=== PATIENT | female | born 1940 | race Caucasian/White ===

== ENCOUNTER 2016-12-25 06:01 | Day surgery (SDC) | payer MEDICARE, BC ==
[~2016-12-25 06:01] MED LIST: Lactated Ringers 1,000 ML IV SCH
[2016-12-25] MEDS ORDERED: DIPRIVAN 200 MG/20 ML IV ONE (06:02)
[2016-12-25] MEDS ORDERED: Ketamine HCl 50 MG/ML IV ONE (06:02)
[2016-12-25] MEDS ORDERED: Lactated Ringers 1,000 ML IV ONE (07:36)
--- NOTE | 2016-12-25 08:04 | OP ---
SURGERY DATE/TIME: 12/25/2016704 PREOPERATIVE DIAGNOSIS: Rectal bleeding. POSTOPERATIVE DIAGNOSIS: Large rectal polyp. PROCEDURE: Colonoscopy. SURGEON: Zia Ferris M.D. ANESTHESIA: MAC by Teddy Brown CRNA. ESTIMATED BLOOD LOSS: Minimal. SPECIMENS: Hot snare polypectomy of large rectal polyp. DESCRIPTION OF PROCEDURE: After informed written consent was obtained, the patient was taken to the endoscopy suite. She underwent monitored anesthesia and a digital rectal exam showed normal sphincter tone. The scope was inserted into the rectum and sequentially the entire colonic mucosa was traversed. The level of cecum was reached and verified with direct visualization of ileocecal valve. Upon withdrawal careful mucosal inspection revealed no abnormalities until the level of the rectum was reached. There was a large polypoid lesion between 10 and 15 cm scope length just below the third valve of [place]. It was large but appeared to have a small base so snare was used to grasp the base. It was encircled and cauterized through and appeared to be adequately removed. It was retrieved in a polyp retrieval basket and removed and sent for pathology testing. The base appeared fairly clean. There was one area on the superior aspect which appeared to have some polypoid appearance so it was grasped with forceps, cauterized and removed from remaining piece of the base and appeared hemostatic with good removal. The rest of the mucosa in the area appeared to be within normal limits. Prior to withdrawal retroflexion was performed and showed no internal lesions. I have advised the patient follow up in a week for pathology results and to hold her Eliquis due to the size of this polyp to allow for healing for a few more days.
[2016-12-25 08:28] VITALS: O2SAT 97
[2016-12-25 08:43] VITALS: BP 159/90; PULSE 73
== END 2016-12-25 08:49 | disposition home or self-care (01) ==
LOC: SDC 06:01
PROVIDERS: ATTEND Family Medicine
PROC: 0DBP8ZX Excision of Rectum, Via Natural or Artificial Opening Endoscopic, Diagnostic (ICD-10-PCS; principal; 2016-12-25)
DX: K62.1 Rectal polyp (principal); K62.5 Hemorrhage of anus and rectum; E11.9 Type 2 diabetes mellitus without complications
CPT/HCPCS: 00810; 36415; 82962; 88305; 99100; J2704

== ENCOUNTER 2017-12-01 09:24 | Day surgery (SDC) | payer MEDICARE, BC ==
--- NOTE | 2017-12-01 08:37 | HP ---
DATE OF SURGERY: 12/01/2017 HISTORY OF PRESENT ILLNESS: The patient is a 77 year-old with no prior scope. No pain. No change in bowel movements. She did have prior colonoscopy. She had focal area of cancer and polyp and is in need of short-term follow up colonoscopy at this point. PAST MEDICAL HISTORY: Heart disease, diabetes. PAST SURGICAL HISTORY: Cholecystectomy, colonoscopy in the past. Removal of rectal polyp that had focal area of cancer and is in need of follow up colonoscopy. MEDICATIONS: She has been on Metformin, metoprolol, olmesartan, hydrochlorothiazide, Verapamil, Lantus in the past. Hydralazine, Humalog, Atorvastatin. ALLERGIES: NKDA. FAMILY HISTORY: Negative in regards to this problem. SOCIAL HISTORY: No smoking or alcohol abuse. REVIEW OF SYSTEMS: Twelve systems reviewed per admission assessment. No chest pain or palpitations other systems negative or noncontributory as above and per preadmission questionnaire. PHYSICAL EXAMINATION: GENERAL: No acute distress. HEENT: Sclerae nonicteric. NECK: No JVD. CHEST: Equal excursion, nonlabored breathing. CVS: Regular rate and rhythm. ABDOMEN: Soft. No peritoneal signs. EXTREMITIES: No significant edema. NEURO: Alert, oriented, moving extremities symmetrically. No gross motor deficits noted. RECTAL: Timed to endoscopy. IMPRESSION: History of rectal cancer focal area of carcinoma status post polypectomy in need of short term follow up colonoscopy. Risks and benefits explained in detail including but not limited to bleeding or infection, small risk of bowel injury or perforation possibly requiring open procedure, risk of missed or nondiagnosis or incomplete exam possibly requiring barium enema, other studies or procedures, general risk of anesthesia or sedation. She understands and agrees to the planned procedure and will proceed with outpatient follow up short-term colonoscopy given this high risk lesion.
[2017-12-01] MEDS ORDERED: Ketamine HCl 50 MG/ML IV ONE (09:25)
[2017-12-01] MEDS ORDERED: ROBINUL IV ONE (09:25)
[2017-12-01] MEDS ORDERED: DIPRIVAN 200 MG/20 ML IV ONE (09:25)
[2017-12-01] MEDS ORDERED: Lactated Ringers 1,000 ML IV ONE (10:04)
[2017-12-01 14:37] VITALS: O2SAT 96
[2017-12-01 14:43] VITALS: BP 187/70; PULSE 54
--- NOTE | 2017-12-01 14:54 | OP ---
SURGERY DATE/TIME: 12/01/2017 1137 PREOPERATIVE DIAGNOSIS: History of rectal polyp with focal area of carcinoma, need for short-term follow up colonoscopy. POSTOPERATIVE DIAGNOSES: 1) Rectal polyp. 2) Somewhat limited prep. 3) Additional small raised lesions versus hyperplastic lesion rectum x1 and ascending colon x1. PROCEDURES: 1) Colonoscopy to cecum with hot snare rectal polyp with ink spot tattooing of location (approximately 8 cm from anal verge). 2) Hot biopsy removal of small raised lesion ascending colon x1, hot biopsy removal of small raised lesion versus hyperplastic lesion rectum x1. SURGEON: Dr. Teddy Martin. ANESTHESIA: MAC. ESTIMATED BLOOD LOSS: Minimal. INDICATIONS: As noted above. Risks and benefits explained in detail but not limited to and consent obtained. DESCRIPTION OF PROCEDURE AND FINDINGS: The patient is taken to the endoscopy room. MAC anesthesia introduced. After official time out and no disagreement with planned procedure, a digital rectal exam did not reveal any large rectal masses. She did have some small internal and external hemorrhoids. Video colonoscope inserted and passed up through the tortuous sigmoid, descending, transverse and ascending colon. With external pressure the scope was able to be passed through the cecum. Appendiceal orifice and valve well visualized. Prep overall was somewhat limited. There were some areas clean throughout the colon but other areas had some semi-solid and solid stool suction irrigated as well as possible but limited exam. The scope is slowly and carefully withdrawn. There was a small raised lesion in ascending colon removed with hot biopsy forceps with brief bursts of cautery. Whether this is simple hyperplasia of mucosa or hyperplastic lesion was removed with hot biopsy forceps with brief bursts of cautery. Good hemostasis noted. The scope is slowly and carefully withdrawn. She did have diverticulosis. The scope pulled back to the rectum. The old ink spot tattooing that had been injected in the past has faded, difficult to tell exact location. However previous polypectomy site with new polyp reaction and the size about 3 to 4 mm. It was felt this would benefit from removal. It was felt the best option as this was not ideally pedunculated. It was elected to go ahead and inject saline underneath the lesion elevating upward. It was then grasped with snare. Hot snare polypectomy accomplished with brief bursts of cautery. Appeared to have good hemostasis. The specimen is passed off. There was another small raised lesion more distal of that location was about 8 cm from the anal verge. A small more distal raised lesion versus hyperplastic lesion removed with hot biopsy forceps. Good hemostasis noted. Otherwise polyp at the center is marked with ink spot tattoo location with 1 cc injected at a couple different locations. The patient tolerated the procedure well. There were no immediate complications. Appeared to have adequate hemostasis. Findings discussed with the family out in the waiting area. Otherwise she had some small internal and external hemorrhoids, had some diverticulosis. No signs of any large polyps or masses or obstructing lesions.
== END 2017-12-01 13:30 | disposition home or self-care (01) ==
LOC: SDC 09:24
PROVIDERS: ATTEND Surgery
DX: Z12.11 Encounter for screening for malignant neoplasm of colon (principal); K62.1 Rectal polyp; Z86.010 Personal history of colon polyps; Z85.048 Personal history of other malignant neoplasm of rectum, rectosigmoid junction, and anus; I51.9 Heart disease, unspecified; E11.9 Type 2 diabetes mellitus without complications; Z79.4 Long term (current) use of insulin; Z79.899 Other long term (current) drug therapy; K63.9 Disease of intestine, unspecified
CPT/HCPCS: 82962; 88305; 94250; 99100; J2704

== ENCOUNTER 2019-08-23 09:30 | Emergency (ER) | payer MEDICARE ==
--- NOTE | 2019-08-23 09:52 | ERPHSYRPT ---
- History of Present Illness Time Seen by Provider: 08/23/19 09:38 Historian: patient Patient Subjective Stated Complaint: Pt states "I have afib and it has felt like my heart has been racing but it is letting up now and I had pain this time and I have never had pain before. But that has all let up now as well." Triage Nursing Assessment: Pt presented alert and oriented X 3, skin pwd PT ambulates with an upright steady gait, able to speak in clear full sentences pt in no apprent respiratory distress. Physician History: Patient is an 79-year-old female with a history of A. fib on Eliquis presents to our ED with complaints of heart palpitations. Patient felt heart palpitations last night. Palpitations were associated with transient pain. Patient has a history of cardiac ablation for the atrial fibrillation. She is currently on Eliquis. However patient states that she is currently not experiencing any heart palpitations. Patient's pain is 0 out of 10 at this time. No associated nausea or vomiting. No diaphoresis. No trauma. No fevers. No syncope. No dizziness. Symptoms are currently resolved. However when present symptoms are mild to moderate in intensity. Patient believes heart palpitations occur with activity. Patient voices no other complaints at this time. Timing/Duration: yesterday Activities at Onset: activity Quality: aching Location: substernal Chest Pain Radiation: no radiation Severity of Pain-Max: mild Severity of Pain-Current: mild Modifying Factors: Improves With: nothing Associated Symptoms: No nausea, No vomiting, No heartburn, No abdominal pain, No shortness of breath, No cough, No hurts to breathe, No chills, No fever, No fatigue, No weakness, No syncope, No rash, No headache, No dizziness Prior Chest Pain/Cardiac Workup: echocardiography Nitro Today/Relief: no nitro taken today Aspirin Treatment Today: no aspirin today Allergies/Adverse Reactions: No Known Drug Allergies Allergy (Verified 12/01/17 09:50) Home Medications: Atorvastatin Calcium 40 mg PO DAILY 12/19/16 [History] Hydralazine HCl 10 mg PO BID 12/19/16 [History] Metformin HCl 500 mg PO BID 12/19/16 [History] Metoprolol Succinate 50 mg PO BID 12/19/16 [History] Olmesartan/Hydrochlorothiazide [Benicar Hct 40-25 mg Tablet] 1 each PO DAILY 02/25 [History] Verapamil HCl 80 mg [Calan 80 mg] 80 mg PO TID 12/19/16 [History] Ascorbic Acid 500 mg [Vitamin C 500 MG] 500 mg PO DAILY 11/17/17 [History] Calcium Carb, Citrate/Vit D3 [Calcium + D3 ER Tablet] 1 each PO DAILY 11/17/17 [ History] Insulin Glargine [Lantus Insulin] 40 unit SQ DAILY 11/17/17 [History] Insulin Lispro [Humalog Kwikpen U-100] 15 unit SQ UD 11/17/17 [History] Hx Tetanus, Diphtheria Vaccination/Date Given: No Hx Influenza Vaccination/Date Given: No Hx Pneumococcal Vaccination/Date Given: No Immunizations Up to Date: Yes Travel Risk - International Travel Have you traveled outside of the country in past 3 weeks: No Have you or anyone close to you been diagnosed with or: No Do your reside in a community with a known COVID-19 case?: Yes If Yes where:: [place] - Coronavirus Screening Has patient experienced Coronavirus symptoms: No - Review of Systems Constitutional: No Symptoms, No Fever, No Chills Eyes: No Symptoms Ears, Nose, & Throat: No Symptoms Respiratory: No Symptoms, No Cough, No Dyspnea Cardiac: Chest Pain, Palpitations, No Edema, No Syncope Abdominal/Gastrointestinal: No Symptoms, No Abdominal Pain, No Nausea, No Vomiting, No Diarrhea Genitourinary Symptoms: No Symptoms, No Dysuria Musculoskeletal: No Symptoms, No Back Pain, No Neck Pain Skin: No Symptoms, No Rash Neurological: No Symptoms, No Dizziness, No Focal Weakness, No Sensory Changes Psychological: No Symptoms Endocrine: No Symptoms Hematologic/Lymphatic: No Symptoms Immunological/Allergic: No Symptoms All Other Systems: Reviewed and Negative - Past Medical History Pertinent Past Medical History: Yes Neurological History: No Pertinent History ENT History: Cataracts Cardiac History: Arrhythmia, Hypertension Respiratory History: No Pertinent History Endocrine Medical History: Diabetes Type II Musculoskeletal History: Arthritis GI Medical History: Polyps History: No Pertinent History Psycho-Social History: No Pertinent History Female Reproductive Disorders: No Pertinent History Other Medical History: A-fib. cancerous colon polyp 2016 - Past Surgical History Past Surgical History: Yes Neuro Surgical History: No Pertinent History Cardiac: No Pertinent History, Cardiac Catheterization, Other Respiratory: No Pertinent History Gastrointestinal: Appendectomy, Cholecystectomy Genitourinary: No Pertinent History Musculoskeletal: Orthopedic Surgery Female Surgical History: Hysterectomy Other Surgical History: Cardiac ablation. right ankle tendon repair - Social History Smoking Status: Never smoker Exposure to second hand smoke: No Drug Use: none Patient Lives Alone: No - Nursing Vital Signs Nursing Vital Signs: Initial Vital Signs Temperature 97.7 F 08/23/19 09:31 Pulse Rate 108 H 08/23/19 09:31 Respiratory Rate 22 08/23/19 09:31 Blood Pressure 166/90 08/23/19 09:31 O2 Sat by Pulse Oximetry 98 08/23/19 09:31 Pain Scale Pain Intensity 1 - Physical Exam General Appearance: no apparent distress, alert Eye Exam: PERRL/EOMI, eyes nml inspection Ears, Nose, Throat Exam: normal ENT inspection, moist mucous membranes Neck Exam: normal inspection, non-tender, supple, full range of motion Respiratory Exam: normal breath sounds, lungs clear, No respiratory distress Cardiovascular Exam: regular rate/rhythm, normal heart sounds Gastrointestinal/Abdomen Exam: soft, No tenderness, No mass Pelvic Exam: not done Back Exam: normal inspection, No CVA tenderness, No vertebral tenderness Extremity Exam: normal inspection, normal range of motion Neurologic Exam: alert, oriented x 3, cooperative, normal mood/affect, sensation nml, No motor deficits Skin Exam: normal color, warm, dry Lymphatic Exam: adenopathy SpO2 Interpretation: normal SpO2: 98 O2 Delivery: Room Air - Course Nursing assessment & vital signs reviewed: Yes EKG Interpreted by Me: RATE, Sinus Rhythm, NORMAL AXIS, NORMAL QRS Ordered Tests: Active Orders 24 hr Category Date Time Status Retail Loss Prevention Investigator STAT Care 08/23/19 09:35 Active EKG-ER Only STAT Care 08/23/19 09:34 Active EKG-ER Only STAT Care 08/23/19 13:17 Active IV Insertion STAT Care 08/23/19 09:34 Active Pulse Oximetry (ED) STAT Care 08/23/19 09:34 Active CHEST 1 VIEW (PORTABLE) Stat Exams 08/23/19 09:34 Completed CBC W DIFF Stat Lab 08/23/19 09:34 Completed CMP Stat Lab 08/23/19 09:34 Completed NT PRO BNP Stat Lab 08/23/19 09:34 Completed PROTIME WITH INR Stat Lab 08/23/19 09:34 Completed PTT Stat Lab 08/23/19 09:34 Completed TROPONIN Q3H Lab 08/23/19 09:45 Completed TROPONIN Q3H Lab 08/23/19 12:34 Completed TROPONIN Q3H Lab 08/23/19 15:45 Ordered TROPONIN Q3H Lab 08/23/19 18:45 Ordered TROPONIN Q3H Lab 08/23/19 21:45 Ordered Medication Summary Discontinued Medications Generic Name Dose Route Start Last Admin Trade Name Freq PRN Reason Stop Dose Admin Sodium Chloride 1,000 mls @ 999 mls/hr 08/23/19 11:33 08/23/19 13:08 Sodium Chloride 0.9% 1000 Ml IV 08/23/19 12:33 Infused .Q1H1M STA Infusion Sodium Chloride Confirm 08/23/19 11:39 Sodium Chloride 0.9% 1000 Ml Administered 08/23/19 11:40 Dose 1,000 mls @ ud .ROUTE .STK-MED ONE Lab/Rad Data: Laboratory Result Diagrams 08/23/19 09:34 08/23/19 09:34 Laboratory Results 08/23/19 08/23/19 08/23/19 Range/Units 12:34 09:45 09:34 WBC (4.0-10.5) K/mm3 RBC (4.1-5.4) M/mm3 Hgb (12.0-16.0) gm/dl Hct (35-47) % MCV (78-100) fl MCH (26-32) pg MCHC (32-36) g/dl RDW (11.5-14.0) % Plt Count (150-450) K/mm3 MPV (7.5-11.0) fl Gran % (36.0-66.0) % Eos # (Auto) (0-0.5) Absolute Lymphs (auto) (1.0-4.6) Absolute Monos (auto) (0.0-1.3) Lymphocytes % (24.0-44.0) % Monocytes % (0.0-12.0) % Eosinophils % (0.00-5.0) % Basophils % (0.0-0.4) % Absolute Granulocytes (1.4-6.9) Basophils # (0-0.4) PT 12.3 (9.95-12.35) SECONDS INR 1.09 (0.8-3.0) APTT 38.2 H (25.3-37.0) SECONDS Sodium (137-145) mmol/L Potassium (3.5-5.1) mmol/L Chloride (98-107) mmol/L Carbon Dioxide (22-30) mmol/L Anion Gap (5-15) MEQ/L BUN (7-17) mg/dL Creatinine (0.52-1.04) mg/dL Estimated GFR ML/MIN Glucose (74-106) mg/dL Calcium (8.4-10.2) mg/dL Total Bilirubin (0.2-1.3) mg/dL AST (14-36) U/L ALT (0-35) U/L Alkaline Phosphatase (38-126) U/L Troponin I < 0.012 < 0.012 (0.000-0.034) ng/mL NT-Pro-B Natriuret Pep (0-1800) pg/mL Serum Total Protein (6.3-8.2) g/dL Albumin (3.5-5.0) g/dL 08/23/19 08/23/19 Range/Units 09:34 09:34 WBC 8.2 (4.0-10.5) K/mm3 RBC 4.68 (4.1-5.4) M/mm3 Hgb 13.9 (12.0-16.0) gm/dl Hct 41.9 (35-47) % MCV 89.5 (78-100) fl MCH 29.7 (26-32) pg MCHC 33.2 (32-36) g/dl RDW 14.1 H (11.5-14.0) % Plt Count 260 (150-450) K/mm3 MPV 10.4 (7.5-11.0) fl Gran % 68.7 H (36.0-66.0) % Eos # (Auto) 0.24 (0-0.5) Absolute Lymphs (auto) 1.89 (1.0-4.6) Absolute Monos (auto) 0.41 (0.0-1.3) Lymphocytes % 23.0 L (24.0-44.0) % Monocytes % 5.0 (0.0-12.0) % Eosinophils % 2.9 (0.00-5.0) % Basophils % 0.4 (0.0-0.4) % Absolute Granulocytes 5.64 (1.4-6.9) Basophils # 0.03 (0-0.4) PT (9.95-12.35) SECONDS INR (0.8-3.0) APTT (25.3-37.0) SECONDS Sodium 140 (137-145) mmol/L Potassium 3.7 (3.5-5.1) mmol/L Chloride 101 (98-107) mmol/L Carbon Dioxide 26 (22-30) mmol/L Anion Gap 16.4 H (5-15) MEQ/L BUN 10 (7-17) mg/dL Creatinine 0.52 (0.52-1.04) mg/dL Estimated GFR > 60.0 ML/MIN Glucose 252 H (74-106) mg/dL Calcium 9.9 (8.4-10.2) mg/dL Total Bilirubin 0.90 (0.2-1.3) mg/dL AST 22 (14-36) U/L ALT 17 (0-35) U/L Alkaline Phosphatase 140 H (38-126) U/L Troponin I (0.000-0.034) ng/mL NT-Pro-B Natriuret Pep 331 (0-1800) pg/mL Serum Total Protein 8.2 (6.3-8.2) g/dL Albumin 4.3 (3.5-5.0) g/dL - Progress Progress: improved Air Movement: good Progress Note: 08/23/19 13:44 Patient reassessed. She feels well. Patient has no complaints. Patient requesting discharge. Troponin negative x2. EKG shows no acutely dangerous features. Case discussed with Dr. Martinez. We will apply a 4-hour Holter monitor and have patient follow-up with Dr. Martinez. Plan of care discussed with patient. She understands and agrees to plan of care. Patient voices no other complaints or concerns at this time. Discussed with : Crystal Will see patient in: office Counseled pt/family regarding: lab results, diagnosis, need for follow-up, rad results - Departure Departure Disposition: Home Clinical Impression: Hyperglycemia, Calcified granuloma of lung, Osteopenia, Degenerative arthritis , Heart palpitations Condition: Stable Critical Care Time: No Referrals: MARTINEZ,JOSE YULISA, MD [Primary Care Provider] - Additional Instructions: Discharge/Care Plan JOSEPH WELLS was seen on 08/23/19 in the Emergency Room. The patient was counseled regarding Diagnosis,Lab results, Imaging studies, need for follow up and when to return to the Emergency Room. Prescriptions given: Discharge Note I have spoken with the patient and/or caregivers. I have explained the patient' s condition, diagnosis and treatment plan based on the information available to me at this time. I have answered the patient's and/or caregiver's questions and addressed any concerns. The patient and/or caregivers have as good understanding of the patient's diagnosis, condition and treatment plan as can be expected at this point. The vital signs have been stable. The patient's condition is stable and appropriate for discharge from the emergency department. The patient will pursue further outpatient evaluation with the primary care physician or other designated or consulting physician as outlined in the discharge instructions. The patient and/or caregivers are agreeable to this plan of care and follow-up instructions have been explained in detail. The patient and/or caregivers have received these instruction. The patient/and or caregivers are aware that any significant change in condition or worsening of symptoms should prompt an immediate return to this or the closest emergency department or call 911.
[2019-08-23 09:55] LABS: Absolute Neutrophil Ct (ANC) 5.64 (1.4-6.9); BASOPHIL % 0.4 % (0.0-0.4); Basophil (Absolute #) 0.03 (0-0.4); Eosinophil % 2.9 % (0.00-5.0); Eosinophil (Absolute #) 0.24 (0-0.5); Hematocrit 41.9 % (35-47); Hemoglobin 13.9 gm/dl (12.0-16.0); Lymphocyte (Absolute #) 1.89 (1.0-4.6); Mean Cell Volume 89.5 fl (78-100); Mean Corpuscular Hemoglobin 29.7 pg (26-32); Mean Corpuscular Hgb Concent. 33.2 g/dl (32-36); Mean Platelet Volume 10.4 fl (7.5-11.0); Monocyte (Absolute #) 0.41 (0.0-1.3); Neutrophil % 68.7 % (36.0-66.0); Platelet Count 260 K/mm3 (150-450); Red Blood Count 4.68 M/mm3 (4.1-5.4); Red Cell Distribution Width 14.1 % (11.5-14.0); White Blood Count 8.2 K/mm3 (4.0-10.5)
--- NOTE | 2019-08-23 10:03 | XRAY ---
Indication: Chest pain. Comparison: April 10, 2011. Portable chest slightly rotated with stable right midlung calcified granuloma. No focal infiltrate, consolidation, or large effusion. Heart is not enlarged for AP portable technique. Bony thorax intact with mild osteopenia and degenerative changes. Impression: Nonacute chest with chronic features.
[2019-08-23 10:06] LABS: INR 1.09 (0.8-3.0); PROTIME 12.3 SECONDS (9.95-12.35)
[2019-08-23 10:08] LABS: PTT 38.2 SECONDS (25.3-37.0)
[2019-08-23 10:21] LABS: ALBUMIN 4.3 g/dL (3.5-5.0); ALKALINE PHOSPHATASE 140 U/L (38-126); ANION GAP 16.4 MEQ/L (5-15); BLOOD UREA NITROGEN 10 mg/dL (7-17); CHLORIDE 101 mmol/L (98-107); Calcium 9.9 mg/dL (8.4-10.2); Carbon Dioxide 26 mmol/L (22-30); Creatinine 1 0.52 mg/dL (0.52-1.04); Glucose 252 mg/dL (74-106); NT PRO BNP 331 pg/mL (0-1800); Potassium 3.7 mmol/L (3.5-5.1); SGOT/AST 22 U/L (14-36); SGPT/ALT 17 U/L (0-35); SODIUM 140 mmol/L (137-145); Total Protein 8.2 g/dL (6.3-8.2)
[2019-08-23] MEDS ORDERED: Sodium Chloride 0.9% 1000 ML 1,000 ML IV STA (11:33)
[2019-08-23] MEDS ORDERED: Sodium Chloride 0.9% 1000 ML 1,000 ML ONE (11:39)
[2019-08-23 14:05] VITALS: BP 178/95; PULSE 87; O2SAT 97
== END 2019-08-23 14:07 | disposition home or self-care (01) ==
LOC: ED 09:30
DX: E11.65 Type 2 diabetes mellitus with hyperglycemia (principal); J98.4 Other disorders of lung; M85.80 Other specified disorders of bone density and structure, unspecified site; R00.2 Palpitations; I10 Essential (primary) hypertension; Z79.01 Long term (current) use of anticoagulants; M19.90 Unspecified osteoarthritis, unspecified site; Z79.899 Other long term (current) drug therapy; Z79.4 Long term (current) use of insulin; R07.89 Other chest pain
CPT/HCPCS: 36000; 36415; 71045; 80053; 83880; 84484; 85025; 85610; 85730; 93005; 93041; 94760; 96360; 99284

== ENCOUNTER 2021-04-29 16:57 | Emergency (ER) | payer MEDICARE ==
[2021-04-29] MEDS ORDERED: Hydromorphone 1 mg/ml Injection ONE (17:48)
[2021-04-29] MEDS ORDERED: Sodium Chloride 0.9% 1000 ML 1,000 ML ONE (17:48)
[2021-04-29] MEDS ORDERED: Zofran 4 MG/2 ML VIAL ONE (17:48)
[2021-04-29] MEDS: Sodium Chloride 0.9% 1000 ML 1,000 ML IV SCH (17:49)
[2021-04-29] MEDS: Zofran 4 MG/2 ML VIAL IV ONE (17:51)
[2021-04-29] MEDS: Hydromorphone 1 mg/ml Injection IV ONE (17:52)
[2021-04-29 17:59] LABS: Appearance SLIGHTLY CLOUDY (CLEAR); Bacteria MODERATE /HPF (NEGATIVE); Bilirubin NEGATIVE (NEGATIVE); Blood NEGATIVE Ery/ul (0-5); Epithelial Cells RARE /HPF (FEW); Glucose >=500 mg/dL (NEGATIVE); Ketones NEGATIVE (NEGATIVE); Leukocyte Esterase TRACE (NEGATIVE); Mucus SLIGHT /HPF (NEGATIVE); Nitrite NEGATIVE (NEGATIVE); Protein,Urine Dip NEGATIVE (Negative); RBC 0-2 /HPF (0-2); Urobilinogen NEGATIVE mg/dL (0-1)
[2021-04-29 18:33] LABS: INR 1.25 (0.8-3.0); PROTIME 14.7 SECONDS (9.4-12.5)
[2021-04-29 18:34] LABS: Absolute Neutrophil Ct (ANC) 9.24 (1.4-6.9); BASOPHIL % 0.1 % (0.0-0.4); Basophil (Absolute #) 0.01 (0-0.4); Eosinophil (Absolute #) 0.48 (0-0.5); Hematocrit 38.6 % (35-47); Hemoglobin 12.7 gm/dl (12.0-16.0); Lymphocytes % 13.2 % (24.0-44.0); Mean Cell Volume 89.1 fl (78-100); Mean Corpuscular Hemoglobin 29.3 pg (26-32); Mean Corpuscular Hgb Concent. 32.9 g/dl (32-36); Mean Platelet Volume 10.3 fl (7.5-11.0); Monocyte (Absolute #) 0.77 (0.0-1.3); Monocytes % 6.4 % (0.0-12.0); Neutrophil % 76.3 % (36.0-66.0); Platelet Count 297 K/mm3 (150-450); Red Blood Count 4.33 M/mm3 (4.1-5.4); Red Cell Distribution Width 13.8 % (11.5-14.0); White Blood Count 12.1 K/mm3 (4.0-10.5)
[2021-04-29 18:37] LABS: ALBUMIN 3.9 g/dL (3.5-5.0); ALKALINE PHOSPHATASE 143 U/L (38-126); AMYLASE 45 U/L (30-110); ANION GAP 13.5 MEQ/L (5-15); BLOOD UREA NITROGEN 14 mg/dL (7-17); CHLORIDE 95 mmol/L (98-107); Calcium 9.6 mg/dL (8.4-10.2); Carbon Dioxide 28 mmol/L (22-30); Creatinine 1 0.57 mg/dL (0.52-1.04); EST GLOMERULAR FILTRATION RATE > 60.0 ML/MIN; Glucose 297 mg/dL (74-106); LIPASE 18 U/L (23-300); Potassium 4.1 mmol/L (3.5-5.1); SGOT/AST 17 U/L (14-36); SGPT/ALT 14 U/L (0-35); SODIUM 133 mmol/L (137-145)
--- NOTE | 2021-04-29 18:40 | ERPHSYRPT ---
- History of Present Illness Time Seen by Provider: 04/29/21 17:10 Historian: patient Exam Limitations: no limitations Patient Subjective Stated Complaint: Pt began having right flank pain yesterday evening Triage Nursing Assessment: Pt brought to the ER by her son, jose roberto cho, rates pain 12/19, right flank pain began yesterday evening, denies pain with urination, pain with movement, pulses normal, skin n/w/d, decreased appetite today and decreased fluids Physician History: Patient is a 81-year-old white female who started yesterday evening with pain in the right flank with any movement. She denies nausea vomiting diarrhea no fever chills sweats she denies any change in urination. She has had previous surgery including an appendectomy and a cholecystectomy. Timing/Duration: yesterday Activities at Onset: none Quality: stabbing Abdominal Pain Onset Location: flank (Right flank) Severity of Pain-Max: moderate Severity of Pain-Current: moderate Modifying Factors: Improves With: movement Previous symptoms: no prior history Allergies/Adverse Reactions: No Known Drug Allergies Allergy (Verified 04/29/21 17:10) Home Medications: Atorvastatin Calcium 40 mg PO DAILY 12/19/16 [History] Hydralazine HCl 10 mg PO BID 12/19/16 [History] Metformin HCl 1,000 mg PO DAILY 12/19/16 [History] Metoprolol Succinate 50 mg PO BID 12/19/16 [History] Olmesartan/Hydrochlorothiazide [Benicar Hct 40-25 mg Tablet] 1 each PO DAILY 12/19/16 [History] Verapamil HCl 80 mg [Calan 80 mg] 80 mg PO TID 12/19/16 [History] Ascorbic Acid 500 mg [Vitamin C 500 MG] 500 mg PO DAILY 11/17/17 [History] Calcium Carb, Citrate/Vit D3 [Calcium + D3 ER Tablet] 1 each PO DAILY 11/17/17 [History] Insulin Glargine [Lantus Insulin] 40 unit SQ DAILY 11/17/17 [History] Insulin Lispro [Humalog Kwikpen U-100] 15 unit SQ UD 11/17/17 [History] Hx Tetanus, Diphtheria Vaccination/Date Given: No Hx Influenza Vaccination/Date Given: No Hx Pneumococcal Vaccination/Date Given: No Travel Risk - International Travel Have you traveled outside of the country in past 3 weeks: No - Coronavirus Screening Are you exhibiting any of the following symptoms?: No Close contact with a COVID-19 positive Pt in past 14-21 Days: No - Vaccine Status Have you recieved a Covid-19 vaccination: No - Review of Systems Constitutional: No Fever, No Chills Eyes: No Symptoms Ears, Nose, & Throat: No Symptoms Respiratory: No Cough, No Dyspnea Cardiac: No Chest Pain, No Edema, No Syncope Abdominal/Gastrointestinal: Abdominal Pain (Patient has pain in the right flank and right lower quadrant of the abdomen), No Nausea, No Vomiting, No Diarrhea Genitourinary Symptoms: No Dysuria Musculoskeletal: No Back Pain, No Neck Pain Skin: No Rash Neurological: No Dizziness, No Focal Weakness, No Sensory Changes Psychological: No Symptoms Endocrine: No Symptoms All Other Systems: Reviewed and Negative - Past Medical History Pertinent Past Medical History: Yes Neurological History: No Pertinent History ENT History: Cataracts Cardiac History: Arrhythmia, Hypertension Respiratory History: No Pertinent History Endocrine Medical History: Diabetes Type II Musculoskeletal History: Arthritis GI Medical History: Polyps History: No Pertinent History Psycho-Social History: No Pertinent History Female Reproductive Disorders: No Pertinent History Other Medical History: A-fib. cancerous colon polyp 2016 - Past Surgical History Past Surgical History: Yes Neuro Surgical History: No Pertinent History Cardiac: No Pertinent History, Cardiac Catheterization, Other Respiratory: No Pertinent History Gastrointestinal: Appendectomy, Cholecystectomy Genitourinary: No Pertinent History Musculoskeletal: Orthopedic Surgery Female Surgical History: Hysterectomy Other Surgical History: Cardiac ablation. right ankle tendon repair - Social History Smoking Status: Never smoker Exposure to second hand smoke: No Drug Use: none Patient Lives Alone: No - Female History Hx Now: No - Nursing Vital Signs Nursing Vital Signs: Initial Vital Signs Temperature 97.3 F 04/29/21 17:00 Pulse Rate 74 04/29/21 17:00 Blood Pressure 105/73 04/29/21 17:00 O2 Sat by Pulse Oximetry 95 04/29/21 17:00 Pain Scale Pain Intensity 8 - Physical Exam General Appearance: mild distress, alert Eye Exam: PERRL/EOMI, eyes nml inspection Ears, Nose, Throat Exam: normal ENT inspection, pharynx normal, moist mucous me mbranes Neck Exam: normal inspection, non-tender, supple, full range of motion Respiratory Exam: normal breath sounds, lungs clear, No respiratory distress Cardiovascular Exam: regular rate/rhythm, normal heart sounds Gastrointestinal/Abdomen Exam: soft, tenderness (Right flank), No mass Back Exam: normal inspection, normal range of motion, No CVA tenderness, No vertebral tenderness Extremity Exam: normal inspection, normal range of motion, pelvis stable Neurologic Exam: alert, oriented x 3, cooperative, normal mood/affect, nml cerebellar function, sensation nml, No motor deficits Skin Exam: normal color, warm, dry SpO2 Interpretation: normal SpO2: 95 O2 Delivery: Room Air - Course Nursing assessment & vital signs reviewed: Yes - Radiology Exams Chest X-ray Interpretation: Reviewed by me, Other (No acute findings were noted except perhaps a questionable nodule in the right midlung field) - CT Exams Abdomen/Pelvis CT Interpretation: Tele-radiologist Report Ordered Tests: Active Orders 24 hr Category Date Time Status IV Insertion STAT Care 04/29/21 17:25 Active ABDOMEN AND PELVIS W/0 CONTRAS [CT] Stat Exams 04/29/21 17:26 Taken CHEST 1 VIEW (PORTABLE) Stat Exams 04/29/21 17:26 Taken AMYLASE Stat Lab 04/29/21 18:00 Completed CBC W DIFF Stat Lab 04/29/21 18:00 Completed CMP Stat Lab 04/29/21 18:00 Completed CULTURE,URINE Stat Lab 04/29/21 17:31 Received LIPASE Stat Lab 04/29/21 18:00 Completed Lactic Acid Stat Lab 04/29/21 17:25 Completed PROTIME WITH INR Stat Lab 04/29/21 18:00 Completed UA W/RFX UR CULTURE Stat Lab 04/29/21 17:31 Completed Medication Summary Generic Name Dose Route Start Last Admin Trade Name Freq PRN Reason Stop Dose Admin Sodium Chloride 1,000 mls @ 100 mls/hr 04/29/21 17:30 04/29/21 17:49 Sodium Chloride 0.9% 1000 Ml IV 05/29/21 17:29 100 mls/hr .Q10H YANY Administration Discontinued Medications Generic Name Dose Route Start Last Admin Trade Name Freq PRN Reason Stop Dose Admin Hydromorphone HCl 0.5 mg 04/29/21 17:25 04/29/21 17:52 Hydromorphone 1 Mg/1ml Inj 1 Mg/Ml Syringe IV 04/29/21 17:26 0.5 mg STAT ONE Administration Hydromorphone HCl Confirm 04/29/21 17:48 Hydromorphone 1 Mg/1ml Inj 1 Mg/Ml Syringe Administered 04/29/21 17:49 Dose 1 mg .ROUTE .STK-MED ONE Ondansetron HCl 4 mg 04/29/21 17:25 04/29/21 17:51 Ondansetron Hcl 4 Mg/2 Ml Vial IV 04/29/21 17:26 4 mg STAT ONE Administration Ondansetron HCl Confirm 04/29/21 17:48 Ondansetron Hcl 4 Mg/2 Ml Vial Administered 04/29/21 17:49 Dose 4 mg .ROUTE .STK-MED ONE Lab/Rad Data: Laboratory Result Diagrams 04/29/21 18:00 04/29/21 18:00 Laboratory Results 04/29/21 04/29/21 04/29/21 Range/Units 18:00 18:00 18:00 WBC 12.1 H (4.0-10.5) K/mm3 RBC 4.33 (4.1-5.4) M/mm3 Hgb 12.7 (12.0-16.0) gm/dl Hct 38.6 (35-47) % MCV 89.1 (78-100) fl MCH 29.3 (26-32) pg MCHC 32.9 (32-36) g/dl RDW 13.8 (11.5-14.0) % Plt Count 297 (150-450) K/mm3 MPV 10.3 (7.5-11.0) fl Gran % 76.3 H (36.0-66.0) % Eos # (Auto) 0.48 (0-0.5) Absolute Lymphs (auto) 1.60 (1.0-4.6) Absolute Monos (auto) 0.77 (0.0-1.3) Lymphocytes % 13.2 L (24.0-44.0) % Monocytes % 6.4 (0.0-12.0) % Eosinophils % 4.0 (0.00-5.0) % Basophils % 0.1 (0.0-0.4) % Absolute Granulocytes 9.24 H (1.4-6.9) Basophils # 0.01 (0-0.4) PT 14.7 H (9.4-12.5) SECONDS INR 1.25 (0.8-3.0) Sodium 133 L (137-145) mmol/L Potassium 4.1 (3.5-5.1) mmol/L Chloride 95 L (98-107) mmol/L Carbon Dioxide 28 (22-30) mmol/L Anion Gap 13.5 (5-15) MEQ/L BUN 14 (7-17) mg/dL Creatinine 0.57 (0.52-1.04) mg/dL Estimated GFR > 60.0 ML/MIN Glucose 297 H (74-106) mg/dL Lactic Acid (0.4-2.0) Calcium 9.6 (8.4-10.2) mg/dL Total Bilirubin 0.70 (0.2-1.3) mg/dL AST 17 (14-36) U/L ALT 14 (0-35) U/L Alkaline Phosphatase 143 H (38-126) U/L Serum Total Protein 7.0 (6.3-8.2) g/dL Albumin 3.9 (3.5-5.0) g/dL Amylase 45 (30-110) U/L Lipase 18 L (23-300) U/L Urine Color (YELLOW) Urine Appearance (CLEAR) Urine pH (5-6) Ur Specific [place] (1.005-1.025) Urine Protein (Negative) Urine Ketones (NEGATIVE) Urine Blood (0-5) Chase/ul Urine Nitrite (NEGATIVE) Urine Bilirubin (NEGATIVE) Urine Urobilinogen (0-1) mg/dL Ur Leukocyte Esterase (NEGATIVE) Urine WBC (Auto) (0-5) /HPF Urine RBC (Auto) (0-2) /HPF U Epithel Cells (Auto) (FEW) /HPF Urine Bacteria (Auto) (NEGATIVE) /HPF Urine Mucus (Auto) (NEGATIVE) /HPF Urine Culture Reflexed (NO) Urine Glucose (NEGATIVE) mg/dL 04/29/21 04/29/21 Range/Units 17:31 17:25 WBC (4.0-10.5) K/mm3 RBC (4.1-5.4) M/mm3 Hgb (12.0-16.0) gm/dl Hct (35-47) % MCV (78-100) fl MCH (26-32) pg MCHC (32-36) g/dl RDW (11.5-14.0) % Plt Count (150-450) K/mm3 MPV (7.5-11.0) fl Gran % (36.0-66.0) % Eos # (Auto) (0-0.5) Absolute Lymphs (auto) (1.0-4.6) Absolute Monos (auto) (0.0-1.3) Lymphocytes % (24.0-44.0) % Monocytes % (0.0-12.0) % Eosinophils % (0.00-5.0) % Basophils % (0.0-0.4) % Absolute Granulocytes (1.4-6.9) Basophils # (0-0.4) PT (9.4-12.5) SECONDS INR (0.8-3.0) Sodium (137-145) mmol/L Potassium (3.5-5.1) mmol/L Chloride (98-107) mmol/L Carbon Dioxide (22-30) mmol/L Anion Gap (5-15) MEQ/L BUN (7-17) mg/dL Creatinine (0.52-1.04) mg/dL Estimated GFR ML/MIN Glucose (74-106) mg/dL Lactic Acid 2.0 (0.4-2.0) Calcium (8.4-10.2) mg/dL Total Bilirubin (0.2-1.3) mg/dL AST (14-36) U/L ALT (0-35) U/L Alkaline Phosphatase (38-126) U/L Serum Total Protein (6.3-8.2) g/dL Albumin (3.5-5.0) g/dL Amylase (30-110) U/L Lipase (23-300) U/L Urine Color YELLOW (YELLOW) Urine Appearance SLIGHTLY CLOUDY (CLEAR) Urine pH 6.0 (5-6) Ur Specific [place] 1.010 (1.005-1.025) Urine Protein NEGATIVE (Negative) Urine Ketones NEGATIVE (NEGATIVE) Urine Blood NEGATIVE (0-5) Chase/ul Urine Nitrite NEGATIVE (NEGATIVE) Urine Bilirubin NEGATIVE (NEGATIVE) Urine Urobilinogen NEGATIVE (0-1) mg/dL Ur Leukocyte Esterase TRACE (NEGATIVE) Urine WBC (Auto) 6-10 (0-5) /HPF Urine RBC (Auto) 0-2 (0-2) /HPF U Epithel Cells (Auto) RARE (FEW) /HPF Urine Bacteria (Auto) MODERATE (NEGATIVE) /HPF Urine Mucus (Auto) SLIGHT (NEGATIVE) /HPF Urine Culture Reflexed YES (NO) Urine Glucose >=500 (NEGATIVE) mg/dL - Progress Progress: unchanged - Departure Departure Disposition: Home Clinical Impression: Urinary tract infection Condition: Stable Critical Care Time: No Referrals: JOSE MARTINEZ MD [Primary Care Provider] - Follow up/PCP as directed Instructions: Urinary Tract Infection, Adult (DC) Prescriptions: Hydrocodone/Acetaminophen [Hydrocodone-Acetamin 5-325 mg] 1 tab PO Q6HPRN PRN 3 Days #12 tablet MDD 4 PRN Reason: Pain Cephalexin Mh 500 mg [Keflex 500 mg] 500 mg PO QID #40 cap
[2021-04-29 19:13] VITALS: PULSE 60
[2021-04-29 20:45] VITALS: BP 154/67; O2SAT 96
[2021-04-29] MEDS ORDERED: KEFLEX 500 MG ONE (20:49)
[2021-04-29] MEDS ORDERED: NORCO 5/325 MG ONE (20:50)
[2021-04-29] MEDS: NORCO 5/325 MG PO ONE (20:51)
[2021-04-29] MEDS: KEFLEX 500 MG PO ONE (20:53)
--- NOTE | 2021-04-30 08:50 | XRAY ---
Indication: Right abdomen pain. Multiple contiguous axial images obtained through the abdomen and pelvis without contrast. Comparison: January 03, 2017 Lung bases demonstrates mild bilateral dependent atelectasis. No infiltrate or effusion.. Heart is not enlarged. Again small hiatal hernia. Noncontrasted stomach and bowel loops appear nonobstructed. Stable small duodenal diverticulum. There is now mild diffuse fecal debris predominantly in the ascending and transverse colon. Scattered descending/sigmoid diverticulosis. Stable small left mid renal angiomyolipoma. Again previous reported appendectomy, cholecystectomy, and hysterectomy. No free fluid/air.. Remaining liver, pancreas, spleen, adrenal glands, kidneys, ureters, and bladder are unremarkable for noncontrast exam. There remains moderate scattered aortoiliac calcifications without AAA.. Osseous structures intact again with incidental osteopenia, mild degenerative changes throughout the thoracal lumbar spine, multilevel vertebral hemangiomas, and benign T12 sclerotic lesion. Impression: 1. New mild fecal stasis. 2. Again incidental duodenal diverticulum, colonic diverticulosis, small hiatal hernia, left renal angiomyolipoma, and chronic bony findings. 3. Remaining CT abdomen/pelvis without contrast exam is negative. Comment: Preliminary interpretation made by [facility]. No critical discrepancy.
--- NOTE | 2021-04-30 08:50 | XRAY ---
Indication: Pain. Comparison: August 23, 2019. Portable apical lordotic chest remains clear again with incidental right mid lung calcified granuloma. Heart not enlarged for AP portable technique. Bony thorax intact again with osteopenia and degenerative changes. No new/acute findings.
== END 2021-04-29 21:03 | disposition home or self-care (01) ==
LOC: ED 16:57
DX: N39.0 Urinary tract infection, site not specified (principal); E11.36 Type 2 diabetes mellitus with diabetic cataract; H26.9 Unspecified cataract; Z79.4 Long term (current) use of insulin; Z79.84 Long term (current) use of oral hypoglycemic drugs; I10 Essential (primary) hypertension; Z79.891 Long term (current) use of opiate analgesic
CPT/HCPCS: 36000; 36415; 71045; 74176; 80053; 81001; 82150; 83605; 83690; 85025; 85610; 87077; 87086; 87186; 96374; 96375; 99284; J1170; J2405; A9270-GY

== ENCOUNTER 2021-10-18 15:18 | Observation (INO) | payer MEDICARE ==
[2021-10-18] MEDS ORDERED: SUBLIMAZE 100 MCG/2 ML IV ONE (16:02)
[2021-10-18] MEDS ORDERED: Zofran 4 MG/2 ML VIAL IV ONE (16:02)
[2021-10-18] MEDS ORDERED: Zofran 4 MG/2 ML VIAL ONE (16:13)
[2021-10-18] MEDS ORDERED: SUBLIMAZE 100 MCG/2 ML ONE (16:13)
--- NOTE | 2021-10-18 16:18 | ERPHSYRPT ---
- History of Present Illness Time Seen by Provider: 10/18/21 15:34 Source: patient Exam Limitations: no limitations Patient Subjective Stated Complaint: C/O right upper arm pain after a fall at home. Patient states she tripped over a rug at home. She did hit her head/face. Nose was bleeding after the fall. Denies any pain anywhere else. Triage Nursing Assessment: Patient arrived by ambulance to ED. She is alert and oriented and answering questions appropriately. Left knee is swollen and starting to bruise. Pedal pulse present. Patient able to move LLE WNL without difficulties. Right upper arm with decreased mobility noted due to pain. Radial pulse present. CMS check to right fingers WNL. Movement of patient wrist increased pain in right bicep area so any further ROM of RUE was not completed for fear of exacerbating the injury. Physician History: 81 years old female with history of hypertension, hyperlipidemia, diabetes mellitus, atrial fibrillation on Eliquis presented in ER with chief complaint of fall. Patient reports she was caring for groceries and home and tripped over a piece of rug, bent face forward hitting her left knee, right elbow and face. No loss of consciousness but did have some nasal bleed which is improved. Denies any headache moderate to severe sharp pain in the right upper arm radiating to her neck and left knee with swelling making it difficult to ambulate. Occurred: just prior to arrival Reason for Fall: tripped Injuries/Pain Location: face, upper extremity, lower Loss of Consciousness: no loss of consciousness Quality: sharpness Severity of Pain-Max: moderate Severity of Pain-Current: moderate Modifying Factors: Improves With: immobilization. Worsens With: movement Associated Symptoms (Fall): extremity injury, trouble walking, No abdominal pain, No back pain, No confusion, No chest pain, No dizziness, No headache, No lightheadedness, No muscle spasms, No nausea, No neck pain, No ringing in ears, No seizures, No shortness of breath, No slurred speech, No vomiting, No vision changes Allergies/Adverse Reactions: No Known Drug Allergies Allergy (Verified 10/18/21 15:21) Home Medications: Atorvastatin Calcium 40 mg PO DAILY 12/19/16 [History] Hydralazine HCl 10 mg PO BID 12/19/16 [History] Metformin HCl 1,000 mg PO DAILY 12/19/16 [History] Metoprolol Succinate 25 mg PO BID 12/19/16 [History] Olmesartan/Hydrochlorothiazide [Benicar Hct 40-25 mg Tablet] 1 each PO DAILY 12/19/16 [History] Verapamil HCl 80 mg [Calan 80 mg] 80 mg PO TID 12/19/16 [History] Ascorbic Acid 500 mg [Vitamin C 500 MG] 500 mg PO DAILY 11/17/17 [History] Calcium Carb, Citrate/Vit D3 [Calcium + D3 ER Tablet] 1 each PO DAILY 11/17/17 [History] Insulin Glargine [Lantus Insulin] 40 unit SQ DAILY 11/17/17 [History] Insulin Lispro [Humalog Kwikpen U-100] 15 unit SQ UD 11/17/17 [History] Hx Tetanus, Diphtheria Vaccination/Date Given: Yes Hx Influenza Vaccination/Date Given: No Hx Pneumococcal Vaccination/Date Given: Yes (Within the past 3 years) Immunizations Up to Date: Yes Travel Risk - International Travel Have you traveled outside of the country in past 3 weeks: No - Coronavirus Screening Are you exhibiting any of the following symptoms?: No Close contact with a COVID-19 positive Pt in past 14-21 Days: No - Vaccine Status Have you recieved a Covid-19 vaccination: No - Review of Systems Constitutional: No Symptoms Eyes: No Symptoms Ears, Nose, & Throat: Epistaxis Respiratory: No Symptoms Cardiac: No Symptoms Abdominal/Gastrointestinal: No Symptoms Genitourinary Symptoms: No Symptoms Musculoskeletal: Fall, Injury, Joint Pain, Joint Swelling Skin: No Symptoms Neurological: No Symptoms Psychological: No Symptoms Endocrine: No Symptoms Hematologic/Lymphatic: No Symptoms Immunological/Allergic: No Symptoms - Past Medical History Pertinent Past Medical History: Yes Neurological History: No Pertinent History ENT History: Cataracts Cardiac History: Arrhythmia, Hypertension Respiratory History: No Pertinent History Endocrine Medical History: Diabetes Type II Musculoskeletal History: Arthritis GI Medical History: Polyps History: No Pertinent History Psycho-Social History: No Pertinent History Female Reproductive Disorders: No Pertinent History Other Medical History: A-fib. colon polyp 2016 - Past Surgical History Past Surgical History: Yes Neuro Surgical History: No Pertinent History Cardiac: No Pertinent History, Cardiac Catheterization, Other Respiratory: No Pertinent History Gastrointestinal: Appendectomy, Cholecystectomy Genitourinary: No Pertinent History Musculoskeletal: Orthopedic Surgery Female Surgical History: Hysterectomy Other Surgical History: Cardiac ablation. right ankle tendon repair - Social History Smoking Status: Never smoker Exposure to second hand smoke: No Drug Use: none Patient Lives Alone: No - Nursing Vital Signs Nursing Vital Signs: Initial Vital Signs Temperature 97.9 F 10/18/21 15:22 Pulse Rate 64 10/18/21 15:22 Respiratory Rate 19 10/18/21 15:22 Blood Pressure 199/91 10/18/21 15:22 O2 Sat by Pulse Oximetry 93 L 10/18/21 15:22 Pain Scale Pain Intensity 8 - Liz Coma Score Best Eye Response (Liz): (4) open spontaneously Best Verbal Response ([place]): (5) oriented Best Motor Response ([place]): (6) obeys commands [place] Total: 15 - Physical Exam General Appearance: no apparent distress, alert Head Injury: no evidence of injury Eye Exam: PERRL/EOMI, eyes nml inspection ENT Exam: airway nml, evidence of ENT injury (Dried dried blood right nares. Minimal nasal tenderness. No crepitus.) Neck Exam: supple, trachea midline, full range of motion, normal alignment, normal inspection Respiratory/Chest Exam: normal breath sounds, No chest tenderness, No respiratory distress Cardiovascular Exam: normal heart sounds, regular rate/rhythm Gastrointestinal Exam: soft, normal bowel sounds, No tenderness Back Exam: normal inspection, normal range of motion Extremity Exam: normal range of motion, joint swelling (Left knee with limited range of motion), limited range of motion (Right shoulder and elbow with diffuse tenderness along right humerus.), bony point tenderness, evidence of injury, pain with movement (Right shoulder/elbow/left knee), No hip tenderness Neurologic Exam: alert, oriented x 3, cooperative, muffle worker II-XII nml as tested, normal mood/affect, sensation nml, No motor deficits Skin Exam: normal color SpO2 Interpretation: normal SpO2: 93 O2 Delivery: Room Air Ordered Tests: Active Orders 24 hr Category Date Time Status CERVICAL SPINE WO CONTRAST [CT] Stat Exams 10/18/21 16:00 Completed CHEST 1 VIEW (PORTABLE) Stat Exams 10/18/21 16:01 Taken ELBOW (MINIMUM 3 VIEWS) Stat Exams 10/18/21 Taken FACIAL BONES WO CONTRAST [CT] Stat Exams 10/18/21 16:00 Completed HEAD WITHOUT CONTRAST [CT] Stat Exams 10/18/21 16:00 Completed HUMERUS Stat Exams 10/18/21 Taken KNEE (3 VIEWS) Stat Exams 10/18/21 17:35 Taken CBC W DIFF Stat Lab 10/18/21 18:50 Completed CMP Stat Lab 10/18/21 18:50 Completed UA W/RFX CULTURE Stat Lab 10/18/21 18:30 Completed Medication Summary Discontinued Medications Generic Name Dose Route Start Last Admin Trade Name Elisabeth PRN Reason Stop Dose Admin Apixaban 2.5 mg 10/18/21 19:32 10/18/21 19:46 Apixaban 2.5 Mg Tablet PO 10/18/21 19:33 2.5 mg STAT ONE Administration Fentanyl Citrate 50 mcg 10/18/21 16:02 10/18/21 16:15 Fentanyl Citrate 100 Mcg/2 Ml* Vial IV 10/18/21 16:03 50 mcg STAT ONE Administration Fentanyl Citrate Confirm 10/18/21 16:13 Fentanyl Citrate 100 Mcg/2 Ml* Vial Administered 10/18/21 16:14 Dose 100 mcg .ROUTE .STK-MED ONE Hydralazine HCl 10 mg 10/18/21 19:33 10/18/21 19:46 Hydralazine Hcl 25 Mg Tablet PO 10/18/21 19:34 10 mg STAT ONE Administration Metoprolol Succinate 25 mg 10/18/21 19:33 10/18/21 19:45 Metoprolol Succinate 50 Mg Tablet.Sa PO 10/18/21 19:34 25 mg STAT ONE Administration Morphine Sulfate 4 mg 10/18/21 17:31 10/18/21 17:35 Morphine Sulfate 4 Mg/Ml Injection IV 10/18/21 17:32 4 mg STAT ONE Administration Morphine Sulfate Confirm 10/18/21 17:34 Morphine Sulfate 4 Mg/Ml Injection Administered 10/18/21 17:35 Dose 4 mg .ROUTE .STK-MED ONE Ondansetron HCl 4 mg 10/18/21 16:02 10/18/21 16:15 Ondansetron Hcl 4 Mg/2 Ml Vial IV 10/18/21 16:03 4 mg STAT ONE Administration Ondansetron HCl Confirm 10/18/21 16:13 Ondansetron Hcl 4 Mg/2 Ml Vial Administered 10/18/21 16:14 Dose 4 mg .ROUTE .STK-MED ONE Verapamil HCl 80 mg 10/18/21 19:33 10/18/21 19:46 Verapamil Hcl 80 Mg Tablet PO 10/18/21 19:34 80 mg STAT ONE Administration Lab/Rad Data: Laboratory Result Diagrams 10/18/21 18:50 10/18/21 18:50 Laboratory Results 10/18/21 10/18/21 10/18/21 Range/Units 18:50 18:50 18:50 WBC 19.5 H (4.0-10.5) x10^3/uL RBC 4.38 (4.1-5.4) x10^6/uL Hgb 13.0 (12.0-16.0) g/dL Hct 39.2 (35-47) % MCV 89.5 (78-100) fL MCH 29.7 (26-32) pg MCHC 33.2 (32-36) g/dL RDW 13.1 (11.5-14.0) % Plt Count 289 (150-450) x10^3/uL MPV 9.9 (7.5-11.0) fL Gran % 90.1 H (36.0-66.0) % Immature Gran % (Auto) 0.8 H (0.00-0.4) % Nucleat RBC Rel Count 0.0 (0.00-0.1) % Eos # (Auto) 0.05 (0-0.5) x10^3/uL Immature Gran # (Auto) 0.15 H (0.00-0.03) x10^3u/L Absolute Lymphs (auto) 1.07 (1.0-4.6) x10^3/uL Absolute Monos (auto) 0.56 (0.0-1.3) x10^3/uL Absolute Nucleated RBC 0.00 (0.00-0.01) x10^3u/L Lymphocytes % 5.5 L (24.0-44.0) % Monocytes % 2.9 (0.0-12.0) % Eosinophils % 0.3 (0.00-5.0) % Basophils % 0.4 (0.0-0.4) % Absolute Granulocytes 17.59 H (1.4-6.9) x10^3/uL Basophils # 0.07 (0-0.4) x10^3/uL Sodium 134 L (137-145) mmol/L Potassium 3.3 L (3.5-5.1) mmol/L Chloride 96 L (98-107) mmol/L Carbon Dioxide 29 (22-30) mmol/L Anion Gap 12.9 (5-15) MEQ/L BUN 12 (7-17) mg/dL Creatinine 0.51 L (0.52-1.04) mg/dL Estimated GFR > 60.0 ML/MIN Glucose 99 (74-106) mg/dL Calcium 9.6 (8.4-10.2) mg/dL Total Bilirubin 0.60 (0.2-1.3) mg/dL AST 32 (14-36) U/L ALT 25 (0-35) U/L Alkaline Phosphatase 140 H (38-126) U/L Serum Total Protein 7.9 (6.3-8.2) g/dL Albumin 4.2 (3.5-5.0) g/dL Urinalys Dipstick Clnc Urine Color (YELLOW) Urine Appearance (CLEAR) Urine pH (5-6) Ur Specific [place] (1.005-1.025) POC Urine Protein Conf (Negative) Urine Ketones (NEGATIVE) Urine Nitrite (NEGATIVE) Urine Bilirubin (NEGATIVE) Urine Urobilinogen (0-1) mg/dL Urine Leukocytes (NEGATIVE) Urine WBC (Auto) (0-5) /HPF Urine RBC (Auto) (0-2) /HPF U Epithel Cells (Auto) (FEW) /HPF Urine Bacteria (Auto) (NEGATIVE) /HPF Urine RBC (0-5) Chase/ul Urine Mucus (Auto) (NEGATIVE) /HPF Ur Culture Indicated? Urine Glucose (NEGATIVE) mg/dL Influenza Type A Ag NEGATIVE (NEGATIVE) Influenza Type B Ag NEGATIVE (NEGATIVE) RSV (PCR) NEGATIVE (Negative) SARS-CoV-2 (PCR) NEGATIVE (NEGATIVE) 10/18/21 Range/Units 18:30 WBC (4.0-10.5) x10^3/uL RBC (4.1-5.4) x10^6/uL Hgb (12.0-16.0) g/dL Hct (35-47) % MCV (78-100) fL MCH (26-32) pg MCHC (32-36) g/dL RDW (11.5-14.0) % Plt Count (150-450) x10^3/uL MPV (7.5-11.0) fL Gran % (36.0-66.0) % Immature Gran % (Auto) (0.00-0.4) % Nucleat RBC Rel Count (0.00-0.1) % Eos # (Auto) (0-0.5) x10^3/uL Immature Gran # (Auto) (0.00-0.03) x10^3u/L Absolute Lymphs (auto) (1.0-4.6) x10^3/uL Absolute Monos (auto) (0.0-1.3) x10^3/uL Absolute Nucleated RBC (0.00-0.01) x10^3u/L Lymphocytes % (24.0-44.0) % Monocytes % (0.0-12.0) % Eosinophils % (0.00-5.0) % Basophils % (0.0-0.4) % Absolute Granulocytes (1.4-6.9) x10^3/uL Basophils # (0-0.4) x10^3/uL Sodium (137-145) mmol/L Potassium (3.5-5.1) mmol/L Chloride (98-107) mmol/L Carbon Dioxide (22-30) mmol/L Anion Gap (5-15) MEQ/L BUN (7-17) mg/dL Creatinine (0.52-1.04) mg/dL Estimated GFR ML/MIN Glucose (74-106) mg/dL Calcium (8.4-10.2) mg/dL Total Bilirubin (0.2-1.3) mg/dL AST (14-36) U/L ALT (0-35) U/L Alkaline Phosphatase (38-126) U/L Serum Total Protein (6.3-8.2) g/dL Albumin (3.5-5.0) g/dL Urinalys Dipstick Clnc MAIN LAB Urine Color YELLOW (YELLOW) Urine Appearance CLEAR (CLEAR) Urine pH 7.0 (5-6) Ur Specific [place] 1.025 (1.005-1.025) POC Urine Protein Conf NEGATIVE (Negative) Urine Ketones NEGATIVE (NEGATIVE) Urine Nitrite NEGATIVE (NEGATIVE) Urine Bilirubin NEGATIVE (NEGATIVE) Urine Urobilinogen 0.2 (0-1) mg/dL Urine Leukocytes NEGATIVE (NEGATIVE) Urine WBC (Auto) 0-2 (0-5) /HPF Urine RBC (Auto) NONE (0-2) /HPF U Epithel Cells (Auto) RARE (FEW) /HPF Urine Bacteria (Auto) NONE (NEGATIVE) /HPF Urine RBC NEGATIVE (0-5) Chase/ul Urine Mucus (Auto) SLIGHT (NEGATIVE) /HPF Ur Culture Indicated? NO Urine Glucose NEGATIVE (NEGATIVE) mg/dL Influenza Type A Ag (NEGATIVE) Influenza Type B Ag (NEGATIVE) RSV (PCR) (Negative) SARS-CoV-2 (PCR) (NEGATIVE) - Progress Progress: improved, pain not gone completely, re-examined Progress Note: 10/18/21 19:55 81 years old is evaluated for mechanical fall. CT head cervical spine/facial bones negative for any acute trauma. Chest does have humeral head fracture, placed in a sling. Patient also has contusion of the left knee and is unable to hold any weight. Jose Luis wrap applied. Given symptomatic treatment for pain multiple times. Patient lives alone and is having difficulty ambulation, pain control. Discussed with Dr. Baig who recommended discussion with orthopedic surgery and I have discussed with Dr. Longoria with recommendation for continuing sling and outpatient bone and joint clinic follow-up. Baseline labs are obtained, has elevated white count without any obvious focus of infection which probably is reactive. We will continue to monitor. Discussed with Dr. Baig again and patient is admitted for observation. Discussed with : Patience, Other ( orthopedic surgery) Will see patient in: hospital (observation) Counseled pt/family regarding: lab results, diagnosis, rad results - Departure Departure Disposition: Observation Clinical Impression: Fall, Humeral head fracture, Contusion of nose, Knee contusion Condition: Stable Critical Care Time: No Referrals: JOSE MARTINEZ MD [Primary Care Provider] - Follow up/PCP as directed
--- NOTE | 2021-10-18 17:10 | XRAY ---
Indication: Status post fall. Multiple contiguous axial images obtained through the head without contrast. Comparison: None Age-appropriate global atrophy and mild periventricular degenerative micro-ischemia bilaterally. No acute intracranial hemorrhage, abnormal extra-axial fluid collection, or mass effect. Fourth ventricle is midline without hydrocephalus. Bony calvarium intact. Mild mucoperiosteal thickening of all visualized paranasal sinuses. Mastoid air cells are clear. Impression: Nonacute senile brain. Incidental chronic pansinusitis.
--- NOTE | 2021-10-18 17:14 | XRAY ---
Indication: Status post fall. Multiple contiguous axial images obtained through the facial bones. Sagittal and coronal reformatted images obtained. Comparison: None A few bilateral dental amalgams produces beam artifact. Osseous structures demineralized consistent with patient's age. No acute fracture, suspicious bony lesions, or radiopaque foreign body. Orbits including roots, becerril, floors intact. Mild mucoperiosteal thickening of all visualized paranasal sinuses. Nasal passages are clear. Mild nasal septal deviation to the right. Bilateral cataract surgery. Remaining visualized noncontrasted soft tissues unremarkable. CT head and CT cervical spine reported separately. Impression: 1. Chronic pansinusitis, osteopenia, and nasoseptal deviation. 2. Remaining CT facial bones exam is negative.
--- NOTE | 2021-10-18 17:16 | XRAY ---
Indication: Status post fall. Multiple contiguous axial images obtained through the cervical spine. Sagittal and coronal reformatted images obtained. Comparison: None Osseous structures demineralized consistent with patient's age. Axial images negative for acute fracture, suspicious bony lesions, or spinal canal stenosis. Mild C4-T1 degenerative endplate spurring and mild multilevel bilateral degenerative facet hypertrophy. Also mild atlantoaxial degenerative changes. Sagittal and coronal reformatted images demonstrates normal alignment with C4-C7 disc space narrowing. No acute compression fracture, subluxation, or jumped facet. Normal appearing craniocervical junction. Visualized noncontrasted soft tissues demonstrates heterogeneous thyromegaly and mild diffuse scattered arteriosclerotic calcifications including both carotid arteries. Centimeter/subcentimeter cervical and submandibular lymph nodes bilaterally. Lung apices are clear. CT head and CT facial bones reported separately. Impression: 1. Negative acute fracture/subluxation. 2. Osteopenia and multilevel degenerative changes. 3. Heterogeneous thyromegaly. Outpatient sonogram may yield further information if clinically warranted.
[2021-10-18] MEDS ORDERED: MORPHINE SULFATE 4 MG INJ IV ONE (17:31)
[2021-10-18] MEDS ORDERED: MORPHINE SULFATE 4 MG INJ ONE (17:34)
[2021-10-18 18:35] LABS: Appearance CLEAR (CLEAR)
[2021-10-18 18:36] LABS: Bilirubin NEGATIVE (NEGATIVE); Dipstick done @ ? MAIN LAB; Glucose NEGATIVE (NEGATIVE); Ketones NEGATIVE (NEGATIVE); Nitrite NEGATIVE (NEGATIVE); Protein,Urine Dip NEGATIVE (Negative); RBC NEGATIVE Ery/ul (0-5); Specific Gravity 1.025 (1.005-1.025); Urobilinogen 0.2 mg/dL (0-1)
[2021-10-18 18:38] LABS: Epithelial Cells RARE /HPF (FEW); Mucus SLIGHT /HPF (NEGATIVE); WBC 0-2 /HPF (0-5)
[2021-10-18 18:39] LABS: Urine Cultured Indicated? NO
[2021-10-18 19:03] LABS: Absolute Neutrophil Ct (ANC) 17.59 x10^3/uL (1.4-6.9); Basophil (Absolute #) 0.07 x10^3/uL (0-0.4); Eosinophil % 0.3 % (0.00-5.0); Eosinophil (Absolute #) 0.05 x10^3/uL (0-0.5); Hematocrit 39.2 % (35-47); Lymphocyte (Absolute #) 1.07 x10^3/uL (1.0-4.6); Lymphocytes % 5.5 % (24.0-44.0); Mean Cell Volume 89.5 fL (78-100); Mean Corpuscular Hemoglobin 29.7 pg (26-32); Mean Corpuscular Hgb Concent. 33.2 g/dL (32-36); Mean Platelet Volume 9.9 fL (7.5-11.0); Monocyte (Absolute #) 0.56 x10^3/uL (0.0-1.3); Monocytes % 2.9 % (0.0-12.0); Neutrophil % 90.1 % (36.0-66.0); Platelet Count 289 x10^3/uL (150-450); Red Blood Count 4.38 x10^6/uL (4.1-5.4); Red Cell Distribution Width 13.1 % (11.5-14.0); White Blood Count 19.5 x10^3/uL (4.0-10.5)
[2021-10-18 19:12] LABS: ALBUMIN 4.2 g/dL (3.5-5.0); ALKALINE PHOSPHATASE 140 U/L (38-126); ANION GAP 12.9 MEQ/L (5-15); BLOOD UREA NITROGEN 12 mg/dL (7-17); CHLORIDE 96 mmol/L (98-107); Calcium 9.6 mg/dL (8.4-10.2); Carbon Dioxide 29 mmol/L (22-30); Creatinine 1 0.51 mg/dL (0.52-1.04); EST GLOMERULAR FILTRATION RATE > 60.0 ML/MIN; Glucose 99 mg/dL (74-106); Potassium 3.3 mmol/L (3.5-5.1); SGOT/AST 32 U/L (14-36); SGPT/ALT 25 U/L (0-35); SODIUM 134 mmol/L (137-145); Total Protein 7.9 g/dL (6.3-8.2)
[2021-10-18] MEDS ORDERED: ELIQUIS 2.5 MG TABLET PO ONE (19:32)
[2021-10-18 19:33] LABS: INFLUENZA A NEGATIVE (NEGATIVE); INFLUENZA B NEGATIVE (NEGATIVE); RESPIRATORY SYNCTIAL VIRUS NEGATIVE (Negative); SARS-CoV-2 Xpert Express NEGATIVE (NEGATIVE)
[2021-10-18] MEDS ORDERED: Toprol Xl 50 MG PO ONE (19:33)
[2021-10-18] MEDS ORDERED: CALAN 80 MG PO ONE (19:33)
[2021-10-18] MEDS ORDERED: Apresoline 25 MG TABLET PO ONE (19:33)
[2021-10-18] MEDS ORDERED: Zofran 4 MG/2 ML VIAL IV PRN (20:13)
[2021-10-18] MEDS ORDERED: DUONEB 0.5-3 MG/3 ml Neb IH PRN (20:13)
[2021-10-18] MEDS ORDERED: TYLENOL 325 MG PO PRN (20:13)
[2021-10-18] MEDS ORDERED: HUMALOG SQ PRN (20:13)
[2021-10-18] MEDS: MORPHINE SULFATE 2 MG INJ IV PRN (21:21)
[2021-10-18] MEDS ORDERED: Lantus Insulin SQ ONE (22:00)
[2021-10-19] MEDS: MORPHINE SULFATE 2 MG INJ IV PRN ×3 (01:15→10:25)
[2021-10-19 06:53] LABS: Absolute Neutrophil Ct (ANC) 10.66 x10^3/uL (1.4-6.9); Basophil (Absolute #) 0.07 x10^3/uL (0-0.4); Eosinophil % 1.4 % (0.00-5.0); Eosinophil (Absolute #) 0.18 x10^3/uL (0-0.5); Hematocrit 34.9 % (35-47); Hemoglobin 11.6 g/dL (12.0-16.0); Lymphocyte (Absolute #) 1.26 x10^3/uL (1.0-4.6); Lymphocytes % 9.7 % (24.0-44.0); Mean Cell Volume 88.4 fL (78-100); Mean Corpuscular Hemoglobin 29.4 pg (26-32); Mean Corpuscular Hgb Concent. 33.2 g/dL (32-36); Mean Platelet Volume 9.9 fL (7.5-11.0); Monocyte (Absolute #) 0.75 x10^3/uL (0.0-1.3); Monocytes % 5.8 % (0.0-12.0); Platelet Count 265 x10^3/uL (150-450); Red Blood Count 3.95 x10^6/uL (4.1-5.4); Red Cell Distribution Width 13.2 % (11.5-14.0)
[2021-10-19 07:21] LABS: ALBUMIN 3.5 g/dL (3.5-5.0); ALKALINE PHOSPHATASE 101 U/L (38-126); ANION GAP 10.5 MEQ/L (5-15); BLOOD UREA NITROGEN 13 mg/dL (7-17); CHLORIDE 95 mmol/L (98-107); Carbon Dioxide 30 mmol/L (22-30); Creatinine 1 0.57 mg/dL (0.52-1.04); EST GLOMERULAR FILTRATION RATE > 60.0 ML/MIN; Glucose 136 mg/dL (74-106); Potassium 4.1 mmol/L (3.5-5.1); SGOT/AST 25 U/L (14-36); SGPT/ALT 20 U/L (0-35); SODIUM 131 mmol/L (137-145); Total Protein 6.8 g/dL (6.3-8.2)
[2021-10-19 07:23] VITALS: BP 171/73; PULSE 81; O2SAT 91
--- NOTE | 2021-10-19 08:44 | XRAY ---
Indication: Pain following fall. Comparison: None 2 view right humerus demonstrates nondisplaced comminuted humeral head/neck fracture with displaced lateral fracture fragment. Incidental osteopenia, mild acromioclavicular degenerative arthropathy, and mild degenerative changes throughout visualized spine. No other bony, articular, or soft tissue abnormalities.
--- NOTE | 2021-10-19 08:44 | XRAY ---
Indication: Status post fall. Comparison: April 29, 2021. Portable apical lordotic chest remains clear with again incidental right lung calcified granuloma. Heart not enlarged. Bony thorax intact again with osteopenia and degenerative changes. New right humeral neck fracture reported separately.
--- NOTE | 2021-10-19 08:46 | XRAY ---
Indication: Pain following fall. Comparison: None 3 view right elbow limited due to suboptimal positioning. Osteopenia and 5 mm posterior soft tissue calcified granuloma. No other bony, articular, or soft tissue abnormalities.
--- NOTE | 2021-10-19 09:07 | XRAY ---
Indication: Pain following fall. Comparison: None 3 view left knee demonstrates osteopenia, minimal medial/mild lateral knee degenerative changes, anterior soft tissue swelling/hematoma, small effusion, minimal vascular calcifications, and tiny soft tissue calcified granulomas. No other bony, articular, or soft tissue abnormalities.
--- NOTE | 2021-10-19 09:18 | PCM.SSS ---
History of Present Illness - Chief Complaint Chief Complaint: fall History of Present Illness: is a 81 year old female who tripped over a rug carrying groceries and injured her right upper arm in a fall, found to have humeral head fracture. Dr Chang consulted from ER and advised no operative intervention, patient has some pain but able to ambulate, feeding herself breakfast, she feels comfortable returning home, has a granddaughter who lives with her and other children close that are in frequently to help her. - Review of Systems Constitutional: No Fever, No Chills Respiratory: No Cough, No Short Of Breath Cardiac: No Chest Pain, No Edema, No Syncope Abdominal/Gastrointestinal: No Abdominal Pain, No Nausea, No Vomiting, No Diarrhea Musculoskeletal: Fall, Injury, Joint Pain All Other Systems: Reviewed and Negative Medications & Allergies Home Medications: Home Medication List Atorvastatin Calcium 40 mg PO DAILY 12/19/16 [History Confirmed 10/18/21] Hydralazine HCl 10 mg PO BID 12/19/16 [History Confirmed 10/18/21] Metformin HCl 1,000 mg PO DAILY 12/19/16 [History Confirmed 10/18/21] Metoprolol Succinate 25 mg PO BID 12/19/16 [History Confirmed 10/18/21] Olmesartan/Hydrochlorothiazide [Benicar Hct 40-25 mg Tablet] 1 each PO DAILY 12/19/16 [History Confirmed 10/18/21] Verapamil HCl 80 mg [Calan 80 mg] 80 mg PO TID 12/19/16 [History Confirmed 10/18/21] Ascorbic Acid 500 mg [Vitamin C 500 MG] 500 mg PO DAILY 11/17/17 [History Confirmed 10/18/21] Calcium Carb, Citrate/Vit D3 [Calcium + D3 ER Tablet] 1 each PO DAILY 11/17/17 [History Confirmed 10/18/21] Insulin Glargine [Lantus Insulin] 40 unit SQ QHS 11/17/17 [History Confirmed 10/18/21] Insulin Lispro [Humalog Kwikpen U-100] 15 unit SQ UD 11/17/17 [History Confirmed 10/18/21] Apixaban [Eliquis 5 mg Tablet] 2.5 mg PO BID #0 12/01/17 [Rx Confirmed 10/18/21] Hydrocodone/Acetaminophen [Hydrocodone-Acetamin 5-325 mg] 1 tab PO Q6HPRN PRN #28 tablet MDD 4 10/19/21 [Rx] Allergies/Adverse Reactions: Allergies Allergy/AdvReac Type Severity Reaction Status Date / Time No Known Drug Allergies Allergy Verified 10/18/21 15:21 - Past Medical History Past Medical History: Yes Neurological History: Peripheral Neuropathy ENT History: Cataracts Cardiac History: Arrhythmia, Hypertension Respiratory History: No Pertinent History Endocrine Medical History: Diabetes Type II Musculoskelatal History: No Pertinent History GI Medical History: Gallbladder Disease, Polyps History: No Pertinent History Pyscho-Social History: No Pertinent History Reproductive Disorders: No Pertinent History Comment: A-fib. colon polyp 2017 - Female History Are you now?: No - Past Surgical History Past Surgical History: Yes Neuro Surgical History: No Pertinent History Cardiac History: Cardiac Catheterization, Other Respiratory Surgery: No Pertinent History GI Surgical History: Appendectomy, Cholecystectomy Genitourinary Surgical Hx: No Pertinent History Musculskeletal Surgical Hx: Orthopedic Surgery Female Surgical History: Hysterectomy Other Surgical History: Cardiac ablation. right ankle tendon repair - Social History Smoking Status: Never smoker Exposure to second hand smoke: No Alcohol: None Drug Use: none - Physical Exam Vital Signs: Vital Signs - 24 hr Temp Pulse Resp BP BP Pulse Ox 10/19/21 07:22 98.7 F 81 18 171/73 91 L 10/19/21 04:00 98.7 F 79 18 190/74 94 L 10/18/21 23:20 97.4 F 68 18 165/79 94 L 10/18/21 20:32 97.6 F 71 18 223/88 97 10/18/21 19:57 93 L 10/18/21 19:05 71 186/86 92 L 10/18/21 18:07 69 171/118 96 10/18/21 17:00 70 17 182/114 95 10/18/21 16:19 70 19 190/75 93 L 10/18/21 15:22 97.9 F 64 19 199/91 93 L General Appearance: no apparent distress Neurologic Exam: alert, oriented x 3 Respiratory Exam: normal breath sounds, lungs clear, No respiratory distress Cardiovascular Exam: regular rate/rhythm, normal heart sounds, normal peripheral pulses Gastrointestinal/Abdomen Exam: soft, normal bowel sounds, No tenderness, No mass Extremity Exam: other (right arm in sling, painful with movement) Skin Exam: normal color, warm, dry, No rash Results - Labs Lab/Micro Results: Lab Results-Last 24 Hours 10/18/21 10/18/21 10/18/21 Range/Units 18:30 18:50 18:50 WBC 19.5 H (4.0-10.5) x10^3/uL RBC 4.38 (4.1-5.4) x10^6/uL Hgb 13.0 (12.0-16.0) g/dL Hct 39.2 (35-47) % MCV 89.5 (78-100) fL MCH 29.7 (26-32) pg MCHC 33.2 (32-36) g/dL RDW 13.1 (11.5-14.0) % Plt Count 289 (150-450) x10^3/uL MPV 9.9 (7.5-11.0) fL Gran % 90.1 H (36.0-66.0) % Immature Gran % (Auto) 0.8 H (0.00-0.4) % Nucleat RBC Rel Count 0.0 (0.00-0.1) % Eos # (Auto) 0.05 (0-0.5) x10^3/uL Immature Gran # (Auto) 0.15 H (0.00-0.03) x10^3u/L Absolute Lymphs (auto) 1.07 (1.0-4.6) x10^3/uL Absolute Monos (auto) 0.56 (0.0-1.3) x10^3/uL Absolute Nucleated RBC 0.00 (0.00-0.01) x10^3u/L Lymphocytes % 5.5 L (24.0-44.0) % Monocytes % 2.9 (0.0-12.0) % Eosinophils % 0.3 (0.00-5.0) % Basophils % 0.4 (0.0-0.4) % Absolute Granulocytes 17.59 H (1.4-6.9) x10^3/uL Basophils # 0.07 (0-0.4) x10^3/uL Sodium 134 L (137-145) mmol/L Potassium 3.3 L (3.5-5.1) mmol/L Chloride 96 L (98-107) mmol/L Carbon Dioxide 29 (22-30) mmol/L Anion Gap 12.9 (5-15) MEQ/L BUN 12 (7-17) mg/dL Creatinine 0.51 L (0.52-1.04) mg/dL Estimated GFR > 60.0 ML/MIN Glucose 99 (74-106) mg/dL POC Glucometer (74 to 106) mg/dL Calcium 9.6 (8.4-10.2) mg/dL Total Bilirubin 0.60 (0.2-1.3) mg/dL AST 32 (14-36) U/L ALT 25 (0-35) U/L Alkaline Phosphatase 140 H (38-126) U/L Serum Total Protein 7.9 (6.3-8.2) g/dL Albumin 4.2 (3.5-5.0) g/dL Urinalys Dipstick Clnc MAIN LAB Urine Color YELLOW (YELLOW) Urine Appearance CLEAR (CLEAR) Urine pH 7.0 (5-6) Ur Specific [place] 1.025 (1.005-1.025) POC Urine Protein Conf NEGATIVE (Negative) Urine Ketones NEGATIVE (NEGATIVE) Urine Nitrite NEGATIVE (NEGATIVE) Urine Bilirubin NEGATIVE (NEGATIVE) Urine Urobilinogen 0.2 (0-1) mg/dL Urine Leukocytes NEGATIVE (NEGATIVE) Urine WBC (Auto) 0-2 (0-5) /HPF Urine RBC (Auto) NONE (0-2) /HPF U Epithel Cells (Auto) RARE (FEW) /HPF Urine Bacteria (Auto) NONE (NEGATIVE) /HPF Urine RBC NEGATIVE (0-5) Chase/ul Urine Mucus (Auto) SLIGHT (NEGATIVE) /HPF Ur Culture Indicated? NO Urine Glucose NEGATIVE (NEGATIVE) mg/dL Influenza Type A Ag (NEGATIVE) Influenza Type B Ag (NEGATIVE) RSV (PCR) (Negative) SARS-CoV-2 (PCR) (NEGATIVE) 10/18/21 10/18/21 10/19/21 Range/Units 18:50 21:20 06:30 WBC 13.0 H (4.0-10.5) x10^3/uL RBC 3.95 L (4.1-5.4) x10^6/uL Hgb 11.6 L (12.0-16.0) g/dL Hct 34.9 L (35-47) % MCV 88.4 (78-100) fL MCH 29.4 (26-32) pg MCHC 33.2 (32-36) g/dL RDW 13.2 (11.5-14.0) % Plt Count 265 (150-450) x10^3/uL MPV 9.9 (7.5-11.0) fL Gran % 82.0 H (36.0-66.0) % Immature Gran % (Auto) 0.6 H (0.00-0.4) % Nucleat RBC Rel Count 0.0 (0.00-0.1) % Eos # (Auto) 0.18 (0-0.5) x10^3/uL Immature Gran # (Auto) 0.08 H (0.00-0.03) x10^3u/L Absolute Lymphs (auto) 1.26 (1.0-4.6) x10^3/uL Absolute Monos (auto) 0.75 (0.0-1.3) x10^3/uL Absolute Nucleated RBC 0.00 (0.00-0.01) x10^3u/L Lymphocytes % 9.7 L (24.0-44.0) % Monocytes % 5.8 (0.0-12.0) % Eosinophils % 1.4 (0.00-5.0) % Basophils % 0.5 (0.0-0.4) % Absolute Granulocytes 10.66 H (1.4-6.9) x10^3/uL Basophils # 0.07 (0-0.4) x10^3/uL Sodium (137-145) mmol/L Potassium (3.5-5.1) mmol/L Chloride (98-107) mmol/L Carbon Dioxide (22-30) mmol/L Anion Gap (5-15) MEQ/L BUN (7-17) mg/dL Creatinine (0.52-1.04) mg/dL Estimated GFR ML/MIN Glucose (74-106) mg/dL POC Glucometer 132 H (74 to 106) mg/dL Calcium (8.4-10.2) mg/dL Total Bilirubin (0.2-1.3) mg/dL AST (14-36) U/L ALT (0-35) U/L Alkaline Phosphatase (38-126) U/L Serum Total Protein (6.3-8.2) g/dL Albumin (3.5-5.0) g/dL Urinalys Dipstick Clnc Urine Color (YELLOW) Urine Appearance (CLEAR) Urine pH (5-6) Ur Specific [place] (1.005-1.025) POC Urine Protein Conf (Negative) Urine Ketones (NEGATIVE) Urine Nitrite (NEGATIVE) Urine Bilirubin (NEGATIVE) Urine Urobilinogen (0-1) mg/dL Urine Leukocytes (NEGATIVE) Urine WBC (Auto) (0-5) /HPF Urine RBC (Auto) (0-2) /HPF U Epithel Cells (Auto) (FEW) /HPF Urine Bacteria (Auto) (NEGATIVE) /HPF Urine RBC (0-5) Chase/ul Urine Mucus (Auto) (NEGATIVE) /HPF Ur Culture Indicated? Urine Glucose (NEGATIVE) mg/dL Influenza Type A Ag NEGATIVE (NEGATIVE) Influenza Type B Ag NEGATIVE (NEGATIVE) RSV (PCR) NEGATIVE (Negative) SARS-CoV-2 (PCR) NEGATIVE (NEGATIVE) 10/19/21 10/19/21 Range/Units 06:30 07:07 WBC (4.0-10.5) x10^3/uL RBC (4.1-5.4) x10^6/uL Hgb (12.0-16.0) g/dL Hct (35-47) % MCV (78-100) fL MCH (26-32) pg MCHC (32-36) g/dL RDW (11.5-14.0) % Plt Count (150-450) x10^3/uL MPV (7.5-11.0) fL Gran % (36.0-66.0) % Immature Gran % (Auto) (0.00-0.4) % Nucleat RBC Rel Count (0.00-0.1) % Eos # (Auto) (0-0.5) x10^3/uL Immature Gran # (Auto) (0.00-0.03) x10^3u/L Absolute Lymphs (auto) (1.0-4.6) x10^3/uL Absolute Monos (auto) (0.0-1.3) x10^3/uL Absolute Nucleated RBC (0.00-0.01) x10^3u/L Lymphocytes % (24.0-44.0) % Monocytes % (0.0-12.0) % Eosinophils % (0.00-5.0) % Basophils % (0.0-0.4) % Absolute Granulocytes (1.4-6.9) x10^3/uL Basophils # (0-0.4) x10^3/uL Sodium 131 L (137-145) mmol/L Potassium 4.1 D (3.5-5.1) mmol/L Chloride 95 L (98-107) mmol/L Carbon Dioxide 30 (22-30) mmol/L Anion Gap 10.5 (5-15) MEQ/L BUN 13 (7-17) mg/dL Creatinine 0.57 (0.52-1.04) mg/dL Estimated GFR > 60.0 ML/MIN Glucose 136 H (74-106) mg/dL POC Glucometer 122 H (74 to 106) mg/dL Calcium 9.0 (8.4-10.2) mg/dL Total Bilirubin 0.80 (0.2-1.3) mg/dL AST 25 (14-36) U/L ALT 20 (0-35) U/L Alkaline Phosphatase 101 (38-126) U/L Serum Total Protein 6.8 (6.3-8.2) g/dL Albumin 3.5 (3.5-5.0) g/dL Urinalys Dipstick Clnc Urine Color (YELLOW) Urine Appearance (CLEAR) Urine pH (5-6) Ur Specific [place] (1.005-1.025) POC Urine Protein Conf (Negative) Urine Ketones (NEGATIVE) Urine Nitrite (NEGATIVE) Urine Bilirubin (NEGATIVE) Urine Urobilinogen (0-1) mg/dL Urine Leukocytes (NEGATIVE) Urine WBC (Auto) (0-5) /HPF Urine RBC (Auto) (0-2) /HPF U Epithel Cells (Auto) (FEW) /HPF Urine Bacteria (Auto) (NEGATIVE) /HPF Urine RBC (0-5) Chase/ul Urine Mucus (Auto) (NEGATIVE) /HPF Ur Culture Indicated? Urine Glucose (NEGATIVE) mg/dL Influenza Type A Ag (NEGATIVE) Influenza Type B Ag (NEGATIVE) RSV (PCR) (Negative) SARS-CoV-2 (PCR) (NEGATIVE) Accuchecks Date 10/19/21 Time 07:07 - Radiology Impressions Radiology Exams & Impressions: Radiology Procedures Category Date Time Status CERVICAL SPINE WO CONTRAST [CT] Stat Exams 10/18/21 16:00 Completed CHEST 1 VIEW (PORTABLE) Stat Exams 10/18/21 16:01 Completed ELBOW (MINIMUM 3 VIEWS) Stat Exams 10/18/21 Completed FACIAL BONES WO CONTRAST [CT] Stat Exams 10/18/21 16:00 Completed HEAD WITHOUT CONTRAST [CT] Stat Exams 10/18/21 16:00 Completed HUMERUS Stat Exams 10/18/21 Completed KNEE (3 VIEWS) Stat Exams 10/18/21 17:35 Completed Assessment/Plan (1) Humeral head fracture Current Visit: Yes Status: Acute Assessment & Plan: norco prn for pain, has help with family at home. will arrange to see Dr Chang as outpatient to direct therapy of arm Code(s): S42.293A - OTH DISP FX OF UPPER END OF UNSP HUMERUS, INIT FOR CLOS FX (2) Fall Current Visit: Yes Status: Acute Code(s): W19.XXXA - UNSPECIFIED FALL, INITIAL ENCOUNTER (3) Contusion of nose Current Visit: Yes Status: Acute Code(s): S00.33XA - CONTUSION OF NOSE, INITIAL ENCOUNTER (4) Knee contusion Current Visit: Yes Status: Acute Code(s): S80.00XA - CONTUSION OF UNSPECIFIED KNEE, INITIAL ENCOUNTER Hospital Summary - Vitals & Intake/Output Vital Signs: Vital Signs Temperature 98.7 F 10/19/21 07:22 Pulse Rate 81 10/19/21 07:22 Respiratory Rate 18 10/19/21 07:22 Blood Pressure 171/73 10/19/21 07:22 O2 Sat by Pulse Oximetry 91 L 10/19/21 07:22 Intake & Output: Intake & Output 10/16/21 10/17/21 10/18/21 10/19/21 11:59 11:59 11:59 11:59 Intake Total 540 Output Total 550 Balance -10 Weight 75 kg - Lab Result Diagrams: 10/19/21 06:30 10/19/21 06:30 Lab Results-Last 24 Hrs: Lab Results-Last 24 Hours 10/18/21 10/18/21 10/18/21 Range/Units 18:30 18:50 18:50 WBC 19.5 H (4.0-10.5) x10^3/uL RBC 4.38 (4.1-5.4) x10^6/uL Hgb 13.0 (12.0-16.0) g/dL Hct 39.2 (35-47) % MCV 89.5 (78-100) fL MCH 29.7 (26-32) pg MCHC 33.2 (32-36) g/dL RDW 13.1 (11.5-14.0) % Plt Count 289 (150-450) x10^3/uL MPV 9.9 (7.5-11.0) fL Gran % 90.1 H (36.0-66.0) % Immature Gran % (Auto) 0.8 H (0.00-0.4) % Nucleat RBC Rel Count 0.0 (0.00-0.1) % Eos # (Auto) 0.05 (0-0.5) x10^3/uL Immature Gran # (Auto) 0.15 H (0.00-0.03) x10^3u/L Absolute Lymphs (auto) 1.07 (1.0-4.6) x10^3/uL Absolute Monos (auto) 0.56 (0.0-1.3) x10^3/uL Absolute Nucleated RBC 0.00 (0.00-0.01) x10^3u/L Lymphocytes % 5.5 L (24.0-44.0) % Monocytes % 2.9 (0.0-12.0) % Eosinophils % 0.3 (0.00-5.0) % Basophils % 0.4 (0.0-0.4) % Absolute Granulocytes 17.59 H (1.4-6.9) x10^3/uL Basophils # 0.07 (0-0.4) x10^3/uL Sodium 134 L (137-145) mmol/L Potassium 3.3 L (3.5-5.1) mmol/L Chloride 96 L (98-107) mmol/L Carbon Dioxide 29 (22-30) mmol/L Anion Gap 12.9 (5-15) MEQ/L BUN 12 (7-17) mg/dL Creatinine 0.51 L (0.52-1.04) mg/dL Estimated GFR > 60.0 ML/MIN Glucose 99 (74-106) mg/dL POC Glucometer (74 to 106) mg/dL Calcium 9.6 (8.4-10.2) mg/dL Total Bilirubin 0.60 (0.2-1.3) mg/dL AST 32 (14-36) U/L ALT 25 (0-35) U/L Alkaline Phosphatase 140 H (38-126) U/L Serum Total Protein 7.9 (6.3-8.2) g/dL Albumin 4.2 (3.5-5.0) g/dL Urinalys Dipstick Clnc MAIN LAB Urine Color YELLOW (YELLOW) Urine Appearance CLEAR (CLEAR) Urine pH 7.0 (5-6) Ur Specific [place] 1.025 (1.005-1.025) POC Urine Protein Conf NEGATIVE (Negative) Urine Ketones NEGATIVE (NEGATIVE) Urine Nitrite NEGATIVE (NEGATIVE) Urine Bilirubin NEGATIVE (NEGATIVE) Urine Urobilinogen 0.2 (0-1) mg/dL Urine Leukocytes NEGATIVE (NEGATIVE) Urine WBC (Auto) 0-2 (0-5) /HPF Urine RBC (Auto) NONE (0-2) /HPF U Epithel Cells (Auto) RARE (FEW) /HPF Urine Bacteria (Auto) NONE (NEGATIVE) /HPF Urine RBC NEGATIVE (0-5) Chase/ul Urine Mucus (Auto) SLIGHT (NEGATIVE) /HPF Ur Culture Indicated? NO Urine Glucose NEGATIVE (NEGATIVE) mg/dL Influenza Type A Ag (NEGATIVE) Influenza Type B Ag (NEGATIVE) RSV (PCR) (Negative) SARS-CoV-2 (PCR) (NEGATIVE) 10/18/21 10/18/21 10/19/21 Range/Units 18:50 21:20 06:30 WBC 13.0 H (4.0-10.5) x10^3/uL RBC 3.95 L (4.1-5.4) x10^6/uL Hgb 11.6 L (12.0-16.0) g/dL Hct 34.9 L (35-47) % MCV 88.4 (78-100) fL MCH 29.4 (26-32) pg MCHC 33.2 (32-36) g/dL RDW 13.2 (11.5-14.0) % Plt Count 265 (150-450) x10^3/uL MPV 9.9 (7.5-11.0) fL Gran % 82.0 H (36.0-66.0) % Immature Gran % (Auto) 0.6 H (0.00-0.4) % Nucleat RBC Rel Count 0.0 (0.00-0.1) % Eos # (Auto) 0.18 (0-0.5) x10^3/uL Immature Gran # (Auto) 0.08 H (0.00-0.03) x10^3u/L Absolute Lymphs (auto) 1.26 (1.0-4.6) x10^3/uL Absolute Monos (auto) 0.75 (0.0-1.3) x10^3/uL Absolute Nucleated RBC 0.00 (0.00-0.01) x10^3u/L Lymphocytes % 9.7 L (24.0-44.0) % Monocytes % 5.8 (0.0-12.0) % Eosinophils % 1.4 (0.00-5.0) % Basophils % 0.5 (0.0-0.4) % Absolute Granulocytes 10.66 H (1.4-6.9) x10^3/uL Basophils # 0.07 (0-0.4) x10^3/uL Sodium (137-145) mmol/L Potassium (3.5-5.1) mmol/L Chloride (98-107) mmol/L Carbon Dioxide (22-30) mmol/L Anion Gap (5-15) MEQ/L BUN (7-17) mg/dL Creatinine (0.52-1.04) mg/dL Estimated GFR ML/MIN Glucose (74-106) mg/dL POC Glucometer 132 H (74 to 106) mg/dL Calcium (8.4-10.2) mg/dL Total Bilirubin (0.2-1.3) mg/dL AST (14-36) U/L ALT (0-35) U/L Alkaline Phosphatase (38-126) U/L Serum Total Protein (6.3-8.2) g/dL Albumin (3.5-5.0) g/dL Urinalys Dipstick Clnc Urine Color (YELLOW) Urine Appearance (CLEAR) Urine pH (5-6) Ur Specific [place] (1.005-1.025) POC Urine Protein Conf (Negative) Urine Ketones (NEGATIVE) Urine Nitrite (NEGATIVE) Urine Bilirubin (NEGATIVE) Urine Urobilinogen (0-1) mg/dL Urine Leukocytes (NEGATIVE) Urine WBC (Auto) (0-5) /HPF Urine RBC (Auto) (0-2) /HPF U Epithel Cells (Auto) (FEW) /HPF Urine Bacteria (Auto) (NEGATIVE) /HPF Urine RBC (0-5) Chase/ul Urine Mucus (Auto) (NEGATIVE) /HPF Ur Culture Indicated? Urine Glucose (NEGATIVE) mg/dL Influenza Type A Ag NEGATIVE (NEGATIVE) Influenza Type B Ag NEGATIVE (NEGATIVE) RSV (PCR) NEGATIVE (Negative) SARS-CoV-2 (PCR) NEGATIVE (NEGATIVE) 10/19/21 10/19/21 Range/Units 06:30 07:07 WBC (4.0-10.5) x10^3/uL RBC (4.1-5.4) x10^6/uL Hgb (12.0-16.0) g/dL Hct (35-47) % MCV (78-100) fL MCH (26-32) pg MCHC (32-36) g/dL RDW (11.5-14.0) % Plt Count (150-450) x10^3/uL MPV (7.5-11.0) fL Gran % (36.0-66.0) % Immature Gran % (Auto) (0.00-0.4) % Nucleat RBC Rel Count (0.00-0.1) % Eos # (Auto) (0-0.5) x10^3/uL Immature Gran # (Auto) (0.00-0.03) x10^3u/L Absolute Lymphs (auto) (1.0-4.6) x10^3/uL Absolute Monos (auto) (0.0-1.3) x10^3/uL Absolute Nucleated RBC (0.00-0.01) x10^3u/L Lymphocytes % (24.0-44.0) % Monocytes % (0.0-12.0) % Eosinophils % (0.00-5.0) % Basophils % (0.0-0.4) % Absolute Granulocytes (1.4-6.9) x10^3/uL Basophils # (0-0.4) x10^3/uL Sodium 131 L (137-145) mmol/L Potassium 4.1 D (3.5-5.1) mmol/L Chloride 95 L (98-107) mmol/L Carbon Dioxide 30 (22-30) mmol/L Anion Gap 10.5 (5-15) MEQ/L BUN 13 (7-17) mg/dL Creatinine 0.57 (0.52-1.04) mg/dL Estimated GFR > 60.0 ML/MIN Glucose 136 H (74-106) mg/dL POC Glucometer 122 H (74 to 106) mg/dL Calcium 9.0 (8.4-10.2) mg/dL Total Bilirubin 0.80 (0.2-1.3) mg/dL AST 25 (14-36) U/L ALT 20 (0-35) U/L Alkaline Phosphatase 101 (38-126) U/L Serum Total Protein 6.8 (6.3-8.2) g/dL Albumin 3.5 (3.5-5.0) g/dL Urinalys Dipstick Clnc Urine Color (YELLOW) Urine Appearance (CLEAR) Urine pH (5-6) Ur Specific [place] (1.005-1.025) POC Urine Protein Conf (Negative) Urine Ketones (NEGATIVE) Urine Nitrite (NEGATIVE) Urine Bilirubin (NEGATIVE) Urine Urobilinogen (0-1) mg/dL Urine Leukocytes (NEGATIVE) Urine WBC (Auto) (0-5) /HPF Urine RBC (Auto) (0-2) /HPF U Epithel Cells (Auto) (FEW) /HPF Urine Bacteria (Auto) (NEGATIVE) /HPF Urine RBC (0-5) Chase/ul Urine Mucus (Auto) (NEGATIVE) /HPF Ur Culture Indicated? Urine Glucose (NEGATIVE) mg/dL Influenza Type A Ag (NEGATIVE) Influenza Type B Ag (NEGATIVE) RSV (PCR) (Negative) SARS-CoV-2 (PCR) (NEGATIVE) Micro Results-Entire Visit: Accuchecks Date 10/19/21 Time 07:07 - Radiology Exams Ordered Rad Exams-Entire Visit: Radiology Procedures Category Date Time Status CERVICAL SPINE WO CONTRAST [CT] Stat Exams 10/18/21 16:00 Completed CHEST 1 VIEW (PORTABLE) Stat Exams 10/18/21 16:01 Completed ELBOW (MINIMUM 3 VIEWS) Stat Exams 10/18/21 Completed FACIAL BONES WO CONTRAST [CT] Stat Exams 10/18/21 16:00 Completed HEAD WITHOUT CONTRAST [CT] Stat Exams 10/18/21 16:00 Completed HUMERUS Stat Exams 10/18/21 Completed KNEE (3 VIEWS) Stat Exams 10/18/21 17:35 Completed - Procedures and Test Procedures and Tests throughout Hospitalization: Therapy Orders & Screens 10/18/21 20:13 Oxygen Nasal Cannula 2 lpm Comment: - Discharge Disposition: Home, Self-Care Condition: Stable Prescriptions: Continue Metoprolol Succinate 25 mg PO BID Metformin HCl 1,000 mg PO DAILY Atorvastatin Calcium 40 mg PO DAILY Hydralazine HCl 10 mg PO BID Verapamil HCl 80 mg [Calan 80 mg] 80 mg PO TID Olmesartan/Hydrochlorothiazide [Benicar Hct 40-25 mg Tablet] 1 each PO DAILY Insulin Glargine [Lantus Insulin] 40 unit SQ QHS Insulin Lispro [Humalog Kwikpen U-100] 15 unit SQ UD Ascorbic Acid 500 mg [Vitamin C 500 MG] 500 mg PO DAILY Calcium Carb, Citrate/Vit D3 [Calcium + D3 ER Tablet] 1 each PO DAILY Apixaban [Eliquis 5 mg Tablet] 2.5 mg PO BID #0 Hydrocodone/Acetaminophen [Hydrocodone-Acetamin 5-325 mg] 1 tab PO Q6HPRN PRN #28 tablet MDD 4 PRN Reason: Pain Instructions: Preventing Falls in Older Adults, Upper Arm Fracture Follow up with: JOSE MARTINEZ MD [Primary Care Provider] - CLAUDIA CHANG Jr., MD [NON-STAFF PHY W/O PRIVILEGES] - Call for Appointment
[2021-10-19] MEDS ORDERED: NON-FORMULARY ITEM (Apixaban*** [Eliquis 5 Mg Tablet***] 5 MG Tablet) PO SCH (10:00)
[2021-10-19] MEDS ORDERED: NON-FORMULARY ITEM (Calcium Carb, Citrate/Vit D3 [Calcium + D3 Er Tablet] 1 EACH Tablet.Er PO SCH (10:00)
[2021-10-19] MEDS ORDERED: CALAN 80 MG PO SCH (10:00)
[2021-10-19] MEDS ORDERED: Vitamin C 500 MG PO SCH (10:00)
[2021-10-19] MEDS ORDERED: [UNRECOGNIZED DRUG - OTHER] PO SCH (10:00)
[2021-10-19] MEDS ORDERED: Glucophage 500 MG PO SCH (10:00)
[2021-10-19] MEDS ORDERED: NON-FORMULARY ITEM (Insulin Lispro [Humalog Kwikpen U-100] 100 UNIT/ML Insuln.Pen) SQ SCH (10:00)
[2021-10-19] MEDS ORDERED: HYDROCHLOROTHIAZIDE PO SCH (10:00)
[2021-10-19] MEDS ORDERED: Toprol Xl 50 MG PO SCH (10:00)
[2021-10-19] MEDS ORDERED: OLMESARTAN PO SCH (10:00)
[2021-10-19] MEDS ORDERED: NON-FORMULARY ITEM (Hydralazine Hcl [Hydralazine Hcl] 10 MG Tablet) PO SCH (10:00)
[2021-10-19] MEDS ORDERED: LIPITOR 40MG PO SCH (10:00)
[2021-10-19] MEDS ORDERED: PROTONIX 40 MG IV IV SCH (10:00)
[2021-10-19] MEDS ORDERED: Toprol-Xl 25MG Tablets PO SCH (10:15)
[2021-10-19] MEDS ORDERED: Apresoline 25 MG TABLET PO SCH (10:15)
[2021-10-19] MEDS ORDERED: ELIQUIS 2.5 MG TABLET PO SCH (11:00)
[2021-10-19] MEDS ORDERED: Calcium 500MG W/Vit D Tablet PO SCH (11:00)
[2021-10-19] MEDS ORDERED: Lantus Insulin SQ SCH (22:00)
[2021-10-20] MEDS ORDERED: ZOCOR 20MG PO SCH (10:00)
== END 2021-10-19 11:52 | disposition home or self-care (01) ==
LOC: ED 15:18 → MED SURG 20:12
PROVIDERS: ADMIT Family Medicine; ATTEND Family Medicine
DX: S42.291A Other displaced fracture of upper end of right humerus, initial encounter for closed fracture (principal); W19.XXXA Unspecified fall, initial encounter; S00.33XA Contusion of nose, initial encounter; S80.02XA Contusion of left knee, initial encounter; R04.0 Epistaxis; I10 Essential (primary) hypertension; I49.9 Cardiac arrhythmia, unspecified; E11.9 Type 2 diabetes mellitus without complications; Z79.01 Long term (current) use of anticoagulants; Z79.899 Other long term (current) drug therapy; Z20.828 Contact with and (suspected) exposure to other viral communicable diseases
CPT/HCPCS: 0241U; 36415; 70450; 70486; 71045; 72125; 73060; 73080; 73562; 80053; 81015; 82947; 85025; 96374; 96375; 99285; G0378; J2270; J2405; J3010; A9270-GY

== ENCOUNTER 2021-10-21 09:35 | Emergency (ER) | payer MEDICARE ==
[2021-10-21] MEDS ORDERED: PROTONIX 40 MG IV IV ONE ×3 (10:16→12:54)
[2021-10-21] MEDS ORDERED: Zofran 4 MG/2 ML VIAL IV ONE (10:16)
[2021-10-21] MEDS ORDERED: Zofran 4 MG/2 ML VIAL ONE (10:40)
[2021-10-21 11:30] LABS: Absolute Neutrophil Ct (ANC) 12.56 x10^3/uL (1.4-6.9); Basophil (Absolute #) 0.05 x10^3/uL (0-0.4); Eosinophil % 0.3 % (0.00-5.0); Eosinophil (Absolute #) 0.05 x10^3/uL (0-0.5); Hematocrit 24.5 % (35-47); Hemoglobin 8.3 g/dL (12.0-16.0); Lymphocyte (Absolute #) 1.46 x10^3/uL (1.0-4.6); Lymphocytes % 9.7 % (24.0-44.0); Mean Cell Volume 89.4 fL (78-100); Mean Corpuscular Hemoglobin 30.3 pg (26-32); Mean Corpuscular Hgb Concent. 33.9 g/dL (32-36); Mean Platelet Volume 10.1 fL (7.5-11.0); Monocyte (Absolute #) 0.79 x10^3/uL (0.0-1.3); Monocytes % 5.2 % (0.0-12.0); Neutrophil % 83.4 % (36.0-66.0); Platelet Count 270 x10^3/uL (150-450); Red Blood Count 2.74 x10^6/uL (4.1-5.4); Red Cell Distribution Width 13.5 % (11.5-14.0); White Blood Count 15.1 x10^3/uL (4.0-10.5)
[2021-10-21 11:42] LABS: ALBUMIN 3.2 g/dL (3.5-5.0); ALKALINE PHOSPHATASE 87 U/L (38-126); ANION GAP 13.6 MEQ/L (5-15); BLOOD UREA NITROGEN 42 mg/dL (7-17); CHLORIDE 90 mmol/L (98-107); Carbon Dioxide 28 mmol/L (22-30); Creatinine 1 0.57 mg/dL (0.52-1.04); EST GLOMERULAR FILTRATION RATE > 60.0 ML/MIN; Glucose 319 mg/dL (74-106); Potassium 3.8 mmol/L (3.5-5.1); SGOT/AST 18 U/L (14-36); SGPT/ALT 15 U/L (0-35); SODIUM 128 mmol/L (137-145); Total Protein 6.1 g/dL (6.3-8.2)
[2021-10-21 11:43] LABS: MAGNESIUM 1.8 mg/dL (1.6-2.3)
[2021-10-21 11:53] LABS: INR 1.03 (0.8-3.0); PROTIME 10.9 SECONDS (9.4-12.5); PTT 27.4 SECONDS (25.1-36.5)
[2021-10-21 12:06] LABS: Bacteria FEW /HPF (NEGATIVE); Epithelial Cells RARE /HPF (FEW); RBC 0-2 /HPF (0-2)
[2021-10-21 12:07] LABS: Appearance VERY CLOUDY (CLEAR); Bilirubin NEGATIVE (NEGATIVE); Glucose >=1000 mg/dL (NEGATIVE); Ketones SMALL-15 (NEGATIVE); Nitrite NEGATIVE (NEGATIVE); Protein,Urine Dip NEGATIVE (Negative); RBC NEGATIVE Ery/ul (0-5); Specific Gravity 1.015 (1.005-1.025); Urine Cultured Indicated? YES; Urobilinogen 0.2 mg/dL (0-1)
[2021-10-21 12:08] LABS: Dipstick done @ ? MAIN LAB
[2021-10-21] MEDS ORDERED: Lasix 40 MG/4 ML IV ONE (12:38)
[2021-10-21] MEDS ORDERED: Sodium Chloride 0.9% 1000 ML 1,000 ML IV SCH (12:45)
[2021-10-21] MEDS ORDERED: PROTONIX 40 MG IV*** 80 MG in Sodium Chloride 0.9% 500 ML 500 ML IV SCH (12:45)
[2021-10-21] MEDS ORDERED: Sodium Chloride 0.9% 500 ML 500 ML IV ONE (12:55)
[2021-10-21] MEDS ORDERED: Sodium Chloride 0.9% 1000 ML 1,000 ML ONE (12:55)
[2021-10-21] MEDS ORDERED: Lasix 40 MG/4 ML ONE (12:55)
[2021-10-21 12:59] VITALS: O2SAT 99
--- NOTE | 2021-10-21 13:53 | ERPHSYRPT ---
- History of Present Illness Time Seen by Provider: 10/21/21 10:16 Source: patient, family Exam Limitations: no limitations Patient Subjective Stated Complaint: pt here for vomiting for last 2 days, yesterday she states she vomited up some blood clots.she states she had a nose blood thrusday after fall on that resulted in a fx humerous. pt is on blood thinners Triage Nursing Assessment: pt alert,oriented x4, arrived per , able to get out of and in bed with assist of one, she has sling to right arm, brusing to right eye, bruising to left lower arm, bruising to left lower leg she states is all from the fall on , resp easy, face mask in place Physician History: 81 years old female with history of atrial fibrillation on Eliquis, was evaluated in the ER 3 days ago for mechanical fall with nosebleed which was stopped prior to arrival and fracture right humeral head with negative CT head and neck presented in the ER with chief complaint of nausea vomiting and some hematemesis yesterday without abdominal pain, diarrhea hematochezia or melena. Patient reports having some chest discomfort last night with mild shortness of breath which is improved now. She feels weak fatigued tired and dehydrated. No fever or chills reported. Timing/Duration: yesterday, gradual onset, worse Severity: moderate Associated Symptoms: nausea, vomiting, shortness of breath, chest pain, malaise, weakness Allergies/Adverse Reactions: No Known Drug Allergies Allergy (Verified 10/18/21 15:21) Home Medications: Atorvastatin Calcium 40 mg PO DAILY 12/19/16 [History] Hydralazine HCl 10 mg PO BID 12/19/16 [History] Metformin HCl 1,000 mg PO DAILY 12/19/16 [History] Metoprolol Succinate 25 mg PO BID 12/19/16 [History] Olmesartan/Hydrochlorothiazide [Benicar Hct 40-25 mg Tablet] 1 each PO DAILY 12/19/16 [History] Verapamil HCl 80 mg [Calan 80 mg] 80 mg PO TID 12/19/16 [History] Ascorbic Acid 500 mg [Vitamin C 500 MG] 500 mg PO DAILY 11/17/17 [History] Calcium Carb, Citrate/Vit D3 [Calcium + D3 ER Tablet] 1 each PO DAILY 11/17/17 [History] Insulin Glargine [Lantus Insulin] 40 unit SQ QHS 11/17/17 [History] Insulin Lispro [Humalog Kwikpen U-100] 15 unit SQ UD 11/17/17 [History] Hx Tetanus, Diphtheria Vaccination/Date Given: Yes Hx Influenza Vaccination/Date Given: No Hx Pneumococcal Vaccination/Date Given: No (Within the past 3 years) Immunizations Up to Date: Yes Travel Risk - International Travel Have you traveled outside of the country in past 3 weeks: No - Coronavirus Screening Are you exhibiting any of the following symptoms?: Yes Symptoms: Vomiting/Diarrhea Close contact with a COVID-19 positive Pt in past 14-21 Days: No - Vaccine Status Have you recieved a Covid-19 vaccination: No - Review of Systems Constitutional: Fatigue, Weakness Eyes: No Symptoms Ears, Nose, & Throat: Epistaxis (3 days ago) Respiratory: Dyspnea Cardiac: Chest Pain Abdominal/Gastrointestinal: Nausea, Vomiting, Hematemesis Genitourinary Symptoms: No Symptoms Musculoskeletal: Fall (3 days ago), Injury, Joint Pain, Joint Swelling Skin: No Symptoms Neurological: No Symptoms Psychological: No Symptoms Endocrine: No Symptoms Hematologic/Lymphatic: No Symptoms Immunological/Allergic: No Symptoms - Past Medical History Pertinent Past Medical History: Yes Neurological History: Peripheral Neuropathy ENT History: Cataracts Cardiac History: Arrhythmia, Hypertension Respiratory History: No Pertinent History Endocrine Medical History: Diabetes Type II Musculoskeletal History: No Pertinent History GI Medical History: Gallbladder Disease, Polyps History: No Pertinent History Psycho-Social History: No Pertinent History Female Reproductive Disorders: No Pertinent History Other Medical History: A-fib. colon polyp 2016 - Past Surgical History Past Surgical History: Yes Neuro Surgical History: No Pertinent History Cardiac: Cardiac Catheterization, Other Respiratory: No Pertinent History Gastrointestinal: Appendectomy, Cholecystectomy Genitourinary: No Pertinent History Musculoskeletal: Orthopedic Surgery Female Surgical History: Hysterectomy Other Surgical History: Cardiac ablation. right ankle tendon repair - Social History Smoking Status: Never smoker Exposure to second hand smoke: No Drug Use: none Patient Lives Alone: Yes - Nursing Vital Signs Nursing Vital Signs: Initial Vital Signs Temperature 97.2 F 10/21/21 09:55 Pulse Rate 75 10/21/21 09:55 Respiratory Rate 22 10/21/21 09:55 Blood Pressure 117/58 10/21/21 09:55 O2 Sat by Pulse Oximetry 96 10/21/21 09:55 Pain Scale Pain Intensity 6 - Physical Exam General Appearance: no apparent distress, alert Eye Exam: PERRL/EOMI, eyes nml inspection Ears, Nose, Throat Exam: normal ENT inspection, TMs normal, pharynx normal, moist mucous membranes Neck Exam: normal inspection, non-tender, supple, full range of motion Respiratory Exam: normal breath sounds, lungs clear Cardiovascular Exam: regular rate/rhythm, normal heart sounds Gastrointestinal/Abdomen Exam: soft, normal bowel sounds, No tenderness Back Exam: normal inspection, normal range of motion Extremity Exam: normal inspection, pelvis stable Neurologic Exam: alert, oriented x 3, cooperative, blue leather setter II-XII nml as tested, normal mood/affect, sensation nml, No motor deficits Skin Exam: normal color SpO2 Interpretation: normal SpO2: 99 O2 Delivery: Room Air - Course EKG Interpreted by Me: RATE (73), Sinus Rhythm, NORMAL AXIS, NORMAL INTERVALS, Other (Diffuse T wave inversion) Ordered Tests: Active Orders 24 hr Category Date Time Status News Intern STAT Care 10/21/21 10:17 Completed EKG-ER Only STAT Care 10/21/21 10:17 Completed IV Insertion STAT Care 10/21/21 10:16 Completed IV Insertion-2nd Peripheral STAT Care 10/21/21 10:16 Completed Oxygen-ED Only Nasal Cannula 2 lpm Care 10/21/21 10:16 Completed CHEST 1 VIEW (PORTABLE) Stat Exams 10/21/21 10:17 Taken HEAD WITHOUT CONTRAST [CT] Stat Exams 10/21/21 09:58 Taken CBC W DIFF Stat Lab 10/21/21 11:20 Completed CMP Stat Lab 10/21/21 11:20 Completed CULTURE,URINE Stat Lab 10/21/21 Received LIPASE Stat Lab 10/21/21 11:20 Completed Lactic Acid Stat Lab 10/21/21 11:04 Completed Lactic Acid Stat Lab 10/21/21 13:10 Completed MAG [MAGNESIUM] Stat Lab 10/21/21 11:20 Completed NT PRO BNP Stat Lab 10/21/21 11:20 Completed PROTIME WITH INR Stat Lab 10/21/21 11:20 Completed PTT Stat Lab 10/21/21 11:20 Completed TROPONIN Q3H Lab 10/21/21 11:20 Completed TROPONIN Q3H Lab 10/21/21 13:30 Completed UA W/RFX CULTURE Stat Lab 10/21/21 Completed Medication Summary Discontinued Medications Generic Name Dose Route Start Last Admin Trade Name Elisabeth PRN Reason Stop Dose Admin Hydrocodone Bitart/Acetaminophen Confirm 10/21/21 15:00 Hydrocodone/Apap 5/325 Mg Tablet Administered 10/21/21 15:01 Dose 1 tab .ROUTE .STK-MED ONE Hydrocodone Bitart/Acetaminophen 1 tab 10/21/21 15:06 10/21/21 15:12 Hydrocodone/Apap 5/325 Mg Tablet PO 10/21/21 15:07 1 tab STAT ONE Administration Furosemide 20 mg 10/21/21 12:38 10/21/21 13:05 Furosemide 40 Mg/4 Ml Vial IV 10/21/21 12:39 20 mg STAT ONE Administration Furosemide Confirm 10/21/21 12:55 Furosemide 40 Mg/4 Ml Vial Administered 10/21/21 12:56 Dose 40 mg .ROUTE .STK-MED ONE Sodium Chloride 1,000 mls @ 100 mls/hr 10/21/21 12:45 10/21/21 13:05 Sodium Chloride 0.9% 1000 Ml IV 11/20/21 12:44 100 mls/hr .Q10H YANY Administration Pantoprazole Sodium 80 mg/ 500 mls @ 50 mls/hr 10/21/21 12:45 10/21/21 12:58 Sodium Chloride IV 11/20/21 12:44 50 mls/hr .Q10H YANY 50 mls/hr Administration Sodium Chloride Confirm 10/21/21 12:55 Sodium Chloride 0.9% 500 Ml Administered 10/21/21 12:56 Dose 500 mls @ ud IV .STK-MED ONE Sodium Chloride Confirm 10/21/21 12:55 Sodium Chloride 0.9% 1000 Ml Administered 10/21/21 12:56 Dose 1,000 mls @ ud .ROUTE .STK-MED ONE Ondansetron HCl 4 mg 10/21/21 10:16 10/21/21 10:50 Ondansetron Hcl 4 Mg/2 Ml Vial IV 10/21/21 10:17 4 mg STAT ONE Administration Ondansetron HCl Confirm 10/21/21 10:40 Ondansetron Hcl 4 Mg/2 Ml Vial Administered 10/21/21 10:41 Dose 4 mg .ROUTE .STK-MED ONE Pantoprazole Sodium 40 mg 10/21/21 10:16 10/21/21 10:49 Pantoprazole 40 Mg Vial IV 10/21/21 10:17 40 mg STAT ONE Administration Pantoprazole Sodium Confirm 10/21/21 10:40 Pantoprazole 40 Mg Vial Administered 10/21/21 10:41 Dose 40 mg IV .STK-MED ONE Pantoprazole Sodium Confirm 10/21/21 12:54 Pantoprazole 40 Mg Vial Administered 10/21/21 12:55 Dose 80 mg IV .STK-MED ONE Lab/Rad Data: Laboratory Result Diagrams 10/21/21 11:20 10/21/21 11:20 Laboratory Results 10/21/21 10/21/21 10/21/21 Range/Units Unknown 13:30 13:10 WBC (4.0-10.5) x10^3/uL RBC (4.1-5.4) x10^6/uL Hgb (12.0-16.0) g/dL Hct (35-47) % MCV (78-100) fL MCH (26-32) pg MCHC (32-36) g/dL RDW (11.5-14.0) % Plt Count (150-450) x10^3/uL MPV (7.5-11.0) fL Gran % (36.0-66.0) % Immature Gran % (Auto) (0.00-0.4) % Nucleat RBC Rel Count (0.00-0.1) % Eos # (Auto) (0-0.5) x10^3/uL Immature Gran # (Auto) (0.00-0.03) x10^3u/L Absolute Lymphs (auto) (1.0-4.6) x10^3/uL Absolute Monos (auto) (0.0-1.3) x10^3/uL Absolute Nucleated RBC (0.00-0.01) x10^3u/L Lymphocytes % (24.0-44.0) % Monocytes % (0.0-12.0) % Eosinophils % (0.00-5.0) % Basophils % (0.0-0.4) % Absolute Granulocytes (1.4-6.9) x10^3/uL Basophils # (0-0.4) x10^3/uL PT (9.4-12.5) SECONDS INR (0.8-3.0) APTT (25.1-36.5) SECONDS Sodium (137-145) mmol/L Potassium (3.5-5.1) mmol/L Chloride (98-107) mmol/L Carbon Dioxide (22-30) mmol/L Anion Gap (5-15) MEQ/L BUN (7-17) mg/dL Creatinine (0.52-1.04) mg/dL Estimated GFR ML/MIN Glucose (74-106) mg/dL Lactic Acid 2.4 H (0.4-2.0) Calcium (8.4-10.2) mg/dL Magnesium (1.6-2.3) mg/dL Total Bilirubin (0.2-1.3) mg/dL AST (14-36) U/L ALT (0-35) U/L Alkaline Phosphatase (38-126) U/L Troponin I < 0.012 (0.000-0.034) ng/mL NT-Pro-B Natriuret Pep (0-1800) pg/mL Serum Total Protein (6.3-8.2) g/dL Albumin (3.5-5.0) g/dL Lipase (23-300) U/L Urinalys Dipstick Clnc MAIN LAB Urine Color YELLOW (YELLOW) Urine Appearance VERY CLOUDY (CLEAR) Urine pH 7.0 (5-6) Ur Specific [place] 1.015 (1.005-1.025) POC Urine Protein Conf NEGATIVE (Negative) Urine Ketones SMALL-15 (NEGATIVE) Urine Nitrite NEGATIVE (NEGATIVE) Urine Bilirubin NEGATIVE (NEGATIVE) Urine Urobilinogen 0.2 (0-1) mg/dL Urine Leukocytes SMALL (NEGATIVE) Urine WBC (Auto) 6-10 (0-5) /HPF Urine RBC (Auto) 0-2 (0-2) /HPF U Epithel Cells (Auto) RARE (FEW) /HPF Urine Bacteria (Auto) FEW (NEGATIVE) /HPF Urine RBC NEGATIVE (0-5) Chase/ul Ur Culture Indicated? YES Urine Glucose >=1000 (NEGATIVE) mg/dL ABO Group Rh Factor Antibody Screen (NEGATIVE) Crossmatch (COMPATIBLE) 10/21/21 10/21/21 10/21/21 Range/Units 12:39 11:20 11:20 WBC (4.0-10.5) x10^3/uL RBC (4.1-5.4) x10^6/uL Hgb (12.0-16.0) g/dL Hct (35-47) % MCV (78-100) fL MCH (26-32) pg MCHC (32-36) g/dL RDW (11.5-14.0) % Plt Count (150-450) x10^3/uL MPV (7.5-11.0) fL Gran % (36.0-66.0) % Immature Gran % (Auto) (0.00-0.4) % Nucleat RBC Rel Count (0.00-0.1) % Eos # (Auto) (0-0.5) x10^3/uL Immature Gran # (Auto) (0.00-0.03) x10^3u/L Absolute Lymphs (auto) (1.0-4.6) x10^3/uL Absolute Monos (auto) (0.0-1.3) x10^3/uL Absolute Nucleated RBC (0.00-0.01) x10^3u/L Lymphocytes % (24.0-44.0) % Monocytes % (0.0-12.0) % Eosinophils % (0.00-5.0) % Basophils % (0.0-0.4) % Absolute Granulocytes (1.4-6.9) x10^3/uL Basophils # (0-0.4) x10^3/uL PT (9.4-12.5) SECONDS INR (0.8-3.0) APTT (25.1-36.5) SECONDS Sodium (137-145) mmol/L Potassium (3.5-5.1) mmol/L Chloride (98-107) mmol/L Carbon Dioxide (22-30) mmol/L Anion Gap (5-15) MEQ/L BUN (7-17) mg/dL Creatinine (0.52-1.04) mg/dL Estimated GFR ML/MIN Glucose (74-106) mg/dL Lactic Acid (0.4-2.0) Calcium (8.4-10.2) mg/dL Magnesium 1.8 (1.6-2.3) mg/dL Total Bilirubin (0.2-1.3) mg/dL AST (14-36) U/L ALT (0-35) U/L Alkaline Phosphatase (38-126) U/L Troponin I < 0.012 (0.000-0.034) ng/mL NT-Pro-B Natriuret Pep (0-1800) pg/mL Serum Total Protein (6.3-8.2) g/dL Albumin (3.5-5.0) g/dL Lipase 15 L (23-300) U/L Urinalys Dipstick Clnc Urine Color (YELLOW) Urine Appearance (CLEAR) Urine pH (5-6) Ur Specific [place] (1.005-1.025) POC Urine Protein Conf (Negative) Urine Ketones (NEGATIVE) Urine Nitrite (NEGATIVE) Urine Bilirubin (NEGATIVE) Urine Urobilinogen (0-1) mg/dL Urine Leukocytes (NEGATIVE) Urine WBC (Auto) (0-5) /HPF Urine RBC (Auto) (0-2) /HPF U Epithel Cells (Auto) (FEW) /HPF Urine Bacteria (Auto) (NEGATIVE) /HPF Urine RBC (0-5) Chase/ul Ur Culture Indicated? Urine Glucose (NEGATIVE) mg/dL ABO Group O Rh Factor NEGATIVE Antibody Screen NEGATIVE (NEGATIVE) Crossmatch COMPATIBLE (COMPATIBLE) 10/21/21 10/21/21 10/21/21 Range/Units 11:20 11:20 11:20 WBC (4.0-10.5) x10^3/uL RBC (4.1-5.4) x10^6/uL Hgb (12.0-16.0) g/dL Hct (35-47) % MCV (78-100) fL MCH (26-32) pg MCHC (32-36) g/dL RDW (11.5-14.0) % Plt Count (150-450) x10^3/uL MPV (7.5-11.0) fL Gran % (36.0-66.0) % Immature Gran % (Auto) (0.00-0.4) % Nucleat RBC Rel Count (0.00-0.1) % Eos # (Auto) (0-0.5) x10^3/uL Immature Gran # (Auto) (0.00-0.03) x10^3u/L Absolute Lymphs (auto) (1.0-4.6) x10^3/uL Absolute Monos (auto) (0.0-1.3) x10^3/uL Absolute Nucleated RBC (0.00-0.01) x10^3u/L Lymphocytes % (24.0-44.0) % Monocytes % (0.0-12.0) % Eosinophils % (0.00-5.0) % Basophils % (0.0-0.4) % Absolute Granulocytes (1.4-6.9) x10^3/uL Basophils # (0-0.4) x10^3/uL PT 10.9 (9.4-12.5) SECONDS INR 1.03 (0.8-3.0) APTT 27.4 (25.1-36.5) SECONDS Sodium 128 L (137-145) mmol/L Potassium 3.8 (3.5-5.1) mmol/L Chloride 90 L (98-107) mmol/L Carbon Dioxide 28 (22-30) mmol/L Anion Gap 13.6 (5-15) MEQ/L BUN 42 H (7-17) mg/dL Creatinine 0.57 (0.52-1.04) mg/dL Estimated GFR > 60.0 ML/MIN Glucose 319 H (74-106) mg/dL Lactic Acid (0.4-2.0) Calcium 9.0 (8.4-10.2) mg/dL Magnesium (1.6-2.3) mg/dL Total Bilirubin 0.70 (0.2-1.3) mg/dL AST 18 (14-36) U/L ALT 15 (0-35) U/L Alkaline Phosphatase 87 (38-126) U/L Troponin I (0.000-0.034) ng/mL NT-Pro-B Natriuret Pep 1250 (0-1800) pg/mL Serum Total Protein 6.1 L (6.3-8.2) g/dL Albumin 3.2 L (3.5-5.0) g/dL Lipase (23-300) U/L Urinalys Dipstick Clnc Urine Color (YELLOW) Urine Appearance (CLEAR) Urine pH (5-6) Ur Specific [place] (1.005-1.025) POC Urine Protein Conf (Negative) Urine Ketones (NEGATIVE) Urine Nitrite (NEGATIVE) Urine Bilirubin (NEGATIVE) Urine Urobilinogen (0-1) mg/dL Urine Leukocytes (NEGATIVE) Urine WBC (Auto) (0-5) /HPF Urine RBC (Auto) (0-2) /HPF U Epithel Cells (Auto) (FEW) /HPF Urine Bacteria (Auto) (NEGATIVE) /HPF Urine RBC (0-5) Chase/ul Ur Culture Indicated? Urine Glucose (NEGATIVE) mg/dL ABO Group Rh Factor Antibody Screen (NEGATIVE) Crossmatch (COMPATIBLE) 10/21/21 10/21/21 Range/Units 11:20 11:04 WBC 15.1 H (4.0-10.5) x10^3/uL RBC 2.74 L (4.1-5.4) x10^6/uL Hgb 8.3 L (12.0-16.0) g/dL Hct 24.5 L (35-47) % MCV 89.4 (78-100) fL MCH 30.3 (26-32) pg MCHC 33.9 (32-36) g/dL RDW 13.5 (11.5-14.0) % Plt Count 270 (150-450) x10^3/uL MPV 10.1 (7.5-11.0) fL Gran % 83.4 H (36.0-66.0) % Immature Gran % (Auto) 1.1 H (0.00-0.4) % Nucleat RBC Rel Count 0.0 (0.00-0.1) % Eos # (Auto) 0.05 (0-0.5) x10^3/uL Immature Gran # (Auto) 0.17 H (0.00-0.03) x10^3u/L Absolute Lymphs (auto) 1.46 (1.0-4.6) x10^3/uL Absolute Monos (auto) 0.79 (0.0-1.3) x10^3/uL Absolute Nucleated RBC 0.00 (0.00-0.01) x10^3u/L Lymphocytes % 9.7 L (24.0-44.0) % Monocytes % 5.2 (0.0-12.0) % Eosinophils % 0.3 (0.00-5.0) % Basophils % 0.3 (0.0-0.4) % Absolute Granulocytes 12.56 H (1.4-6.9) x10^3/uL Basophils # 0.05 (0-0.4) x10^3/uL PT (9.4-12.5) SECONDS INR (0.8-3.0) APTT (25.1-36.5) SECONDS Sodium (137-145) mmol/L Potassium (3.5-5.1) mmol/L Chloride (98-107) mmol/L Carbon Dioxide (22-30) mmol/L Anion Gap (5-15) MEQ/L BUN (7-17) mg/dL Creatinine (0.52-1.04) mg/dL Estimated GFR ML/MIN Glucose (74-106) mg/dL Lactic Acid 2.5 H (0.4-2.0) Calcium (8.4-10.2) mg/dL Magnesium (1.6-2.3) mg/dL Total Bilirubin (0.2-1.3) mg/dL AST (14-36) U/L ALT (0-35) U/L Alkaline Phosphatase (38-126) U/L Troponin I (0.000-0.034) ng/mL NT-Pro-B Natriuret Pep (0-1800) pg/mL Serum Total Protein (6.3-8.2) g/dL Albumin (3.5-5.0) g/dL Lipase (23-300) U/L Urinalys Dipstick Clnc Urine Color (YELLOW) Urine Appearance (CLEAR) Urine pH (5-6) Ur Specific [place] (1.005-1.025) POC Urine Protein Conf (Negative) Urine Ketones (NEGATIVE) Urine Nitrite (NEGATIVE) Urine Bilirubin (NEGATIVE) Urine Urobilinogen (0-1) mg/dL Urine Leukocytes (NEGATIVE) Urine WBC (Auto) (0-5) /HPF Urine RBC (Auto) (0-2) /HPF U Epithel Cells (Auto) (FEW) /HPF Urine Bacteria (Auto) (NEGATIVE) /HPF Urine RBC (0-5) Chase/ul Ur Culture Indicated? Urine Glucose (NEGATIVE) mg/dL ABO Group Rh Factor Antibody Screen (NEGATIVE) Crossmatch (COMPATIBLE) - Progress Progress: improved Progress Note: 10/21/21 13:51 Patient does not have any chest pain. EKG showed sinus rhythm. No ischemic changes. Negative troponins. Patient has stable vitals. Hemoglobin dropped from 11-8.3. Started on Protonix drip. No abdominal tenderness at all. Lungs bilateral clear to auscultation. Obtain CT head which is negative as well. Type screen and crossmatch [address] Baig, recommended transfer to facility with GI services. Discussed with Dr. Mulligan GI on-call at [place] and agreed with Protonix drip and recommended transfer to hospitalist service. Discussed with Dr. Oconnor, reviewed history, work-up and patient is e xcepted for transfer. Plan discussed with patient and family who understand and agree with it. Discussed with .: Patience Counseled pt/family regarding: lab results, diagnosis, need for follow-up, rad results - Departure Departure Disposition: Transfer Clinical Impression: Acute GI bleeding, Chest pain Condition: Stable Critical Care Time: No Referrals: JOSE MARTINEZ MD [Primary Care Provider] - Follow up/PCP as directed
[2021-10-21 14:42] LABS: ABO TYPING O; Antibody Screen NEGATIVE (NEGATIVE); RH TYPING NEGATIVE
[2021-10-21] MEDS ORDERED: NORCO 5/325 MG ONE (15:00)
[2021-10-21] MEDS ORDERED: NORCO 5/325 MG PO ONE (15:06)
[2021-10-21 15:14] VITALS: BP 157/57; PULSE 75
[2021-10-21 16:48] LABS: CROSS MATCH (PRBC) COMPATIBLE (COMPATIBLE)
--- NOTE | 2021-10-21 21:17 | XRAY ---
Indication: Weakness, vomiting, and nausea following fall October 18, [address] head. Multiple contiguous axial images obtained through the head without contrast. Comparison: October 18, 2021. Stable age-appropriate global atrophy and mild periventricular degenerative micro-ischemia. No acute intracranial hemorrhage, abnormal extra-axial fluid collection, or mass effect. Fourth ventricle is midline without hydrocephalus. Bony calvarium intact. Visualized paranasal sinuses and mastoid air cells are clear. Impression: Continued nonacute senile brain. Comment: Preliminary interpretation made by C. No critical discrepancy.
--- NOTE | 2021-10-21 21:20 | XRAY ---
Indication: Weakness, vomiting, nausea following fall October 28, 2021. Comparison: October 18, 2021. Portable chest unchanged again clear with incidental right lung calcific granuloma. Heart not enlarged. No new/acute findings.
== END 2021-10-21 16:00 | disposition short-term general hospital (02) ==
LOC: ED 09:35
DX: K92.2 Gastrointestinal hemorrhage, unspecified (principal); R07.9 Chest pain, unspecified; K92.0 Hematemesis; R53.1 Weakness; R53.83 Other fatigue; I10 Essential (primary) hypertension; E11.9 Type 2 diabetes mellitus without complications; Z79.4 Long term (current) use of insulin; Z79.84 Long term (current) use of oral hypoglycemic drugs; Z79.01 Long term (current) use of anticoagulants; Z79.899 Other long term (current) drug therapy; Z28.310 Unvaccinated for COVID-19
CPT/HCPCS: 36000; 36415; 70450; 71045; 80053; 81015; 83605; 83690; 83735; 83880; 84484; 85025; 85610; 85730; 86850; 86900; 86901; 86922; 87077; 87086; 87186; 93005; 93041; 96365; 96366; 96374; 96375; 99285; J1940; J2405; A9270-GY

== ENCOUNTER 2021-11-16 05:41 | Emergency (ER) | payer MEDICARE ==
[2021-11-16] MEDS ORDERED: TORAdol 30 mg Injection IM ONE (06:16)
[2021-11-16] MEDS ORDERED: TORAdol 30 mg Injection ONE (06:22)
--- NOTE | 2021-11-16 06:36 | ERPHSYRPT ---
- History of Present Illness Source: patient Exam Limitations: no limitations Patient Subjective Stated Complaint: back pain since yesterday Triage Nursing Assessment: pt c/o low back pain that started around noon yesterday. Pt states, "I had a UTI last year and it feels the same". Pt denies any burning on urination. Timing/Duration: yesterday Method of Injury: unknown Quality: aching Back Pain Location: lumbar spine Severity of Pain-Max: moderate Severity of Pain-Current: mild Modifying Factors: Improves With: movement, other (Pain reproduced with movement and palpation.) Associated Symptoms: denies symptoms, No urinary incontinence, No loss of bowel control, No nausea, No vomiting, No weakness, No sensory/motor loss, No tingling in legs/feet, No lower back pain, No muscle spasms Previous symptoms: same symptoms as today Hx Tetanus, Diphtheria Vaccination/Date Given: No Hx Influenza Vaccination/Date Given: No Hx Pneumococcal Vaccination/Date Given: Yes Immunizations Up to Date: No <IVETT LEE - Last Filed: 11/16/21 07:03> <JESSICA AU - Last Filed: 11/16/21 08:42> - History of Present Illness Time Seen by Provider: 11/16/21 06:10 Physician History: Patient is a 1-year-old female presents to emergency department for evaluation of low back pain. Back pain started yesterday and has been progressively worse. Pain worse with movement and palpation. Pain improved with rest. No change in bowel bladder function. No lower extremity numbness tingling or weakness. No saddle anesthesia. No recent back procedures. Patient states she had a urinary tract infection approximately 1 year ago and experienced similar back pain. However patient has no urinary symptomology. Symptoms are mild to moderate in intensity. No specific worsening improving factors. Patient voices no other complaints or concerns at this time. Patient is currently in a right upper extremity sling from a fall sustained approximately 4 weeks ago. However patient does not believe that her current back pain is related to her fall 4 weeks ago. Portions of this note were created with voice recognition technology. There may be grammatical, spelling, punctuation or sound alike errors (IVETT LEE) Allergies/Adverse Reactions: No Known Drug Allergies Allergy (Verified 11/16/21 06:06) Home Medications: Atorvastatin Calcium 40 mg PO DAILY 12/19/16 [History] Hydralazine HCl 10 mg PO BID 12/19/16 [History] Metformin HCl 1,000 mg PO DAILY 12/19/16 [History] Metoprolol Succinate 25 mg PO BID 12/19/16 [History] Olmesartan/Hydrochlorothiazide [Benicar Hct 40-25 mg Tablet] 1 each PO DAILY 12/19/16 [History] Verapamil HCl 80 mg [Calan 80 mg] 80 mg PO TID 12/19/16 [History] Ascorbic Acid 500 mg [Vitamin C 500 MG] 500 mg PO DAILY 11/17/17 [History] Calcium Carb, Citrate/Vit D3 [Calcium + D3 ER Tablet] 1 each PO DAILY 11/17/17 [History] Insulin Glargine [Lantus Insulin] 40 unit SQ QHS 11/17/17 [History] Insulin Lispro [Humalog Kwikpen U-100] 15 unit SQ UD 11/17/17 [History] Travel Risk - International Travel Have you traveled outside of the country in past 3 weeks: No - Coronavirus Screening Are you exhibiting any of the following symptoms?: No Close contact with a COVID-19 positive Pt in past 14-21 Days: No - Vaccine Status Have you recieved a Covid-19 vaccination: No <IVETT LEE - Last Filed: 11/16/21 07:03> - Review of Systems Constitutional: No Symptoms, No Fever, No Chills Eyes: No Symptoms Ears, Nose, & Throat: No Symptoms Respiratory: No Symptoms, No Cough, No Dyspnea Cardiac: No Symptoms, No Chest Pain, No Edema, No Syncope Abdominal/Gastrointestinal: No Symptoms, No Abdominal Pain, No Nausea, No Vomiting, No Diarrhea Genitourinary Symptoms: No Symptoms, No Dysuria Musculoskeletal: No Symptoms, No Back Pain, No Neck Pain Skin: No Symptoms, No Rash Neurological: No Symptoms, No Dizziness, No Focal Weakness, No Sensory Changes Psychological: No Symptoms Endocrine: No Symptoms Hematologic/Lymphatic: No Symptoms Immunological/Allergic: No Symptoms All Other Systems: Reviewed and Negative <IVETT LEE - Last Filed: 11/16/21 07:03> - Past Medical History Pertinent Past Medical History: Yes Neurological History: Peripheral Neuropathy ENT History: Cataracts Cardiac History: Arrhythmia, Hypertension Respiratory History: No Pertinent History Endocrine Medical History: Diabetes Type II Musculoskeletal History: No Pertinent History GI Medical History: Gallbladder Disease, Polyps History: No Pertinent History Psycho-Social History: No Pertinent History Female Reproductive Disorders: No Pertinent History Other Medical History: A-fib. colon polyp 2017 - Past Surgical History Past Surgical History: Yes Neuro Surgical History: No Pertinent History Cardiac: Cardiac Catheterization, Other Respiratory: No Pertinent History Gastrointestinal: Appendectomy, Cholecystectomy Genitourinary: No Pertinent History Musculoskeletal: Orthopedic Surgery Female Surgical History: Hysterectomy Other Surgical History: Cardiac ablation. right ankle tendon repair - Social History Smoking Status: Never smoker Exposure to second hand smoke: No Drug Use: none Patient Lives Alone: No <[place] Last Filed: 11/16/21 07:03> - Physical Exam General Appearance: no apparent distress, alert Eye Exam: PERRL/EOMI, eyes nml inspection Ears, Nose, Throat Exam: normal ENT inspection, pharynx normal, moist mucous membranes Neck Exam: normal inspection, non-tender, supple, full range of motion, No meningismus, No midline tenderness Respiratory Exam: normal breath sounds, lungs clear, airway intact, No r espiratory distress Cardiovascular Exam: regular rate/rhythm, normal heart sounds, normal peripheral pulses Gastrointestinal Exam: soft, normal bowel sounds, other (No pulsatile abdominal masses), No tenderness, No mass, No guarding Back Exam: normal inspection, other (Tenderness to palpation midline lumbar spine. Pain extends laterally into the adjacent lumbar paraspinal musculature. Overlying soft tissue intact. No signs of trauma.) Extremity Exam: normal inspection, normal range of motion, other (Slight swelling left lower extremity which patient states is chronic. 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, normal mood/affect, No motor deficits Skin Exam: normal color, warm, dry, No rash Lymphatic Exam: No adenopathy SpO2 Interpretation: normal SpO2: 96 O2 Delivery: Room Air <[place] Last Filed: 11/16/21 07:03> - Nursing Vital Signs Nursing Vital Signs: Initial Vital Signs Pulse Rate 72 11/16/21 06:00 Respiratory Rate 18 11/16/21 06:00 Blood Pressure 196/128 11/16/21 06:00 O2 Sat by Pulse Oximetry 96 11/16/21 06:00 Pain Scale Pain Intensity [Lower Back] 10 Pain Intensity 5 - Course Nursing assessment & vital signs reviewed: Yes <ROSAIVETT - Last Filed: 11/16/21 07:03> Ordered Tests: Active Orders 24 hr Category Date Time Status LUMBAR SPINE W/O [CT] Stat Exams 11/16/21 06:14 Taken CULTURE,URINE Stat Lab 11/16/21 06:30 Received UA W/RFX CULTURE Stat Lab 11/16/21 06:30 Results Medication Summary Discontinued Medications Generic Name Dose Route Start Last Admin Trade Name Elisabeth PRN Reason Stop Dose Admin Ketorolac Tromethamine 30 mg 11/16/21 06:16 11/16/21 06:35 Ketorolac Tromethamine 30 Mg/Ml Inj IM 11/16/21 06:17 30 mg STAT ONE Administration Ketorolac Tromethamine Confirm 11/16/21 06:22 Ketorolac Tromethamine 30 Mg/Ml Inj Administered 11/16/21 06:23 Dose 30 mg .ROUTE .STK-MED ONE Lab/Rad Data: Laboratory Results 11/16/21 Range/Units 06:30 Urinalys Dipstick Clnc Pending Urine Color YELLOW (YELLOW) Urine Appearance CLEAR (CLEAR) Urine pH 7.5 (5-6) Ur Specific Bertram 1.015 (1.005-1.025) POC Urine Protein Conf NEGATIVE (Negative) Urine Ketones NEGATIVE (NEGATIVE) Urine Nitrite NEGATIVE (NEGATIVE) Urine Bilirubin NEGATIVE (NEGATIVE) Urine Urobilinogen 0.2 (0-1) mg/dL Urine Leukocytes TRACE (NEGATIVE) Urine WBC (Auto) 3-5 (0-5) /HPF Urine RBC (Auto) NONE (0-2) /HPF U Epithel Cells (Auto) RARE (FEW) /HPF Urine Bacteria (Auto) MODERATE (NEGATIVE) /HPF Urine RBC TRACE-INTACT (0-5) Chase/ul Ur Culture Indicated? YES Urine Glucose 500 (NEGATIVE) mg/dL - Progress Progress: improved <ROSAIVETT - Last Filed: 11/16/21 07:03> - Progress Counseled pt/family regarding: lab results, diagnosis, need for follow-up, rad results <BEIERLE,JESSICA - Last Filed: 11/16/21 08:42> - Progress Progress Note: Patient endorsed to Dr. Au at approximately [address] Au will follow up on pending studies and make final disposition. Portions of this note were created with voice recognition technology. There may be grammatical, spelling, punctuation or sound alike errors 11/16/21 07:03 (IVETT LEE) 11/16/21 08:05 Assumed care of pt at 7:00AM w Lumbar pain x 1 day. Pt given toradol which has greatly improved her pain. UA demonstrates a mild UTI and will treat w Macrobid 100mg bid x5 days. CT of L-spine demonstrates DDD at L3,L4, and L5/osteopenia/hypodense foci in axial skeleton unchanged from 04/29/21. Ct results reviewed w pt who is following up w Dr. Ferris. She does not want any pain meds at home and will take tylenol. (JESSICA AU) - Departure Critical Care Time: No <IVETT LEE - Last Filed: 11/16/21 07:03> - Departure Departure Disposition: Home <JESSICA AU - Last Filed: 11/16/21 08:42> - Departure Clinical Impression: Back pain, UTI (urinary tract infection) Condition: Stable Referrals: JOSE FERRIS MD [Primary Care Provider] - Follow up/PCP as directed Instructions: Low Back Pain (DC), Urinary Tract Infection, Adult (DC) Additional Instructions: Fluids Motrin/Tylenol for pain Follow up with Dr. Ferris Macrobid twice a day for 5 days Return to ER for increasing pain or temperature greater than 100.5 Prescriptions: Nitrofurantoin Monohyd/M-Cryst [Macrobid 100 mg Capsule] 100 mg PO BID #10
[2021-11-16 07:04] LABS: Bacteria MODERATE /HPF (NEGATIVE); Epithelial Cells RARE /HPF (FEW)
[2021-11-16 07:06] LABS: Appearance CLEAR (CLEAR); Bilirubin NEGATIVE (NEGATIVE); Glucose 500 mg/dL (NEGATIVE); Ketones NEGATIVE (NEGATIVE); Nitrite NEGATIVE (NEGATIVE); Ph 7.5 (5-6); Protein,Urine Dip NEGATIVE (Negative); RBC TRACE-INTACT Ery/ul (0-5); Specific Gravity 1.015 (1.005-1.025); Urobilinogen 0.2 mg/dL (0-1)
[2021-11-16 07:07] LABS: Urine Cultured Indicated? YES
[2021-11-16 08:17] VITALS: BP 159/58; PULSE 62; O2SAT 94
--- NOTE | 2021-11-16 09:44 | XRAY ---
Indication: Low back pain. Multiple contiguous axial images obtained through the lumbar spine. Sagittal and coronal reformatted images obtained. Comparison: CT abdomen/pelvis April 29, 2021. Osseous structures remain demineralized. There remains stable mild multilevel thoracolumbar degenerative spondylosis including broad-based L3-S1 disc bulge. Again greatest extent at L4-L5 where there is spinal canal stenosis due to combination of broad-based disc bulge and bilateral ligament flavum hypertrophy. Sagittal and coronal reformatted images again demonstrates normal lumbar alignment with minimal grade 1 L4-L5 anterolisthesis. Stable multilevel thoracolumbar vertebral hemangiomas and benign T12 sclerotic lesion. No acute compression fracture. Visualized noncontrasted soft tissues again demonstrates small left mid renal angiomyolipoma, sigmoid diverticulosis, and moderate aortoiliac calcifications. Impression: Stable osteopenia, multilevel degenerative spondylosis greatest L4-L5, minimal grade 1 L5 spondylolisthesis, benign T12 sclerotic lesion, multilevel vertebral hemangiomas, left renal angiomyolipoma, and sigmoid diverticulosis, and arteriosclerotic disease. No new/acute findings. Comment: Preliminary interpretation made by [facility]. No critical discrepancy.
[2021-11-16 12:49] LABS: Dipstick done @ ? MAIN LAB
== END 2021-11-16 08:26 | disposition home or self-care (01) ==
LOC: ED 05:41
DX: N39.0 Urinary tract infection, site not specified (principal); M54.50 Low back pain, unspecified; I10 Essential (primary) hypertension; E11.42 Type 2 diabetes mellitus with diabetic polyneuropathy; Z79.4 Long term (current) use of insulin; Z79.84 Long term (current) use of oral hypoglycemic drugs; Z79.899 Other long term (current) drug therapy; Z28.310 Unvaccinated for COVID-19
CPT/HCPCS: 72131; 81015; 87077; 87086; 87186; 96372; 99283; J1885

== ENCOUNTER 2023-06-04 10:36 | Emergency (ER) | payer MEDICARE ==
--- NOTE | 2023-06-04 10:41 | ERPHSYRPT ---
- History of Present Illness Time Seen by Provider: 06/04/23 10:40 Source: patient, family Exam Limitations: no limitations Physician History: This is an 83-year-old white female who lives at home alone and is a patient of Dr. Martinez who has multiple complaints including cough for at least a week, numbness of her left hand for a few days and significant generalized weakness in the last few days. Patient has a history of chronic atrial fibrillation. She does not have chest pain at this time. She denies abdominal pain. She has had no nausea vomiting or diarrhea symptoms. There have been no known exposures to individuals that have flu diagnoses. However, patient did travel to [place] last week to participate in her grandsons wedding. Patient has a history of h yperlipidemia, hypertension, diabetes, atrial fibrillation, peripheral neuropathy and coronary artery disease. Timing/Duration: other Cough Quality/Degree: mild, dry cough Modifying Factors: Improves With: coughing Associated Symptoms: cough, No chest pain/soreness, No shortness of breath, No sore throat, No wheezing Allergies/Adverse Reactions: No Known Drug Allergies Allergy (Verified 06/04/23 10:53) Home Medications: Atorvastatin Calcium 40 mg PO DAILY 12/19/16 [History] Hydralazine HCl 10 mg PO TID 12/19/16 [History] Metformin HCl 1,000 mg PO DAILY 12/19/16 [History] Metoprolol Succinate 50 mg PO BID 12/19/16 [History] Olmesartan/Hydrochlorothiazide [Benicar Hct 40-25 mg Tablet] 1 each PO DAILY 12/19/16 [History] Verapamil HCl 80 mg [Calan 80 mg] 80 mg PO TID 12/19/16 [History] Ascorbic Acid 500 mg [Vitamin C 500 MG] 500 mg PO DAILY 11/17/17 [History] Calcium Carb, Citrate/Vit D3 [Calcium + D3 ER Tablet] 1 each PO DAILY 11/17/17 [History] Insulin Glargine [Lantus Insulin] 40 unit SQ QHS 11/17/17 [History] Insulin Lispro [Humalog Kwikpen U-100] 15 unit SQ UD 11/17/17 [History] Hx Tetanus, Diphtheria Vaccination/Date Given: No Hx Influenza Vaccination/Date Given: No Hx Pneumococcal Vaccination/Date Given: Yes Travel Risk - International Travel Have you traveled outside of the country in past 3 weeks: No - Coronavirus Screening Are you exhibiting any of the following symptoms?: Yes Symptoms: Cough: New Onset - Vaccine Status Have you recieved a Covid-19 vaccination: No - Review of Systems Constitutional: Weakness Eyes: No Symptoms Ears, Nose, & Throat: No Symptoms Respiratory: Cough Cardiac: No Symptoms Abdominal/Gastrointestinal: No Symptoms Genitourinary Symptoms: No Symptoms Musculoskeletal: No Symptoms Skin: No Symptoms Neurological: Other (Numbness in fingers of left hand) Psychological: No Symptoms Endocrine: No Symptoms Hematologic/Lymphatic: No Symptoms Immunological/Allergic: No Symptoms All Other Systems: Reviewed and Negative - Past Medical History Pertinent Past Medical History: Yes Neurological History: Peripheral Neuropathy ENT History: Cataracts Cardiac History: Arrhythmia, Hypertension, Myocardial Infarction (VT) Respiratory History: No Pertinent History Endocrine Medical History: Diabetes Type II Musculoskeletal History: Fractures, Osteoarthritis GI Medical History: Gallbladder Disease, Polyps History: No Pertinent History Psycho-Social History: No Pertinent History Female Reproductive Disorders: No Pertinent History Other Medical History: A-fib. colon polyp 2017 - Past Surgical History Past Surgical History: Yes Neuro Surgical History: No Pertinent History Cardiac: Cardiac Catheterization, Other Respiratory: No Pertinent History Gastrointestinal: Appendectomy, Cholecystectomy Genitourinary: No Pertinent History Musculoskeletal: Orthopedic Surgery Female Surgical History: Hysterectomy Other Surgical History: Cardiac ablation. right ankle tendon repair - Social History Smoking Status: Never smoker Exposure to second hand smoke: No Drug Use: none Patient Lives Alone: No - Nursing Vital Signs Nursing Vital Signs: Initial Vital Signs Temperature 97 F 06/04/23 10:42 Pulse Rate 65 06/04/23 10:42 Respiratory Rate 16 06/04/23 10:42 Blood Pressure 121/82 06/04/23 10:42 O2 Sat by Pulse Oximetry 96 06/04/23 10:42 Pain Scale Pain Intensity 0 - Physical Exam General Appearance: no apparent distress, alert, anxiety Eye Exam: PERRL/EOMI, eyes nml inspection Ears, Nose, Throat Exam: normal ENT inspection, moist mucous membranes Neck Exam: normal inspection, non-tender, supple, full range of motion Respiratory Exam: normal breath sounds, lungs clear, airway intact, No chest tenderness, No respiratory distress Cardiovascular Exam: regular rate/rhythm, normal heart sounds, normal peripheral pulses Gastrointestinal/Abdomen Exam: soft, normal bowel sounds, tenderness Pelvic Exam: not done Rectal Exam: not done Back Exam: normal inspection, normal range of motion, No CVA tenderness, No vertebral tenderness Extremity Exam: normal inspection, normal range of motion, pelvis stable Neurologic Exam: alert, oriented x 3, cooperative, 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 tested, normal mood/affect, nml cerebellar function, nml station & gait, sensation nml Skin Exam: normal color, warm, dry Lymphatic Exam: No adenopathy SpO2 Interpretation: normal O2 Delivery: Room Air - Course Nursing assessment & vital signs reviewed: Yes EKG Interpreted by Me: RATE (64), Sinus Rhythm, NORMAL AXIS, NORMAL INTERVALS, NORMAL QRS, NORMAL ST-T, Other (No acute ischemic changes on today's twelve-lead EKG.) Ordered Tests: Active Orders 24 hr Category Date Time Status EKG-ER Only STAT Care 06/04/23 11:00 Active IV Insertion STAT Care 06/04/23 11:00 Active Pulse Oximetry (ED) STAT Care 06/04/23 11:00 Active CHEST 1 VIEW (PORTABLE) Stat Exams 06/04/23 11:01 Completed HEAD WITHOUT CONTRAST [CT] Stat Exams 06/04/23 11:01 Completed BLOOD CULTURE Stat Lab 06/04/23 11:01 Ordered CBC W DIFF Stat Lab 06/04/23 11:15 Completed CMP Stat Lab 06/04/23 11:15 Completed CULTURE,URINE Stat Lab 06/04/23 11:14 Received D-DIMER QUANTITATIVE Stat Lab 06/04/23 11:15 Completed MAGNESIUM Stat Lab 06/04/23 11:15 Completed MONO SCREEN Stat Lab 06/04/23 11:15 Completed NT PRO BNPII Stat Lab 06/04/23 11:15 Completed PROTIME WITH INR Stat Lab 06/04/23 11:15 Completed TROPONIN Q4H Lab 06/04/23 11:15 Completed TROPONIN Q4H Lab 06/04/23 15:15 Ordered TROPONIN Q4H Lab 06/04/23 19:15 Ordered UA W/RFX UR CULTURE Stat Lab 06/04/23 11:14 Completed Medication Summary Generic Name Dose Route Start Last Admin Trade Name Freq PRN Reason Stop Dose Admin Ceftriaxone Sodium/Dextrose 1 g in 50 mls @ 100 mls/hr 06/04/23 11:43 06/04/23 11:56 Rocephin 1 Gm-D5w 50 Ml Bag IV 06/04/23 12:12 100 ml/hr STAT STA 100 mls/hr Administration Sodium Chloride 500 mls @ 500 mls/hr 06/04/23 11:43 06/04/23 11:53 Sodium Chloride 0.9% 500 Ml IV 06/04/23 12:42 500 mls/hr .Q1H ONE Administration Discontinued Medications Generic Name Dose Route Start Last Admin Trade Name Freq PRN Reason Stop Dose Admin Ceftriaxone Sodium/Dextrose Confirm 06/04/23 11:47 Rocephin 1 Gm-D5w 50 Ml Bag Administered 06/04/23 11:48 Dose 1 g in 50 mls @ ud IV .STK-MED ONE Sodium Chloride Confirm 06/04/23 11:47 Sodium Chloride 0.9% 500 Ml Administered 06/04/23 11:48 Dose 500 mls @ ud IV .STK-MED ONE Lab/Rad Data: Laboratory Result Diagrams 06/04/23 11:15 06/04/23 11:15 Laboratory Results 06/04/23 06/04/23 06/04/23 Range/Units 11:15 11:15 11:15 WBC (4.0-10.5) x10^3/uL RBC (4.1-5.4) x10^6/uL Hgb (12.0-16.0) g/dL Hct (35-47) % MCV (78-100) fL MCH (26-32) pg MCHC (32-36) g/dL RDW (11.5-14.0) % Plt Count (150-450) x10^3/uL MPV (7.5-11.0) fL Gran % (36.0-66.0) % Immature Gran % (Auto) (0.00-0.4) % Nucleat RBC Rel Count (0.00-0.1) % Eos # (Auto) (0-0.5) x10^3/uL Immature Gran # (Auto) (0.00-0.03) x10^3u/L Absolute Lymphs (auto) (1.0-4.6) x10^3/uL Absolute Monos (auto) (0.0-1.3) x10^3/uL Absolute Nucleated RBC (0.00-0.01) x10^3u/L Lymphocytes % (24.0-44.0) % Monocytes % (0.0-12.0) % Eosinophils % (0.00-5.0) % Basophils % (0.0-0.4) % Absolute Granulocytes (1.4-6.9) x10^3/uL Basophils # (0-0.4) x10^3/uL PT (9.4-12.5) SECONDS INR (0.8-3.0) D-Dimer (0.0-0.50) mg/L Sodium (137-145) mmol/L Potassium (3.5-5.1) mmol/L Chloride (98-107) mmol/L Carbon Dioxide (22-30) mmol/L Anion Gap (5-15) MEQ/L BUN (7-17) mg/dL Creatinine (0.52-1.04) mg/dL Estimated GFR ML/MIN Glucose (74-106) mg/dL Calcium (8.4-10.2) mg/dL Magnesium (1.6-2.3) mg/dL Total Bilirubin (0.2-1.3) mg/dL AST (14-36) U/L ALT (0-35) U/L Alkaline Phosphatase (38-126) U/L Troponin I < 0.012 (0.000-0.034) ng/mL NT-Pro-B Natriuret Pep (<300) pg/mL Serum Total Protein (6.3-8.2) g/dL Albumin (3.5-5.0) g/dL Urine Color (Yellow) Urine Appearance (Clear) Urine pH (4.6-8.0) Ur Specific Trail (1.005-1.030) Urine Protein (Negative) Urine Glucose (UA) (Negative) mg/dL Urine Ketones (Negative) Urine Blood (Negative) Urine Nitrite (Negative) Urine Bilirubin (Negative) Urine Urobilinogen (0.2) mg/dL Ur Leukocyte Esterase (Negative) U Hyaline Cast (Auto) (0-2) /LPF Urine Microscopic RBC (0-5) /HPF Urine Microscopic WBC (0-5) /HPF Ur Epithelial Cells (None Seen) /HPF Urine Bacteria (None Seen) /HPF Urine Culture Reflexed (NO) Monoscreen NEGATIVE (NEGATIVE) Influenza Type A Ag NEGATIVE (NEGATIVE) Influenza Type B Ag NEGATIVE (NEGATIVE) RSV (PCR) NEGATIVE (NEGATIVE) SARS-CoV-2 (PCR) POSITIVE A (NEGATIVE) 06/04/23 06/04/23 06/04/23 Range/Units 11:15 11:15 11:15 WBC 9.9 (4.0-10.5) x10^3/uL RBC 4.18 (4.1-5.4) x10^6/uL Hgb 12.2 (12.0-16.0) g/dL Hct 36.7 (35-47) % MCV 87.8 (78-100) fL MCH 29.2 (26-32) pg MCHC 33.2 (32-36) g/dL RDW 13.6 (11.5-14.0) % Plt Count 295 (150-450) x10^3/uL MPV 9.2 (7.5-11.0) fL Gran % 75.2 H (36.0-66.0) % Immature Gran % (Auto) 1.0 H (0.00-0.4) % Nucleat RBC Rel Count 0.0 (0.00-0.1) % Eos # (Auto) 0.17 (0-0.5) x10^3/uL Immature Gran # (Auto) 0.10 H (0.00-0.03) x10^3u/L Absolute Lymphs (auto) 1.67 (1.0-4.6) x10^3/uL Absolute Monos (auto) 0.49 (0.0-1.3) x10^3/uL Absolute Nucleated RBC 0.00 (0.00-0.01) x10^3u/L Lymphocytes % 16.8 L (24.0-44.0) % Monocytes % 4.9 (0.0-12.0) % Eosinophils % 1.7 (0.00-5.0) % Basophils % 0.4 (0.0-0.4) % Absolute Granulocytes 7.46 H (1.4-6.9) x10^3/uL Basophils # 0.04 (0-0.4) x10^3/uL PT 10.7 (9.4-12.5) SECONDS INR 0.98 (0.8-3.0) D-Dimer 0.39 (0.0-0.50) mg/L Sodium 132 L (137-145) mmol/L Potassium 3.9 (3.5-5.1) mmol/L Chloride 100 (98-107) mmol/L Carbon Dioxide 25 (22-30) mmol/L Anion Gap 11.7 (5-15) MEQ/L BUN 10 (7-17) mg/dL Creatinine 0.43 L (0.52-1.04) mg/dL Estimated GFR 95.3 ML/MIN Glucose 190 H (74-106) mg/dL Calcium 9.3 (8.4-10.2) mg/dL Magnesium 2.0 (1.6-2.3) mg/dL Total Bilirubin 0.90 (0.2-1.3) mg/dL AST 26 (14-36) U/L ALT 18 (0-35) U/L Alkaline Phosphatase 107 (38-126) U/L Troponin I (0.000-0.034) ng/mL NT-Pro-B Natriuret Pep 1010 (<300) pg/mL Serum Total Protein 7.3 (6.3-8.2) g/dL Albumin 3.8 (3.5-5.0) g/dL Urine Color (Yellow) Urine Appearance (Clear) Urine pH (4.6-8.0) Ur Specific Trail (1.005-1.030) Urine Protein (Negative) Urine Glucose (UA) (Negative) mg/dL Urine Ketones (Negative) Urine Blood (Negative) Urine Nitrite (Negative) Urine Bilirubin (Negative) Urine Urobilinogen (0.2) mg/dL Ur Leukocyte Esterase (Negative) U Hyaline Cast (Auto) (0-2) /LPF Urine Microscopic RBC (0-5) /HPF Urine Microscopic WBC (0-5) /HPF Ur Epithelial Cells (None Seen) /HPF Urine Bacteria (None Seen) /HPF Urine Culture Reflexed (NO) Monoscreen (NEGATIVE) Influenza Type A Ag (NEGATIVE) Influenza Type B Ag (NEGATIVE) RSV (PCR) (NEGATIVE) SARS-CoV-2 (PCR) (NEGATIVE) 06/04/23 Range/Units 11:14 WBC (4.0-10.5) x10^3/uL RBC (4.1-5.4) x10^6/uL Hgb (12.0-16.0) g/dL Hct (35-47) % MCV (78-100) fL MCH (26-32) pg MCHC (32-36) g/dL RDW (11.5-14.0) % Plt Count (150-450) x10^3/uL MPV (7.5-11.0) fL Gran % (36.0-66.0) % Immature Gran % (Auto) (0.00-0.4) % Nucleat RBC Rel Count (0.00-0.1) % Eos # (Auto) (0-0.5) x10^3/uL Immature Gran # (Auto) (0.00-0.03) x10^3u/L Absolute Lymphs (auto) (1.0-4.6) x10^3/uL Absolute Monos (auto) (0.0-1.3) x10^3/uL Absolute Nucleated RBC (0.00-0.01) x10^3u/L Lymphocytes % (24.0-44.0) % Monocytes % (0.0-12.0) % Eosinophils % (0.00-5.0) % Basophils % (0.0-0.4) % Absolute Granulocytes (1.4-6.9) x10^3/uL Basophils # (0-0.4) x10^3/uL PT (9.4-12.5) SECONDS INR (0.8-3.0) D-Dimer (0.0-0.50) mg/L Sodium (137-145) mmol/L Potassium (3.5-5.1) mmol/L Chloride (98-107) mmol/L Carbon Dioxide (22-30) mmol/L Anion Gap (5-15) MEQ/L BUN (7-17) mg/dL Creatinine (0.52-1.04) mg/dL Estimated GFR ML/MIN Glucose (74-106) mg/dL Calcium (8.4-10.2) mg/dL Magnesium (1.6-2.3) mg/dL Total Bilirubin (0.2-1.3) mg/dL AST (14-36) U/L ALT (0-35) U/L Alkaline Phosphatase (38-126) U/L Troponin I (0.000-0.034) ng/mL NT-Pro-B Natriuret Pep (<300) pg/mL Serum Total Protein (6.3-8.2) g/dL Albumin (3.5-5.0) g/dL Urine Color Yellow (Yellow) Urine Appearance Clear (Clear) Urine pH 7.0 (4.6-8.0) Ur Specific Trail 1.015 (1.005-1.030) Urine Protein Trace A (Negative) Urine Glucose (UA) Negative (Negative) mg/dL Urine Ketones Negative (Negative) Urine Blood Negative (Negative) Urine Nitrite Positive A (Negative) Urine Bilirubin Negative (Negative) Urine Urobilinogen 1.0 A (0.2) mg/dL Ur Leukocyte Esterase Moderate A (Negative) U Hyaline Cast (Auto) NONE SEEN (0-2) /LPF Urine Microscopic RBC 0-2 (0-5) /HPF Urine Microscopic WBC 21-50 A (0-5) /HPF Ur Epithelial Cells Few (None Seen) /HPF Urine Bacteria Many A (None Seen) /HPF Urine Culture Reflexed YES (NO) Monoscreen (NEGATIVE) Influenza Type A Ag (NEGATIVE) Influenza Type B Ag (NEGATIVE) RSV (PCR) (NEGATIVE) SARS-CoV-2 (PCR) (NEGATIVE) - Progress Progress: improved, re-examined Air Movement: good Progress Note: 06/04/23 10:58 This patient's medical issue is 1 of moderate complexity. The level of complex ity and the workup performed is based on review of the patient's past medical history, review of the patient's medication list, review of the patient's drug allergy list, history of present illness and physical findings on examination. The workup in the patient includes placement of intravenous line, urinalysis, CBC, CMP, magnesium level, troponin level, BNP, D-dimer level, twelve-lead EKG, flu swabs and monotest as well as CT scan of the patient's head without contrast. 06/04/23 11:59 I interpreted the chest x-ray. Initially, I do not appreciate any acute cardiopulmonary process. I interpreted the patient's laboratory data results. Patient is positive for urinary tract infection as well as COVID-19 infection. 06/04/23 12:01 CT scan of the head without contrast was interpreted by the radiologist and I reviewed the impression. The impression states new marked pansinusitis. Otherwise, continued nonacute senile brain 06/04/23 12:02 Will provide the patient with Rocephin 1 g intravenously to treat her urinary tract infection. Patient's room air oxygenation, saturation level is 95 to 96%. She is in no distress. Blood Culture(s) Obtained: Yes Antibiotics given: Yes Counseled pt/family regarding: lab results, diagnosis, need for follow-up, rad results Medical Desision Making - Independent Historian Additional History obtained from: Family - Risk of complications The pt has a mod risk of morbidity or mortality based on: Need for prescription drug management - Departure Departure Disposition: Home Clinical Impression: COVID-19 virus infection, Urinary tract infection Condition: Stable Critical Care Time: No Referrals: JOSE MARTINEZ MD [Primary Care Provider] - Follow up/PCP as directed Additional Instructions: Drink plenty of clear liquids. Take your medications as prescribed. Return to the emergency department if symptoms recur or worsen. Call your primary care provider's office today, 06/04/2023, to make arranges for follow-up appointment in the next 7 days. Quarantine yourself for 7 days secondary to your new COVID- 19 infection diagnosis Prescriptions: Levofloxacin [Levaquin 500 MG Tablet] 500 mg PO DAILY #7 tablet
[2023-06-04 10:48] VITALS: TEMP 97; O2SAT 96
[2023-06-04 11:17] LABS: Absolute Neutrophil Ct (ANC) 7.46 x10^3/uL (1.4-6.9); BASOPHIL % 0.4 % (0.0-0.4); Basophil (Absolute #) 0.04 x10^3/uL (0-0.4); Eosinophil % 1.7 % (0.00-5.0); Eosinophil (Absolute #) 0.17 x10^3/uL (0-0.5); Hematocrit 36.7 % (35-47); Hemoglobin 12.2 g/dL (12.0-16.0); Lymphocyte (Absolute #) 1.67 x10^3/uL (1.0-4.6); Lymphocytes % 16.8 % (24.0-44.0); Mean Cell Volume 87.8 fL (78-100); Mean Corpuscular Hemoglobin 29.2 pg (26-32); Mean Corpuscular Hgb Concent. 33.2 g/dL (32-36); Mean Platelet Volume 9.2 fL (7.5-11.0); Monocyte (Absolute #) 0.49 x10^3/uL (0.0-1.3); Monocytes % 4.9 % (0.0-12.0); Neutrophil % 75.2 % (36.0-66.0); Platelet Count 295 x10^3/uL (150-450); Red Blood Count 4.18 x10^6/uL (4.1-5.4); Red Cell Distribution Width 13.6 % (11.5-14.0); White Blood Count 9.9 x10^3/uL (4.0-10.5)
[2023-06-04 11:24] LABS: Appearance Clear (Clear); Bacteria Many /HPF (None Seen); Bilirubin Negative (Negative); Blood Negative (Negative); Epithelial Cells Few /HPF (None Seen); Glucose, Urine Negative (Negative); Hyaline Casts NONE SEEN /LPF (0-2); Ketones Negative (Negative); Leukocyte Esterase Moderate (Negative); Nitrite Positive (Negative); Protein,Urine Dip Trace (Negative); RBC 0-2 /HPF (0-5); Specific Gravity 1.015 (1.005-1.030); WBC 21-50 /HPF (0-5)
[2023-06-04 11:29] LABS: D-DIMER QUANTITATIVE 0.39 mg/L (0.0-0.50); INR 0.98 (0.8-3.0); PROTIME 10.7 SECONDS (9.4-12.5)
[2023-06-04 11:30] LABS: ADD URINE CULTURE? YES (NO)
[2023-06-04 11:37] LABS: ALBUMIN 3.8 g/dL (3.5-5.0); ANION GAP 11.7 MEQ/L (5-15); BILIRUBIN,TOTAL 0.9 mg/dL (0.2-1.3); Calcium 9.3 mg/dL (8.4-10.2); Creatinine 1 0.43 mg/dL (0.52-1.04); EST GLOMERULAR FILTRATION RATE 95.3 ML/MIN; Potassium 3.9 mmol/L (3.5-5.1); Total Protein 7.3 g/dL (6.3-8.2)
[2023-06-04] MEDS ORDERED: Sodium Chloride 0.9% 500 ML 500 ML IV ONE ×2 (11:43→11:47)
[2023-06-04] MEDS ORDERED: ROCEPHIN 1 Gm-D5w 50 ml Bag** 1 G/50 ML IVPB IV STA (11:43)
[2023-06-04 11:44] VITALS: BP 174/81; PULSE 69; RESP 19
[2023-06-04] MEDS ORDERED: ROCEPHIN 1 Gm-D5w 50 ml Bag** 1 G/50 ML IVPB IV ONE (11:47)
[2023-06-04 11:53] LABS: INFLUENZA A NEGATIVE (NEGATIVE); INFLUENZA B NEGATIVE (NEGATIVE); RESPIRATORY SYNCTIAL VIRUS NEGATIVE (NEGATIVE); SARS-CoV-2 Xpert Express POSITIVE (NEGATIVE)
--- NOTE | 2023-06-04 11:58 | XRAY ---
Indication: Weakness. Left hand numbness. Multiple contiguous images obtained through the head without contrast. Comparison: October 21, 2021 Again age-appropriate global atrophy and mild periventricular degenerative micro-ischemia bilaterally. No acute intracranial hemorrhage, abnormal extra-axial fluid collection, or mass effect. Fourth ventricle is midline without hydrocephalus. Bony calvarium intact. New moderate/significant mucosal thickening all paranasal sinuses with fluid leveling both sphenoid and left maxillary sinuses. Mastoid air cells are clear. Impression: New marked pansinusitis. Otherwise continued nonacute senile brain.
--- NOTE | 2023-06-04 11:58 | XRAY ---
Indication: Cough. Comparison: October 21, 2021 Portable chest remains inflated and clear with incidental right lung calcified granuloma. Heart not enlarged again with tortuous descending aorta. Bony thorax intact again with osteopenia and degenerative changes. Impression: Continued nonacute chest with chronic features.
== END 2023-06-04 12:52 | disposition home or self-care (01) ==
LOC: ED 10:36
DX: U07.1 COVID-19 (principal); N39.0 Urinary tract infection, site not specified; R05.1 Acute cough; R20.2 Paresthesia of skin; R53.1 Weakness; E78.5 Hyperlipidemia, unspecified; I10 Essential (primary) hypertension; E11.42 Type 2 diabetes mellitus with diabetic polyneuropathy; Z79.84 Long term (current) use of oral hypoglycemic drugs; Z79.4 Long term (current) use of insulin; Z79.899 Other long term (current) drug therapy; Z28.310 Unvaccinated for COVID-19
CPT/HCPCS: 0241U; 36000; 36415; 70450; 71045; 80053; 81001; 83735; 83880; 84484; 85025; 85379; 85610; 86308; 87040; 87086; 93005; 94760; 99284; 87077; 87186; J0696

== ENCOUNTER 2023-12-30 08:40 | Observation (INO) | payer MEDICARE ==
[2023-12-30 09:06] LABS: Absolute Neutrophil Ct (ANC) 7.18 x10^3/uL (1.56-6.13); BASOPHIL % 0.6 % (0.1-1.2); Basophil (Absolute #) 0.06 x10^3/uL (0.01-0.08); Eosinophil % 4.2 % (0.7-5.8); Eosinophil (Absolute #) 0.41 x10^3/uL (0.04-0.36); Hematocrit 37.8 % (34.1-44.9); Hemoglobin 12.8 g/dL (11.2-15.7); IMMATURE GRAN # 0.07 x10^3u/L (0.001-0.031); IMMATURE GRAN % 0.7 % (0.001-0.429); Lymphocytes % 15.4 % (19.3-51.7); Mean Cell Volume 86.5 fL (79.4-94.8); Mean Corpuscular Hemoglobin 29.3 pg (25.6-32.2); Mean Corpuscular Hgb Concent. 33.9 g/dL (32.2-35.5); Mean Platelet Volume 9.4 fL (9.4-12.3); Monocyte (Absolute #) 0.53 x10^3/uL (0.24-0.86); Monocytes % 5.4 % (4.7-12.5); Neutrophil % 73.7 % (34.0-71.1); Platelet Count 274 x10^3/uL (182-369); Red Blood Count 4.37 x10^6/uL (3.93-5.22); Red Cell Distribution Width 13.2 % (11.7-14.4); White Blood Count 9.8 x10^3/uL (3.98-10.04)
--- NOTE | 2023-12-30 09:09 | ERPHSYRPT ---
- History of Present Illness Time Seen by Provider: 12/30/23 08:50 Source: patient Exam Limitations: no limitations Patient Subjective Stated Complaint: palpitations Triage Nursing Assessment: patient states that she has chronic afib. states that she felt that her heart was racing this morning and dizzy Physician History: Patient is an 83-year-old female history of A-fib on Eliquis presents to our ED for evaluation of heart palpitations, dizziness and generalized weakness that occurs in episodes. Patient states symptoms started approximately 1 week ago. Symptoms have been progressive. No associated pain. No nausea vomiting or diaphoresis. Symptoms are now constant. No trauma no fever. No syncope. Patient denies a history of the same. When present symptoms are moderate in intensity. No specific worsening or improving factors. Patient voices no other complaints or concerns at this time. Portions of this note were created with voice recognition technology. There may be grammatical, spelling, punctuation or sound alike errors Timing/Duration: week(s) (1 week) Severity: moderate Modifying Factors: Improves With: nothing Associated Symptoms: other (Generalized weakness and dizziness) Allergies/Adverse Reactions: No Known Drug Allergies Allergy (Verified 12/30/23 08:52) Home Medications: Atorvastatin Calcium 40 mg PO DAILY 12/19/16 [History] Hydralazine HCl 10 mg PO TID 12/19/16 [History] Metformin HCl 1,000 mg PO DAILY 12/19/16 [History] Metoprolol Succinate 50 mg PO BID 12/19/16 [History] Olmesartan/Hydrochlorothiazide [Benicar Hct 40-25 mg Tablet] 1 each PO DAILY 12/19/16 [History] Verapamil HCl 80 mg [Calan 80 mg] 80 mg PO TID 12/19/16 [History] Ascorbic Acid 500 mg [Vitamin C 500 MG] 500 mg PO DAILY 11/17/17 [History] Calcium Carb, Citrate/Vit D3 [Calcium + D3 ER Tablet] 1 each PO DAILY 11/17/17 [History] Insulin Glargine [Lantus Insulin] 40 unit SQ QHS 11/17/17 [History] Insulin Lispro [Humalog Kwikpen U-100] 15 unit SQ BID 11/17/17 [History] Magnesium Oxide [Magnesium] 1 tab PO DAILY 12/30/23 [History] Hx Tetanus, Diphtheria Vaccination/Date Given: No Hx Influenza Vaccination/Date Given: No Hx Pneumococcal Vaccination/Date Given: No Travel Risk - International Travel Have you traveled outside of the country in past 3 weeks: No - Emerging Infectious Disease Are you exhibiting symptoms associated with any current EIDs: No - Review of Systems Constitutional: No Symptoms Eyes: No Symptoms Ears, Nose, & Throat: No Symptoms Respiratory: No Symptoms, No Cough, No Dyspnea Cardiac: No Symptoms, No Chest Pain, No Edema, No Syncope Abdominal/Gastrointestinal: No Symptoms, No Abdominal Pain, No Nausea, No Vomiting, No Diarrhea Genitourinary Symptoms: No Symptoms, No Dysuria Musculoskeletal: No Symptoms, No Back Pain, No Neck Pain Skin: No Symptoms, No Rash Neurological: No Symptoms, No Dizziness, No Focal Weakness, No Sensory Changes Psychological: No Symptoms Endocrine: No Symptoms Hematologic/Lymphatic: No Symptoms Immunological/Allergic: No Symptoms All Other Systems: Reviewed and Negative - Past Medical History Pertinent Past Medical History: Yes Neurological History: Peripheral Neuropathy ENT History: Cataracts Cardiac History: Arrhythmia, Hypertension, Myocardial Infarction (CT) Respiratory History: No Pertinent History Endocrine Medical History: Diabetes Type II Musculoskeletal History: Fractures, Osteoarthritis GI Medical History: Gallbladder Disease, Polyps History: No Pertinent History Psycho-Social History: No Pertinent History Female Reproductive Disorders: No Pertinent History Other Medical History: A-fib. colon polyp 2016 - Past Surgical History Past Surgical History: Yes Neuro Surgical History: No Pertinent History Cardiac: Cardiac Catheterization, Other Respiratory: No Pertinent History Gastrointestinal: Appendectomy, Cholecystectomy Genitourinary: No Pertinent History Musculoskeletal: Orthopedic Surgery Female Surgical History: Hysterectomy Other Surgical History: Cardiac ablation - Social History Smoking Status: Never smoker Exposure to second hand smoke: No Drug Use: none Patient Lives Alone: No - Nursing Vital Signs Nursing Vital Signs: Initial Vital Signs Pulse Rate 65 12/30/23 08:46 Respiratory Rate 16 12/30/23 08:46 Blood Pressure 198/80 12/30/23 08:46 O2 Sat by Pulse Oximetry 95 12/30/23 08:46 Pain Scale Pain Intensity 0 - Physical Exam General Appearance: no apparent distress, alert Eye Exam: PERRL/EOMI, eyes nml inspection Ears, Nose, Throat Exam: normal ENT inspection, moist mucous membranes Neck Exam: normal inspection, non-tender, supple, full range of motion Respiratory Exam: normal breath sounds, lungs clear, airway intact, No respiratory distress Cardiovascular Exam: regular rate/rhythm, normal heart sounds, normal peripheral pulses Gastrointestinal/Abdomen Exam: soft, normal bowel sounds, No tenderness, No mass Back Exam: normal inspection, normal range of motion, No CVA tenderness, No vertebral tenderness Extremity Exam: normal inspection, normal range of motion, pelvis stable Neurologic Exam: alert, oriented x 3, cooperative, normal mood/affect, sensation nml, No motor deficits Skin Exam: normal color, warm, dry, No rash Lymphatic Exam: No adenopathy SpO2 Interpretation: normal SpO2: 95 O2 Delivery: Room Air - Course Nursing assessment & vital signs reviewed: Yes EKG Interpreted by Me: RATE (60), Sinus Rhythm, NORMAL AXIS, NORMAL INTERVALS, NORMAL QRS - CT Exams Head CT Interpretation: Tele-radiologist Report (Chronic pansinusitis nonacute senile brain) Ordered Tests: Active Orders 24 hr Category Date Time Status Laborer Plumbing STAT Care 12/30/23 08:53 Active EKG-ER Only STAT Care 12/30/23 08:52 Active IV Insertion STAT Care 12/30/23 08:52 Active Pulse Oximetry (ED) STAT Care 12/30/23 08:52 Active HEAD WITHOUT CONTRAST [CT] Stat Exams 12/30/23 08:51 Completed CBC W DIFF Stat Lab 12/30/23 09:00 Completed CMP Stat Lab 12/30/23 09:00 Completed CULTURE,URINE Stat Lab 12/30/23 09:40 Received TROPONIN Q4H Lab 12/30/23 09:00 Completed TROPONIN Q4H Lab 12/30/23 13:00 Ordered TROPONIN Q4H Lab 12/30/23 17:00 Ordered TSH [TSH, 3RD Generation] Stat Lab 12/30/23 09:00 Completed UA W/RFX UR CULTURE Stat Lab 12/30/23 09:40 Completed Transfer Order Routine Transfer 12/30/23 Ordered Medication Summary Generic Name Dose Route Start Last Admin Trade Name Freq PRN Reason Stop Dose Admin Sodium Chloride 1,000 mls @ 250 mls/hr 12/30/23 10:45 Sodium Chloride 0.9% 1000 Ml IV 01/29/24 10:44 .Q4H YANY Discontinued Medications Generic Name Dose Route Start Last Admin Trade Name Freq PRN Reason Stop Dose Admin Ceftriaxone Sodium 1 gm in 100 mls @ 200 mls/hr 12/30/23 10:38 Rocephin 1 Gm / 100 Ml Nacl IV 12/30/23 11:07 STAT ONE Lab/Rad Data: Laboratory Result Diagrams 12/30/23 09:00 12/30/23 09:00 Laboratory Results 12/30/23 12/30/23 12/30/23 Range/Units 09:40 09:00 09:00 WBC (3.98-10.04) x10^3/uL RBC (3.93-5.22) x10^6/uL Hgb (11.2-15.7) g/dL Hct (34.1-44.9) % MCV (79.4-94.8) fL MCH (25.6-32.2) pg MCHC (32.2-35.5) g/dL RDW (11.7-14.4) % Plt Count (182-369) x10^3/uL MPV (9.4-12.3) fL Gran % (34.0-71.1) % Immature Gran % (Auto) (0.001-0.429) % Nucleat RBC Rel Count (0.00-0.2) % Eos # (Auto) (0.04-0.36) x10^3/uL Immature Gran # (Auto) (0.001-0.031) x10^3u/L Absolute Lymphs (auto) (1.18-3.74) x10^3/uL Absolute Monos (auto) (0.24-0.86) x10^3/uL Absolute Nucleated RBC (0.00-0.012) x10^3u/L Lymphocytes % (19.3-51.7) % Monocytes % (4.7-12.5) % Eosinophils % (0.7-5.8) % Basophils % (0.1-1.2) % Absolute Granulocytes (1.56-6.13) x10^3/uL Basophils # (0.01-0.08) x10^3/uL Sodium 133 L (135-145) mmol/L Potassium 4.2 (3.5-5.1) mmol/L Chloride 98 (98-107) mmol/L Carbon Dioxide 30 (22-30) mmol/L Anion Gap 9.5 (5-15) MEQ/L BUN 10 (7-17) mg/dL Creatinine 0.51 L (0.52-1.04) mg/dL Estimated GFR 91.4 ML/MIN Glucose 235 H (74-106) mg/dL Calcium 9.4 (8.4-10.2) mg/dL Total Bilirubin 0.80 (0.2-1.3) mg/dL AST 27 (14-36) U/L ALT 21 (0-35) U/L Alkaline Phosphatase 109 (38-126) U/L Troponin I < 0.012 (0.000-0.033) ng/mL Serum Total Protein 7.4 (6.3-8.2) g/dL Albumin 4.0 (3.5-5.0) g/dL TSH 3rd Generation (0.470-4.680) mIU/L Urine Color Yellow (Yellow) Urine Appearance Clear (Clear) Urine pH 7.0 (4.6-8.0) Ur Specific [place] 1.015 (1.005-1.030) Urine Protein Negative (Negative) Urine Glucose (UA) 100 A (Negative) mg/dL Urine Ketones Negative (Negative) Urine Blood Negative (Negative) Urine Nitrite Positive A (Negative) Urine Bilirubin Negative (Negative) Urine Urobilinogen 0.2 (0.2) mg/dL Ur Leukocyte Esterase Moderate A (Negative) U Hyaline Cast (Auto) NONE SEEN (0-2) /LPF Urine Microscopic RBC 0-2 (0-5) /HPF Urine Microscopic WBC 51-100 A (0-5) /HPF Ur Epithelial Cells Rare (None Seen) /HPF Urine Bacteria Many A (None Seen) /HPF Urine Culture Reflexed YES (NO) 12/30/23 12/30/23 Range/Units 09:00 09:00 WBC 9.8 (3.98-10.04) x10^3/uL RBC 4.37 (3.93-5.22) x10^6/uL Hgb 12.8 (11.2-15.7) g/dL Hct 37.8 (34.1-44.9) % MCV 86.5 (79.4-94.8) fL MCH 29.3 (25.6-32.2) pg MCHC 33.9 (32.2-35.5) g/dL RDW 13.2 (11.7-14.4) % Plt Count 274 (182-369) x10^3/uL MPV 9.4 (9.4-12.3) fL Gran % 73.7 H (34.0-71.1) % Immature Gran % (Auto) 0.7 H (0.001-0.429) % Nucleat RBC Rel Count 0.0 (0.00-0.2) % Eos # (Auto) 0.41 H (0.04-0.36) x10^3/uL Immature Gran # (Auto) 0.07 H (0.001-0.031) x10^3u/L Absolute Lymphs (auto) 1.50 (1.18-3.74) x10^3/uL Absolute Monos (auto) 0.53 (0.24-0.86) x10^3/uL Absolute Nucleated RBC 0.00 (0.00-0.012) x10^3u/L Lymphocytes % 15.4 L (19.3-51.7) % Monocytes % 5.4 (4.7-12.5) % Eosinophils % 4.2 (0.7-5.8) % Basophils % 0.6 (0.1-1.2) % Absolute Granulocytes 7.18 H (1.56-6.13) x10^3/uL Basophils # 0.06 (0.01-0.08) x10^3/uL Sodium (135-145) mmol/L Potassium (3.5-5.1) mmol/L Chloride (98-107) mmol/L Carbon Dioxide (22-30) mmol/L Anion Gap (5-15) MEQ/L BUN (7-17) mg/dL Creatinine (0.52-1.04) mg/dL Estimated GFR ML/MIN Glucose (74-106) mg/dL Calcium (8.4-10.2) mg/dL Total Bilirubin (0.2-1.3) mg/dL AST (14-36) U/L ALT (0-35) U/L Alkaline Phosphatase (38-126) U/L Troponin I (0.000-0.033) ng/mL Serum Total Protein (6.3-8.2) g/dL Albumin (3.5-5.0) g/dL TSH 3rd Generation 1.862 (0.470-4.680) mIU/L Urine Color (Yellow) Urine Appearance (Clear) Urine pH (4.6-8.0) Ur Specific [place] (1.005-1.030) Urine Protein (Negative) Urine Glucose (UA) (Negative) mg/dL Urine Ketones (Negative) Urine Blood (Negative) Urine Nitrite (Negative) Urine Bilirubin (Negative) Urine Urobilinogen (0.2) mg/dL Ur Leukocyte Esterase (Negative) U Hyaline Cast (Auto) (0-2) /LPF Urine Microscopic RBC (0-5) /HPF Urine Microscopic WBC (0-5) /HPF Ur Epithelial Cells (None Seen) /HPF Urine Bacteria (None Seen) /HPF Urine Culture Reflexed (NO) - Progress Progress: improved Progress Note: 83-year-old female history of A-fib on Eliquis presents to our ED for evaluation of dizziness and generalized weakness. Physical exam essentially nonremarkable. Neurologically intact. No focal or lateralizing symptoms. Laboratory workup revealed a significant urinary tract infection. IV Rocephin initiated. However in light of patient's age and other complaints including dizziness and generalized weakness patient will be admitted for further evaluation and treatment. Patient will require monitoring for her complaint of heart palpitation. EKG revealed normal sinus rhythm. Laboratory workup shows a s light hyponatremia at 133 otherwise essentially nonremarkable. Case discussed with Dr. Smith at 11:10 AM. Patient accepted to observation. Plan of care discussed with patient. She agrees to admission to [facility] for further evaluation and treatment. Portions of this note were created with voice recognition technology. There may be grammatical, spelling, punctuation or sound alike errors Complexity of problem addressed is moderate acute complicated. No critical care time. Complexity of data reviewed and analyzed is extensive. Test ordered chest reviewed results analyzed and correlated clinically with history and physical exam. Risk of complication and or risk of morbidity/mortality patient management is high. Patient requires hospitalization for further evaluation and treatment. Vital stable. Time spent admit patient is approximately 20 minutes. Plan of care established for shared decision making. No social determinants of health present to impede follow-up. Portions of this note were created with voice recognition technology. There may be grammatical, spelling, punctuation or sound alike errors 12/30/23 11:18 Counseled pt/family regarding: lab results, diagnosis, rad results - Departure Departure Disposition: Observation Clinical Impression: UTI (urinary tract infection), Dizziness, Generalized weakness, Heart palpitations, Hyponatremia, Chronic pansinusitis Condition: Stable Critical Care Time: No Referrals: JOSE MARTINEZ MD [Primary Care Provider] - Follow up/PCP as directed
[2023-12-30 09:18] LABS: ANION GAP 9.5 MEQ/L (5-15); BILIRUBIN,TOTAL 0.8 mg/dL (0.2-1.3); Calcium 9.4 mg/dL (8.4-10.2); Creatinine 1 0.51 mg/dL (0.52-1.04); EST GLOMERULAR FILTRATION RATE 91.4 ML/MIN; Potassium 4.2 mmol/L (3.5-5.1); Total Protein 7.4 g/dL (6.3-8.2)
[2023-12-30 10:03] LABS: Appearance Clear (Clear); Bacteria Many /HPF (None Seen); Bilirubin Negative (Negative); Blood Negative (Negative); Epithelial Cells Rare /HPF (None Seen); Glucose, Urine 100 mg/dL (Negative); Hyaline Casts NONE SEEN /LPF (0-2); Ketones Negative (Negative); Leukocyte Esterase Moderate (Negative); Nitrite Positive (Negative); Protein,Urine Dip Negative (Negative); RBC 0-2 /HPF (0-5); Specific Gravity 1.015 (1.005-1.030); Urobilinogen 0.2 mg/dL (0.2); WBC 51-100 /HPF (0-5)
[2023-12-30 10:12] LABS: ADD URINE CULTURE? YES (NO)
--- NOTE | 2023-12-30 10:31 | XRAY ---
Indication: Dizziness 1 week. Chronic atrial fibrillation. Stroke. Multiple contiguous axial images obtained through the head without contrast. Comparison: June 04, 2023 Again age-appropriate global atrophy and mild periventricular degenerative micro-ischemia bilaterally. No acute intracranial hemorrhage, abnormal extra-axial fluid collection, or mass effect. Fourth ventricle is midline without hydrocephalus. Bony calvarium intact. Again chronic mucoperiosteal thickening all visualized paranasal sinuses without fluid leveling. Mastoid air cells are clear. Impression: Again chronic pansinusitis. Otherwise continue nonacute senile brain.
[2023-12-30] MEDS ORDERED: ROCEPHIN 1 GM / 100 ML NaCl 1 GM/100 ML IVPB IV ONE (11:19)
[2023-12-30] MEDS: Sodium Chloride 0.9% 1000 ML 1,000 ML IV SCH (11:22)
[2023-12-30] MEDS: ROCEPHIN 1 GM / 100 ML NaCl 1 GM/100 ML IVPB IV ONE (11:23)
--- NOTE | 2023-12-30 13:52 | PCM.HP ---
History of Present Illness - Chief Complaint Chief Complaint: urinary tract infection, dizzines Date: 12/30/23 History of Present Illness: is a 83 year old female with a pmhx of peripheral neuropathy, HI, HTN, DMII OA, and AFIB (eliquis/metoprolol) who presented to ED 12/30/23 with complaints of a one week history of progressive dizziness, weakness, and heart "racing." Her main complaint is weakness. Patient states that the dizziness and "heart racing" sensation has been going on for years intermittently since she was diagnosed with AFIB . She follows with Dr. Arambula (cardiology) OP. Currently she denies dizziness/heart racing. She denies fever, CP, hematuria, dysuria, frequency, nausea, vomiting, or diarrhea. Upon arrival to ED patient was hypertensive with BP 198/80. Lab findings remarkable for UTI and mild hyponatremia. CT head with no acute findings. Patient given Rocephin and fluid. - Review of Systems Constitutional: Weakness Eyes: No Symptoms Ears, Nose, & Throat: No Symptoms Respiratory: No Symptoms Cardiac: No Symptoms Abdominal/Gastrointestinal: No Symptoms Genitourinary Symptoms: No Symptoms Musculoskeletal: No Symptoms Skin: No Symptoms Neurological: No Symptoms Psychological: No Symptoms Endocrine: No Symptoms Hematologic/Lymphatic: No Symptoms Immunological/Allergic: No Symptoms Medications & Allergies Home Medications: Home Medication List Atorvastatin Calcium 40 mg PO DAILY 12/19/16 [History Confirmed 12/30/23] Hydralazine HCl 10 mg PO BID 12/19/16 [History Confirmed 12/30/23] Metformin HCl 1,000 mg PO DAILY 12/19/16 [History Confirmed 12/30/23] Metoprolol Succinate 50 mg PO BID 12/19/16 [History Confirmed 12/30/23] Olmesartan/Hydrochlorothiazide [Benicar Hct 40-25 mg Tablet] 1 each PO DAILY 12/19/16 [History Confirmed 12/30/23] Verapamil HCl 80 mg [Calan 80 mg] 80 mg PO TID 12/19/16 [History Confirmed 12/30/23] Ascorbic Acid 500 mg [Vitamin C 500 MG] 500 mg PO DAILY 11/17/17 [History Confirmed 12/30/23] Insulin Glargine [Lantus Insulin] 40 unit SQ QHS 11/17/17 [History Confirmed 12/30/23] Insulin Lispro [Humalog Kwikpen U-100] 15 unit SQ BID 11/17/17 [History Confirmed 12/30/23] Apixaban [Eliquis 5 mg Tablet] 2.5 mg PO BID #0 12/01/17 [Rx Confirmed 12/30/23] Magnesium Oxide [Magnesium] 1 tab PO DAILY 12/30/23 [History Confirmed 12/30/23] Allergies/Adverse Reactions: Allergies Allergy/AdvReac Type Severity Reaction Status Date / Time No Known Drug Allergies Allergy Verified 12/30/23 08:52 - Past Medical History Past Medical History: Yes Neurological History: Peripheral Neuropathy ENT History: Cataracts Cardiac History: Arrhythmia, Hypertension Respiratory History: No Pertinent History Endocrine Medical History: Diabetes Type II Musculoskelatal History: Fractures, Osteoarthritis GI Medical History: Gallbladder Disease, Polyps History: No Pertinent History Pyscho-Social History: No Pertinent History Reproductive Disorders: No Pertinent History Comment: A-fib. colon polyp 2016 - Past Surgical History Past Surgical History: Yes Neuro Surgical History: No Pertinent History Cardiac History: Cardiac Catheterization, Other Respiratory Surgery: No Pertinent History GI Surgical History: Appendectomy, Cholecystectomy Genitourinary Surgical Hx: No Pertinent History Musculskeletal Surgical Hx: Orthopedic Surgery Female Surgical History: Hysterectomy Other Surgical History: Cardiac ablation - Social History Smoking Status: Never smoker Exposure to second hand smoke: No Alcohol: None, Rarely Drug Use: none - Physical Exam Vital Signs: Vital Signs - 24 hr Pulse Resp BP BP Pulse Ox 12/30/23 12:02 63 18 187/73 96 12/30/23 12:00 73 18 207/81 96 12/30/23 11:46 69 19 199/84 96 12/30/23 11:45 65 18 96 12/30/23 11:40 65 13 96 12/30/23 11:33 68 14 98 12/30/23 11:20 95 12/30/23 11:00 71 17 172/83 96 12/30/23 10:30 61 15 163/87 93 L 12/30/23 10:01 62 16 184/76 95 12/30/23 09:52 61 15 201/98 96 12/30/23 09:30 62 16 196/82 96 08/20/24 09:01 61 9 L 186/53 95 12/30/23 08:58 98 12/30/23 08:48 60 12 198/80 95 12/30/23 08:46 65 16 198/80 95 General Appearance: no apparent distress Neurologic Exam: alert, oriented x 3, cooperative Eye Exam: PERRL/EOMI Ears, Nose, Throat Exam: normal ENT inspection Neck Exam: normal inspection Respiratory Exam: normal breath sounds, lungs clear Cardiovascular Exam: regular rate/rhythm, normal heart sounds Gastrointestinal/Abdomen Exam: soft, normal bowel sounds Pelvic Exam: not done Rectal Exam: deferred Back Exam: normal inspection Extremity Exam: normal inspection Skin Exam: normal color Results - Labs Lab/Micro Results: Lab Results-Last 24 Hours 12/30/23 12/30/23 12/30/23 Range/Units 09:00 09:00 09:00 WBC 9.8 (3.98-10.04) x10^3/uL RBC 4.37 (3.93-5.22) x10^6/uL Hgb 12.8 (11.2-15.7) g/dL Hct 37.8 (34.1-44.9) % MCV 86.5 (79.4-94.8) fL MCH 29.3 (25.6-32.2) pg MCHC 33.9 (32.2-35.5) g/dL RDW 13.2 (11.7-14.4) % Plt Count 274 (182-369) x10^3/uL MPV 9.4 (9.4-12.3) fL Gran % 73.7 H (34.0-71.1) % Immature Gran % (Auto) 0.7 H (0.001-0.429) % Nucleat RBC Rel Count 0.0 (0.00-0.2) % Eos # (Auto) 0.41 H (0.04-0.36) x10^3/uL Immature Gran # (Auto) 0.07 H (0.001-0.031) x10^3u/L Absolute Lymphs (auto) 1.50 (1.18-3.74) x10^3/uL Absolute Monos (auto) 0.53 (0.24-0.86) x10^3/uL Absolute Nucleated RBC 0.00 (0.00-0.012) x10^3u/L Lymphocytes % 15.4 L (19.3-51.7) % Monocytes % 5.4 (4.7-12.5) % Eosinophils % 4.2 (0.7-5.8) % Basophils % 0.6 (0.1-1.2) % Absolute Granulocytes 7.18 H (1.56-6.13) x10^3/uL Basophils # 0.06 (0.01-0.08) x10^3/uL Sodium 133 L (135-145) mmol/L Potassium 4.2 (3.5-5.1) mmol/L Chloride 98 (98-107) mmol/L Carbon Dioxide 30 (22-30) mmol/L Anion Gap 9.5 (5-15) MEQ/L BUN 10 (7-17) mg/dL Creatinine 0.51 L (0.52-1.04) mg/dL Estimated GFR 91.4 ML/MIN Glucose 235 H (74-106) mg/dL Calcium 9.4 (8.4-10.2) mg/dL Total Bilirubin 0.80 (0.2-1.3) mg/dL AST 27 (14-36) U/L ALT 21 (0-35) U/L Alkaline Phosphatase 109 (38-126) U/L Troponin I (0.000-0.033) ng/mL Serum Total Protein 7.4 (6.3-8.2) g/dL Albumin 4.0 (3.5-5.0) g/dL TSH 3rd Generation 1.862 (0.470-4.680) mIU/L Urine Color (Yellow) Urine Appearance (Clear) Urine pH (4.6-8.0) Ur Specific [place] (1.005-1.030) Urine Protein (Negative) Urine Glucose (UA) (Negative) mg/dL Urine Ketones (Negative) Urine Blood (Negative) Urine Nitrite (Negative) Urine Bilirubin (Negative) Urine Urobilinogen (0.2) mg/dL Ur Leukocyte Esterase (Negative) U Hyaline Cast (Auto) (0-2) /LPF Urine Microscopic RBC (0-5) /HPF Urine Microscopic WBC (0-5) /HPF Ur Epithelial Cells (None Seen) /HPF Urine Bacteria (None Seen) /HPF Urine Culture Reflexed (NO) 12/30/23 12/30/23 12/30/23 Range/Units 09:00 09:40 13:10 WBC (3.98-10.04) x10^3/uL RBC (3.93-5.22) x10^6/uL Hgb (11.2-15.7) g/dL Hct (34.1-44.9) % MCV (79.4-94.8) fL MCH (25.6-32.2) pg MCHC (32.2-35.5) g/dL RDW (11.7-14.4) % Plt Count (182-369) x10^3/uL MPV (9.4-12.3) fL Gran % (34.0-71.1) % Immature Gran % (Auto) (0.001-0.429) % Nucleat RBC Rel Count (0.00-0.2) % Eos # (Auto) (0.04-0.36) x10^3/uL Immature Gran # (Auto) (0.001-0.031) x10^3u/L Absolute Lymphs (auto) (1.18-3.74) x10^3/uL Absolute Monos (auto) (0.24-0.86) x10^3/uL Absolute Nucleated RBC (0.00-0.012) x10^3u/L Lymphocytes % (19.3-51.7) % Monocytes % (4.7-12.5) % Eosinophils % (0.7-5.8) % Basophils % (0.1-1.2) % Absolute Granulocytes (1.56-6.13) x10^3/uL Basophils # (0.01-0.08) x10^3/uL Sodium (135-145) mmol/L Potassium (3.5-5.1) mmol/L Chloride (98-107) mmol/L Carbon Dioxide (22-30) mmol/L Anion Gap (5-15) MEQ/L BUN (7-17) mg/dL Creatinine (0.52-1.04) mg/dL Estimated GFR ML/MIN Glucose (74-106) mg/dL Calcium (8.4-10.2) mg/dL Total Bilirubin (0.2-1.3) mg/dL AST (14-36) U/L ALT (0-35) U/L Alkaline Phosphatase (38-126) U/L Troponin I < 0.012 < 0.012 (0.000-0.033) ng/mL Serum Total Protein (6.3-8.2) g/dL Albumin (3.5-5.0) g/dL TSH 3rd Generation (0.470-4.680) mIU/L Urine Color Yellow (Yellow) Urine Appearance Clear (Clear) Urine pH 7.0 (4.6-8.0) Ur Specific [place] 1.015 (1.005-1.030) Urine Protein Negative (Negative) Urine Glucose (UA) 100 A (Negative) mg/dL Urine Ketones Negative (Negative) Urine Blood Negative (Negative) Urine Nitrite Positive A (Negative) Urine Bilirubin Negative (Negative) Urine Urobilinogen 0.2 (0.2) mg/dL Ur Leukocyte Esterase Moderate A (Negative) U Hyaline Cast (Auto) NONE SEEN (0-2) /LPF Urine Microscopic RBC 0-2 (0-5) /HPF Urine Microscopic WBC 51-100 A (0-5) /HPF Ur Epithelial Cells Rare (None Seen) /HPF Urine Bacteria Many A (None Seen) /HPF Urine Culture Reflexed YES (NO) - Radiology Impressions Radiology Exams & Impressions: Radiology Procedures Category Date Time Status HEAD WITHOUT CONTRAST [CT] Stat Exams 12/30/23 08:51 Completed Assessment/Plan (1) Urinary tract infection Current Visit: Yes Status: Acute Assessment & Plan: -UA suspicious for infection, ceftriaxone started in ED, will continue - follow cultures Code(s): N39.0 - URINARY TRACT INFECTION, SITE NOT SPECIFIED (2) Afib Current Visit: Yes Status: Acute Assessment & Plan: -NS on EKG - continue home eliquis/metoprolol -tele Code(s): I48.91 - UNSPECIFIED ATRIAL FIBRILLATION (3) HTN (hypertension) Current Visit: Yes Status: Acute Assessment & Plan: -Hypertensive on arrival - stable - continue to monitor with resumption of home meds Code(s): I10 - ESSENTIAL (PRIMARY) HYPERTENSION (4) Dizziness Current Visit: Yes Status: Acute Assessment & Plan: -CT head negative for acute finding -Most likely secondary to UTI -PT/OT -orthostatic vitals -Echo -TSH Code(s): R42 - DIZZINESS AND GIDDINESS (5) Generalized weakness Current Visit: Yes Status: Acute Assessment & Plan: -PT/OT Code(s): R53.1 - WEAKNESS (6) Heart palpitations Current Visit: Yes Status: Acute Assessment & Plan: -TSH, MG -EKG NS -Echo -consider cardiology consult if persisting -CXR Code(s): R00.2 - PALPITATIONS (7) Diabetes mellitus Current Visit: Yes Status: Acute Assessment & Plan: -A1c -ADA diet -SSI VTE: eliquis Dispo: 1-2 days Code status: Full Code(s): E11.9 - TYPE 2 DIABETES MELLITUS WITHOUT COMPLICATIONS
[2023-12-30] MEDS ORDERED: Zofran 4 MG/2 ML VIAL IV PRN (13:56)
[2023-12-30] MEDS ORDERED: TYLENOL 325 MG PO PRN (13:56)
[2023-12-30 14:50] LABS: MAGNESIUM 1.7 mg/dL (1.6-2.3); TSH, 3RD Generation 0.901 mIU/L (0.470-4.680)
[2023-12-30] MEDS: CALAN 80 MG PO SCH (16:28)
[2023-12-30] MEDS: HUMALOG SQ PRN (16:37)
[2023-12-30] MEDS: HUMALOG SQ SCH (16:38)
[2023-12-30] MEDS: Apresoline 25 MG TABLET PO SCH (19:18)
[2023-12-30] MEDS: ELIQUIS 2.5 MG TABLET PO SCH (21:00)
[2023-12-30] MEDS: Lantus Insulin SQ SCH (21:00)
[2023-12-30] MEDS: Toprol Xl 50 MG PO SCH (21:00)
[2023-12-31 04:37] LABS: Absolute Neutrophil Ct (ANC) 7.97 x10^3/uL (1.56-6.13); BASOPHIL % 0.4 % (0.1-1.2); Basophil (Absolute #) 0.04 x10^3/uL (0.01-0.08); Eosinophil % 2.7 % (0.7-5.8); Eosinophil (Absolute #) 0.29 x10^3/uL (0.04-0.36); Hematocrit 35.3 % (34.1-44.9); Hemoglobin 12.1 g/dL (11.2-15.7); IMMATURE GRAN # 0.07 x10^3u/L (0.001-0.031); IMMATURE GRAN % 0.6 % (0.001-0.429); Lymphocyte (Absolute #) 1.89 x10^3/uL (1.18-3.74); Lymphocytes % 17.4 % (19.3-51.7); Mean Cell Volume 86.5 fL (79.4-94.8); Mean Corpuscular Hemoglobin 29.7 pg (25.6-32.2); Mean Corpuscular Hgb Concent. 34.3 g/dL (32.2-35.5); Mean Platelet Volume 9.5 fL (9.4-12.3); Monocyte (Absolute #) 0.61 x10^3/uL (0.24-0.86); Monocytes % 5.6 % (4.7-12.5); Neutrophil % 73.3 % (34.0-71.1); Platelet Count 293 x10^3/uL (182-369); Red Blood Count 4.08 x10^6/uL (3.93-5.22); Red Cell Distribution Width 13.3 % (11.7-14.4); White Blood Count 10.9 x10^3/uL (3.98-10.04)
[2023-12-31 05:18] LABS: ALBUMIN 3.7 g/dL (3.5-5.0); ANION GAP 9.9 MEQ/L (5-15); BILIRUBIN,TOTAL 0.6 mg/dL (0.2-1.3); Calcium 9.2 mg/dL (8.4-10.2); Creatinine 1 0.51 mg/dL (0.52-1.04); EST GLOMERULAR FILTRATION RATE 91.4 ML/MIN; Potassium 3.5 mmol/L (3.5-5.1); Total Protein 6.9 g/dL (6.3-8.2)
--- NOTE | 2023-12-31 05:22 | PCM.NOTE ---
Date and Time: 12/31/23521 Subjective Assessment: is a 83 year old female with a pmhx of peripheral neuropathy, [place], HTN, DMII OA, and AFIB (eliquis/metoprolol) who presented to ED 12/30/23 with complaints of a one week history of progressive dizziness, weakness, and heart "racing." Her main complaint is weakness. Patient states that the dizziness and "heart racing" sensation has been going on for years intermittently since she was diagnosed with AFIB . She follows with Dr. Arambula (cardiology) OP. Currently she denies dizziness/heart racing. She denies fever, CP, hematuria, dysuria, frequency, nausea, vomiting, or diarrhea. Upon arrival to ED patient was hypertensive with BP 198/80. Lab findings remarkable for UTI and mild hyponatremia. CT head with no acute findings. Patient given Rocephin and fluid. 12/31/23: Met and examined patient bedside. Feeling much better today, endorses improved energy. Blood pressure elevated this morning although improved from yesterday. Urine culture with gram negative ID. Continue IV abx today, possible discharge tomorrow. Denies fever,cough, sob, cp, dysuria, hematuria, frequency, abdominal pain, POPE, dizziness, N/V/D. - Review of Systems Constitutional: Weakness Eyes: No Symptoms Ears, Nose, & Throat: No Symptoms Respiratory: No Symptoms Cardiac: No Symptoms Abdominal/Gastrointestinal: No Symptoms Genitourinary Symptoms: No Symptoms Musculoskeletal: No Symptoms Skin: No Symptoms Neurological: No Symptoms Psychological: No Symptoms Endocrine: No Symptoms Hematologic/Lymphatic: No Symptoms Immunological/Allergic: No Symptoms Objective Exam General Appearance: no apparent distress Neurologic Exam: alert, oriented x 3, cooperative Skin Exam: normal color Eye Exam: PERRL Ears, Nose, Throat Exam: normal ENT inspection Neck Exam: normal inspection Respiratory Exam: normal breath sounds, lungs clear Cardiovascular Exam: regular rate/rhythm, normal heart sounds Gastrointestinal/Abdomen Exam: soft, normal bowel sounds Extremity Exam: normal inspection Back Exam: normal inspection Pelvic Exam: deferred Rectal Exam: deferred Objective Data Vital Signs: Vital Signs - 24 hr Temp Pulse Resp BP BP Pulse Ox 12/31/23 03:00 97.9 F 77 19 130/67 97 12/30/23 23:00 97.9 F 78 17 181/79 95 12/30/23 19:54 98.2 F 92 H 19 154/89 95 12/30/23 18:30 184/77 12/30/23 16:00 83 16 198/81 93 L 12/30/23 13:30 69 12/30/23 13:03 97.0 F 69 18 176/77 95 12/30/23 12:02 63 18 187/73 96 12/30/23 12:00 73 18 207/81 96 12/30/23 11:46 69 19 199/84 96 12/30/23 11:45 65 18 96 12/30/23 11:40 65 13 96 12/30/23 11:33 68 14 98 12/30/23 11:20 95 12/30/23 11:00 71 17 172/83 96 12/30/23 10:30 61 15 163/87 93 L 12/30/23 10:01 62 16 184/76 95 12/30/23 09:52 61 15 201/98 96 12/30/23 09:30 62 16 196/82 96 12/30/23 09:01 61 9 L 186/53 95 12/30/23 08:58 98 12/30/23 08:48 60 12 198/80 95 12/30/23 08:46 65 16 198/80 95 Pain Assessment - Last Documented Pain Intensity 0 Intake and Output: Intake & Output 12/28/23 12/29/23 12/30/23 12/31/23 11:59 11:59 11:59 11:59 Intake Total 840 Output Total 400 Balance 440 Weight 78.4 kg 78.5 kg Lab Results: Lab Results-Last 24 Hours 12/30/23 12/30/23 12/30/23 Range/Units 09:00 09:00 09:00 WBC 9.8 (3.98-10.04) x10^3/uL RBC 4.37 (3.93-5.22) x10^6/uL Hgb 12.8 (11.2-15.7) g/dL Hct 37.8 (34.1-44.9) % MCV 86.5 (79.4-94.8) fL MCH 29.3 (25.6-32.2) pg MCHC 33.9 (32.2-35.5) g/dL RDW 13.2 (11.7-14.4) % Plt Count 274 (182-369) x10^3/uL MPV 9.4 (9.4-12.3) fL Gran % 73.7 H (34.0-71.1) % Immature Gran % (Auto) 0.7 H (0.001-0.429) % Nucleat RBC Rel Count 0.0 (0.00-0.2) % Eos # (Auto) 0.41 H (0.04-0.36) x10^3/uL Immature Gran # (Auto) 0.07 H (0.001-0.031) x10^3u/L Absolute Lymphs (auto) 1.50 (1.18-3.74) x10^3/uL Absolute Monos (auto) 0.53 (0.24-0.86) x10^3/uL Absolute Nucleated RBC 0.00 (0.00-0.012) x10^3u/L Lymphocytes % 15.4 L (19.3-51.7) % Monocytes % 5.4 (4.7-12.5) % Eosinophils % 4.2 (0.7-5.8) % Basophils % 0.6 (0.1-1.2) % Absolute Granulocytes 7.18 H (1.56-6.13) x10^3/uL Basophils # 0.06 (0.01-0.08) x10^3/uL Sodium 133 L (135-145) mmol/L Potassium 4.2 (3.5-5.1) mmol/L Chloride 98 (98-107) mmol/L Carbon Dioxide 30 (22-30) mmol/L Anion Gap 9.5 (5-15) MEQ/L BUN 10 (7-17) mg/dL Creatinine 0.51 L (0.52-1.04) mg/dL Estimated GFR 91.4 ML/MIN Glucose 235 H (74-106) mg/dL POC Glucometer (74 to 106) mg/dL Hemoglobin A1c (4.5-6.0) % Calcium 9.4 (8.4-10.2) mg/dL Magnesium (1.6-2.3) mg/dL Total Bilirubin 0.80 (0.2-1.3) mg/dL AST 27 (14-36) U/L ALT 21 (0-35) U/L Alkaline Phosphatase 109 (38-126) U/L Troponin I (0.000-0.033) ng/mL Serum Total Protein 7.4 (6.3-8.2) g/dL Albumin 4.0 (3.5-5.0) g/dL TSH 3rd Generation 1.862 (0.470-4.680) mIU/L Urine Color (Yellow) Urine Appearance (Clear) Urine pH (4.6-8.0) Ur Specific Supai (1.005-1.030) Urine Protein (Negative) Urine Glucose (UA) (Negative) mg/dL Urine Ketones (Negative) Urine Blood (Negative) Urine Nitrite (Negative) Urine Bilirubin (Negative) Urine Urobilinogen (0.2) mg/dL Ur Leukocyte Esterase (Negative) U Hyaline Cast (Auto) (0-2) /LPF Urine Microscopic RBC (0-5) /HPF Urine Microscopic WBC (0-5) /HPF Ur Epithelial Cells (None Seen) /HPF Urine Bacteria (None Seen) /HPF Urine Culture Reflexed (NO) 12/30/23 12/30/23 12/30/23 Range/Units 09:00 09:40 13:10 WBC (3.98-10.04) x10^3/uL RBC (3.93-5.22) x10^6/uL Hgb (11.2-15.7) g/dL Hct (34.1-44.9) % MCV (79.4-94.8) fL MCH (25.6-32.2) pg MCHC (32.2-35.5) g/dL RDW (11.7-14.4) % Plt Count (182-369) x10^3/uL MPV (9.4-12.3) fL Gran % (34.0-71.1) % Immature Gran % (Auto) (0.001-0.429) % Nucleat RBC Rel Count (0.00-0.2) % Eos # (Auto) (0.04-0.36) x10^3/uL Immature Gran # (Auto) (0.001-0.031) x10^3u/L Absolute Lymphs (auto) (1.18-3.74) x10^3/uL Absolute Monos (auto) (0.24-0.86) x10^3/uL Absolute Nucleated RBC (0.00-0.012) x10^3u/L Lymphocytes % (19.3-51.7) % Monocytes % (4.7-12.5) % Eosinophils % (0.7-5.8) % Basophils % (0.1-1.2) % Absolute Granulocytes (1.56-6.13) x10^3/uL Basophils # (0.01-0.08) x10^3/uL Sodium (135-145) mmol/L Potassium (3.5-5.1) mmol/L Chloride (98-107) mmol/L Carbon Dioxide (22-30) mmol/L Anion Gap (5-15) MEQ/L BUN (7-17) mg/dL Creatinine (0.52-1.04) mg/dL Estimated GFR ML/MIN Glucose (74-106) mg/dL POC Glucometer (74 to 106) mg/dL Hemoglobin A1c (4.5-6.0) % Calcium (8.4-10.2) mg/dL Magnesium (1.6-2.3) mg/dL Total Bilirubin (0.2-1.3) mg/dL AST (14-36) U/L ALT (0-35) U/L Alkaline Phosphatase (38-126) U/L Troponin I < 0.012 < 0.012 (0.000-0.033) ng/mL Serum Total Protein (6.3-8.2) g/dL Albumin (3.5-5.0) g/dL TSH 3rd Generation (0.470-4.680) mIU/L Urine Color Yellow (Yellow) Urine Appearance Clear (Clear) Urine pH 7.0 (4.6-8.0) Ur Specific Supai 1.015 (1.005-1.030) Urine Protein Negative (Negative) Urine Glucose (UA) 100 A (Negative) mg/dL Urine Ketones Negative (Negative) Urine Blood Negative (Negative) Urine Nitrite Positive A (Negative) Urine Bilirubin Negative (Negative) Urine Urobilinogen 0.2 (0.2) mg/dL Ur Leukocyte Esterase Moderate A (Negative) U Hyaline Cast (Auto) NONE SEEN (0-2) /LPF Urine Microscopic RBC 0-2 (0-5) /HPF Urine Microscopic WBC 51-100 A (0-5) /HPF Ur Epithelial Cells Rare (None Seen) /HPF Urine Bacteria Many A (None Seen) /HPF Urine Culture Reflexed YES (NO) 12/30/23 12/30/23 12/30/23 Range/Units 13:10 13:10 16:29 WBC (3.98-10.04) x10^3/uL RBC (3.93-5.22) x10^6/uL Hgb (11.2-15.7) g/dL Hct (34.1-44.9) % MCV (79.4-94.8) fL MCH (25.6-32.2) pg MCHC (32.2-35.5) g/dL RDW (11.7-14.4) % Plt Count (182-369) x10^3/uL MPV (9.4-12.3) fL Gran % (34.0-71.1) % Immature Gran % (Auto) (0.001-0.429) % Nucleat RBC Rel Count (0.00-0.2) % Eos # (Auto) (0.04-0.36) x10^3/uL Immature Gran # (Auto) (0.001-0.031) x10^3u/L Absolute Lymphs (auto) (1.18-3.74) x10^3/uL Absolute Monos (auto) (0.24-0.86) x10^3/uL Absolute Nucleated RBC (0.00-0.012) x10^3u/L Lymphocytes % (19.3-51.7) % Monocytes % (4.7-12.5) % Eosinophils % (0.7-5.8) % Basophils % (0.1-1.2) % Absolute Granulocytes (1.56-6.13) x10^3/uL Basophils # (0.01-0.08) x10^3/uL Sodium (135-145) mmol/L Potassium (3.5-5.1) mmol/L Chloride (98-107) mmol/L Carbon Dioxide (22-30) mmol/L Anion Gap (5-15) MEQ/L BUN (7-17) mg/dL Creatinine (0.52-1.04) mg/dL Estimated GFR ML/MIN Glucose (74-106) mg/dL POC Glucometer 268 H (74 to 106) mg/dL Hemoglobin A1c 7.44 H (4.5-6.0) % Calcium (8.4-10.2) mg/dL Magnesium 1.7 (1.6-2.3) mg/dL Total Bilirubin (0.2-1.3) mg/dL AST (14-36) U/L ALT (0-35) U/L Alkaline Phosphatase (38-126) U/L Troponin I (0.000-0.033) ng/mL Serum Total Protein (6.3-8.2) g/dL Albumin (3.5-5.0) g/dL TSH 3rd Generation 0.901 (0.470-4.680) mIU/L Urine Color (Yellow) Urine Appearance (Clear) Urine pH (4.6-8.0) Ur Specific Supai (1.005-1.030) Urine Protein (Negative) Urine Glucose (UA) (Negative) mg/dL Urine Ketones (Negative) Urine Blood (Negative) Urine Nitrite (Negative) Urine Bilirubin (Negative) Urine Urobilinogen (0.2) mg/dL Ur Leukocyte Esterase (Negative) U Hyaline Cast (Auto) (0-2) /LPF Urine Microscopic RBC (0-5) /HPF Urine Microscopic WBC (0-5) /HPF Ur Epithelial Cells (None Seen) /HPF Urine Bacteria (None Seen) /HPF Urine Culture Reflexed (NO) 12/30/23 12/30/23 12/31/23 Range/Units 17:00 21:02 04:16 WBC 10.9 H (3.98-10.04) x10^3/uL RBC 4.08 (3.93-5.22) x10^6/uL Hgb 12.1 (11.2-15.7) g/dL Hct 35.3 (34.1-44.9) % MCV 86.5 (79.4-94.8) fL MCH 29.7 (25.6-32.2) pg MCHC 34.3 (32.2-35.5) g/dL RDW 13.3 (11.7-14.4) % Plt Count 293 (182-369) x10^3/uL MPV 9.5 (9.4-12.3) fL Gran % 73.3 H (34.0-71.1) % Immature Gran % (Auto) 0.6 H (0.001-0.429) % Nucleat RBC Rel Count 0.0 (0.00-0.2) % Eos # (Auto) 0.29 (0.04-0.36) x10^3/uL Immature Gran # (Auto) 0.07 H (0.001-0.031) x10^3u/L Absolute Lymphs (auto) 1.89 (1.18-3.74) x10^3/uL Absolute Monos (auto) 0.61 (0.24-0.86) x10^3/uL Absolute Nucleated RBC 0.00 (0.00-0.012) x10^3u/L Lymphocytes % 17.4 L (19.3-51.7) % Monocytes % 5.6 (4.7-12.5) % Eosinophils % 2.7 (0.7-5.8) % Basophils % 0.4 (0.1-1.2) % Absolute Granulocytes 7.97 H (1.56-6.13) x10^3/uL Basophils # 0.04 (0.01-0.08) x10^3/uL Sodium (135-145) mmol/L Potassium (3.5-5.1) mmol/L Chloride (98-107) mmol/L Carbon Dioxide (22-30) mmol/L Anion Gap (5-15) MEQ/L BUN (7-17) mg/dL Creatinine (0.52-1.04) mg/dL Estimated GFR ML/MIN Glucose (74-106) mg/dL POC Glucometer 266 H (74 to 106) mg/dL Hemoglobin A1c (4.5-6.0) % Calcium (8.4-10.2) mg/dL Magnesium (1.6-2.3) mg/dL Total Bilirubin (0.2-1.3) mg/dL AST (14-36) U/L ALT (0-35) U/L Alkaline Phosphatase (38-126) U/L Troponin I < 0.012 (0.000-0.033) ng/mL Serum Total Protein (6.3-8.2) g/dL Albumin (3.5-5.0) g/dL TSH 3rd Generation (0.470-4.680) mIU/L Urine Color (Yellow) Urine Appearance (Clear) Urine pH (4.6-8.0) Ur Specific Supai (1.005-1.030) Urine Protein (Negative) Urine Glucose (UA) (Negative) mg/dL Urine Ketones (Negative) Urine Blood (Negative) Urine Nitrite (Negative) Urine Bilirubin (Negative) Urine Urobilinogen (0.2) mg/dL Ur Leukocyte Esterase (Negative) U Hyaline Cast (Auto) (0-2) /LPF Urine Microscopic RBC (0-5) /HPF Urine Microscopic WBC (0-5) /HPF Ur Epithelial Cells (None Seen) /HPF Urine Bacteria (None Seen) /HPF Urine Culture Reflexed (NO) 12/31/23 Range/Units 04:16 WBC (3.98-10.04) x10^3/uL RBC (3.93-5.22) x10^6/uL Hgb (11.2-15.7) g/dL Hct (34.1-44.9) % MCV (79.4-94.8) fL MCH (25.6-32.2) pg MCHC (32.2-35.5) g/dL RDW (11.7-14.4) % Plt Count (182-369) x10^3/uL MPV (9.4-12.3) fL Gran % (34.0-71.1) % Immature Gran % (Auto) (0.001-0.429) % Nucleat RBC Rel Count (0.00-0.2) % Eos # (Auto) (0.04-0.36) x10^3/uL Immature Gran # (Auto) (0.001-0.031) x10^3u/L Absolute Lymphs (auto) (1.18-3.74) x10^3/uL Absolute Monos (auto) (0.24-0.86) x10^3/uL Absolute Nucleated RBC (0.00-0.012) x10^3u/L Lymphocytes % (19.3-51.7) % Monocytes % (4.7-12.5) % Eosinophils % (0.7-5.8) % Basophils % (0.1-1.2) % Absolute Granulocytes (1.56-6.13) x10^3/uL Basophils # (0.01-0.08) x10^3/uL Sodium 135 (135-145) mmol/L Potassium 3.5 (3.5-5.1) mmol/L Chloride 99 (98-107) mmol/L Carbon Dioxide 30 (22-30) mmol/L Anion Gap 9.9 (5-15) MEQ/L BUN 12 (7-17) mg/dL Creatinine 0.51 L (0.52-1.04) mg/dL Estimated GFR 91.4 ML/MIN Glucose 117 H (74-106) mg/dL POC Glucometer (74 to 106) mg/dL Hemoglobin A1c (4.5-6.0) % Calcium 9.2 (8.4-10.2) mg/dL Magnesium (1.6-2.3) mg/dL Total Bilirubin 0.60 (0.2-1.3) mg/dL AST 20 (14-36) U/L ALT 19 (0-35) U/L Alkaline Phosphatase 101 (38-126) U/L Troponin I (0.000-0.033) ng/mL Serum Total Protein 6.9 (6.3-8.2) g/dL Albumin 3.7 (3.5-5.0) g/dL TSH 3rd Generation (0.470-4.680) mIU/L Urine Color (Yellow) Urine Appearance (Clear) Urine pH (4.6-8.0) Ur Specific Supai (1.005-1.030) Urine Protein (Negative) Urine Glucose (UA) (Negative) mg/dL Urine Ketones (Negative) Urine Blood (Negative) Urine Nitrite (Negative) Urine Bilirubin (Negative) Urine Urobilinogen (0.2) mg/dL Ur Leukocyte Esterase (Negative) U Hyaline Cast (Auto) (0-2) /LPF Urine Microscopic RBC (0-5) /HPF Urine Microscopic WBC (0-5) /HPF Ur Epithelial Cells (None Seen) /HPF Urine Bacteria (None Seen) /HPF Urine Culture Reflexed (NO) Radiology Exams: Radiology Procedures Category Date Time Status ECHO W/2D AND DOPPLER [US] Routine Exams 12/30/23 13:56 Taken HEAD WITHOUT CONTRAST [CT] Stat Exams 12/30/23 08:51 Completed Multi-Disciplinary Progress Notes: Multi-Disciplinary Progress Notes 12/30/23 17:34 Radiology Note by MIKE DAY TRANSTHORACIC ECHOCARDIOGRAM 12/30/2023: 1. Normal chamber sizes. 2. Mild concentric left ventricular hypertrophy. 3. Normal left ventricular systolic function without focal wall motion abnormalities. Estimated EF 70%. 4. Mild diastolic function. 5. Normal right ventricular systolic function. 6. Mild aortic sclerosis without stenosis. 7. Doppler: No significant valvular regurgitation. 8. Normal estimated PA systolic pressure (29 mmHg). 9. Normal estimated right atrial pressure (3 mmHg). 10. Trivial posterior pericardial effusion. Mike Day MD [facility] Initialized on 12/30/23 17:34 - END OF NOTE Assessment/Plan (1) Urinary tract infection Current Visit: Yes Status: Acute Assessment & Plan: -UA suspicious for infection, ceftriaxone started in ED, will continue - follow cultures Code(s): N39.0 - URINARY TRACT INFECTION, SITE NOT SPECIFIED (2) Afib Current Visit: Yes Status: Acute Assessment & Plan: -NS on EKG - continue home eliquis/metoprolol -tele Code(s): I48.91 - UNSPECIFIED ATRIAL FIBRILLATION (3) HTN (hypertension) Current Visit: Yes Status: Acute Assessment & Plan: -Hypertensive this morning- increase hydralazine to 25mg BID Code(s): I10 - ESSENTIAL (PRIMARY) HYPERTENSION (4) Dizziness Current Visit: Yes Status: Acute Assessment & Plan: -CT head negative for acute finding -Most likely secondary to UTI -PT/OT -orthostatic vitals -Echo - pending -TSH -WNL Code(s): R42 - DIZZINESS AND GIDDINESS (5) Generalized weakness Current Visit: Yes Status: Acute Assessment & Plan: -PT/OT Code(s): R53.1 - WEAKNESS (6) Heart palpitations Current Visit: Yes Status: Acute Assessment & Plan: -TSH, MG -EKG NS -Echo -consider cardiology consult if persisting 12/30: -Chronic per pt -TSH WNL/MG WNL -Sees Dr. Arambula OP -resolved since admission -no events on tele monitor Code(s): R00.2 - PALPITATIONS (7) Diabetes mellitus Current Visit: Yes Status: Acute Assessment & Plan: -A1c -ADA diet -SSI VTE: eliquis Dispo: 1-2 days Code status: Full Code(s): E11.9 - TYPE 2 DIABETES MELLITUS WITHOUT COMPLICATIONS Code(s): N39.0 - URINARY TRACT INFECTION, SITE NOT SPECIFIED (2) Afib Current Visit: Yes Status: Acute Code(s): I48.91 - UNSPECIFIED ATRIAL FIBRILLATION (3) HTN (hypertension) Current Visit: Yes Status: Acute Code(s): I10 - ESSENTIAL (PRIMARY) HYPERTENSION (4) Dizziness Current Visit: Yes Status: Acute Code(s): R42 - DIZZINESS AND GIDDINESS (5) Generalized weakness Current Visit: Yes Status: Acute Code(s): R53.1 - WEAKNESS (6) Heart palpitations Current Visit: Yes Status: Acute Code(s): R00.2 - PALPITATIONS (7) Diabetes mellitus Current Visit: Yes Status: Acute Code(s): E11.9 - TYPE 2 DIABETES MELLITUS WITHOUT COMPLICATIONS
[2023-12-31] MEDS: Vitamin C 500 MG PO SCH (09:33)
[2023-12-31] MEDS: Benicar 20 MG PO SCH (09:33)
[2023-12-31] MEDS: hydroDIURIL 25 MG PO SCH (09:33)
[2023-12-31] MEDS: Apresoline 25 MG TABLET PO SCH ×2 (09:33→21:03)
[2023-12-31] MEDS: Zocor 10MG PO SCH (09:33)
[2023-12-31] MEDS: MAG-OX 400 PO SCH (09:33)
[2023-12-31] MEDS: ROCEPHIN 1 GM / 100 ML NaCl 1 GM/100 ML IVPB IV SCH (09:34)
[2024-01-01 05:13] LABS: Absolute Neutrophil Ct (ANC) 9.74 x10^3/uL (1.56-6.13); BASOPHIL % 0.3 % (0.1-1.2); Basophil (Absolute #) 0.04 x10^3/uL (0.01-0.08); Eosinophil % 2.8 % (0.7-5.8); Eosinophil (Absolute #) 0.37 x10^3/uL (0.04-0.36); Hematocrit 36.1 % (34.1-44.9); Hemoglobin 12.2 g/dL (11.2-15.7); IMMATURE GRAN # 0.09 x10^3u/L (0.001-0.031); IMMATURE GRAN % 0.7 % (0.001-0.429); Lymphocytes % 16.7 % (19.3-51.7); Mean Cell Volume 86.2 fL (79.4-94.8); Mean Corpuscular Hemoglobin 29.1 pg (25.6-32.2); Mean Corpuscular Hgb Concent. 33.8 g/dL (32.2-35.5); Mean Platelet Volume 9.6 fL (9.4-12.3); Monocyte (Absolute #) 0.73 x10^3/uL (0.24-0.86); Monocytes % 5.5 % (4.7-12.5); Platelet Count 306 x10^3/uL (182-369); Red Blood Count 4.19 x10^6/uL (3.93-5.22); Red Cell Distribution Width 13.3 % (11.7-14.4); White Blood Count 13.2 x10^3/uL (3.98-10.04)
--- NOTE | 2024-01-01 05:26 | PCM.DS ---
Discharge Summary Date of Admission: 12/30/23 12:37 Date of Discharge: 01/01/24 Admitting Physician: BELLO TATE MD Primary Care Provider: JOSE MARTINEZ Allergies Allergies No Known Drug Allergies Allergy (Verified 12/30/23 08:52) Hospital Summary - Hospital Course Hospital Course: is a 83 year old female with a pmhx of peripheral neuropathy, [place], HTN, DMII OA, and AFIB (eliquis/metoprolol) who presented to ED 12/30/23 with complaints of a one week history of progressive dizziness, weakness, and heart "racing." Her main complaint is weakness. Patient states that the dizziness and "heart racing" sensation has been going on for years intermittently since she was diagnosed with AFIB . She follows with Dr. Arambula (cardiology) OP. Currently she denies dizziness/heart racing. She denies fever, CP, hematuria, dysuria, frequency, nausea, vomiting, or diarrhea. Upon arrival to ED patient was hypertensive with BP 198/80. Lab findings remarkable for UTI and mild hyponatremia. Ucult with gram negative ID. CT head with no acute findings. IP treament with Rocephin. Of note, patient has been hypertensive during stay. Spoke with Dr. Foster (patient's political geographer) who has been working on this as OP. He has advised to increase her hydralazine increased to 50mg TID. Patient to keep BP log and follow up with Dr. Arambula. Discharge Note New Diagnosis: UTI New Medications: Follow Up: Latest Assessment & Plan (1) Urinary tract infection Current Visit: Yes Status: Acute Assessment & Plan: -UA suspicious for infection, ceftriaxone started in ED, will continue - follow cultures Code(s): N39.0 - URINARY TRACT INFECTION, SITE NOT SPECIFIED (2) Afib Current Visit: Yes Status: Acute Assessment & Plan: -NS on EKG - continue home eliquis/metoprolol -tele Code(s): I48.91 - UNSPECIFIED ATRIAL FIBRILLATION (3) HTN (hypertension) Current Visit: Yes Status: Acute Assessment & Plan: -Hypertensive this morning- increase hydralazine to 25mg TID Code(s): I10 - ESSENTIAL (PRIMARY) HYPERTENSION (4) Dizziness Current Visit: Yes Status: Acute Assessment & Plan: -CT head negative for acute finding -Most likely secondary to UTI -PT/OT -orthostatic vitals -Echo - pending -TSH -WNL Code(s): R42 - DIZZINESS AND GIDDINESS (5) Generalized weakness Current Visit: Yes Status: Acute Assessment & Plan: -PT/OT Code(s): R53.1 - WEAKNESS (6) Heart palpitations Current Visit: Yes Status: Acute Assessment & Plan: -TSH, MG -EKG NS -Echo -consider cardiology consult if persisting 12/30: -Chronic per pt -TSH WNL/MG WNL -Sees Dr. Arambula OP -resolved since admission -no events on tele monitor I spent 35 minutes [id number] with the patient on the day of discharge performing discharge exam, discussing hospital stay and discharge instructions with patient and caregivers, preparation of discharge records, prescriptions & referral forms and addressing any questions/concerns the patient had as documented above. - Vitals & Intake/Output Vital Signs: Vital Signs Temperature 97.1 F 01/01/24 03:00 Pulse Rate 69 01/01/24 03:00 Respiratory Rate 18 01/01/24 03:00 Blood Pressure 150/68 01/01/24 03:00 O2 Sat by Pulse Oximetry 94 L 01/01/24 03:00 Intake & Output: Intake & Output 12/29/23 12/30/23 12/31/23 01/01/24 11:59 11:59 11:59 11:59 Intake Total 1200 360 Output Total 700 400 Balance 500 -40 Weight 78.4 kg 78.5 kg - Lab Result Diagrams: 01/01/24 05:10 01/01/24 05:10 Lab Results-Last 24 Hrs: Lab Results-Last 24 Hours 12/31/23 12/31/23 12/31/23 Range/Units 06:44 11:40 16:14 POC Glucometer 127 H 157 H 207 H (74 to 106) mg/dL 12/31/23 01/01/24 Range/Units 20:52 01:24 POC Glucometer 128 H 71 L (74 to 106) mg/dL Micro Results-Entire Visit: Microbiology 12/30/23 09:40 Urine Culture - Preliminary Urine, Void GRAM NEGATIVE ID AND SENSITIVITY PENDING Accuchecks Date 12/31/23 Date 12/31/23 Time 21:00 - Radiology Exams Ordered Rad Exams-Entire Visit: Radiology Procedures Category Date Time Status ECHO W/2D AND DOPPLER [US] Routine Exams 12/30/23 13:56 Taken HEAD WITHOUT CONTRAST [CT] Stat Exams 12/30/23 08:51 Completed - Procedures and Test Procedures and Tests throughout Hospitalization: Therapy Orders & Screens 12/30/23 13:56 EKG REPEAT IN AM Comment: Diagnosis: urinary tract infection, dizzines Final Diagnosis/Problem List - Final Discharge Diagnosis/Problem (1) Urinary tract infection Current Visit: Yes Status: Acute Code(s): N39.0 - URINARY TRACT INFECTION, SITE NOT SPECIFIED (2) Afib Current Visit: Yes Status: Acute Code(s): I48.91 - UNSPECIFIED ATRIAL FIBRILLATION (3) HTN (hypertension) Current Visit: Yes Status: Acute Code(s): I10 - ESSENTIAL (PRIMARY) HYPERTENSION (4) Dizziness Current Visit: Yes Status: Acute Code(s): R42 - DIZZINESS AND GIDDINESS (5) Generalized weakness Current Visit: Yes Status: Acute Code(s): R53.1 - WEAKNESS (6) Heart palpitations Current Visit: Yes Status: Acute Code(s): R00.2 - PALPITATIONS (7) Diabetes mellitus Current Visit: Yes Status: Acute Code(s): E11.9 - TYPE 2 DIABETES MELLITUS W ITHOUT COMPLICATIONS - Discharge Disposition: Home, Self-Care Condition: Stable Prescriptions: No Action Metoprolol Succinate 50 mg PO BID Metformin HCl 1,000 mg PO DAILY Atorvastatin Calcium 40 mg PO DAILY Hydralazine HCl 10 mg PO BID Verapamil HCl 80 mg [Calan 80 mg] 80 mg PO TID Olmesartan/Hydrochlorothiazide [Benicar Hct 40-25 mg Tablet] 1 each PO DAILY Insulin Glargine [Lantus Insulin] 40 unit SQ QHS Insulin Lispro [Humalog Kwikpen U-100] 15 unit SQ BID Ascorbic Acid 500 mg [Vitamin C 500 MG] 500 mg PO DAILY Apixaban [Eliquis 5 mg Tablet] 2.5 mg PO BID #0 Magnesium Oxide [Magnesium] 1 tab PO DAILY Follow up with: JOSE MARTINEZ MD [Primary Care Provider] - 01/07/24 3:15 pm
[2024-01-01 05:34] LABS: ALBUMIN 3.8 g/dL (3.5-5.0); ANION GAP 12.3 MEQ/L (5-15); BILIRUBIN,TOTAL 0.7 mg/dL (0.2-1.3); Calcium 9.4 mg/dL (8.4-10.2); Creatinine 1 0.54 mg/dL (0.52-1.04); EST GLOMERULAR FILTRATION RATE 90.2 ML/MIN; Potassium 3.6 mmol/L (3.5-5.1)
[2024-01-01] MEDS: APRESOLINE 20 MG/ML INJ IV ONE (07:31)
[2024-01-01] MEDS: Apresoline 25 MG TABLET PO SCH (08:37)
--- NOTE | 2024-01-01 13:57 | PCM.NOTE ---
Date and Time: 01/01/24 0050 Subjective Assessment: is a 83 year old female with a pmhx of peripheral neuropathy, [place], HTN, DMII OA, and AFIB (eliquis/metoprolol) who presented to ED 12/30/23 with complaints of a one week history of progressive dizziness, weakness, and heart "racing." Her main complaint is weakness. Patient states that the dizziness and "heart racing" sensation has been going on for years intermittently since she was diagnosed with AFIB . She follows with Dr. Arambula (cardiology) OP. Currently she denies dizziness/heart racing. She denies fever, CP, hematuria, dysuria, frequency, nausea, vomiting, or diarrhea. Upon arrival to ED patient was hypertensive with BP 198/80. Lab findings remarkable for UTI and mild hyponatremia. Ucult with citrobacter freundii. CT head with no acute findings. IP treament with Rocephin. Of note, patient has been hypertensive during stay. Spoke with Dr. Arambula (patient's quality and reliability engineer) who has been working on this as OP. He has advised to increase her hydralazine increased to 50mg TID. Patient to keep BP log and follow up with Dr. Arambula. 12/31: Patient not feeling well this morning. States she felt "hot and flushed." BP remains elevated this morning. Spoke with Dr. Arambula (patient's quality and reliability engineer) who has been working on this as OP. He has advised to increase her hydralazine increased to 50mg TID. Ucult with citrobacter freundii - sensitivity to ceftriaxone. Will continue to monitor BP and patient overnight. Most likely can discharge tomorrow if feeling better. Denies fever,cough, sob, cp, abdominal pain, POPE, dizziness, N/V/D. - Review of Systems Constitutional: Weakness, Other (flushed/hot) Eyes: No Symptoms Ears, Nose, & Throat: No Symptoms Respiratory: No Symptoms Cardiac: No Symptoms Abdominal/Gastrointestinal: No Symptoms Genitourinary Symptoms: No Symptoms Musculoskeletal: No Symptoms Skin: No Symptoms Neurological: No Symptoms Psychological: No Symptoms Endocrine: No Symptoms Hematologic/Lymphatic: No Symptoms Immunological/Allergic: No Symptoms Objective Exam General Appearance: no apparent distress Neurologic Exam: alert, oriented x 3, cooperative Eye Exam: PERRL Ears, Nose, Throat Exam: normal ENT inspection Neck Exam: normal inspection Respiratory Exam: normal breath sounds, lungs clear Cardiovascular Exam: regular rate/rhythm, normal heart sounds Gastrointestinal/Abdomen Exam: soft, normal bowel sounds Extremity Exam: normal inspection Back Exam: normal inspection Pelvic Exam: deferred Rectal Exam: deferred Objective Data Vital Signs: Vital Signs - 24 hr Temp Pulse Resp BP BP Pulse Ox 01/01/24 13:00 64 01/01/24 12:00 98.0 F 71 16 170/71 97 01/01/24 08:15 98.2 F 178/80 01/01/24 07:00 98.1 F 84 16 183/82 92 L 01/01/24 03:00 97.1 F 69 18 150/68 94 L 12/31/23 23:00 60 18 12/31/23 19:49 98.1 F 74 17 193/81 95 12/31/23 19:14 193/81 12/31/23 16:00 98.3 F 75 18 184/73 93 L Pain Assessment - Last Documented Pain Intensity 0 Intake and Output: Intake & Output 12/30/23 12/31/23 01/01/24 01/02/24 11:59 11:59 11:59 11:59 Intake Total 1200 480 240 Output Total 700 400 Balance 500 80 240 Weight 78.4 kg 78.5 kg Lab Results: Lab Results-Last 24 Hours 12/31/23 12/31/23 01/01/24 Range/Units 16:14 20:52 01:24 WBC (3.98-10.04) x10^3/uL RBC (3.93-5.22) x10^6/uL Hgb (11.2-15.7) g/dL Hct (34.1-44.9) % MCV (79.4-94.8) fL MCH (25.6-32.2) pg MCHC (32.2-35.5) g/dL RDW (11.7-14.4) % Plt Count (182-369) x10^3/uL MPV (9.4-12.3) fL Gran % (34.0-71.1) % Immature Gran % (Auto) (0.001-0.429) % Nucleat RBC Rel Count (0.00-0.2) % Eos # (Auto) (0.04-0.36) x10^3/uL Immature Gran # (Auto) (0.001-0.031) x10^3u/L Absolute Lymphs (auto) (1.18-3.74) x10^3/uL Absolute Monos (auto) (0.24-0.86) x10^3/uL Absolute Nucleated RBC (0.00-0.012) x10^3u/L Lymphocytes % (19.3-51.7) % Monocytes % (4.7-12.5) % Eosinophils % (0.7-5.8) % Basophils % (0.1-1.2) % Absolute Granulocytes (1.56-6.13) x10^3/uL Basophils # (0.01-0.08) x10^3/uL Sodium (135-145) mmol/L Potassium (3.5-5.1) mmol/L Chloride (98-107) mmol/L Carbon Dioxide (22-30) mmol/L Anion Gap (5-15) MEQ/L BUN (7-17) mg/dL Creatinine (0.52-1.04) mg/dL Estimated GFR ML/MIN Glucose (74-106) mg/dL POC Glucometer 207 H 128 H 71 L (74 to 106) mg/dL Calcium (8.4-10.2) mg/dL Total Bilirubin (0.2-1.3) mg/dL AST (14-36) U/L ALT (0-35) U/L Alkaline Phosphatase (38-126) U/L Serum Total Protein (6.3-8.2) g/dL Albumin (3.5-5.0) g/dL 01/01/24 01/01/24 01/01/24 Range/Units 05:10 05:10 07:23 WBC 13.2 H (3.98-10.04) x10^3/uL RBC 4.19 (3.93-5.22) x10^6/uL Hgb 12.2 (11.2-15.7) g/dL Hct 36.1 (34.1-44.9) % MCV 86.2 (79.4-94.8) fL MCH 29.1 (25.6-32.2) pg MCHC 33.8 (32.2-35.5) g/dL RDW 13.3 (11.7-14.4) % Plt Count 306 (182-369) x10^3/uL MPV 9.6 (9.4-12.3) fL Gran % 74.0 H (34.0-71.1) % Immature Gran % (Auto) 0.7 H (0.001-0.429) % Nucleat RBC Rel Count 0.0 (0.00-0.2) % Eos # (Auto) 0.37 H (0.04-0.36) x10^3/uL Immature Gran # (Auto) 0.09 H (0.001-0.031) x10^3u/L Absolute Lymphs (auto) 2.20 (1.18-3.74) x10^3/uL Absolute Monos (auto) 0.73 (0.24-0.86) x10^3/uL Absolute Nucleated RBC 0.00 (0.00-0.012) x10^3u/L Lymphocytes % 16.7 L (19.3-51.7) % Monocytes % 5.5 (4.7-12.5) % Eosinophils % 2.8 (0.7-5.8) % Basophils % 0.3 (0.1-1.2) % Absolute Granulocytes 9.74 H (1.56-6.13) x10^3/uL Basophils # 0.04 (0.01-0.08) x10^3/uL Sodium 135 (135-145) mmol/L Potassium 3.6 (3.5-5.1) mmol/L Chloride 99 (98-107) mmol/L Carbon Dioxide 27 (22-30) mmol/L Anion Gap 12.3 (5-15) MEQ/L BUN 17 (7-17) mg/dL Creatinine 0.54 (0.52-1.04) mg/dL Estimated GFR 90.2 ML/MIN Glucose 119 H (74-106) mg/dL POC Glucometer 146 H (74 to 106) mg/dL Calcium 9.4 (8.4-10.2) mg/dL Total Bilirubin 0.70 (0.2-1.3) mg/dL AST 25 (14-36) U/L ALT 18 (0-35) U/L Alkaline Phosphatase 94 (38-126) U/L Serum Total Protein 7.0 (6.3-8.2) g/dL Albumin 3.8 (3.5-5.0) g/dL 01/01/24 01/01/24 Range/Units 08:02 11:53 WBC (3.98-10.04) x10^3/uL RBC (3.93-5.22) x10^6/uL Hgb (11.2-15.7) g/dL Hct (34.1-44.9) % MCV (79.4-94.8) fL MCH (25.6-32.2) pg MCHC (32.2-35.5) g/dL RDW (11.7-14.4) % Plt Count (182-369) x10^3/uL MPV (9.4-12.3) fL Gran % (34.0-71.1) % Immature Gran % (Auto) (0.001-0.429) % Nucleat RBC Rel Count (0.00-0.2) % Eos # (Auto) (0.04-0.36) x10^3/uL Immature Gran # (Auto) (0.001-0.031) x10^3u/L Absolute Lymphs (auto) (1.18-3.74) x10^3/uL Absolute Monos (auto) (0.24-0.86) x10^3/uL Absolute Nucleated RBC (0.00-0.012) x10^3u/L Lymphocytes % (19.3-51.7) % Monocytes % (4.7-12.5) % Eosinophils % (0.7-5.8) % Basophils % (0.1-1.2) % Absolute Granulocytes (1.56-6.13) x10^3/uL Basophils # (0.01-0.08) x10^3/uL Sodium (135-145) mmol/L Potassium (3.5-5.1) mmol/L Chloride (98-107) mmol/L Carbon Dioxide (22-30) mmol/L Anion Gap (5-15) MEQ/L BUN (7-17) mg/dL Creatinine (0.52-1.04) mg/dL Estimated GFR ML/MIN Glucose (74-106) mg/dL POC Glucometer 156 H 142 H (74 to 106) mg/dL Calcium (8.4-10.2) mg/dL Total Bilirubin (0.2-1.3) mg/dL AST (14-36) U/L ALT (0-35) U/L Alkaline Phosphatase (38-126) U/L Serum Total Protein (6.3-8.2) g/dL Albumin (3.5-5.0) g/dL Radiology Exams: Radiology Procedures Category Date Time Status ECHO W/2D AND DOPPLER [US] Routine Exams 12/30/23 13:56 Taken Multi-Disciplinary Progress Notes: Multi-Disciplinary Progress Notes 01/01/24 11:30 (created 01/01/24 12:52) Case Management Note by Ingrid Denise S/W PATIENT- SHE CONTINUES TO DENY ANY NEW NEEDS AT TIME OF DC. SHE PLANS TO RETURN HOME TO HER PLF AT TIME OF DC Initialized on 01/01/24 12:52 - END OF NOTE Assessment/Plan (1) Urinary tract infection Current Visit: Yes Status: Acute Assessment & Plan: -UA suspicious for infection, citrobacter freundii on culture - sensitive to ceftriaxone started in ED, will continue Code(s): N39.0 - URINARY TRACT INFECTION, SITE NOT SPECIFIED (2) Afib Current Visit: Yes Status: Acute Assessment & Plan: -NS on EKG - continue home eliquis/metoprolol -tele Code(s): I48.91 - UNSPECIFIED ATRIAL FIBRILLATION (3) HTN (hypertension) Current Visit: Yes Status: Acute Assessment & Plan: -Hypertensive this morning- increase hydralazine to 25mg TID 12/31: -Discussed case with patient's quality and reliability engineer Dr. Arambula - recommends increasing hydralazine to 50mg TID - follow up as OP Code(s): I10 - ESSENTIAL (PRIMARY) HYPERTENSION (4) Dizziness Current Visit: Yes Status: Acute Assessment & Plan: -CT head negative for acute finding -Most likely secondary to UTI -PT/OT -orthostatic vitals -Echo - pending -TSH -WNL Code(s): R42 - DIZZINESS AND GIDDINESS (5) Generalized weakness Current Visit: Yes Status: Acute Assessment & Plan: -PT/OT Code(s): R53.1 - WEAKNESS (6) Heart palpitations Current Visit: Yes Status: Acute Assessment & Plan: -TSH, MG -EKG NS -Echo -consider cardiology consult if persisting 12/30: -Chronic per pt -TSH WNL/MG WNL -Sees Dr. Arambula OP -resolved since admission -no events on tele monitor 12/31: -Echo with EF at 70% Code(s): N39.0 - URINARY TRACT INFECTION, SITE NOT SPECIFIED (2) Afib Current Visit: Yes Status: Acute Code(s): I48.91 - UNSPECIFIED ATRIAL FIBRILLATION (3) HTN (hypertension) Current Visit: Yes Status: Acute Code(s): I10 - ESSENTIAL (PRIMARY) HYPERTENSION (4) Dizziness Current Visit: Yes Status: Acute Code(s): R42 - DIZZINESS AND GIDDINESS (5) Generalized weakness Current Visit: Yes Status: Acute Code(s): R53.1 - WEAKNESS (6) Heart palpitations Current Visit: Yes Status: Acute Code(s): R00.2 - PALPITATIONS (7) Diabetes mellitus Current Visit: Yes Status: Acute Code(s): E11.9 - TYPE 2 DIABETES MELLITUS WITHOUT COMPLICATIONS
[2024-01-01] MEDS: Docusate Sodium 100 MG PO SCH (14:56)
[2024-01-01] MEDS: Miralax Powder 17GM PACKET PO SCH (14:56)
[2024-01-02 05:08] LABS: BASOPHIL % 0.3 % (0.1-1.2); Basophil (Absolute #) 0.03 x10^3/uL (0.01-0.08); Eosinophil % 3.4 % (0.7-5.8); Eosinophil (Absolute #) 0.37 x10^3/uL (0.04-0.36); Hematocrit 34.9 % (34.1-44.9); Hemoglobin 11.9 g/dL (11.2-15.7); IMMATURE GRAN # 0.07 x10^3u/L (0.001-0.031); IMMATURE GRAN % 0.6 % (0.001-0.429); Lymphocyte (Absolute #) 1.87 x10^3/uL (1.18-3.74); Lymphocytes % 17.3 % (19.3-51.7); Mean Cell Volume 86.4 fL (79.4-94.8); Mean Corpuscular Hemoglobin 29.5 pg (25.6-32.2); Mean Corpuscular Hgb Concent. 34.1 g/dL (32.2-35.5); Mean Platelet Volume 9.5 fL (9.4-12.3); Monocyte (Absolute #) 0.65 x10^3/uL (0.24-0.86); Neutrophil % 72.4 % (34.0-71.1); Platelet Count 285 x10^3/uL (182-369); Red Blood Count 4.04 x10^6/uL (3.93-5.22); Red Cell Distribution Width 13.3 % (11.7-14.4); White Blood Count 10.8 x10^3/uL (3.98-10.04)
--- NOTE | 2024-01-02 05:17 | PCM.DS ---
Discharge Summary Date of Admission: 12/30/23 12:37 Date of Discharge: 01/02/24 Admitting Physician: BELLO TATE MD Primary Care Provider: JOSE MARTINEZ Allergies Allergies No Known Drug Allergies Allergy (Verified 12/30/23 08:52) Hospital Summary - Hospital Course Hospital Course: is a 83 year old female with a pmhx of peripheral neuropathy, [place], HTN, DMII OA, and AFIB (eliquis/metoprolol) who presented to ED 12/30/23 with complaints of a one week history of progressive dizziness, weakness, and heart "racing." Her main complaint is weakness. Patient states that the dizziness and "heart racing" sensation has been going on for years intermittently since she was diagnosed with AFIB . She follows with Dr. Ortiz (cardiology) OP. Currently she denies dizziness/heart racing. She denies fever, CP, hematuria, dysuria, frequency, nausea, vomiting, or diarrhea. Upon arrival to ED patient was hypertensive with BP 198/80. Lab findings remarkable for UTI and mild hyponatremia. Ucult with citrobacter freundii. CT head with no acute findings. IP treament with Rocephin. Of note, patient has been hypertensive during stay. Spoke with Dr. Ortiz (patient's recreation therapy teacher) who has been working on this as OP. He has advised to increase her hydralazine increased to 50mg TID. Patient to keep BP log and follow up with Dr. Ortiz. Discharge Note New Diagnosis: UTI New Medications: Cefdinir Follow Up: PCP/ Ralf Latest Assessment & Plan (1) Urinary tract infection Current Visit: Yes Status: Acute Assessment & Plan: -UA suspicious for infection, citrobacter freundii on culture - sensitive to ceftriaxone started in ED, will continue Code(s): N39.0 - URINARY TRACT INFECTION, SITE NOT SPECIFIED (2) Afib Current Visit: Yes Status: Acute Assessment & Plan: -NS on EKG - continue home eliquis/metoprolol -tele Code(s): I48.91 - UNSPECIFIED ATRIAL FIBRILLATION (3) HTN (hypertension) Current Visit: Yes Status: Acute Assessment & Plan: -Hypertensive this morning- increase hydralazine to 25mg TID 12/31: -Discussed case with patient's recreation therapy teacher Dr. Ortiz - recommends increasing hydralazine to 50mg TID - follow up as OP Code(s): I10 - ESSENTIAL (PRIMARY) HYPERTENSION (4) Dizziness Current Visit: Yes Status: Acute Assessment & Plan: -CT head negative for acute finding -Most likely secondary to UTI -PT/OT -orthostatic vitals -Echo - pending -TSH -WNL Code(s): R42 - DIZZINESS AND GIDDINESS (5) Generalized weakness Current Visit: Yes Status: Acute Assessment & Plan: -PT/OT Code(s): R53.1 - WEAKNESS (6) Heart palpitations Current Visit: Yes Status: Acute Assessment & Plan: -TSH, MG -EKG NS -Echo -consider cardiology consult if persisting 12/30: -Chronic per pt -TSH WNL/MG WNL -Sees Dr. Ortiz OP -resolved since admission -no events on tele monitor 12/31: -Echo with EF at 70% I spent 35 minutes [id number] with the patient on the day of discharge performing discharge exam, discussing hospital stay and discharge instructions with patient and caregivers, preparation of discharge records, prescriptions & referral forms and addressing any questions/concerns the patient had as docu mented above. - Vitals & Intake/Output Vital Signs: Vital Signs Temperature 98.3 F 01/02/24 03:50 Pulse Rate 77 01/02/24 03:50 Respiratory Rate 16 01/02/24 03:50 Blood Pressure 162/71 01/02/24 03:50 O2 Sat by Pulse Oximetry 94 L 01/02/24 03:50 Intake & Output: Intake & Output 12/30/23 12/31/23 01/01/24 01/02/24 11:59 11:59 11:59 11:59 Intake Total 1200 480 480 Output Total 700 400 Balance 500 80 480 Weight 78.4 kg 78.5 kg - Lab Result Diagrams: 01/02/24 04:55 01/02/24 04:55 Lab Results-Last 24 Hrs: Lab Results-Last 24 Hours 01/01/24 01/01/24 01/01/24 Range/Units 05:10 05:10 07:23 WBC 13.2 H (3.98-10.04) x10^3/uL RBC 4.19 (3.93-5.22) x10^6/uL Hgb 12.2 (11.2-15.7) g/dL Hct 36.1 (34.1-44.9) % MCV 86.2 (79.4-94.8) fL MCH 29.1 (25.6-32.2) pg MCHC 33.8 (32.2-35.5) g/dL RDW 13.3 (11.7-14.4) % Plt Count 306 (182-369) x10^3/uL MPV 9.6 (9.4-12.3) fL Gran % 74.0 H (34.0-71.1) % Immature Gran % (Auto) 0.7 H (0.001-0.429) % Nucleat RBC Rel Count 0.0 (0.00-0.2) % Eos # (Auto) 0.37 H (0.04-0.36) x10^3/uL Immature Gran # (Auto) 0.09 H (0.001-0.031) x10^3u/L Absolute Lymphs (auto) 2.20 (1.18-3.74) x10^3/uL Absolute Monos (auto) 0.73 (0.24-0.86) x10^3/uL Absolute Nucleated RBC 0.00 (0.00-0.012) x10^3u/L Lymphocytes % 16.7 L (19.3-51.7) % Monocytes % 5.5 (4.7-12.5) % Eosinophils % 2.8 (0.7-5.8) % Basophils % 0.3 (0.1-1.2) % Absolute Granulocytes 9.74 H (1.56-6.13) x10^3/uL Basophils # 0.04 (0.01-0.08) x10^3/uL Sodium 135 (135-145) mmol/L Potassium 3.6 (3.5-5.1) mmol/L Chloride 99 (98-107) mmol/L Carbon Dioxide 27 (22-30) mmol/L Anion Gap 12.3 (5-15) MEQ/L BUN 17 (7-17) mg/dL Creatinine 0.54 (0.52-1.04) mg/dL Estimated GFR 90.2 ML/MIN Glucose 119 H (74-106) mg/dL POC Glucometer 146 H (74 to 106) mg/dL Calcium 9.4 (8.4-10.2) mg/dL Total Bilirubin 0.70 (0.2-1.3) mg/dL AST 25 (14-36) U/L ALT 18 (0-35) U/L Alkaline Phosphatase 94 (38-126) U/L Serum Total Protein 7.0 (6.3-8.2) g/dL Albumin 3.8 (3.5-5.0) g/dL 01/01/24 01/01/24 01/01/24 Range/Units 08:02 11:53 16:23 WBC (3.98-10.04) x10^3/uL RBC (3.93-5.22) x10^6/uL Hgb (11.2-15.7) g/dL Hct (34.1-44.9) % MCV (79.4-94.8) fL MCH (25.6-32.2) pg MCHC (32.2-35.5) g/dL RDW (11.7-14.4) % Plt Count (182-369) x10^3/uL MPV (9.4-12.3) fL Gran % (34.0-71.1) % Immature Gran % (Auto) (0.001-0.429) % Nucleat RBC Rel Count (0.00-0.2) % Eos # (Auto) (0.04-0.36) x10^3/uL Immature Gran # (Auto) (0.001-0.031) x10^3u/L Absolute Lymphs (auto) (1.18-3.74) x10^3/uL Absolute Monos (auto) (0.24-0.86) x10^3/uL Absolute Nucleated RBC (0.00-0.012) x10^3u/L Lymphocytes % (19.3-51.7) % Monocytes % (4.7-12.5) % Eosinophils % (0.7-5.8) % Basophils % (0.1-1.2) % Absolute Granulocytes (1.56-6.13) x10^3/uL Basophils # (0.01-0.08) x10^3/uL Sodium (135-145) mmol/L Potassium (3.5-5.1) mmol/L Chloride (98-107) mmol/L Carbon Dioxide (22-30) mmol/L Anion Gap (5-15) MEQ/L BUN (7-17) mg/dL Creatinine (0.52-1.04) mg/dL Estimated GFR ML/MIN Glucose (74-106) mg/dL POC Glucometer 156 H 142 H 394 H (74 to 106) mg/dL Calcium (8.4-10.2) mg/dL Total Bilirubin (0.2-1.3) mg/dL AST (14-36) U/L ALT (0-35) U/L Alkaline Phosphatase (38-126) U/L Serum Total Protein (6.3-8.2) g/dL Albumin (3.5-5.0) g/dL 01/01/24 Range/Units 20:32 WBC (3.98-10.04) x10^3/uL RBC (3.93-5.22) x10^6/uL Hgb (11.2-15.7) g/dL Hct (34.1-44.9) % MCV (79.4-94.8) fL MCH (25.6-32.2) pg MCHC (32.2-35.5) g/dL RDW (11.7-14.4) % Plt Count (182-369) x10^3/uL MPV (9.4-12.3) fL Gran % (34.0-71.1) % Immature Gran % (Auto) (0.001-0.429) % Nucleat RBC Rel Count (0.00-0.2) % Eos # (Auto) (0.04-0.36) x10^3/uL Immature Gran # (Auto) (0.001-0.031) x10^3u/L Absolute Lymphs (auto) (1.18-3.74) x10^3/uL Absolute Monos (auto) (0.24-0.86) x10^3/uL Absolute Nucleated RBC (0.00-0.012) x10^3u/L Lymphocytes % (19.3-51.7) % Monocytes % (4.7-12.5) % Eosinophils % (0.7-5.8) % Basophils % (0.1-1.2) % Absolute Granulocytes (1.56-6.13) x10^3/uL Basophils # (0.01-0.08) x10^3/uL Sodium (135-145) mmol/L Potassium (3.5-5.1) mmol/L Chloride (98-107) mmol/L Carbon Dioxide (22-30) mmol/L Anion Gap (5-15) MEQ/L BUN (7-17) mg/dL Creatinine (0.52-1.04) mg/dL Estimated GFR ML/MIN Glucose (74-106) mg/dL POC Glucometer 289 H (74 to 106) mg/dL Calcium (8.4-10.2) mg/dL Total Bilirubin (0.2-1.3) mg/dL AST (14-36) U/L ALT (0-35) U/L Alkaline Phosphatase (38-126) U/L Serum Total Protein (6.3-8.2) g/dL Albumin (3.5-5.0) g/dL Micro Results-Entire Visit: Microbiology 12/30/23 09:40 Urine Culture - Final Urine, Void Citrobacter Freundii Accuchecks Date 01/01/24 Date 01/01/24 Date 01/01/24 - Procedures and Test Procedures and Tests throughout Hospitalization: Therapy Orders & Screens 12/30/23 13:56 EKG REPEAT IN AM Comment: Diagnosis: urinary tract infection, dizzines Discharge Exam General Appearance: no apparent distress Neurologic Exam: alert, oriented x 3, cooperative Eye Exam: PERRL Ears, Nose, Throat Exam: normal ENT inspection Neck Exam: normal inspection Respiratory Exam: normal breath sounds, lungs clear Cardiovascular Exam: regular rate/rhythm, normal heart sounds Gastrointestinal/Abdomen Exam: soft, normal bowel sounds Pelvic Exam: deferred Rectal Exam: deferred Back Exam: normal inspection Extremity Exam: normal inspection Skin Exam: normal color Final Diagnosis/Problem List - Final Discharge Diagnosis/Problem (1) Urinary tract infection Current Visit: Yes Status: Acute Code(s): N39.0 - URINARY TRACT INFECTION, SITE NOT SPECIFIED (2) Afib Current Visit: Yes Status: Chronic Code(s): I48.91 - UNSPECIFIED ATRIAL FIBRILLATION (3) HTN (hypertension) Current Visit: Yes Status: Chronic Code(s): I10 - ESSENTIAL (PRIMARY) HYPERTENSION (4) Dizziness Current Visit: Yes Status: Chronic Code(s): R42 - DIZZINESS AND GIDDINESS (5) Generalized weakness Current Visit: Yes Status: Resolved Code(s): R53.1 - WEAKNESS (6) Heart palpitations Current Visit: Yes Status: Resolved Code(s): R00.2 - PALPITATIONS (7) Diabetes mellitus Current Visit: Yes Status: Chronic Code(s): E11.9 - TYPE 2 DIABETES MELLITUS WITHOUT COMPLICATIONS - Discharge Disposition: Home, Self-Care Condition: Stable Prescriptions: New Cefdinir 300 mg PO BID 7 Days #14 cap Hydralazine HCl 50 mg PO TID 30 Days #90 tablet Continue Metoprolol Succinate 50 mg PO BID Metformin HCl 1,000 mg PO DAILY Atorvastatin Calcium 40 mg PO DAILY Verapamil HCl 80 mg [Calan 80 mg] 80 mg PO TID Olmesartan/Hydrochlorothiazide [Benicar Hct 40-25 mg Tablet] 1 each PO DAILY Insulin Glargine [Lantus Insulin] 40 unit SQ QHS Insulin Lispro [Humalog Kwikpen U-100] 15 unit SQ BID Ascorbic Acid 500 mg [Vitamin C 500 MG] 500 mg PO DAILY Apixaban [Eliquis 5 mg Tablet] 2.5 mg PO BID #0 Magnesium Oxide [Magnesium] 1 tab PO DAILY Discontinued Hydralazine HCl 10 mg PO BID Follow up with: JOSE MARTINEZ MD [Primary Care Provider] - 01/07/24 3:15 pm BLAKE ORTIZ [CONSULTING PHYSICIAN] - 01/22/24 3:45 pm (at [facility])
[2024-01-02 05:33] LABS: ALBUMIN 3.7 g/dL (3.5-5.0); ANION GAP 9.5 MEQ/L (5-15); BILIRUBIN,TOTAL 0.7 mg/dL (0.2-1.3); Calcium 9.2 mg/dL (8.4-10.2); Creatinine 1 0.68 mg/dL (0.52-1.04); EST GLOMERULAR FILTRATION RATE 85.3 ML/MIN; Potassium 3.7 mmol/L (3.5-5.1)
[2024-01-02 09:11] VITALS: PULSE 80; RESP 18; O2SAT 95
[2024-01-02 13:17] VITALS: BP 146/74; TEMP 97.7
== END 2024-01-02 13:00 | disposition home or self-care (01) ==
LOC: ED 08:40 → MED SURG 12:37
PROVIDERS: ADMIT Internal Medicine; ATTEND Internal Medicine
DX: N39.0 Urinary tract infection, site not specified (principal); I48.91 Unspecified atrial fibrillation; I10 Essential (primary) hypertension; R42 Dizziness and giddiness; R53.1 Weakness; R00.2 Palpitations; E11.9 Type 2 diabetes mellitus without complications; E78.5 Hyperlipidemia, unspecified; E11.42 Type 2 diabetes mellitus with diabetic polyneuropathy; Z79.01 Long term (current) use of anticoagulants; Z79.899 Other long term (current) drug therapy
CPT/HCPCS: 36000; 36415; 70450; 80053; 81001; 82947; 83036; 83735; 84443; 84484; 85025; 87077; 87086; 87186; 93005; 93041; 93268; 93306; 94760; 96360; 96365; 99285; G0378; Q3014; J0696; J1817; A9270-GY

== ENCOUNTER 2024-03-25 09:21 | Emergency (ER) | payer MEDICARE ==
[2024-03-25 09:53] VITALS: TEMP 97
--- NOTE | 2024-03-25 10:19 | ERPHSYRPT ---
- History of Present Illness Time Seen by Provider: 03/25/24 09:34 Source: patient, family Exam Limitations: no limitations Patient Subjective Stated Complaint: PT HERE FOR HYPERTENSION THAT HAS BEEN ONGOING FOR SOME TIME AND HAS HAD RECENT MED CHANGES THIS MONTH. SHE ALSO CO DIZZINESS Triage Nursing Assessment: PT ALERT, ARRIVED PER WC, ABLE TO UNDRESS, RESP EASY, CHEST CLEAR, ABD SOFT, NO EDEMA NOTED, SKIN W.D.P Physician History: 84 years old female with multiple medical problems including atrial fibrillation on diltiazem and anticoagulated, hypertension, hyperlipidemia presented to the ER with complaints of generalized weakness fatigue tiredness along with elevated blood pressure. Patient report her blood pressure was 189 systolic earlier this morning, took her routine antihypertensive and currently is 139 systolic. Patient reports recent multiple changes in her antihypertensives done by Dr. Foster. She was also seen by primary care yesterday and was diagnosed with UTI and on Keflex now. Reports feeling lightheaded at times with standing up. Daughter reports patient having high blood pressure and feeling of generalized weakness off and on for last 4 months and could not figure out the cause. She denies any chest pain or difficulty breathing but does report having some episode of rapid heart rate last night possible A-fib RVR but when further questioned patient reported it seemed like her heart rate was in 90s or close to 100. Currently patient is in sinus rhythm. Also reports that whenever she has runs of A-fib she feels tired afterwards. No fever or chills reported. Allergies/Adverse Reactions: No Known Drug Allergies Allergy (Verified 03/25/24 09:40) Home Medications: Atorvastatin Calcium 40 mg PO DAILY 12/19/16 [History] Metformin HCl 1,000 mg PO DAILY 12/19/16 [History] Metoprolol Succinate 50 mg PO BID 12/19/16 [History] Olmesartan/Hydrochlorothiazide [Benicar Hct 40-25 mg Tablet] 1 each PO DAILY 12/19/16 [History] Verapamil HCl 80 mg [Calan 80 mg] 80 mg PO TID 12/19/16 [History] Ascorbic Acid 500 mg [Vitamin C 500 MG] 500 mg PO DAILY 11/17/17 [History] Insulin Glargine [Lantus Insulin] 40 unit SQ QHS 11/17/17 [History] Insulin Lispro [Humalog Kwikpen U-100] 15 unit SQ BID 11/17/17 [History] Magnesium Oxide [Magnesium] 1 tab PO DAILY 12/30/23 [History] Hx Tetanus, Diphtheria Vaccination/Date Given: No Hx Influenza Vaccination/Date Given: No Hx Pneumococcal Vaccination/Date Given: Yes Immunizations Up to Date: Yes Travel Risk - International Travel Have you traveled outside of the country in past 3 weeks: No - Emerging Infectious Disease Are you exhibiting symptoms associated with any current EIDs: No - Review of Systems Constitutional: Fatigue, Weakness Eyes: No Symptoms Ears, Nose, & Throat: No Symptoms Respiratory: No Symptoms Cardiac: Palpitations Abdominal/Gastrointestinal: No Symptoms Musculoskeletal: Arthralgias Skin: No Symptoms Neurological: Dizziness Psychological: No Symptoms Endocrine: No Symptoms - Past Medical History Pertinent Past Medical History: Yes Neurological History: Peripheral Neuropathy ENT History: Cataracts Cardiac History: Arrhythmia, Hypertension Respiratory History: No Pertinent History Endocrine Medical History: Diabetes Type II Musculoskeletal History: Fractures, Osteoarthritis GI Medical History: Gallbladder Disease, Polyps History: No Pertinent History Psycho-Social History: No Pertinent History Female Reproductive Disorders: No Pertinent History Other Medical History: A-fib. colon polyp 2016 - Past Surgical History Past Surgical History: Yes Neuro Surgical History: No Pertinent History Cardiac: Cardiac Catheterization, Other Respiratory: No Pertinent History Gastrointestinal: Appendectomy, Cholecystectomy Genitourinary: No Pertinent History Musculoskeletal: Orthopedic Surgery Female Surgical History: Hysterectomy Other Surgical History: Cardiac ablation.RIGHT ARM - Social History Smoking Status: Never smoker Exposure to second hand smoke: No Drug Use: none Patient Lives Alone: No - Social Determinants of Health Will the patient participate in the screening: Declined to provide - Nursing Vital Signs Nursing Vital Signs: Initial Vital Signs Pulse Rate 67 03/25/24 09:38 Respiratory Rate 25 H 03/25/24 09:38 Blood Pressure 139/85 03/25/24 09:38 O2 Sat by Pulse Oximetry 95 03/25/24 09:38 Pain Scale Pain Intensity 0 - Physical Exam General Appearance: no apparent distress, alert Eye Exam: PERRL/EOMI Ears, Nose, Throat Exam: normal ENT inspection Neck Exam: normal inspection, non-tender, supple, full range of motion Respiratory Exam: normal breath sounds, lungs clear Cardiovascular Exam: regular rate/rhythm, normal heart sounds Gastrointestinal/Abdomen Exam: soft, normal bowel sounds, No tenderness Back Exam: normal inspection, normal range of motion Extremity Exam: normal inspection, normal range of motion Neurologic Exam: alert, oriented x 3, cooperative, 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 tested, sensation nml, No motor deficits Skin Exam: normal color SpO2 Interpretation: normal SpO2: 94 O2 Delivery: Room Air - Course EKG Interpreted by Me: RATE (60), Sinus Rhythm, NORMAL AXIS, NORMAL INTERVALS, Non-specific ST Changes, Other (T wave inversions in anterolateral leads) Lab/Rad Data: Laboratory Result Diagrams 03/25/24 10:25 03/25/24 10:25 Laboratory Results 03/25/24 03/25/24 03/25/24 Range/Units 10:25 10:25 10:25 WBC 11.5 H (3.98-10.04) x10^3/uL RBC 4.22 (3.93-5.22) x10^6/uL Hgb 12.6 (11.2-15.7) g/dL Hct 36.4 (34.1-44.9) % MCV 86.3 (79.4-94.8) fL MCH 29.9 (25.6-32.2) pg MCHC 34.6 (32.2-35.5) g/dL RDW 13.4 (11.7-14.4) % Plt Count 326 (182-369) x10^3/uL MPV 9.3 L (9.4-12.3) fL Gran % 77.6 H (34.0-71.1) % Immature Gran % (Auto) 0.7 H (0.001-0.429) % Nucleat RBC Rel Count 0.0 (0.00-0.2) % Eos # (Auto) 0.31 (0.04-0.36) x10^3/uL Immature Gran # (Auto) 0.08 H (0.001-0.031) x10^3u/L Absolute Lymphs (auto) 1.48 (1.18-3.74) x10^3/uL Absolute Monos (auto) 0.63 (0.24-0.86) x10^3/uL Absolute Nucleated RBC 0.00 (0.00-0.012) x10^3u/L Lymphocytes % 12.8 L (19.3-51.7) % Monocytes % 5.5 (4.7-12.5) % Eosinophils % 2.7 (0.7-5.8) % Basophils % 0.7 (0.1-1.2) % Absolute Granulocytes 8.96 H (1.56-6.13) x10^3/uL Basophils # 0.08 (0.01-0.08) x10^3/uL Sodium 133 L (135-145) mmol/L Potassium 4.0 (3.5-5.1) mmol/L Chloride 96 L (98-107) mmol/L Carbon Dioxide 26 (22-30) mmol/L Anion Gap 15.1 H (5-15) MEQ/L BUN 11 (7-17) mg/dL Creatinine 0.55 (0.52-1.04) mg/dL Estimated GFR 89.2 ML/MIN Glucose 152 H (74-106) mg/dL Calcium 9.8 (8.4-10.2) mg/dL Magnesium 1.8 (1.6-2.3) mg/dL Total Bilirubin 0.60 (0.2-1.3) mg/dL AST 25 (14-36) U/L ALT 28 (0-35) U/L Alkaline Phosphatase 112 (38-126) U/L Troponin I < 0.012 (0.000-0.033) ng/mL NT-Pro-B Natriuret Pep 744 (<300) pg/mL Serum Total Protein 6.9 (6.3-8.2) g/dL Albumin 3.9 (3.5-5.0) g/dL - Progress Progress: improved Progress Note: 03/25/24 11:59 54 years old is evaluated in the ER for generalized weakness and elevated blood pressure. Patient blood pressure is improved on presentation in the ER after she took her routine antihypertensives prior to arrival. She does not have any chest pain palpitations or shortness of breath. The EKG is sinus rhythm with no ST elevations. Does have some T wave inversion in anterolateral leads which were there the previous EKG as well. Patient has negative initial troponins. Normal white count, chemistries fairly unremarkable. Does have UTI and is taking Keflex so I did not recheck her urine and it would not be garcia to take her off of Keflex which she has started last night. I would continue with Keflex. Chest x-ray is negative for any acute cardiopulmonary findings. Part of her symptoms are secondary to UTI as well causing generalized weakness. I have shared the results of workup with patient and family and plan of continue with Keflex and outpatient follow up .Discussed signs symptoms of worsening needing return to ER which patient/family seem understanding. Counseled pt/family regarding: lab results, diagnosis, need for follow-up, rad results Medical Desision Making - Independent Historian Additional History obtained from: Child - Diagnostic Testing Diagnostic test were ordered, analyzed, and reviewed by me: Yes Radiological Interpretation: Reviewed by me - Departure Departure Disposition: Home Clinical Impression: Urinary tract infection, General weakness, Hypertension Condition: Stable Critical Care Time: No Referrals: JOSE MARTINEZ MD [Primary Care Provider] - Follow up with PCP 1 day Instructions: Malignant Hypertension (DC) Additional Instructions: 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 Keep a log of your blood pressure and follow-up. Continue with current medications including Keflex for UTI. Return to ER for increasing generalized weakness or if having chest pain palpitations or shortness of breath/fever chills etc.
--- NOTE | 2024-03-25 10:26 | XRAY ---
Indication: Weakness. Comparison: November 03, 2023 Portable chest remains inflated and clear with stable incidental right lung calcified granulomas. Heart not enlarged again with tortuous descending aorta. Bony thorax intact again with osteopenia and mild degenerative changes. Impression: Continued nonacute chest with chronic features.
[2024-03-25 10:34] LABS: Absolute Neutrophil Ct (ANC) 8.96 x10^3/uL (1.56-6.13); BASOPHIL % 0.7 % (0.1-1.2); Basophil (Absolute #) 0.08 x10^3/uL (0.01-0.08); Eosinophil % 2.7 % (0.7-5.8); Eosinophil (Absolute #) 0.31 x10^3/uL (0.04-0.36); Hematocrit 36.4 % (34.1-44.9); Hemoglobin 12.6 g/dL (11.2-15.7); IMMATURE GRAN # 0.08 x10^3u/L (0.001-0.031); IMMATURE GRAN % 0.7 % (0.001-0.429); Lymphocyte (Absolute #) 1.48 x10^3/uL (1.18-3.74); Lymphocytes % 12.8 % (19.3-51.7); Mean Cell Volume 86.3 fL (79.4-94.8); Mean Corpuscular Hemoglobin 29.9 pg (25.6-32.2); Mean Corpuscular Hgb Concent. 34.6 g/dL (32.2-35.5); Mean Platelet Volume 9.3 fL (9.4-12.3); Monocyte (Absolute #) 0.63 x10^3/uL (0.24-0.86); Monocytes % 5.5 % (4.7-12.5); Neutrophil % 77.6 % (34.0-71.1); Platelet Count 326 x10^3/uL (182-369); Red Blood Count 4.22 x10^6/uL (3.93-5.22); Red Cell Distribution Width 13.4 % (11.7-14.4); White Blood Count 11.5 x10^3/uL (3.98-10.04)
[2024-03-25 10:58] LABS: ALBUMIN 3.9 g/dL (3.5-5.0); ANION GAP 15.1 MEQ/L (5-15); BILIRUBIN,TOTAL 0.6 mg/dL (0.2-1.3); Calcium 9.8 mg/dL (8.4-10.2); Creatinine 1 0.55 mg/dL (0.52-1.04); EST GLOMERULAR FILTRATION RATE 89.2 ML/MIN; MAGNESIUM 1.8 mg/dL (1.6-2.3); Total Protein 6.9 g/dL (6.3-8.2)
[2024-03-25 11:19] VITALS: PULSE 63; RESP 20
[2024-03-25 12:02] VITALS: O2SAT 94
[2024-03-25 12:13] VITALS: BP 169/63
== END 2024-03-25 12:18 | disposition home or self-care (01) ==
LOC: ED 09:21
DX: I10 Essential (primary) hypertension (principal); N39.0 Urinary tract infection, site not specified; R53.1 Weakness; R42 Dizziness and giddiness; I48.91 Unspecified atrial fibrillation; E78.5 Hyperlipidemia, unspecified; Z79.01 Long term (current) use of anticoagulants
CPT/HCPCS: 36415; 71045; 80053; 83735; 83880; 84484; 85025; 93005; 93041; 99284; 99285

== ENCOUNTER 2024-04-18 18:07 | Emergency (ER) | payer MEDICARE ==
[2024-04-18 18:22] VITALS: TEMP 97.2
[2024-04-18] MEDS ORDERED: Sodium Chloride 0.9% 1000 ML 1,000 ML ONE (18:38)
[2024-04-18] MEDS ORDERED: Cardizem IV 50 MG/10 ML IV ONE (18:38)
--- NOTE | 2024-04-18 18:38 | ERPHSYRPT ---
- History of Present Illness Source: patient Exam Limitations: no limitations Patient Subjective Stated Complaint: pt here for fast heart rate that started today. she has hx of a fib . she states she is having some chest pain with it Triage Nursing Assessment: pt alert, arrived per wc, resp easy, skin w/d/p. moves all ext well, chest clear, abd soft, Timing/Duration: today Activities at Onset: none Location: central Chest Pain Radiation: no radiation Severity of Pain-Max: mild Severity of Pain-Current: mild Nitro Today/Relief: no nitro taken today Aspirin Treatment Today: no aspirin today Associated Symptoms: chest pain, No heartburn, No diaphoresis, No cough, No chills, No fever, No syncope Hx Tetanus, Diphtheria Vaccination/Date Given: No Hx Influenza Vaccination/Date Given: No Hx Pneumococcal Vaccination/Date Given: Yes Immunizations Up to Date: Yes <KELVIN,KALPANA - Last Filed: 04/18/24 18:43> <LAURO VARGAS - Last Filed: 04/18/24 23:00> - History of Present Illness Time Seen by Provider: 04/18/24 18:36 Physician History: pt here for fast heart rate that started today. she has hx of a fib . she states she is having some chest pain with it, no shortness of breath. no syncopal episode (KELVIN,KALPANA) Allergies/Adverse Reactions: No Known Drug Allergies Allergy (Verified 04/18/24 18:10) Home Medications: Atorvastatin Calcium 40 mg PO DAILY 12/19/16 [History] Metformin HCl 1,000 mg PO DAILY 12/19/16 [History] Metoprolol Succinate 50 mg PO BID 12/19/16 [History] Olmesartan/Hydrochlorothiazide [Benicar Hct 40-25 mg Tablet] 1 each PO DAILY 12/19/16 [History] Verapamil HCl 80 mg [Calan 80 mg] 80 mg PO TID 12/19/16 [History] Ascorbic Acid 500 mg [Vitamin C 500 MG] 500 mg PO DAILY 11/17/17 [History] Insulin Glargine [Lantus Insulin] 40 unit SQ QHS 11/17/17 [History] Insulin Lispro [Humalog Kwikpen U-100] 15 unit SQ BID 11/17/17 [History] Magnesium Oxide [Magnesium] 1 tab PO DAILY 12/30/23 [History] Travel Risk - International Travel Have you traveled outside of the country in past 3 weeks: No - Emerging Infectious Disease Are you exhibiting symptoms associated with any current EIDs: No <KALPANA WARREN - Last Filed: 04/18/24 18:43> - Review of Systems Constitutional: No Fever, No Chills Eyes: No Symptoms Ears, Nose, & Throat: No Symptoms Respiratory: No Cough, No Dyspnea Cardiac: Chest Pain, Palpitations, No Edema, No Syncope Abdominal/Gastrointestinal: No Abdominal Pain, No Nausea, No Vomiting, No Diarrhea Genitourinary Symptoms: No Dysuria Musculoskeletal: No Back Pain, No Neck Pain Skin: No Rash Neurological: No Dizziness, No Focal Weakness, No Sensory Changes Psychological: No Symptoms Endocrine: No Symptoms All Other Systems: Reviewed and Negative <FRANK WARRENSH - Last Filed: 04/18/24 18:43> - Past Medical History Pertinent Past Medical History: Yes Neurological History: Peripheral Neuropathy ENT History: Cataracts Cardiac History: Arrhythmia, Hypertension Respiratory History: No Pertinent History Endocrine Medical History: Diabetes Type II Musculoskeletal History: Fractures, Osteoarthritis GI Medical History: Gallbladder Disease, Polyps History: No Pertinent History Psycho-Social History: No Pertinent History Female Reproductive Disorders: No Pertinent History Other Medical History: A-fib. colon polyp 2016 - Past Surgical History Past Surgical History: Yes Neuro Surgical History: No Pertinent History Cardiac: Cardiac Catheterization, Other Respiratory: No Pertinent History Gastrointestinal: Appendectomy, Cholecystectomy Genitourinary: No Pertinent History Musculoskeletal: Orthopedic Surgery Female Surgical History: Hysterectomy Other Surgical History: Cardiac ablation.RIGHT ARM - Social History Smoking Status: Never smoker Exposure to second hand smoke: No Drug Use: none Patient Lives Alone: No - Social Determinants of Health Will the patient participate in the screening: Yes Do you worry about a steady place to live?: Yes Do you have any problems with any of the following?: No known problems In the past 12 months,have you had to go without utilities?: Yes Transportation Issues: Yes Has anyone in your support network made you feel unsafe?: No Have you or anyone in your house had to go without enough: Yes <KALPAAN WARREN - Last Filed: 04/18/24 18:43> - Physical Exam General Appearance: no apparent distress, alert Eye Exam: PERRL/EOMI, eyes nml inspection Ears, Nose, Throat Exam: normal ENT inspection, moist mucous membranes Neck Exam: normal inspection, non-tender, supple Respiratory Exam: normal breath sounds, lungs clear, No respiratory distress Cardiovascular Exam: normal peripheral pulses, irregular, capillary refill <2 sec, No edema Gastrointestinal/Abdomen Exam: soft, No tenderness, No mass Back Exam: normal inspection, No CVA tenderness, No vertebral tenderness Extremity Exam: normal inspection, normal range of motion Neurologic Exam: alert, oriented x 3, cooperative, normal mood/affect, nml cerebellar function, sensation nml, No motor deficits Skin Exam: normal color, warm, dry Lymphatic Exam: No adenopathy SpO2 Interpretation: normal SpO2: 95 O2 Delivery: Room Air <KELVIN - Last Filed: 04/18/24 18:43> - Nursing Vital Signs Nursing Vital Signs: Initial Vital Signs Blood Pressure 233/190 04/18/24 18:12 Pain Scale Pain Intensity 0 - Course Nursing assessment & vital signs reviewed: Yes EKG Interpreted by Me: A-fib Rhythm Strip: Atrial Fibrillation - Radiology Exams Chest X-ray Interpretation: Interpreted by me, Reviewed by me, Negative, No Infiltrates <KELVIN - Last Filed: 04/18/24 18:43> Ordered Tests: Active Orders 24 hr Category Date Time Status Head Of Maintenance STAT Care 04/18/24 18:21 Active EKG-ER Only STAT Care 04/18/24 18:20 Active Telemetry q4h Care 04/18/24 19:45 Active CHEST 2 VIEWS (PA AND LAT) Stat Exams 04/18/24 18:35 Completed CBC W DIFF Stat Lab 04/18/24 18:52 Completed CMP Stat Lab 04/18/24 18:52 Completed MAGNESIUM Stat Lab 04/18/24 18:52 Completed MAGNESIUM Stat Lab 04/18/24 19:55 Completed NT PRO BNPII Stat Lab 04/18/24 18:52 Completed TROPONIN Q4H Lab 04/18/24 18:52 Completed TROPONIN Q4H Lab 04/18/24 22:40 Received TROPONIN Q4H Lab 04/19/24 02:30 Ordered Medication Summary Generic Name Dose Route Start Last Admin Trade Name Freq PRN Reason Stop Dose Admin Sodium Chloride 1,000 mls @ 100 mls/hr 04/18/24 18:30 04/18/24 18:40 Sodium Chloride 0.9% 1000 Ml IV 05/18/24 18:29 100 mls/hr .Q10H YANY Administration Diltiazem HCl 100 mls @ 5 mls/hr 04/18/24 19:15 04/18/24 21:13 Cardizem Drip 100 Mg/100 Ml D5w IV 05/18/24 19:14 10 mg/hr .Q20H PRN 10 mls/hr HEART RATE/ A-FIB Titration Protocol 5 MG/HR Potassium Chloride 20 meq in 100 mls @ 50 mls/hr 04/18/24 19:45 04/18/24 21:59 Potassium Chloride 20 Meq In Water 100ml IV 04/18/24 23:44 50 mls/hr Q2H YANY Administration Discontinued Medications Generic Name Dose Route Start Last Admin Trade Name Freq PRN Reason Stop Dose Admin Diltiazem HCl 10 mg 04/18/24 18:20 04/18/24 18:39 Diltiazem Hcl Iv 5 Mg/Ml Vial IV 04/18/24 18:21 10 mg STAT ONE Administration Diltiazem HCl Confirm 04/18/24 18:38 Diltiazem Hcl Iv 5 Mg/Ml Vial Administered 04/18/24 18:39 Dose 50 mg IV .[employer] ONE Lab/Rad Data: Laboratory Result Diagrams 04/18/24 18:52 04/18/24 18:52 Laboratory Results 04/18/24 04/18/24 04/18/24 Range/Units 19:55 18:52 18:52 WBC (3.98-10.04) x10^3/uL RBC (3.93-5.22) x10^6/uL Hgb (11.2-15.7) g/dL Hct (34.1-44.9) % MCV (79.4-94.8) fL MCH (25.6-32.2) pg MCHC (32.2-35.5) g/dL RDW (11.7-14.4) % Plt Count (182-369) x10^3/uL MPV (9.4-12.3) fL Gran % (34.0-71.1) % Immature Gran % (Auto) (0.001-0.429) % Nucleat RBC Rel Count (0.00-0.2) % Eos # (Auto) (0.04-0.36) x10^3/uL Immature Gran # (Auto) (0.001-0.031) x10^3u/L Absolute Lymphs (auto) (1.18-3.74) x10^3/uL Absolute Monos (auto) (0.24-0.86) x10^3/uL Absolute Nucleated RBC (0.00-0.012) x10^3u/L Lymphocytes % (19.3-51.7) % Monocytes % (4.7-12.5) % Eosinophils % (0.7-5.8) % Basophils % (0.1-1.2) % Absolute Granulocytes (1.56-6.13) x10^3/uL Basophils # (0.01-0.08) x10^3/uL Sodium 134 L (135-145) mmol/L Potassium 3.0 L* (3.5-5.1) mmol/L Chloride 96 L (98-107) mmol/L Carbon Dioxide 24 (22-30) mmol/L Anion Gap 17.2 H (5-15) MEQ/L BUN 12 (7-17) mg/dL Creatinine 0.68 (0.52-1.04) mg/dL Estimated GFR 84.8 ML/MIN Glucose 126 H (74-106) mg/dL Calcium 9.9 (8.4-10.2) mg/dL Magnesium 1.8 1.7 (1.6-2.3) mg/dL Total Bilirubin 0.70 (0.2-1.3) mg/dL AST 25 (14-36) U/L ALT 24 (0-35) U/L Alkaline Phosphatase 122 (38-126) U/L Troponin I 0.013 (0.000-0.033) ng/mL NT-Pro-B Natriuret Pep 999 (<300) pg/mL Serum Total Protein 7.2 (6.3-8.2) g/dL Albumin 4.1 (3.5-5.0) g/dL 04/18/24 Range/Units 18:52 WBC 13.5 H (3.98-10.04) x10^3/uL RBC 4.43 (3.93-5.22) x10^6/uL Hgb 13.2 (11.2-15.7) g/dL Hct 38.5 (34.1-44.9) % MCV 86.9 (79.4-94.8) fL MCH 29.8 (25.6-32.2) pg MCHC 34.3 (32.2-35.5) g/dL RDW 13.3 (11.7-14.4) % Plt Count 315 (182-369) x10^3/uL MPV 9.3 L (9.4-12.3) fL Gran % 77.9 H (34.0-71.1) % Immature Gran % (Auto) 0.9 H (0.001-0.429) % Nucleat RBC Rel Count 0.1 (0.00-0.2) % Eos # (Auto) 0.32 (0.04-0.36) x10^3/uL Immature Gran # (Auto) 0.12 H (0.001-0.031) x10^3u/L Absolute Lymphs (auto) 1.72 (1.18-3.74) x10^3/uL Absolute Monos (auto) 0.77 (0.24-0.86) x10^3/uL Absolute Nucleated RBC 0.02 H (0.00-0.012) x10^3u/L Lymphocytes % 12.7 L (19.3-51.7) % Monocytes % 5.7 (4.7-12.5) % Eosinophils % 2.4 (0.7-5.8) % Basophils % 0.4 (0.1-1.2) % Absolute Granulocytes 10.54 H (1.56-6.13) x10^3/uL Basophils # 0.06 (0.01-0.08) x10^3/uL Sodium (135-145) mmol/L Potassium (3.5-5.1) mmol/L Chloride (98-107) mmol/L Carbon Dioxide (22-30) mmol/L Anion Gap (5-15) MEQ/L BUN (7-17) mg/dL Creatinine (0.52-1.04) mg/dL Estimated GFR ML/MIN Glucose (74-106) mg/dL Calcium (8.4-10.2) mg/dL Magnesium (1.6-2.3) mg/dL Total Bilirubin (0.2-1.3) mg/dL AST (14-36) U/L ALT (0-35) U/L Alkaline Phosphatase (38-126) U/L Troponin I (0.000-0.033) ng/mL NT-Pro-B Natriuret Pep (<300) pg/mL Serum Total Protein (6.3-8.2) g/dL Albumin (3.5-5.0) g/dL - Progress Progress: improved Air Movement: good Blood Culture(s) Obtained: No Antibiotics given: No Will see patient in: hospital (full admit) Counseled pt/family regarding: lab results, diagnosis, need for follow-up, rad results <LAURO VARGAS - Last Filed: 04/18/24 23:00> - Progress Progress Note: Assumed care at 1900. Patient in A-fib RVR got a bolus dose of diltiazem which did not significantly improve her heart rate. Will start on a diltiazem drip starting at 5 mg and titrate as needed. I do increase up to 10 mg and got her heart rate under 100. We do not have any ICU beds available so I had to transfer the patient to [facility]. Dr. Otero accepted at 1945. K 3.0 so 40meq KCl given through IV. 04/18/24 22:59 EMS here to transport patient, HR has been in the 90s since increasing Diltiazem to 10mg. (LAURO VARGAS) Medical Desision Making - Diagnostic Testing Diagnostic test were ordered, analyzed, and reviewed by me: Yes Radiological Interpretation: Interpreted by me - Risk of complications The pt has a mod risk of morbidity or mortality based on: Need for prescription drug management The pt has a high risk of morbidity or mortality based on: Decision regarding hospitilization or escalation of hosp level of care <LAURO VARGAS - Last Filed: 04/18/24 23:00> <KALPANA WARREN - Last Filed: 04/18/24 18:43> - Departure Departure Disposition: Transfer ([facility]) Critical Care Time: No <LAURO VARGAS - Last Filed: 04/18/24 23:00> - Departure Clinical Impression: Atrial fibrillation with RVR, Hypokalemia Condition: Stable Referrals: JOSE MARTINEZ MD [Primary Care Provider] - Follow up/PCP as directed Instructions: Arrhythmias (DC)
[2024-04-18] MEDS: Cardizem IV 50 MG/10 ML IV ONE (18:39)
[2024-04-18] MEDS: Sodium Chloride 0.9% 1000 ML 1,000 ML IV SCH (18:40)
--- NOTE | 2024-04-18 18:48 | XRAY ---
Indication: Palpitations. Comparison: March 25, 2024 PA/lateral chest inflated and remains clear with stable small right mid lung calcified granuloma. Heart not enlarged again with arteriosclerotic and tortuous descending aorta. Bony thorax intact again with osteopenia and mild degenerative changes. Impression: Continued nonacute chest with chronic features.
[2024-04-18 19:03] LABS: Absolute Neutrophil Ct (ANC) 10.54 x10^3/uL (1.56-6.13); BASOPHIL % 0.4 % (0.1-1.2); Basophil (Absolute #) 0.06 x10^3/uL (0.01-0.08); Eosinophil % 2.4 % (0.7-5.8); Eosinophil (Absolute #) 0.32 x10^3/uL (0.04-0.36); Hematocrit 38.5 % (34.1-44.9); Hemoglobin 13.2 g/dL (11.2-15.7); IMMATURE GRAN # 0.12 x10^3u/L (0.001-0.031); IMMATURE GRAN % 0.9 % (0.001-0.429); Lymphocyte (Absolute #) 1.72 x10^3/uL (1.18-3.74); Lymphocytes % 12.7 % (19.3-51.7); Mean Cell Volume 86.9 fL (79.4-94.8); Mean Corpuscular Hemoglobin 29.8 pg (25.6-32.2); Mean Corpuscular Hgb Concent. 34.3 g/dL (32.2-35.5); Mean Platelet Volume 9.3 fL (9.4-12.3); Monocyte (Absolute #) 0.77 x10^3/uL (0.24-0.86); Monocytes % 5.7 % (4.7-12.5); NUCLEATED RBC # 0.02 x10^3u/L (0.00-0.012); NUCLEATED RBC % 0.1 % (0.00-0.2); Neutrophil % 77.9 % (34.0-71.1); Platelet Count 315 x10^3/uL (182-369); Red Blood Count 4.43 x10^6/uL (3.93-5.22); Red Cell Distribution Width 13.3 % (11.7-14.4); White Blood Count 13.5 x10^3/uL (3.98-10.04)
[2024-04-18] MEDS ORDERED: CARDIZEM DRIP 100 MG/100 ML D5W 100 ML IV ONE (19:33)
[2024-04-18 19:35] LABS: ALBUMIN 4.1 g/dL (3.5-5.0); ANION GAP 17.2 MEQ/L (5-15); BILIRUBIN,TOTAL 0.7 mg/dL (0.2-1.3); Calcium 9.9 mg/dL (8.4-10.2); Creatinine 1 0.68 mg/dL (0.52-1.04); EST GLOMERULAR FILTRATION RATE 84.8 ML/MIN; MAGNESIUM 1.7 mg/dL (1.6-2.3); Total Protein 7.2 g/dL (6.3-8.2)
[2024-04-18] MEDS: CARDIZEM DRIP 100 MG/100 ML D5W 100 ML IV PRN (19:37)
[2024-04-18 20:03] LABS: TROPONIN 0.013 ng/mL (0.000-0.033)
[2024-04-18] MEDS: POTASSIUM CHLORIDE 20 mEq IN WATER 100ML 20 MEQ/100 ML BAG IV SCH (20:05)
[2024-04-18] MEDS ORDERED: POTASSIUM CHLORIDE 20 mEq IN WATER 100ML 100 ML IV ONE ×2 (20:05→21:58)
[2024-04-18 21:52] VITALS: RESP 18
[2024-04-18 23:17] VITALS: BP 132/70; PULSE 97; O2SAT 94
== END 2024-04-18 23:16 | disposition short-term general hospital (02) ==
LOC: ED 18:07
DX: I48.20 Chronic atrial fibrillation, unspecified (principal); R07.9 Chest pain, unspecified; E87.6 Hypokalemia; Z59.811 Housing instability, housed, with risk of homelessness; Z59.12 Inadequate housing utilities; Z59.82 Transportation insecurity
CPT/HCPCS: 36415; 71046; 80053; 83735; 83880; 84484; 85025; 93005; 93041; 96374; 96375; 96376; 99285; J3480

== ENCOUNTER 2024-07-04 18:42 | Emergency (ER) | payer MEDICARE | END 2024-07-04 19:36 | disposition left against medical advice (07) | LOC: ED 18:42 | DX: Z53.21 Procedure and treatment not carried out due to patient leaving prior to being seen by health care provider (principal) | CPT/HCPCS: 99281 ==

== ENCOUNTER 2024-07-13 23:18 | Observation (INO) | payer MEDICARE ==
[2024-07-13] MEDS ORDERED: DUONEB 0.5-3 MG/3 ml Neb IH ONE (23:51)
[2024-07-14] MEDS: DUONEB 0.5-3 MG/3 ml Neb IH ONE (00:06)
[2024-07-14 00:09] LABS: Absolute Neutrophil Ct (ANC) 6.19 x10^3/uL (1.56-6.13); BASOPHIL % 0.6 % (0.1-1.2); Basophil (Absolute #) 0.05 x10^3/uL (0.01-0.08); Eosinophil % 5.4 % (0.7-5.8); Eosinophil (Absolute #) 0.47 x10^3/uL (0.04-0.36); Hematocrit 31.7 % (34.1-44.9); Hemoglobin 10.8 g/dL (11.2-15.7); IMMATURE GRAN # 0.09 x10^3u/L (0.001-0.031); Lymphocyte (Absolute #) 1.09 x10^3/uL (1.18-3.74); Lymphocytes % 12.6 % (19.3-51.7); Mean Cell Volume 87.6 fL (79.4-94.8); Mean Corpuscular Hemoglobin 29.8 pg (25.6-32.2); Mean Corpuscular Hgb Concent. 34.1 g/dL (32.2-35.5); Mean Platelet Volume 8.3 fL (9.4-12.3); Monocyte (Absolute #) 0.78 x10^3/uL (0.24-0.86); Neutrophil % 71.4 % (34.0-71.1); Platelet Count 294 x10^3/uL (182-369); Red Blood Count 3.62 x10^6/uL (3.93-5.22); Red Cell Distribution Width 13.6 % (11.7-14.4); White Blood Count 8.7 x10^3/uL (3.98-10.04)
--- NOTE | 2024-07-14 00:27 | ERPHSYRPT ---
- History of Present Illness Time Seen by Provider: 07/14/24 00:49 Source: patient Exam Limitations: no limitations Patient Subjective Stated Complaint: c/o cough and weakness Triage Nursing Assessment: patient brought into ED with c/o cough and weakness. Patient has had a cough for 3 days, wheezing heard upon expiration. hypertensive, skin w/n/d, brought in by W/C, patient doesn't appear to be in any distress at this time. Physician History: Patient is an 84-year-old female presents to our emergency department for e valuation of cough and generalized weakness that has been progressive over the past 3 days. Shortness of breath with exertion. Patient has audible wheezing. Patient symptoms are moderate in intensity. No fever no nausea no vomiting no diarrhea no rash. Patient otherwise feels well. She voices no other complaints or concerns at this time. Portions of this note were created with voice recognition technology. There may be grammatical, spelling, punctuation or sound alike errors Timing/Duration: day(s) (3 days) Severity: moderate Modifying Factors: Improves With: nothing Associated Symptoms: denies symptoms Allergies/Adverse Reactions: No Known Drug Allergies Allergy (Verified 07/13/24 23:29) Home Medications: Atorvastatin Calcium 40 mg PO DAILY 12/19/16 [History] Metformin HCl 1,000 mg PO DAILY 12/19/16 [History] Metoprolol Succinate 50 mg PO BID 12/19/16 [History] Olmesartan/Hydrochlorothiazide [Benicar Hct 40-25 mg Tablet] 1 each PO DAILY 12/19/16 [History] Verapamil HCl 80 mg [Calan 80 mg] 80 mg PO TID 12/19/16 [History] Ascorbic Acid 500 mg [Vitamin C 500 MG] 500 mg PO DAILY 11/17/17 [History] Insulin Glargine [Lantus Insulin] 40 unit SQ QHS 11/17/17 [History] Insulin Lispro [Humalog Kwikpen U-100] 15 unit SQ BID 11/17/17 [History] Magnesium Oxide [Magnesium] 1 tab PO DAILY 12/30/23 [History] Hx Tetanus, Diphtheria Vaccination/Date Given: No Hx Influenza Vaccination/Date Given: No Hx Pneumococcal Vaccination/Date Given: Yes Travel Risk - International Travel Have you traveled outside of the country in past 3 weeks: No - Emerging Infectious Disease Are you exhibiting symptoms associated with any current EIDs: Yes Symptoms: Cough: New Onset - Review of Systems Constitutional: No Symptoms, No Fever, No Chills Eyes: No Symptoms Ears, Nose, & Throat: No Symptoms Respiratory: No Symptoms, No Cough, No Dyspnea Cardiac: No Symptoms, No Chest Pain, No Edema, No Syncope Abdominal/Gastrointestinal: No Symptoms, No Abdominal Pain, No Nausea, No Vomiting, No Diarrhea Genitourinary Symptoms: No Symptoms, No Dysuria Musculoskeletal: No Symptoms, No Back Pain, No Neck Pain Skin: No Symptoms, No Rash Neurological: No Symptoms, No Dizziness, No Focal Weakness, No Sensory Changes Psychological: No Symptoms Endocrine: No Symptoms Hematologic/Lymphatic: No Symptoms Immunological/Allergic: No Symptoms All Other Systems: Reviewed and Negative - Past Medical History Pertinent Past Medical History: Yes Neurological History: Peripheral Neuropathy ENT History: Cataracts Cardiac History: Arrhythmia, Hypertension Respiratory History: No Pertinent History Endocrine Medical History: Diabetes Type II Musculoskeletal History: Fractures, Osteoarthritis GI Medical History: Gallbladder Disease, Polyps History: No Pertinent History Psycho-Social History: No Pertinent History Female Reproductive Disorders: No Pertinent History Other Medical History: A-fib. colon polyp 2016 - Past Surgical History Past Surgical History: Yes Neuro Surgical History: No Pertinent History Cardiac: Cardiac Catheterization, Other Respiratory: No Pertinent History Gastrointestinal: Appendectomy, Cholecystectomy Genitourinary: No Pertinent History Musculoskeletal: Orthopedic Surgery Female Surgical History: Hysterectomy Other Surgical History: Cardiac ablation.RIGHT ARM - Social History Smoking Status: Never smoker Exposure to second hand smoke: No Drug Use: none - Social Determinants of Health Will the patient participate in the screening: Yes Do you worry about a steady place to live?: No Do you have any problems with any of the following?: No known problems In the past 12 months,have you had to go without utilities?: No Transportation Issues: No Has anyone in your support network made you feel unsafe?: No Have you or anyone in your house had to go w/o enough food: No - Nursing Vital Signs Nursing Vital Signs: Initial Vital Signs Temperature 97 F 07/13/24 23:29 Pulse Rate 70 07/13/24 23:29 Respiratory Rate 21 07/13/24 23:29 Blood Pressure 184/95 07/13/24 23:29 O2 Sat by Pulse Oximetry 98 07/13/24 23:29 Pain Scale Pain Intensity 0 - Physical Exam General Appearance: no apparent distress, alert Eye Exam: PERRL/EOMI, eyes nml inspection Ears, Nose, Throat Exam: normal ENT inspection, TMs normal, pharynx normal, moist mucous membranes Neck Exam: normal inspection, non-tender, supple, full range of motion Respiratory Exam: airway intact, diminished breath sounds, rhonchi, wheezing, No respiratory distress Cardiovascular Exam: regular rate/rhythm, normal heart sounds, normal peripheral pulses Gastrointestinal/Abdomen Exam: soft, normal bowel sounds, No tenderness, No mass Back Exam: normal inspection, normal range of motion, No CVA tenderness, No vertebral tenderness Extremity Exam: normal inspection, normal range of motion, pelvis stable Neurologic Exam: alert, oriented x 3, cooperative, normal mood/affect, nml cerebellar function, nml station & gait, sensation nml, No motor deficits Skin Exam: normal color, warm, dry, No rash Lymphatic Exam: No adenopathy SpO2 Interpretation: normal SpO2: 93 O2 Delivery: Room Air - Course Nursing assessment & vital signs reviewed: Yes EKG Interpreted by Me: RATE (70), Sinus Rhythm, NORMAL AXIS, NORMAL INTERVALS, NORMAL QRS - Radiology Exams Chest X-ray Interpretation: Teleradiologist Report (Groundglass findings) Ordered Tests: Active Orders 24 hr Category Date Time Status Hog Dropper STAT Care 07/13/24 23:45 Active EKG-ER Only STAT Care 07/13/24 23:45 Active IV Insertion STAT Care 07/13/24 23:45 Active Pulse Oximetry (ED) STAT Care 07/13/24 23:45 Active CHEST 1 VIEW (PORTABLE) Stat Exams 07/13/24 23:51 Completed Lactic Acid Stat Lab 07/13/24 23:50 Completed NT PRO BNPII Stat Lab 07/14/24 Ordered TROPONIN Q4H Lab 07/14/24 03:45 Ordered TROPONIN Q4H Lab 07/14/24 07:45 Ordered UA W/RFX UR CULTURE Stat Lab 07/14/24 00:32 Completed Respiratory Therapy Assessment DAILY RT 07/14/24 00:06 Active Transfer Order Routine Transfer 07/14/24 Ordered Medication Summary Generic Name Dose Route Start Last Admin Trade Name Freq PRN Reason Stop Dose Admin Sodium Chloride 1,000 mls @ 250 mls/hr 07/13/24 23:45 07/14/24 01:06 Sodium Chloride 0.9% 1000 Ml IV 08/12/24 23:44 250 mls/hr .Q4H YANY Administration Discontinued Medications Generic Name Dose Route Start Last Admin Trade Name Elisabeth PRN Reason Stop Dose Admin Albuterol/Ipratropium 3 ml 07/13/24 23:45 07/14/24 00:06 Ipratropium/Albuterol Sulfate 3 Ml Ampul.Neb IH 07/13/24 23:46 3 ml STAT ONE Administration Albuterol/Ipratropium Confirm 07/13/24 23:51 Ipratropium/Albuterol Sulfate 3 Ml Ampul.Neb Administered 07/13/24 23:52 Dose 3 ml IH .STK-MED ONE Methylprednisolone Sodium 0 mg 07/14/24 01:57 07/14/24 02:07 Succinate 80 mg/ Sterile Water IV 07/14/24 01:58 80 mg 2 ml STAT ONE Administration Guaifenesin 600 mg 07/14/24 01:17 07/14/24 01:35 Guaifenesin 600 Mg Tablet Er PO 07/14/24 01:18 600 mg BID STA Administration Guaifenesin Confirm 07/14/24 01:21 Guaifenesin 600 Mg Tablet Er Administered 07/14/24 01:22 Dose 600 mg PO .STK-MED ONE Methylprednisolone Sodium Succinate Confirm 07/14/24 02:04 Methylprednis Sod Succ 125 Mg/2 Ml Vial Administered 07/14/24 02:05 Dose 125 mg .ROUTE .STK-MED ONE Sterile Water Confirm 07/14/24 02:04 Water For Injection,Sterile 10 Ml Vial Administered 07/14/24 02:05 Dose 10 ml IJ .STK-MED ONE Lab/Rad Data: Laboratory Result Diagrams 07/13/24 00:06 07/13/24 00:06 Laboratory Results 07/14/24 07/13/24 07/13/24 Range/Units 00:32 23:50 00:06 WBC (3.98-10.04) x10^3/uL RBC (3.93-5.22) x10^6/uL Hgb (11.2-15.7) g/dL Hct (34.1-44.9) % MCV (79.4-94.8) fL MCH (25.6-32.2) pg MCHC (32.2-35.5) g/dL RDW (11.7-14.4) % Plt Count (182-369) x10^3/uL MPV (9.4-12.3) fL Gran % (34.0-71.1) % Immature Gran % (Auto) (0.001-0.429) % Nucleat RBC Rel Count (0.00-0.2) % Eos # (Auto) (0.04-0.36) x10^3/uL Immature Gran # (Auto) (0.001-0.031) x10^3u/L Absolute Lymphs (auto) (1.18-3.74) x10^3/uL Absolute Monos (auto) (0.24-0.86) x10^3/uL Absolute Nucleated RBC (0.00-0.012) x10^3u/L Lymphocytes % (19.3-51.7) % Monocytes % (4.7-12.5) % Eosinophils % (0.7-5.8) % Basophils % (0.1-1.2) % Absolute Granulocytes (1.56-6.13) x10^3/uL Basophils # (0.01-0.08) x10^3/uL D-Dimer (0.0-0.50) mg/L Sodium (135-145) mmol/L Potassium (3.5-5.1) mmol/L Chloride (98-107) mmol/L Carbon Dioxide (22-30) mmol/L Anion Gap (5-15) MEQ/L BUN (7-17) mg/dL Creatinine (0.52-1.04) mg/dL Estimated GFR ML/MIN Glucose (74-106) mg/dL Lactic Acid 1.1 (0.4-2.0) Calcium (8.4-10.2) mg/dL Total Bilirubin (0.2-1.3) mg/dL AST (14-36) U/L ALT (0-35) U/L Alkaline Phosphatase (38-126) U/L Troponin I (0.000-0.033) ng/mL Serum Total Protein (6.3-8.2) g/dL Albumin (3.5-5.0) g/dL Urine Color Yellow (Yellow) Urine Appearance Clear (Clear) Urine pH 6.5 (4.6-8.0) Ur Specific [place] <=1.005 (1.005-1.030) Urine Protein Negative (Negative) Urine Glucose (UA) Negative (Negative) mg/dL Urine Ketones Negative (Negative) Urine Blood Negative (Negative) Urine Nitrite Negative (Negative) Urine Bilirubin Negative (Negative) Urine Urobilinogen 0.2 (0.2) mg/dL Ur Leukocyte Esterase Negative (Negative) U Hyaline Cast (Auto) NONE SEEN (0-2) /LPF Urine Microscopic RBC 0-2 (0-5) /HPF Urine Microscopic WBC 0-2 (0-5) /HPF Ur Epithelial Cells None Seen (None Seen) /HPF Urine Bacteria None Seen (None Seen) /HPF Urine Culture Reflexed NO (NO) Influenza Type A Ag NEGATIVE (NEGATIVE) Influenza Type B Ag NEGATIVE (NEGATIVE) RSV (PCR) POSITIVE A (NEGATIVE) SARS-CoV-2 (PCR) NEGATIVE (NEGATIVE) 07/13/24 07/13/24 07/13/24 Range/Units 00:06 00:06 00:06 WBC 8.7 (3.98-10.04) x10^3/uL RBC 3.62 L (3.93-5.22) x10^6/uL Hgb 10.8 L (11.2-15.7) g/dL Hct 31.7 L (34.1-44.9) % MCV 87.6 (79.4-94.8) fL MCH 29.8 (25.6-32.2) pg MCHC 34.1 (32.2-35.5) g/dL RDW 13.6 (11.7-14.4) % Plt Count 294 (182-369) x10^3/uL MPV 8.3 L (9.4-12.3) fL Gran % 71.4 H (34.0-71.1) % Immature Gran % (Auto) 1.0 H (0.001-0.429) % Nucleat RBC Rel Count 0.0 (0.00-0.2) % Eos # (Auto) 0.47 H (0.04-0.36) x10^3/uL Immature Gran # (Auto) 0.09 H (0.001-0.031) x10^3u/L Absolute Lymphs (auto) 1.09 L (1.18-3.74) x10^3/uL Absolute Monos (auto) 0.78 (0.24-0.86) x10^3/uL Absolute Nucleated RBC 0.00 (0.00-0.012) x10^3u/L Lymphocytes % 12.6 L (19.3-51.7) % Monocytes % 9.0 (4.7-12.5) % Eosinophils % 5.4 (0.7-5.8) % Basophils % 0.6 (0.1-1.2) % Absolute Granulocytes 6.19 H (1.56-6.13) x10^3/uL Basophils # 0.05 (0.01-0.08) x10^3/uL D-Dimer 0.35 (0.0-0.50) mg/L Sodium 126 L (135-145) mmol/L Potassium 4.6 (3.5-5.1) mmol/L Chloride 92 L (98-107) mmol/L Carbon Dioxide 26 (22-30) mmol/L Anion Gap 13.1 (5-15) MEQ/L BUN 9 (7-17) mg/dL Creatinine 0.64 (0.52-1.04) mg/dL Estimated GFR 86.0 ML/MIN Glucose 132 H (74-106) mg/dL Lactic Acid (0.4-2.0) Calcium 9.1 (8.4-10.2) mg/dL Total Bilirubin 0.60 (0.2-1.3) mg/dL AST 25 (14-36) U/L ALT 21 (0-35) U/L Alkaline Phosphatase 96 (38-126) U/L Troponin I < 0.012 (0.000-0.033) ng/mL Serum Total Protein 7.0 (6.3-8.2) g/dL Albumin 4.0 (3.5-5.0) g/dL Urine Color (Yellow) Urine Appearance (Clear) Urine pH (4.6-8.0) Ur Specific [place] (1.005-1.030) Urine Protein (Negative) Urine Glucose (UA) (Negative) mg/dL Urine Ketones (Negative) Urine Blood (Negative) Urine Nitrite (Negative) Urine Bilirubin (Negative) Urine Urobilinogen (0.2) mg/dL Ur Leukocyte Esterase (Negative) U Hyaline Cast (Auto) (0-2) /LPF Urine Microscopic RBC (0-5) /HPF Urine Microscopic WBC (0-5) /HPF Ur Epithelial Cells (None Seen) /HPF Urine Bacteria (None Seen) /HPF Urine Culture Reflexed (NO) Influenza Type A Ag (NEGATIVE) Influenza Type B Ag (NEGATIVE) RSV (PCR) (NEGATIVE) SARS-CoV-2 (PCR) (NEGATIVE) - Progress Progress: improved Progress Note: 84-year-old female presents to our ED for evaluation of shortness of breath and generalized weakness. Physical exam reveals diminished coarse breath sounds with wheezing throughout. Workup reveals RSV infection. Patient hyponatremic. Patient O2 sat 80% at rest. However during ambulation O2 sats 91 to 92%. Patient feels she is too weak to go home. Will admit for further evaluation and treatment. Plan of care discussed with patient. She agrees to admission at [facility] for further evaluation and treatment. Portions of this note were created with voice recognition technology. There may be grammatical, spelling, punctuation or sound alike errors Complexity of problem addressed is moderate acute complicated no critical care time. Complex of data reviewed and analyzed is extensive. Test ordered test reviewed results analyzed and correlated clinically with history and physical exam. Risk of complication and or risk of morbidity/mortality of patient management is high. Patient requires hospitalization for further evaluation and treatment. Vital stable. Time spent to admit patient is approximately 15 minutes. Plan of care established for shared decision making. No social determinants of health present to impede follow-up. Portions of this note were created with voice recognition technology. There may be grammatical, spelling, punctuation or sound alike errors 07/14/24 02:17 Counseled pt/family regarding: lab results, diagnosis, need for follow-up, rad results - Departure Departure Disposition: Observation Clinical Impression: Generalized weakness, Hyponatremia, RSV infection, Hypoxia Condition: Stable Critical Care Time: No Referrals: JOSE MARTINEZ MD [Primary Care Provider] - Follow up/PCP as directed
[2024-07-14 00:35] LABS: ALKALINE PHOSPHATASE 96 U/L (38-126); ANION GAP 13.1 MEQ/L (5-15); BLOOD UREA NITROGEN 9 mg/dL (7-17); CHLORIDE 92 mmol/L (98-107); Calcium 9.1 mg/dL (8.4-10.2); Carbon Dioxide 26 mmol/L (22-30); Creatinine 1 0.64 mg/dL (0.52-1.04); Glucose 132 mg/dL (74-106); Potassium 4.6 mmol/L (3.5-5.1); SGOT/AST 25 U/L (14-36); SGPT/ALT 21 U/L (0-35); SODIUM 126 mmol/L (135-145); TROPONIN < 0.012 ng/mL (0.000-0.033)
[2024-07-14 00:48] LABS: INFLUENZA A NEGATIVE (NEGATIVE); INFLUENZA B NEGATIVE (NEGATIVE); SARS-CoV-2 Xpert Express NEGATIVE (NEGATIVE)
[2024-07-14 00:51] LABS: RESPIRATORY SYNCTIAL VIRUS POSITIVE (NEGATIVE)
[2024-07-14] MEDS ORDERED: Sodium Chloride 0.9% 1000 ML 1,000 ML ONE (01:05)
[2024-07-14] MEDS: Sodium Chloride 0.9% 1000 ML 1,000 ML IV SCH (01:06)
[2024-07-14 01:17] LABS: Appearance Clear (Clear); Bacteria None Seen /HPF (None Seen); Bilirubin Negative (Negative); Blood Negative (Negative); Epithelial Cells None Seen /HPF (None Seen); Glucose, Urine Negative (Negative); Hyaline Casts NONE SEEN /LPF (0-2); Ketones Negative (Negative); Leukocyte Esterase Negative (Negative); Nitrite Negative (Negative); Ph 6.5 (4.6-8.0); Protein,Urine Dip Negative (Negative); RBC 0-2 /HPF (0-5); Specific Gravity <=1.005 (1.005-1.030); Urobilinogen 0.2 mg/dL (0.2); WBC 0-2 /HPF (0-5)
[2024-07-14] MEDS ORDERED: Mucinex 600MG ER Tabs PO ONE (01:21)
[2024-07-14] MEDS: Mucinex 600MG ER Tabs PO STA (01:35)
--- NOTE | 2024-07-14 01:43 | XRAY ---
CLINICAL HISTORY: sob COMPARISON: None. TECHNIQUE: An X-ray image of the chest is obtained in AP projection. FINDINGS: Pulmonary Parenchyma: Prominent perihilar bronchovascular markings and prominent conor with subtle bilateral lower lung zone diffuse ground glass veiling seen could be due to pulmonary congestion, yet the possibility of underlying infection can't be ruled out.A Radio-opaque rounded nodule measuring 11 mm is seen in the right mid-zone. Mild tracheal deviation towards the right side. No evidence of pleural effusion or pleural thickening. Heart and Mediastinum: The heart size is enlarged. Aortic root calcifications are seen. The mediastinal widening can be projectional. No hilar or mediastinal lymphadenopathy. Bony Thorax: Degenerative changes in bilateral shoulder joints. Soft Tissues: Soft tissues overlying the chest wall are unremarkable. Overlying chest leads are seen. IMPRESSION: 1. Prominent perihilar bronchovascular markings and prominent conor with subtle bilateral lower lung zone diffuse ground glass veiling seen could be due to pulmonary congestion, yet the possibility of underlying infection can't be ruled out. A 2. Radio-opaque rounded nodule measuring 11 mm is seen in the right mid-zone. 3. Mild tracheal deviation towards the right side and area of increased opacification in the right paratracheal region possibly projectional. Electronically Signed by: Paola Olmos MD. (07/14/2024 01:38:41 EST)
[2024-07-14] MEDS ORDERED: solu-MEDROL ONE (02:04)
[2024-07-14] MEDS ORDERED: Sterile H2O 10 ml IJ ONE (02:04)
[2024-07-14] MEDS: solu-MEDROL 80 MG, Sterile H2O 10 ml 2 ML IV ONE (02:07)
--- NOTE | 2024-07-14 05:19 | PCM.HP ---
History of Present Illness - Chief Complaint Chief Complaint: weakness Date: 07/14/24 History of Present Illness: 84-year-old woman with a history of A-fib, hypertension, diabetes, and neuropathy, who presents with generalized weakness. Patient notes that she gets frequent "weak spells" for many months, usually lasting for about 30 minutes. However, for the last 2 to 3 days she has had generalized weakness, associated with cough, dyspnea, and nausea without vomiting. Normally patient is able to do all of her ADLs and IADLs, walk around without difficulty. However, now she feels more weak. She is able to walk across the room to go to the bathroom, but would not be able to walk a block down the street like she normally would. Denies any fevers, chest pain, abdominal pain, or dysuria. Notes that her daughter had COVID last week based on symptoms and a home COVID testing kit. - Review of Systems All Other Systems: Reviewed and Negative Medications & Allergies Home Medications: Home Medication List Atorvastatin Calcium 40 mg PO DAILY 12/19/16 [History Confirmed 07/14/24] Metformin HCl 500 mg PO BID 12/19/16 [History Confirmed 07/14/24] Verapamil HCl 80 mg [Calan 80 mg] 80 mg PO TID 12/19/16 [History Confirmed 07/14/24] Ascorbic Acid 500 mg [Vitamin C 500 MG] 500 mg PO DAILY 11/17/17 [History Confirmed 07/14/24] Insulin Glargine [Lantus Insulin] 40 unit SQ QHS 11/17/17 [History Confirmed 07/14/24] Insulin Lispro [Humalog Kwikpen U-100] 15 unit SQ BID 11/17/17 [History Confirmed 07/14/24] Magnesium Oxide [Magnesium] 1 tab PO DAILY 12/30/23 [History Confirmed 07/14/24] Apixaban [Eliquis 5 mg Tablet] 5 mg PO BID 07/14/24 [History Confirmed 07/14/24] HydrALAzine HCL 25 MG TAB [Apresoline 25 MG TABLET] 12.5 mg PO HS 07/14/24 [History Confirmed 07/14/24] Hydralazine HCl 25 mg PO DAILY 07/14/24 [History Confirmed 07/14/24] Metoprolol Tartrate 50 mg [Lopressor 50 MG] 50 mg PO BID 07/14/24 [History Confirmed 07/14/24] Smz/Tmp Ds Tablet [Bactrim Ds Tablet] 10.5 udtab PO DAILY 07/14/24 [History Confirmed 07/14/24] Telmisartan 80 mg [Micardis 80 MG Tablet] 80 mg PO DAILY 07/14/24 [History Confirmed 07/14/24] Allergies/Adverse Reactions: Allergies Allergy/AdvReac Type Severity Reaction Status Date / Time No Known Drug Allergies Allergy Verified 07/13/24 23:29 - Past Medical History Past Medical History: Yes Neurological History: Peripheral Neuropathy ENT History: Cataracts Cardiac History: Arrhythmia, Hypertension Respiratory History: No Pertinent History Endocrine Medical History: Diabetes Type II Musculoskelatal History: Fractures GI Medical History: Gallbladder Disease, Polyps History: No Pertinent History Pyscho-Social History: No Pertinent History Reproductive Disorders: No Pertinent History Comment: fracture rt shoulde4. A-fib. colon polyp 2017 - Past Surgical History Past Surgical History: Yes Neuro Surgical History: No Pertinent History Cardiac History: Cardiac Catheterization, Other Respiratory Surgery: No Pertinent History GI Surgical History: Appendectomy, Cholecystectomy Genitourinary Surgical Hx: No Pertinent History Musculskeletal Surgical Hx: Orthopedic Surgery Female Surgical History: Hysterectomy Other Surgical History: Cardiac ablation.RIGHT ARM Significant Family History: no pertinent family hx - Social History Smoking Status: Never smoker Exposure to second hand smoke: No Alcohol: None Drug Use: none - Social Determinants of Health Will the patient participate in the screening: Yes Do you worry about a steady place to live?: No Do you have any problems with any of the following?: No known problems In the past 12 months,have you had to go without utilities?: No Have you or anyone in your house had to go without enough: No Transportation Issues: No Has anyone in your support network made you feel unsafe?: No Does the patient want assistance with any of the above?: No - Physical Exam Vital Signs: Vital Signs - 24 hr Temp Pulse Resp BP BP Pulse Ox 07/14/24 04:09 98.1 F 85 20 182/76 97 07/14/24 02:19 93 L 07/14/24 02:00 73 18 168/65 99 07/14/24 01:38 78 18 168/69 100 07/14/24 01:33 82 21 07/14/24 01:00 78 19 184/91 98 07/14/24 00:30 72 19 195/79 96 07/14/24 00:10 93 L 07/14/24 00:06 70 20 97 07/13/24 23:31 69 17 184/95 93 L 07/13/24 23:29 97 F 70 14 184/95 97 Physical Exam GEN: Sitting up in bed in no acute distress. HENT: Normocephalic, atraumatic. Moist mucous membranes. EYES: Normal inspection, anicteric sclera, extraocular movements intact. NECK: Supple, full range of motion CV: Regular rate and rhythm, no murmurs, no gallops. No JVD or edema. PULM: Mild scattered end expiratory wheezing, but no work of breathing. On room air. ABD: Nondistended, nontender. MSK: No joint effusions, full range of motion SKIN: No rashes, normal color. NEURO: Face symmetric, no focal motor or sensory deficits. PSYCH: Alert, oriented x 3 Results - Labs Lab/Micro Results: Lab Results-Last 24 Hours 07/13/24 07/13/24 07/13/24 Range/Units 00:06 00:06 00:06 WBC 8.7 (3.98-10.04) x10^3/uL RBC 3.62 L (3.93-5.22) x10^6/uL Hgb 10.8 L (11.2-15.7) g/dL Hct 31.7 L (34.1-44.9) % MCV 87.6 (79.4-94.8) fL MCH 29.8 (25.6-32.2) pg MCHC 34.1 (32.2-35.5) g/dL RDW 13.6 (11.7-14.4) % Plt Count 294 (182-369) x10^3/uL MPV 8.3 L (9.4-12.3) fL Gran % 71.4 H (34.0-71.1) % Immature Gran % (Auto) 1.0 H (0.001-0.429) % Nucleat RBC Rel Count 0.0 (0.00-0.2) % Eos # (Auto) 0.47 H (0.04-0.36) x10^3/uL Immature Gran # (Auto) 0.09 H (0.001-0.031) x10^3u/L Absolute Lymphs (auto) 1.09 L (1.18-3.74) x10^3/uL Absolute Monos (auto) 0.78 (0.24-0.86) x10^3/uL Absolute Nucleated RBC 0.00 (0.00-0.012) x10^3u/L Lymphocytes % 12.6 L (19.3-51.7) % Monocytes % 9.0 (4.7-12.5) % Eosinophils % 5.4 (0.7-5.8) % Basophils % 0.6 (0.1-1.2) % Absolute Granulocytes 6.19 H (1.56-6.13) x10^3/uL Basophils # 0.05 (0.01-0.08) x10^3/uL D-Dimer 0.35 (0.0-0.50) mg/L Sodium 126 L (135-145) mmol/L Potassium 4.6 (3.5-5.1) mmol/L Chloride 92 L (98-107) mmol/L Carbon Dioxide 26 (22-30) mmol/L Anion Gap 13.1 (5-15) MEQ/L BUN 9 (7-17) mg/dL Creatinine 0.64 (0.52-1.04) mg/dL Estimated GFR 86.0 ML/MIN Glucose 132 H (74-106) mg/dL Lactic Acid (0.4-2.0) Calcium 9.1 (8.4-10.2) mg/dL Total Bilirubin 0.60 (0.2-1.3) mg/dL AST 25 (14-36) U/L ALT 21 (0-35) U/L Alkaline Phosphatase 96 (38-126) U/L Troponin I < 0.012 (0.000-0.033) ng/mL NT-Pro-B Natriuret Pep (<300) pg/mL Serum Total Protein 7.0 (6.3-8.2) g/dL Albumin 4.0 (3.5-5.0) g/dL Urine Color (Yellow) Urine Appearance (Clear) Urine pH (4.6-8.0) Ur Specific [place] (1.005-1.030) Urine Protein (Negative) Urine Glucose (UA) (Negative) mg/dL Urine Ketones (Negative) Urine Blood (Negative) Urine Nitrite (Negative) Urine Bilirubin (Negative) Urine Urobilinogen (0.2) mg/dL Ur Leukocyte Esterase (Negative) U Hyaline Cast (Auto) (0-2) /LPF Urine Microscopic RBC (0-5) /HPF Urine Microscopic WBC (0-5) /HPF Ur Epithelial Cells (None Seen) /HPF Urine Bacteria (None Seen) /HPF Urine Culture Reflexed (NO) Influenza Type A Ag (NEGATIVE) Influenza Type B Ag (NEGATIVE) RSV (PCR) (NEGATIVE) SARS-CoV-2 (PCR) (NEGATIVE) 07/13/24 07/13/24 07/14/24 Range/Units 00:06 23:50 00:32 WBC (3.98-10.04) x10^3/uL RBC (3.93-5.22) x10^6/uL Hgb (11.2-15.7) g/dL Hct (34.1-44.9) % MCV (79.4-94.8) fL MCH (25.6-32.2) pg MCHC (32.2-35.5) g/dL RDW (11.7-14.4) % Plt Count (182-369) x10^3/uL MPV (9.4-12.3) fL Gran % (34.0-71.1) % Immature Gran % (Auto) (0.001-0.429) % Nucleat RBC Rel Count (0.00-0.2) % Eos # (Auto) (0.04-0.36) x10^3/uL Immature Gran # (Auto) (0.001-0.031) x10^3u/L Absolute Lymphs (auto) (1.18-3.74) x10^3/uL Absolute Monos (auto) (0.24-0.86) x10^3/uL Absolute Nucleated RBC (0.00-0.012) x10^3u/L Lymphocytes % (19.3-51.7) % Monocytes % (4.7-12.5) % Eosinophils % (0.7-5.8) % Basophils % (0.1-1.2) % Absolute Granulocytes (1.56-6.13) x10^3/uL Basophils # (0.01-0.08) x10^3/uL D-Dimer (0.0-0.50) mg/L Sodium (135-145) mmol/L Potassium (3.5-5.1) mmol/L Chloride (98-107) mmol/L Carbon Dioxide (22-30) mmol/L Anion Gap (5-15) MEQ/L BUN (7-17) mg/dL Creatinine (0.52-1.04) mg/dL Estimated GFR ML/MIN Glucose (74-106) mg/dL Lactic Acid 1.1 (0.4-2.0) Calcium (8.4-10.2) mg/dL Total Bilirubin (0.2-1.3) mg/dL AST (14-36) U/L ALT (0-35) U/L Alkaline Phosphatase (38-126) U/L Troponin I (0.000-0.033) ng/mL NT-Pro-B Natriuret Pep (<300) pg/mL Serum Total Protein (6.3-8.2) g/dL Albumin (3.5-5.0) g/dL Urine Color Yellow (Yellow) Urine Appearance Clear (Clear) Urine pH 6.5 (4.6-8.0) Ur Specific [place] <=1.005 (1.005-1.030) Urine Protein Negative (Negative) Urine Glucose (UA) Negative (Negative) mg/dL Urine Ketones Negative (Negative) Urine Blood Negative (Negative) Urine Nitrite Negative (Negative) Urine Bilirubin Negative (Negative) Urine Urobilinogen 0.2 (0.2) mg/dL Ur Leukocyte Esterase Negative (Negative) U Hyaline Cast (Auto) NONE SEEN (0-2) /LPF Urine Microscopic RBC 0-2 (0-5) /HPF Urine Microscopic WBC 0-2 (0-5) /HPF Ur Epithelial Cells None Seen (None Seen) /HPF Urine Bacteria None Seen (None Seen) /HPF Urine Culture Reflexed NO (NO) Influenza Type A Ag NEGATIVE (NEGATIVE) Influenza Type B Ag NEGATIVE (NEGATIVE) RSV (PCR) POSITIVE A (NEGATIVE) SARS-CoV-2 (PCR) NEGATIVE (NEGATIVE) 07/14/24 07/14/24 Range/Units 01:00 04:04 WBC (3.98-10.04) x10^3/uL RBC (3.93-5.22) x10^6/uL Hgb (11.2-15.7) g/dL Hct (34.1-44.9) % MCV (79.4-94.8) fL MCH (25.6-32.2) pg MCHC (32.2-35.5) g/dL RDW (11.7-14.4) % Plt Count (182-369) x10^3/uL MPV (9.4-12.3) fL Gran % (34.0-71.1) % Immature Gran % (Auto) (0.001-0.429) % Nucleat RBC Rel Count (0.00-0.2) % Eos # (Auto) (0.04-0.36) x10^3/uL Immature Gran # (Auto) (0.001-0.031) x10^3u/L Absolute Lymphs (auto) (1.18-3.74) x10^3/uL Absolute Monos (auto) (0.24-0.86) x10^3/uL Absolute Nucleated RBC (0.00-0.012) x10^3u/L Lymphocytes % (19.3-51.7) % Monocytes % (4.7-12.5) % Eosinophils % (0.7-5.8) % Basophils % (0.1-1.2) % Absolute Granulocytes (1.56-6.13) x10^3/uL Basophils # (0.01-0.08) x10^3/uL D-Dimer (0.0-0.50) mg/L Sodium (135-145) mmol/L Potassium (3.5-5.1) mmol/L Chloride (98-107) mmol/L Carbon Dioxide (22-30) mmol/L Anion Gap (5-15) MEQ/L BUN (7-17) mg/dL Creatinine (0.52-1.04) mg/dL Estimated GFR ML/MIN Glucose (74-106) mg/dL Lactic Acid (0.4-2.0) Calcium (8.4-10.2) mg/dL Total Bilirubin (0.2-1.3) mg/dL AST (14-36) U/L ALT (0-35) U/L Alkaline Phosphatase (38-126) U/L Troponin I < 0.012 (0.000-0.033) ng/mL NT-Pro-B Natriuret Pep 1040 (<300) pg/mL Serum Total Protein (6.3-8.2) g/dL Albumin (3.5-5.0) g/dL Urine Color (Yellow) Urine Appearance (Clear) Urine pH (4.6-8.0) Ur Specific [place] (1.005-1.030) Urine Protein (Negative) Urine Glucose (UA) (Negative) mg/dL Urine Ketones (Negative) Urine Blood (Negative) Urine Nitrite (Negative) Urine Bilirubin (Negative) Urine Urobilinogen (0.2) mg/dL Ur Leukocyte Esterase (Negative) U Hyaline Cast (Auto) (0-2) /LPF Urine Microscopic RBC (0-5) /HPF Urine Microscopic WBC (0-5) /HPF Ur Epithelial Cells (None Seen) /HPF Urine Bacteria (None Seen) /HPF Urine Culture Reflexed (NO) Influenza Type A Ag (NEGATIVE) Influenza Type B Ag (NEGATIVE) RSV (PCR) (NEGATIVE) SARS-CoV-2 (PCR) (NEGATIVE) - Radiology Impressions Radiology Exams & Impressions: Radiology Procedures Category Date Time Status CHEST 1 VIEW (PORTABLE) Stat Exams 07/13/24 23:51 Completed Chest x-ray very minimal cephalization, but no real infiltrate or effusion. (Images personally reviewed) - Other Procedures and Tests Respiratory Therapy 07/14/24 00:06 Respiratory Therapy Assessment DAILY Assessment/Plan (1) RSV infection Current Visit: Yes Status: Acute Assessment & Plan: 84-year-old woman with history of diabetes, hypertension, A-fib, here with generalized weakness and RSV acute bronchitis. ## RSV, acute bronchitis not causing pneumonia, nor hypoxia. However, it appears to be contributing to her overall malaise and weakness. Might have a contribution of dehydration as well. PRN guaifenesin/dextromethorphan Start DuoNeb q.4 hours PRN Giving 1 L normal saline ## Generalized weakness patient appears to have periodic episodes of weakness, but current episode is more prolonged, likely in response to systemic infection as above. Giving IV fluids for possible component of dehydration, as above PT evaluation ## Atrial fibrillation currently in sinus rhythm. Continue verapamil 80 mg TID, Lopressor 50 BID Continue Eliquis 5 mg BID ## Hypertension blood pressure mildly elevated Resume home telmisartan 80 mg daily, verapamil 80 TID, and hydralazine 50 mg a.m. and 12.5 mg p.m. ## Type 2 diabetes on insulin at home. Last hemoglobin A1c was 6.4 last week. Continue insulin Lantus 45 units QHS and Humalog 15 units with meals Placed on moderate dose sliding scale insulin CODE STATUS: DNR (confirmed with patient today) Prophylaxis: Eliquis Diet: Diabetic Dispo: Place in observation, expect discharge back to home in next day or so Entirety of encounter took place via live audio/video telemedicine device, with remote physician and patient in hospital, with the assistance of bedside nurse. Code(s): B33.8 - OTHER SPECIFIED VIRAL DISEASES Telemedicine Encounter - Telemedicine Encounter Telemedicine Encounter: "The entirety of this encounter was performed via Telemedicine" This visit was performed using real-time audio and video connection between my location and thepatients locationwith the assistance of a surrogateat the patients location. Written or verbal consent was obtained from the patient/guardian to perform this visit [facility]. Any patient questions regarding the telemedicine interaction were answered.
[2024-07-14] MEDS: DUONEB 0.5-3 MG/3 ml Neb IH PRN (05:37)
[2024-07-14] MEDS: TYLENOL 325 MG PO PRN (06:10)
[2024-07-14] MEDS ORDERED: NON-FORMULARY ITEM (Insulin Lispro [Humalog Kwikpen U-100] 100 UNIT/ML Insuln.Pen) SQ SCH (07:30)
[2024-07-14 07:33] LABS: BASOPHIL % 0.5 % (0.1-1.2); Basophil (Absolute #) 0.05 x10^3/uL (0.01-0.08); Eosinophil % 1.7 % (0.7-5.8); Eosinophil (Absolute #) 0.19 x10^3/uL (0.04-0.36); Hematocrit 35.2 % (34.1-44.9); Hemoglobin 11.9 g/dL (11.2-15.7); IMMATURE GRAN # 0.09 x10^3u/L (0.001-0.031); IMMATURE GRAN % 0.8 % (0.001-0.429); Lymphocytes % 6.4 % (19.3-51.7); Mean Cell Volume 88.7 fL (79.4-94.8); Mean Corpuscular Hgb Concent. 33.8 g/dL (32.2-35.5); Mean Platelet Volume 8.6 fL (9.4-12.3); Monocyte (Absolute #) 0.32 x10^3/uL (0.24-0.86); Monocytes % 2.9 % (4.7-12.5); Neutrophil % 87.7 % (34.0-71.1); Platelet Count 330 x10^3/uL (182-369); Red Blood Count 3.97 x10^6/uL (3.93-5.22); Red Cell Distribution Width 13.7 % (11.7-14.4)
[2024-07-14 07:38] LABS: ALBUMIN 4.3 g/dL (3.5-5.0); ANION GAP 18.1 MEQ/L (5-15); BILIRUBIN,TOTAL 0.9 mg/dL (0.2-1.3); Calcium 9.2 mg/dL (8.4-10.2); Creatinine 1 0.58 mg/dL (0.52-1.04); EST GLOMERULAR FILTRATION RATE 88.1 ML/MIN; Potassium 4.7 mmol/L (3.5-5.1); Total Protein 7.5 g/dL (6.3-8.2)
[2024-07-14] MEDS: HUMALOG SQ PRN ×2 (07:54→16:58)
[2024-07-14] MEDS: HUMALOG SQ SCH (07:54)
[2024-07-14] MEDS: Apresoline 25 MG TABLET PO SCH ×2 (08:54→20:17)
[2024-07-14] MEDS: Micardis 80 MG Tablet PO SCH (08:54)
[2024-07-14] MEDS: Vitamin C 500 MG PO SCH (08:54)
[2024-07-14] MEDS: ELIQUIS 2.5 MG TABLET PO SCH (08:55)
[2024-07-14] MEDS: LIPITOR 40MG PO SCH (08:55)
[2024-07-14] MEDS: PROTONIX 40 MG IV IV SCH (08:55)
[2024-07-14] MEDS: CALAN 80 MG PO SCH (08:55)
[2024-07-14] MEDS: MAG-OX 400 PO SCH (08:55)
[2024-07-14] MEDS: Lopressor 50 MG PO SCH (08:55)
[2024-07-14] MEDS ORDERED: NON-FORMULARY ITEM (Apixaban*** [Eliquis 5 Mg Tablet***] 5 MG Tablet) PO SCH (10:00)
[2024-07-14] MEDS ORDERED: NON-FORMULARY ITEM (Magnesium Oxide [Magnesium] 400 MG Tablet) PO SCH (10:00)
[2024-07-14] MEDS ORDERED: NON-FORMULARY ITEM (Hydralazine Hcl [Hydralazine Hcl] 50 MG Tablet) PO SCH (10:00)
[2024-07-14] MEDS ORDERED: Xopenex 1.25 MG/0.5 ML UD NEBULE IH PRN (13:37)
[2024-07-14] MEDS ORDERED: Zofran 4 MG/2 ML VIAL IV PRN (13:40)
[2024-07-14] MEDS ORDERED: Sodium Chloride 3 ML UD NEBULES IH PRN (13:47)
[2024-07-14] MEDS: Robitussin-Dm Syrup PO PRN (20:52)
[2024-07-14] MEDS: Lantus Insulin SQ SCH (20:52)
[2024-07-14] MEDS: NORCO 5/325 MG PO PRN (22:48)
--- NOTE | 2024-07-15 05:12 | PCM.NOTE ---
Date and Time: 07/15/24 9709 Subjective Assessment: HPI: 84-year-old woman with a history of A-fib, hypertension, diabetes, and neuropathy, who presents with generalized weakness. Patient notes that she gets frequent "weak spells" for many months, usually lasting for about 30 minutes. However, for the last 2 to 3 days she has had generalized weakness, associated with cough, dyspnea, and nausea without vomiting. Normally patient is able to do all of her ADLs and IADLs, walk around without difficulty. However, now she feels more weak. She is able to walk across the room to go to the bathroom, but would not be able to walk a block down the street like she normally would. Denies any fevers, chest pain, abdominal pain, or dysuria. Notes that her daughter had COVID last week based on symptoms and a home COVID testing kit. CXR withProminent perihilar bronchovascular markings and prominent conor with subtle bilateral lower lung zone diffuse ground glass veiling seen could be due to pulmonary congestion, yet the possibility of underlying infection can't be ruled out. A Radio-opaque rounded nodule measuring 11 mm is seen in the right mid- zone. Mild tracheal deviation towards the right side and area of increased opacification in the right paratracheal region possibly projectional. Lab findings remarkable for leukocytosis, hyponatremia, and RSV. Admitted with generalized weakness, hyponatremia, and RSV. 07/15: Met with patient bedside. Endorses continued weakness and cough. She is currently on RA. No acute findings on repeat CXR. Sodium levels are low this morning. Will initiate IVF and have PT work with her today. Add mucinex and flutter for [employer]CH[employer] cough. - Review of Systems Constitutional: Lethargy, Weakness Eyes: No Symptoms Ears, Nose, & Throat: No Symptoms Respiratory: Cough, Short Of Breath Cardiac: No Symptoms Abdominal/Gastrointestinal: No Symptoms Genitourinary Symptoms: No Symptoms Musculoskeletal: No Symptoms Skin: No Symptoms Neurological: No Symptoms Psychological: No Symptoms Endocrine: No Symptoms Hematologic/Lymphatic: No Symptoms Immunological/Allergic: No Symptoms Objective Exam General Appearance: no apparent distress, obese Neurologic Exam: alert, oriented x 3, cooperative Skin Exam: normal color Eye Exam: PERRL Ears, Nose, Throat Exam: normal ENT inspection Neck Exam: normal inspection Respiratory Exam: lungs clear, diminished breath sounds Cardiovascular Exam: regular rate/rhythm, normal heart sounds Gastrointestinal/Abdomen Exam: soft, normal bowel sounds Extremity Exam: normal inspection Back Exam: normal inspection Pelvic Exam: deferred Rectal Exam: deferred Objective Data Vital Signs: Vital Signs - 24 hr Temp Pulse Resp BP Pulse Ox 07/15/24 03:03 75 22 173/71 95 07/14/24 23:35 97.3 F 68 18 175/73 96 07/14/24 20:00 97.3 F 79 18 162/69 94 L 07/14/24 17:32 81 16 93 L 07/14/24 16:00 98.1 F 85 18 182/77 94 L 07/14/24 11:57 98.2 F 71 18 151/67 92 L 07/14/24 07:42 98.4 F 117 H 20 185/79 94 L 07/14/24 05:41 73 22 97 Pain Assessment - Last Documented Pain Intensity 0 Pain Scale Used 0-10 Pain Scale Intake and Output: Intake & Output 07/12/24 07/13/24 07/14/24 07/15/24 11:59 11:59 11:59 11:59 Intake Total 120 600 Balance 120 600 Weight 83.4 kg Lab Results: Lab Results-Last 24 Hours 07/14/24 07/14/24 07/14/24 Range/Units 04:04 04:04 07:36 WBC 11.0 H (3.98-10.04) x10^3/uL RBC 3.97 (3.93-5.22) x10^6/uL Hgb 11.9 (11.2-15.7) g/dL Hct 35.2 (34.1-44.9) % MCV 88.7 (79.4-94.8) fL MCH 30.0 (25.6-32.2) pg MCHC 33.8 (32.2-35.5) g/dL RDW 13.7 (11.7-14.4) % Plt Count 330 (182-369) x10^3/uL MPV 8.6 L (9.4-12.3) fL Gran % 87.7 H (34.0-71.1) % Immature Gran % (Auto) 0.8 H (0.001-0.429) % Nucleat RBC Rel Count 0.0 (0.00-0.2) % Eos # (Auto) 0.19 (0.04-0.36) x10^3/uL Immature Gran # (Auto) 0.09 H (0.001-0.031) x10^3u/L Absolute Lymphs (auto) 0.70 L (1.18-3.74) x10^3/uL Absolute Monos (auto) 0.32 (0.24-0.86) x10^3/uL Absolute Nucleated RBC 0.00 (0.00-0.012) x10^3u/L Lymphocytes % 6.4 L (19.3-51.7) % Monocytes % 2.9 L (4.7-12.5) % Eosinophils % 1.7 (0.7-5.8) % Basophils % 0.5 (0.1-1.2) % Absolute Granulocytes 9.60 H (1.56-6.13) x10^3/uL Basophils # 0.05 (0.01-0.08) x10^3/uL Sodium 129 L (135-145) mmol/L Potassium 4.7 (3.5-5.1) mmol/L Chloride 93 L (98-107) mmol/L Carbon Dioxide 22 (22-30) mmol/L Anion Gap 18.1 H (5-15) MEQ/L BUN 8 (7-17) mg/dL Creatinine 0.58 (0.52-1.04) mg/dL Estimated GFR 88.1 ML/MIN Glucose 159 H (74-106) mg/dL POC Glucometer 284 H (74 to 106) mg/dL Calcium 9.2 (8.4-10.2) mg/dL Total Bilirubin 0.90 (0.2-1.3) mg/dL AST 37 H (14-36) U/L ALT 22 (0-35) U/L Alkaline Phosphatase 109 (38-126) U/L Serum Total Protein 7.5 (6.3-8.2) g/dL Albumin 4.3 (3.5-5.0) g/dL 07/14/24 07/14/24 07/14/24 Range/Units 11:45 16:44 20:43 WBC (3.98-10.04) x10^3/uL RBC (3.93-5.22) x10^6/uL Hgb (11.2-15.7) g/dL Hct (34.1-44.9) % MCV (79.4-94.8) fL MCH (25.6-32.2) pg MCHC (32.2-35.5) g/dL RDW (11.7-14.4) % Plt Count (182-369) x10^3/uL MPV (9.4-12.3) fL Gran % (34.0-71.1) % Immature Gran % (Auto) (0.001-0.429) % Nucleat RBC Rel Count (0.00-0.2) % Eos # (Auto) (0.04-0.36) x10^3/uL Immature Gran # (Auto) (0.001-0.031) x10^3u/L Absolute Lymphs (auto) (1.18-3.74) x10^3/uL Absolute Monos (auto) (0.24-0.86) x10^3/uL Absolute Nucleated RBC (0.00-0.012) x10^3u/L Lymphocytes % (19.3-51.7) % Monocytes % (4.7-12.5) % Eosinophils % (0.7-5.8) % Basophils % (0.1-1.2) % Absolute Granulocytes (1.56-6.13) x10^3/uL Basophils # (0.01-0.08) x10^3/uL Sodium (135-145) mmol/L Potassium (3.5-5.1) mmol/L Chloride (98-107) mmol/L Carbon Dioxide (22-30) mmol/L Anion Gap (5-15) MEQ/L BUN (7-17) mg/dL Creatinine (0.52-1.04) mg/dL Estimated GFR ML/MIN Glucose (74-106) mg/dL POC Glucometer 356 H 257 H 96 (74 to 106) mg/dL Calcium (8.4-10.2) mg/dL Total Bilirubin (0.2-1.3) mg/dL AST (14-36) U/L ALT (0-35) U/L Alkaline Phosphatase (38-126) U/L Serum Total Protein (6.3-8.2) g/dL Albumin (3.5-5.0) g/dL Radiology Exams: Radiology Procedures Category Date Time Status CHEST 1 VIEW (PORTABLE) Stat Exams 07/13/24 23:51 Completed Multi-Disciplinary Progress Notes: Multi-Disciplinary Progress Notes 07/14/24 10:32 Case Management Note by Muriel Ashraf REFERRAL FAXED TO [facility]. THEY WILL NEED NOTIFED AT TIME OF DC AT [phone]. THEY WILL NEED FAXED THE DC INSTRUCTIONS, DC MED LIST AND DC SUMMARY (IF AVAILABLE) TOE [phone] Initialized on 07/14/24 10:32 - END OF NOTE Assessment/Plan (1) Acute respiratory failure with hypoxia Current Visit: Yes Status: Acute Assessment & Plan: -2/2 to RSV -CXR reviewed showing Prominent perihilar bronchovascular markings and prominent conor with subtle bilateral lower lung zone diffuse ground glass veiling seen could be due to pulmonary congestion, yet the possibility of underlying infection can't be ruled out. A Radio-opaque rounded nodule measuring 11 mm is seen in the right mid-zone. Mild tracheal deviation towards the right side and area of increased opacification in the right paratracheal region possibly projectional -supportive care with anti-emetic, anti-pyretics -Supplemental oxygen with goal spo2 >91%- currently on RA -RT eval -Xopenex -Protonix 07/15: -On RA -add mucinex/flutter -PT eval for weakness Code(s): J96.01 - ACUTE RESPIRATORY FAILURE WITH HYPOXIA (2) RSV infection Current Visit: Yes Status: Acute Assessment & Plan: -See ARF Code(s): B33.8 - OTHER SPECIFIED VIRAL DISEASES (3) General weakness Current Visit: Yes Status: Acute Assessment & Plan: -2/2 from RSV infection -PT/OT eval -IVF Code(s): R53.1 - WEAKNESS (4) Hyponatremia Current Visit: Yes Status: Acute Assessment & Plan: -Sodium levels reviewed at 127 -trend -IVF Code(s): E87.1 - HYPO-OSMOLALITY AND HYPONATREMIA (5) Afib Current Visit: No Status: Chronic Assessment & Plan: Continue verapamil 80 mg TID, Lopressor 50 BID Continue Eliquis 5 mg BID Code(s): I48.91 - UNSPECIFIED ATRIAL FIBRILLATION (6) Hypertension Current Visit: No Status: Chronic Assessment & Plan: Resume home telmisartan 80 mg daily, verapamil 80 TID, and hydralazine 50 mg a.m. and 12.5 mg p.m. Code(s): I10 - ESSENTIAL (PRIMARY) HYPERTENSION (7) Diabetes mellitus Current Visit: No Status: Chronic Assessment & Plan: Continue insulin Lantus 45 units QHS and Humalog 15 units with meals Placed on moderate dose sliding scale insulin CODE STATUS: DNR (confirmed with patient today) Prophylaxis: Eliquis Diet: Diabetic Dispo: Place in observation, expect discharge back to home in next day or so Code(s): E11.9 - TYPE 2 DIABETES MELLITUS WITHOUT COMPLICATIONS
[2024-07-15 05:19] LABS: Hematocrit 32.9 % (34.1-44.9); Mean Cell Volume 88.4 fL (79.4-94.8); Mean Corpuscular Hemoglobin 29.6 pg (25.6-32.2); Mean Corpuscular Hgb Concent. 33.4 g/dL (32.2-35.5); Mean Platelet Volume 8.4 fL (9.4-12.3); Platelet Count 318 x10^3/uL (182-369); Red Blood Count 3.72 x10^6/uL (3.93-5.22); Red Cell Distribution Width 13.7 % (11.7-14.4); White Blood Count 12.5 x10^3/uL (3.98-10.04)
[2024-07-15 05:38] LABS: ANION GAP 12.1 MEQ/L (5-15); Creatinine 1 0.56 mg/dL (0.52-1.04); EST GLOMERULAR FILTRATION RATE 88.8 ML/MIN; Potassium 4.5 mmol/L (3.5-5.1)
[2024-07-15] MEDS: Sodium Chloride 0.9% 1000 ML 1,000 ML IV SCH (08:23)
--- NOTE | 2024-07-15 08:43 | XRAY ---
Indication: Short of breath. Comparison: July 13, 2024 Portable apical lordotic remains inflated and clear with stable right mid lung calcified granuloma. Heart not enlarged again with arteriosclerotic tortuous descending aorta. No new/acute findings.
[2024-07-15] MEDS: Mucinex 600MG ER Tabs PO SCH (13:18)
[2024-07-15] MEDS ORDERED: Lantus Insulin SQ SCH (18:02)
[2024-07-15] MEDS ORDERED: HUMALOG SQ PRN (18:03)
[2024-07-15] MEDS: Lantus Insulin SQ SCH (19:06)
[2024-07-16 05:08] LABS: Absolute Neutrophil Ct (ANC) 6.98 x10^3/uL (1.56-6.13); BASOPHIL % 0.6 % (0.1-1.2); Basophil (Absolute #) 0.05 x10^3/uL (0.01-0.08); Eosinophil % 0.9 % (0.7-5.8); Eosinophil (Absolute #) 0.08 x10^3/uL (0.04-0.36); Hematocrit 32.3 % (34.1-44.9); Hemoglobin 10.9 g/dL (11.2-15.7); IMMATURE GRAN # 0.09 x10^3u/L (0.001-0.031); Lymphocyte (Absolute #) 0.89 x10^3/uL (1.18-3.74); Mean Cell Volume 88.7 fL (79.4-94.8); Mean Corpuscular Hemoglobin 29.9 pg (25.6-32.2); Mean Corpuscular Hgb Concent. 33.7 g/dL (32.2-35.5); Mean Platelet Volume 8.5 fL (9.4-12.3); Monocyte (Absolute #) 0.82 x10^3/uL (0.24-0.86); Monocytes % 9.2 % (4.7-12.5); Neutrophil % 78.3 % (34.0-71.1); Platelet Count 327 x10^3/uL (182-369); Red Blood Count 3.64 x10^6/uL (3.93-5.22); White Blood Count 8.9 x10^3/uL (3.98-10.04)
[2024-07-16 05:34] LABS: ALBUMIN 4.1 g/dL (3.5-5.0); ANION GAP 13.2 MEQ/L (5-15); BILIRUBIN,TOTAL 0.7 mg/dL (0.2-1.3); Calcium 8.7 mg/dL (8.4-10.2); Creatinine 1 0.52 mg/dL (0.52-1.04); EST GLOMERULAR FILTRATION RATE 90.4 ML/MIN; Potassium 4.3 mmol/L (3.5-5.1); Total Protein 7.2 g/dL (6.3-8.2)
[2024-07-16 05:36] VITALS: RESP 16
[2024-07-16] MEDS ORDERED: HUMALOG ONE (08:05)
[2024-07-16] MEDS: HUMALOG SQ SCH (08:09)
--- NOTE | 2024-07-16 10:37 | PCM.DS ---
Discharge Summary Date of Admission: 07/14/24 03:21 Date of Discharge: 07/16/24 Admitting Physician: MEAGHAN DAS MD Primary Care Provider: JOSE MARTINEZ YULISA Allergies Allergies No Known Drug Allergies Allergy (Verified 07/13/24 23:29) Hospital Summary - Hospital Course Hospital Course: 84-year-old woman with a history of A-fib, hypertension, diabetes, and neuropathy, who presents with generalized weakness. Patient notes that she gets frequent "weak spells" for many months, usually lasting for about 30 minutes. However, for the last 2 to 3 days she has had generalized weakness, associated with cough, dyspnea, and nausea without vomiting. Normally patient is able to do all of her ADLs and IADLs, walk around without difficulty. However, now she fe els more weak. She is able to walk across the room to go to the bathroom, but would not be able to walk a block down the street like she normally would. Denies any fevers, chest pain, abdominal pain, or dysuria. Notes that her daughter had COVID last week based on symptoms and a home COVID testing kit. CXR withProminent perihilar bronchovascular markings and prominent conor with subtle bilateral lower lung zone diffuse ground glass veiling seen could be due to pulmonary congestion, yet the possibility of underlying infection can't be ruled out. A Radio-opaque rounded nodule measuring 11 mm is seen in the right mid- zone. Mild tracheal deviation towards the right side and area of increased opac ification in the right paratracheal region possibly projectional. Lab findings remarkable for leukocytosis, hyponatremia, and RSV. Admitted with generalized weakness, hyponatremia, and RSV. Repeat CXR 07/15/24 apical lordotic remains inflated and clear with stable right mid lung calcified granuloma. Heart not enlarged again with arteriosclerotic tortuous descending aorta. No new/acute findings. Dyspnea and weakness improved. Patient on RA. Appetite and energy have improved. Leukocytosis resolved. Sodium levels improved. Patient to discharge with [facility]. Advised follow up with PCP early next week with recheck of CMP/sodium levels. Patient agreeable to plan and ready for discharge. Advised follow up with cardiology as well. Rollator ordered for patient through [facility] per pt request. Discharge Note New Diagnosis: RSV/hyponatremia New Medications: none Follow Up: PCP with labs early next week to check sodium I spent 35 minutes [id number] with the patient on the day of discharge performing discharge exam, discussing hospital stay and discharge instructions with patient and caregivers, preparation of discharge records, prescriptions & referral forms and addressing any questions/concerns the patient had as documented above. - Vitals & Intake/Output Vital Signs: Vital Signs Temperature 97.9 F 07/16/24 07:37 Pulse Rate 56 L 07/16/24 07:37 Respiratory Rate 16 07/16/24 07:37 Blood Pressure 185/75 07/16/24 07:37 O2 Sat by Pulse Oximetry 94 L 07/16/24 07:37 Intake & Output: Intake & Output 07/13/24 07/14/24 07/15/24 07/16/24 11:59 11:59 11:59 11:59 Intake Total 902 587 0141 Balance 624 786 2337 Weight 83.4 kg - Lab Result Diagrams: 07/16/24 05:02 07/16/24 05:02 Lab Results-Last 24 Hrs: Lab Results-Last 24 Hours 07/15/24 07/15/24 07/15/24 Range/Units 14:20 15:49 17:18 WBC (3.98-10.04) x10^3/uL RBC (3.93-5.22) x10^6/uL Hgb (11.2-15.7) g/dL Hct (34.1-44.9) % MCV (79.4-94.8) fL MCH (25.6-32.2) pg MCHC (32.2-35.5) g/dL RDW (11.7-14.4) % Plt Count (182-369) x10^3/uL MPV (9.4-12.3) fL Gran % (34.0-71.1) % Immature Gran % (Auto) (0.001-0.429) % Nucleat RBC Rel Count (0.00-0.2) % Eos # (Auto) (0.04-0.36) x10^3/uL Immature Gran # (Auto) (0.001-0.031) x10^3u/L Absolute Lymphs (auto) (1.18-3.74) x10^3/uL Absolute Monos (auto) (0.24-0.86) x10^3/uL Absolute Nucleated RBC (0.00-0.012) x10^3u/L Lymphocytes % (19.3-51.7) % Monocytes % (4.7-12.5) % Eosinophils % (0.7-5.8) % Basophils % (0.1-1.2) % Absolute Granulocytes (1.56-6.13) x10^3/uL Basophils # (0.01-0.08) x10^3/uL Sodium 127 L (135-145) mmol/L Potassium (3.5-5.1) mmol/L Chloride (98-107) mmol/L Carbon Dioxide (22-30) mmol/L Anion Gap (5-15) MEQ/L BUN (7-17) mg/dL Creatinine (0.52-1.04) mg/dL Estimated GFR ML/MIN Glucose (74-106) mg/dL POC Glucometer 78 69 L (74 to 106) mg/dL Calcium (8.4-10.2) mg/dL Total Bilirubin (0.2-1.3) mg/dL AST (14-36) U/L ALT (0-35) U/L Alkaline Phosphatase (38-126) U/L Serum Total Protein (6.3-8.2) g/dL Albumin (3.5-5.0) g/dL 07/15/24 07/16/24 07/16/24 Range/Units 21:09 05:02 05:02 WBC 8.9 (3.98-10.04) x10^3/uL RBC 3.64 L (3.93-5.22) x10^6/uL Hgb 10.9 L (11.2-15.7) g/dL Hct 32.3 L (34.1-44.9) % MCV 88.7 (79.4-94.8) fL MCH 29.9 (25.6-32.2) pg MCHC 33.7 (32.2-35.5) g/dL RDW 14.0 (11.7-14.4) % Plt Count 327 (182-369) x10^3/uL MPV 8.5 L (9.4-12.3) fL Gran % 78.3 H (34.0-71.1) % Immature Gran % (Auto) 1.0 H (0.001-0.429) % Nucleat RBC Rel Count 0.0 (0.00-0.2) % Eos # (Auto) 0.08 (0.04-0.36) x10^3/uL Immature Gran # (Auto) 0.09 H (0.001-0.031) x10^3u/L Absolute Lymphs (auto) 0.89 L (1.18-3.74) x10^3/uL Absolute Monos (auto) 0.82 (0.24-0.86) x10^3/uL Absolute Nucleated RBC 0.00 (0.00-0.012) x10^3u/L Lymphocytes % 10.0 L (19.3-51.7) % Monocytes % 9.2 (4.7-12.5) % Eosinophils % 0.9 (0.7-5.8) % Basophils % 0.6 (0.1-1.2) % Absolute Granulocytes 6.98 H (1.56-6.13) x10^3/uL Basophils # 0.05 (0.01-0.08) x10^3/uL Sodium 129 L (135-145) mmol/L Potassium 4.3 (3.5-5.1) mmol/L Chloride 93 L (98-107) mmol/L Carbon Dioxide 27 (22-30) mmol/L Anion Gap 13.2 (5-15) MEQ/L BUN 13 (7-17) mg/dL Creatinine 0.52 (0.52-1.04) mg/dL Estimated GFR 90.4 ML/MIN Glucose 128 H (74-106) mg/dL POC Glucometer 223 H (74 to 106) mg/dL Calcium 8.7 (8.4-10.2) mg/dL Total Bilirubin 0.70 (0.2-1.3) mg/dL AST 30 (14-36) U/L ALT 23 (0-35) U/L Alkaline Phosphatase 97 (38-126) U/L Serum Total Protein 7.2 (6.3-8.2) g/dL Albumin 4.1 (3.5-5.0) g/dL 07/16/24 Range/Units 07:22 WBC (3.98-10.04) x10^3/uL RBC (3.93-5.22) x10^6/uL Hgb (11.2-15.7) g/dL Hct (34.1-44.9) % MCV (79.4-94.8) fL MCH (25.6-32.2) pg MCHC (32.2-35.5) g/dL RDW (11.7-14.4) % Plt Count (182-369) x10^3/uL MPV (9.4-12.3) fL Gran % (34.0-71.1) % Immature Gran % (Auto) (0.001-0.429) % Nucleat RBC Rel Count (0.00-0.2) % Eos # (Auto) (0.04-0.36) x10^3/uL Immature Gran # (Auto) (0.001-0.031) x10^3u/L Absolute Lymphs (auto) (1.18-3.74) x10^3/uL Absolute Monos (auto) (0.24-0.86) x10^3/uL Absolute Nucleated RBC (0.00-0.012) x10^3u/L Lymphocytes % (19.3-51.7) % Monocytes % (4.7-12.5) % Eosinophils % (0.7-5.8) % Basophils % (0.1-1.2) % Absolute Granulocytes (1.56-6.13) x10^3/uL Basophils # (0.01-0.08) x10^3/uL Sodium (135-145) mmol/L Potassium (3.5-5.1) mmol/L Chloride (98-107) mmol/L Carbon Dioxide (22-30) mmol/L Anion Gap (5-15) MEQ/L BUN (7-17) mg/dL Creatinine (0.52-1.04) mg/dL Estimated GFR ML/MIN Glucose (74-106) mg/dL POC Glucometer 126 H (74 to 106) mg/dL Calcium (8.4-10.2) mg/dL Total Bilirubin (0.2-1.3) mg/dL AST (14-36) U/L ALT (0-35) U/L Alkaline Phosphatase (38-126) U/L Serum Total Protein (6.3-8.2) g/dL Albumin (3.5-5.0) g/dL Micro Results-Entire Visit: Microbiology 07/13/24 00:06 Blood Culture - Preliminary Blood 07/13/24 01:06 Blood Culture - Preliminary Blood Accuchecks Date 07/15/24 Date 07/15/24 Time 21:00 Time 15:52 - Radiology Exams Ordered Rad Exams-Entire Visit: Radiology Procedures Category Date Time Status CHEST 1 VIEW (PORTABLE) Routine Exams 07/15/24 07:00 Completed - Procedures and Test Procedures and Tests throughout Hospitalization: Therapy Orders & Screens 07/14/24 00:06 Respiratory Therapy Assessment DAILY Comment: 07/14/24 05:15 PT Eval & Treat ( Order) ONCE Reason for Eval:: eval & treat Diagnosis: RSV, hypoxia 07/15/24 11:52 FLUTTER [Flutter Therapy] UD Comment: Diagnosis: weakness Discharge Exam General Appearance: no apparent distress Neurologic Exam: alert, oriented x 3, cooperative Eye Exam: PERRL Ears, Nose, Throat Exam: normal ENT inspection Neck Exam: normal inspection Respiratory Exam: normal breath sounds, lungs clear Cardiovascular Exam: irregular Gastrointestinal/Abdomen Exam: soft, normal bowel sounds Pelvic Exam: deferred Rectal Exam: deferred Back Exam: normal inspection Extremity Exam: normal inspection Skin Exam: normal color Final Diagnosis/Problem List - Final Discharge Diagnosis/Problem (1) Acute respiratory failure with hypoxia Current Visit: Yes Status: Resolved Code(s): J96.01 - ACUTE RESPIRATORY FAILURE WITH HYPOXIA (2) RSV infection Current Visit: Yes Status: Acute Code(s): B33.8 - OTHER SPECIFIED VIRAL DISEASES (3) General weakness Current Visit: Yes Status: Acute Code(s): R53.1 - WEAKNESS (4) Hyponatremia Current Visit: Yes Status: Acute Code(s): E87.1 - HYPO-OSMOLALITY AND HYPONATREMIA (5) Afib Current Visit: No Status: Chronic Code(s): I48.91 - UNSPECIFIED ATRIAL FIBRILLATION (6) Hypertension Current Visit: No Status: Chronic Code(s): I10 - ESSENTIAL (PRIMARY) HYPERTENSION (7) Diabetes mellitus Current Visit: No Status: Chronic Code(s): E11.9 - TYPE 2 DIABETES MELLITUS WITHOUT COMPLICATIONS - Discharge Discharge Date: 07/16/24 Disposition: HOME HEALTH SERVICE Condition: Stable Prescriptions: New Guaifenesin 600 mg ER [Mucinex 600MG ER Tabs] 600 mg PO BID PRN tablet Continue Metformin HCl 500 mg PO BID Atorvastatin Calcium 40 mg PO DAILY Verapamil HCl 80 mg [Calan 80 mg] 80 mg PO TID Insulin Glargine [Lantus Insulin] 40 unit SQ QHS Insulin Lispro [Humalog Kwikpen U-100] 15 unit SQ BID Ascorbic Acid 500 mg [Vitamin C 500 MG] 500 mg PO DAILY Magnesium Oxide [Magnesium] 1 tab PO DAILY Telmisartan 80 mg [Micardis 80 MG Tablet] 80 mg PO DAILY Apixaban [Eliquis 5 mg Tablet] 5 mg PO BID HydrALAzine HCL 25 MG TAB [Apresoline 25 MG TABLET] 12.5 mg PO HS Hydralazine HCl 25 mg PO DAILY Metoprolol Tartrate 50 mg [Lopressor 50 MG] 50 mg PO BID Discontinued Smz/Tmp Ds Tablet [Bactrim Ds Tablet] 10.5 udtab PO DAILY Additional Instructions: [facility] HAS BEEN SET UP. THEY WILL CONTACT YOU TO ARRANGE A TIME TO COME SEE YOU. THEIR PHONE # [phone] Follow up with PCP early next week - will need to have sodium level checked Follow up with: JOSE MARTINEZ MD [Primary Care Provider] - 07/22/24 10:00 am
--- NOTE | 2024-07-16 11:41 | PCM.DCORD ---
- Discharge Discharge Date: 07/16/24 Disposition: HOME HEALTH SERVICE Condition: Stable Prescriptions: New Guaifenesin 600 mg ER [Mucinex 600MG ER Tabs] 600 mg PO BID PRN tablet Metoprolol Succinate 50 mg [Toprol Xl 50 MG] See Rx Instructions .ROUTE .COMPLEX 30 Days #90 tablet Continue Metformin HCl 500 mg PO BID Atorvastatin Calcium 40 mg PO DAILY Verapamil HCl 80 mg [Calan 80 mg] 80 mg PO TID Insulin Glargine [Lantus Insulin] 40 unit SQ QHS Insulin Lispro [Humalog Kwikpen U-100] 15 unit SQ BID Ascorbic Acid 500 mg [Vitamin C 500 MG] 500 mg PO DAILY Magnesium Oxide [Magnesium] 1 tab PO DAILY Telmisartan 80 mg [Micardis 80 MG Tablet] 80 mg PO DAILY Apixaban [Eliquis 5 mg Tablet] 5 mg PO BID HydrALAzine HCL 25 MG TAB [Apresoline 25 MG TABLET] 12.5 mg PO HS Hydralazine HCl 25 mg PO DAILY Discontinued Metoprolol Tartrate 50 mg [Lopressor 50 MG] 50 mg PO BID Smz/Tmp Ds Tablet [Bactrim Ds Tablet] 10.5 udtab PO DAILY Instructions: Fatigue (DC), RSV in adults - Discharge instructions Additional Instructions: [facility] HAS BEEN SET UP. THEY WILL CONTACT YOU TO ARRANGE A TIME TO COME SEE YOU. THEIR PHONE # [phone] Follow up with PCP early next week - will need to have sodium level checked Follow up with: JOSE MARTINEZ MD [Primary Care Provider] - 07/22/24 10:00 am BLAKE ORTIZ [CONSULTING PHYSICIAN] - 07/21/24 1:30 pm
[2024-07-16 11:45] VITALS: BP 172/74; PULSE 114; TEMP 97.8; O2SAT 96
== END 2024-07-16 13:36 | disposition home health service (06) ==
LOC: ED 23:18 → MED SURG 07-14 03:21
PROVIDERS: ADMIT Internal Medicine; ATTEND Internal Medicine
DX: J96.01 Acute respiratory failure with hypoxia (principal); B33.8 Other specified viral diseases; R53.1 Weakness; E87.1 Hypo-osmolality and hyponatremia; I48.91 Unspecified atrial fibrillation; I10 Essential (primary) hypertension; E11.9 Type 2 diabetes mellitus without complications; Z79.01 Long term (current) use of anticoagulants; Z79.899 Other long term (current) drug therapy
CPT/HCPCS: 0241U; 36415; 71045; 80048; 80053; 81001; 82947; 83605; 83880; 84145; 84295; 84484; 85025; 85027; 85379; 87040; 93005; 93041; 93268; 94640; 94667; 94668; 94760; 96374; 97110; 97161; 97530; 99284; 99285; G0378; Q3014; J1817; J2919; A9270-GY

== ENCOUNTER 2025-02-23 09:53 | Observation (INO) | payer MEDICARE ==
--- NOTE | 2025-02-23 10:04 | ERPHSYRPT ---
- History of Present Illness Time Seen by Provider: 02/23/25 09:58 Source: patient, family Physician History: This is an 84-year-old female history of A-fib on blood thinners who has been having weakness for the past several days worse today where she could barely get out of bed. Patient has no headache or focal neurologic changes. No speech changes. No difficulty swallowing. Numbness or tingling. Patient denies chest pain or pressure. No anginal equivalent type symptoms. Patient has been having a cough for the past month which comes and goes. Patient just completed antibiotics for urinary tract infection. Denies significant dysuria. No flank pain. No abdominal pain. No nausea vomiting or diarrhea. No melena or bright red blood per rectum. Allergies/Adverse Reactions: No Known Drug Allergies Allergy (Verified 02/23/25 10:13) Home Medications: Atorvastatin Calcium 40 mg PO DAILY 12/19/16 [History] Metformin HCl 500 mg PO BID 12/19/16 [History] Verapamil HCl 80 mg [Calan 80 mg] 80 mg PO TID 12/19/16 [History] Ascorbic Acid 500 mg [Vitamin C 500 MG] 500 mg PO DAILY 11/17/17 [History] Insulin Glargine [Lantus Insulin] 40 unit SQ QHS 11/17/17 [History] Insulin Lispro [Humalog Kwikpen U-100] 15 unit SQ BID 11/17/17 [History] Magnesium Oxide [Magnesium] 1 tab PO DAILY 12/30/23 [History] Apixaban [Eliquis 5 mg Tablet] 5 mg PO BID 07/14/24 [History] Hydralazine HCl 50 mg PO BID 07/14/24 [History] Telmisartan 80 mg [Micardis 80 MG Tablet] 80 mg PO DAILY 07/14/24 [History] Hx Tetanus, Diphtheria Vaccination/Date Given: No Hx Influenza Vaccination/Date Given: No Hx Pneumococcal Vaccination/Date Given: Yes Travel Risk - Emerging Infectious Disease Are you exhibiting symptoms associated with any current EIDs: Yes Symptoms: Cough: New Onset - Review of Systems All Other Systems: Reviewed and Negative (As per HPI otherwise negative) - Past Medical History Musculoskeletal History: Fractures Other Medical History: fracture rt shoulde4. A-fib. colon polyp 2017 - Past Surgical History Past Surgical History: Yes Neuro Surgical History: No Pertinent History Cardiac: Cardiac Catheterization, Other Respiratory: No Pertinent History Gastrointestinal: Appendectomy, Cholecystectomy Genitourinary: No Pertinent History Musculoskeletal: Orthopedic Surgery Female Surgical History: Hysterectomy Other Surgical History: Cardiac ablation.RIGHT ARM Significant Family History: no pertinent family hx - Social History Drug Use: none - Social Determinants of Health Do you worry about a steady place to live?: No In the past 12 months,have you had to go without utilities?: No Transportation Issues: No Have you or anyone in your house had to go w/o enough food: No - Nursing Vital Signs Nursing Vital Signs: Initial Vital Signs Pulse Rate 65 02/23/25 10:05 Respiratory Rate 24 02/23/25 10:05 Blood Pressure 162/79 02/23/25 10:05 O2 Sat by Pulse Oximetry 99 02/23/25 10:05 Pain Scale Pain Intensity 0 - Physical Exam Comments: 02/23/25 10:07 General: Well-nourished well-developed. No apparent distress. Able to ambulate with assistance, but appears weak. HEENT: Normocephalic atraumatic no obvious facial or neck deformity or injury. Neck: Supple. No deformity or mass noted. CV: RRR NL Perfusion. No edema Resp: No Respiratory distress or adventitious breath sounds Abd: ND SNT MSK: No deformity or TTP Neuro: Alert and [place] x4. No gross focal neurologic changes Psych: No SI, HI or grave disability Ordered Tests: Active Orders 24 hr Category Date Time Status Admit as Inpatient ROUTINE Care 02/23/25 10:54 Active EKG-ER Only STAT Care 02/23/25 10:06 Active ABDOMEN AND PELVIS W CONTRAST [CT] Stat Exams 02/23/25 10:53 Completed CHEST 1 VIEW (PORTABLE) Stat Exams 02/23/25 10:03 Completed BLOOD CULTURE Stat Lab 02/23/25 10:20 Received BLOOD CULTURE Stat Lab 02/23/25 10:25 Received BMP Urgent Lab 02/23/25 17:00 Ordered BNPII [NT PRO BNPII] Stat Lab 02/23/25 10:20 Completed CBC W DIFF Stat Lab 02/23/25 10:25 Completed CMP Stat Lab 02/23/25 10:25 Completed CULTURE,URINE Stat Lab 02/23/25 10:17 Received Lactic Acid Stat Lab 10/15/25 10:20 Completed MAGNESIUM Stat Lab 02/23/25 10:25 Completed PT INR [PROTIME WITH INR] Stat Lab 02/23/25 10:25 Completed PTT Stat Lab 02/23/25 10:25 Completed TROPONIN Stat Lab 02/23/25 10:25 Completed TSH, 3RD Generation Stat Lab 02/23/25 10:25 Completed UA W/RFX UR CULTURE Stat Lab 02/23/25 10:13 Completed Respiratory Therapy Assessment DAILY RT 02/23/25 11:14 Active Transfer Order Routine Transfer 02/23/25 Ordered Medication Summary Generic Name Dose Route Start Last Admin Trade Name Freq PRN Reason Stop Dose Admin Ceftriaxone Sodium 1 gm in 100 mls @ 200 mls/hr 02/24/25 10:49 02/23/25 12:50 Rocephin 1 Gm / 100 Ml Nacl IV 02/24/25 11:18 Infused STAT ONE Infusion Discontinued Medications Generic Name Dose Route Start Last Admin Trade Name Freq PRN Reason Stop Dose Admin Albuterol Sulfate 5 mg 02/23/25 10:59 02/23/25 11:10 Albuterol Sulfate 2.5 Mg/3 Ml Neb IH 02/23/25 11:00 5 mg STAT ONE Administration Albuterol Sulfate Confirm 02/23/25 11:03 Albuterol Sulfate 2.5 Mg/3 Ml Neb Administered 02/23/25 11:04 Dose 5 mg IH .STK-MED ONE Albuterol/Ipratropium 3 ml 02/23/25 10:58 02/23/25 11:10 Ipratropium/Albuterol Sulfate 3 Ml Ampul.Neb IH 02/23/25 10:59 3 ml STAT ONE Administration Albuterol/Ipratropium Confirm 02/23/25 11:03 Ipratropium/Albuterol Sulfate 3 Ml Ampul.Neb Administered 02/23/25 11:04 Dose 3 ml IH .STK-MED ONE Benzonatate 200 mg 02/23/25 12:03 02/23/25 12:08 Benzonatate 100 Mg Capsule PO 02/23/25 12:04 200 mg STAT ONE Administration Benzonatate Confirm 02/23/25 12:06 Benzonatate 100 Mg Capsule Administered 02/23/25 12:07 Dose 200 mg PO .STK-MED ONE Methylprednisolone Sodium 0 mg 02/23/25 10:58 02/23/25 11:47 Succinate 125 mg/ Sterile IV 02/23/25 10:59 125 mg Water 2 ml STAT ONE Administration Furosemide 20 mg 02/23/25 12:04 02/23/25 13:03 Furosemide 20 Mg/Vial IV 02/23/25 12:05 20 mg STAT ONE Administration Sodium Chloride 1,000 mls @ 999 mls/hr 02/23/25 10:53 02/23/25 12:47 Sodium Chloride 0.9% 1000 Ml IV 02/23/25 11:53 Infused .Q1H1M STA Infusion Sodium Chloride Confirm 02/23/25 11:35 Sodium Chloride 0.9% 1000 Ml Administered 02/23/25 11:36 Dose 1,000 mls @ ud .ROUTE .STK-MED ONE Ceftriaxone Sodium Confirm 02/23/25 11:35 Rocephin 1 Gm / 100 Ml Nacl Administered 02/23/25 11:36 Dose 1 gm in 100 mls @ ud IV .STK-MED ONE Methylprednisolone Sodium Succinate Confirm 02/23/25 11:35 Methylprednis Sod Succ 125 Mg/2 Ml Vial Administered 02/23/25 11:36 Dose 125 mg .ROUTE .STK-MED ONE Sterile Water Confirm 02/23/25 11:34 Water For Injection,Sterile 10 Ml Vial Administered 02/23/25 11:35 Dose 10 ml IJ .STK-MED ONE Lab/Rad Data: Laboratory Result Diagrams 02/23/25 10:25 02/23/25 10:25 Laboratory Results 02/23/25 02/23/25 02/23/25 Range/Units 10: 10: 10: WBC 13.2 H (3.98-10.04) x10^3/uL RBC 4.08 (3.93-5.22) x10^6/uL Hgb 12.1 (11.2-15.7) g/dL Hct 37.4 (34.1-44.9) % MCV 91.7 (79.4-94.8) fL MCH 29.7 (25.6-32.2) pg MCHC 32.4 (32.2-35.5) g/dL RDW 13.5 (11.7-14.4) % Plt Count 333 (182-369) x10^3/uL MPV 9.5 (9.4-12.3) fL Gran % 82.1 H (34.0-71.1) % Immature Gran % (Auto) 1.0 H (0.001-0.429) % Nucleat RBC Rel Count 0.0 (0.00-0.2) % Eos # (Auto) 0.23 (0.04-0.36) x10^3/uL Immature Gran # (Auto) 0.13 H (0.001-0.031) x10^3u/L Absolute Lymphs (auto) 1.38 (1.18-3.74) x10^3/uL Absolute Monos (auto) 0.57 (0.24-0.86) x10^3/uL Absolute Nucleated RBC 0.00 (0.00-0.012) x10^3u/L Lymphocytes % 10.4 L (19.3-51.7) % Monocytes % 4.3 L (4.7-12.5) % Eosinophils % 1.7 (0.7-5.8) % Basophils % 0.5 (0.1-1.2) % Absolute Granulocytes 10.84 H (1.56-6.13) x10^3/uL Basophils # 0.07 (0.01-0.08) x10^3/uL PT 10.9 (9.4-12.5) SECONDS INR 0.97 (0.8-3.0) APTT 29.2 (25.1-36.5) SECONDS Sodium 131 L (135-145) mmol/L Potassium 4.7 (3.5-5.1) mmol/L Chloride 98 (98-107) mmol/L Carbon Dioxide 23 (22-30) mmol/L Anion Gap 14.5 (5-15) MEQ/L BUN 12 (7-17) mg/dL Creatinine 0.57 (0.52-1.04) mg/dL Estimated GFR 88.5 ML/MIN Glucose 175 H (74-106) mg/dL Lactic Acid (0.4-2.0) Calcium 9.6 (8.4-10.2) mg/dL Magnesium 1.7 (1.6-2.3) mg/dL Total Bilirubin 0.70 (0.2-1.3) mg/dL AST 28 (14-36) U/L ALT 18 (0-35) U/L Alkaline Phosphatase 112 (38-126) U/L Troponin I (0.000-0.033) ng/mL NT-Pro-B Natriuret Pep (<300) pg/mL Serum Total Protein 7.4 (6.3-8.2) g/dL Albumin 4.0 (3.5-5.0) g/dL TSH 3rd Generation 0.935 (0.470-4.680) mIU/L Urine Color (Yellow) Urine Appearance (Clear) Urine pH (4.6-8.0) Ur Specific Taylor (1.005-1.030) Urine Protein (Negative) Urine Glucose (UA) (Negative) mg/dL Urine Ketones (Negative) Urine Blood (Negative) Urine Nitrite (Negative) Urine Bilirubin (Negative) Urine Urobilinogen (0.2) mg/dL Ur Leukocyte Esterase (Negative) U Hyaline Cast (Auto) (0-2) /LPF Urine Microscopic RBC (0-5) /HPF Urine Microscopic WBC (0-5) /HPF Ur Epithelial Cells (None Seen) /HPF Urine Bacteria (None Seen) /HPF Urine Culture Reflexed (NO) 02/23/25 02/23/25 02/23/25 Range/Units 10:25 10:20 10:20 WBC (3.98-10.04) x10^3/uL RBC (3.93-5.22) x10^6/uL Hgb (11.2-15.7) g/dL Hct (34.1-44.9) % MCV (79.4-94.8) fL MCH (25.6-32.2) pg MCHC (32.2-35.5) g/dL RDW (11.7-14.4) % Plt Count (182-369) x10^3/uL MPV (9.4-12.3) fL Gran % (34.0-71.1) % Immature Gran % (Auto) (0.001-0.429) % Nucleat RBC Rel Count (0.00-0.2) % Eos # (Auto) (0.04-0.36) x10^3/uL Immature Gran # (Auto) (0.001-0.031) x10^3u/L Absolute Lymphs (auto) (1.18-3.74) x10^3/uL Absolute Monos (auto) (0.24-0.86) x10^3/uL Absolute Nucleated RBC (0.00-0.012) x10^3u/L Lymphocytes % (19.3-51.7) % Monocytes % (4.7-12.5) % Eosinophils % (0.7-5.8) % Basophils % (0.1-1.2) % Absolute Granulocytes (1.56-6.13) x10^3/uL Basophils # (0.01-0.08) x10^3/uL PT (9.4-12.5) SECONDS INR (0.8-3.0) APTT (25.1-36.5) SECONDS Sodium (135-145) mmol/L Potassium (3.5-5.1) mmol/L Chloride (98-107) mmol/L Carbon Dioxide (22-30) mmol/L Anion Gap (5-15) MEQ/L BUN (7-17) mg/dL Creatinine (0.52-1.04) mg/dL Estimated GFR ML/MIN Glucose (74-106) mg/dL Lactic Acid 2.3 H (0.4-2.0) Calcium (8.4-10.2) mg/dL Magnesium (1.6-2.3) mg/dL Total Bilirubin (0.2-1.3) mg/dL AST (14-36) U/L ALT (0-35) U/L Alkaline Phosphatase (38-126) U/L Troponin I < 0.012 (0.000-0.033) ng/mL NT-Pro-B Natriuret Pep 806 (<300) pg/mL Serum Total Protein (6.3-8.2) g/dL Albumin (3.5-5.0) g/dL TSH 3rd Generation (0.470-4.680) mIU/L Urine Color (Yellow) Urine Appearance (Clear) Urine pH (4.6-8.0) Ur Specific Taylor (1.005-1.030) Urine Protein (Negative) Urine Glucose (UA) (Negative) mg/dL Urine Ketones (Negative) Urine Blood (Negative) Urine Nitrite (Negative) Urine Bilirubin (Negative) Urine Urobilinogen (0.2) mg/dL Ur Leukocyte Esterase (Negative) U Hyaline Cast (Auto) (0-2) /LPF Urine Microscopic RBC (0-5) /HPF Urine Microscopic WBC (0-5) /HPF Ur Epithelial Cells (None Seen) /HPF Urine Bacteria (None Seen) /HPF Urine Culture Reflexed (NO) 02/23/25 Range/Units 10:13 WBC (3.98-10.04) x10^3/uL RBC (3.93-5.22) x10^6/uL Hgb (11.2-15.7) g/dL Hct (34.1-44.9) % MCV (79.4-94.8) fL MCH (25.6-32.2) pg MCHC (32.2-35.5) g/dL RDW (11.7-14.4) % Plt Count (182-369) x10^3/uL MPV (9.4-12.3) fL Gran % (34.0-71.1) % Immature Gran % (Auto) (0.001-0.429) % Nucleat RBC Rel Count (0.00-0.2) % Eos # (Auto) (0.04-0.36) x10^3/uL Immature Gran # (Auto) (0.001-0.031) x10^3u/L Absolute Lymphs (auto) (1.18-3.74) x10^3/uL Absolute Monos (auto) (0.24-0.86) x10^3/uL Absolute Nucleated RBC (0.00-0.012) x10^3u/L Lymphocytes % (19.3-51.7) % Monocytes % (4.7-12.5) % Eosinophils % (0.7-5.8) % Basophils % (0.1-1.2) % Absolute Granulocytes (1.56-6.13) x10^3/uL Basophils # (0.01-0.08) x10^3/uL PT (9.4-12.5) SECONDS INR (0.8-3.0) APTT (25.1-36.5) SECONDS Sodium (135-145) mmol/L Potassium (3.5-5.1) mmol/L Chloride (98-107) mmol/L Carbon Dioxide (22-30) mmol/L Anion Gap (5-15) MEQ/L BUN (7-17) mg/dL Creatinine (0.52-1.04) mg/dL Estimated GFR ML/MIN Glucose (74-106) mg/dL Lactic Acid (0.4-2.0) Calcium (8.4-10.2) mg/dL Magnesium (1.6-2.3) mg/dL Total Bilirubin (0.2-1.3) mg/dL AST (14-36) U/L ALT (0-35) U/L Alkaline Phosphatase (38-126) U/L Troponin I (0.000-0.033) ng/mL NT-Pro-B Natriuret Pep (<300) pg/mL Serum Total Protein (6.3-8.2) g/dL Albumin (3.5-5.0) g/dL TSH 3rd Generation (0.470-4.680) mIU/L Urine Color Yellow (Yellow) Urine Appearance Clear (Clear) Urine pH 7.0 (4.6-8.0) Ur Specific Taylor 1.015 (1.005-1.030) Urine Protein Negative (Negative) Urine Glucose (UA) Negative (Negative) mg/dL Urine Ketones Negative (Negative) Urine Blood Negative (Negative) Urine Nitrite Negative (Negative) Urine Bilirubin Negative (Negative) Urine Urobilinogen 1.0 A (0.2) mg/dL Ur Leukocyte Esterase Moderate A (Negative) U Hyaline Cast (Auto) NONE SEEN (0-2) /LPF Urine Microscopic RBC 0-2 (0-5) /HPF Urine Microscopic WBC >100 A (0-5) /HPF Ur Epithelial Cells Rare (None Seen) /HPF Urine Bacteria Many A (None Seen) /HPF Urine Culture Reflexed ORDERED SEPARATELY (NO) EKG 10:14 AM normal sinus rhythm 64 bpm. Lateral T wave inversion. No ischemic changes. [facility] [address] [facility], [address] [place], [place] [address] Name: JOSEPH TRAORE Attending Physician: MOOK REYNA IMAGING REPORT : [id number] Age: 84 Sex: F Location: ED Report #: [id number] Exam Date: 02/23/25 Status: PRE ER Radiology #: Procedures: [id number] RAD/CHEST 1 VIEW (PORTABLE) Indication: Cough. Weakness. Comparison: July 15, 2024 Portable chest remains inflated and clear. Heart not enlarged again with arteriosclerotic tortuous descending aorta. Bony thorax intact again with osteopenia and mild degenerative changes. Impression: Continued nonacute chest with chronic findings. Reported by: ARELY CABRERA DO Signed by: ARELY CBARERA DO Signed date/time: 02/23/25 1027 Copies to: MOOK REYNA DUSTIN CLAY - Progress Progress Note: 02/23/25 10:46 Patient doing well. Noted significant UTI. Elevated lactate with stable blood pressure and vital signs normal otherwise. Patient noted that she had Klebsiella in her urine growing up in culture two weeks ago which is pansensitive occluding ceftriaxone. 02/23/25 11:00 Patient and family asking about treatment for what has been apparent chronic cough. No evident infection. No history of asthma or COPD, nonetheless we will give a trial dose of steroids single dose and DuoNeb with albuterol treatment. No evidence of CHF on chest x-ray. This will be one-time treatment for comfort and what could possibly be an underlying reactive airway type symptomatology since the cough has been keeping her awake and making her rest difficult. - Departure Departure Disposition: In-patient Admission Clinical Impression: Pyelonephritis UTI (urinary tract infection) Qualifiers: Urinary tract infection type: acute pyelonephritis Qualified Code(s): N10 - Acute pyelonephritis Condition: Stable Critical Care Time: No Referrals: JOSE MARTINEZ MD [Primary Care Provider, [facility]] - Follow up/PCP as directed
--- NOTE | 2025-02-23 10:28 | XRAY ---
Indication: Cough. Weakness. Comparison: July 15, 2024 Portable chest remains inflated and clear. Heart not enlarged again with arteriosclerotic tortuous descending aorta. Bony thorax intact again with osteopenia and mild degenerative changes. Impression: Continued nonacute chest with chronic findings.
[2025-02-23 10:33] LABS: BASOPHIL % 0.5 % (0.1-1.2); Basophil (Absolute #) 0.07 x10^3/uL (0.01-0.08); Eosinophil (Absolute #) 0.23 x10^3/uL (0.04-0.36); Hematocrit 37.4 % (34.1-44.9); Hemoglobin 12.1 g/dL (11.2-15.7); IMMATURE GRAN # 0.13 x10^3u/L (0.001-0.031); IMMATURE GRAN % 1.0 % (0.001-0.429); Lymphocyte (Absolute #) 1.38 x10^3/uL (1.18-3.74); Mean Corpuscular Hemoglobin 29.7 pg (25.6-32.2); Mean Corpuscular Hgb Concent. 32.4 g/dL (32.2-35.5); Monocyte (Absolute #) 0.57 x10^3/uL (0.24-0.86); NUCLEATED RBC # 0.00 x10^3u/L (0.00-0.012); NUCLEATED RBC % 0.0 % (0.00-0.2); Platelet Count 333 x10^3/uL (182-369); Red Blood Count 4.08 x10^6/uL (3.93-5.22); White Blood Count 13.2 x10^3/uL (3.98-10.04)
[2025-02-23 10:39] LABS: Glucose, Urine Negative (Negative); Protein,Urine Dip Negative (Negative); RBC 0-2 /HPF (0-5); WBC >100 /HPF (0-5)
[2025-02-23 10:47] LABS: INR 0.97 (0.8-3.0); PROTIME 10.9 SECONDS (9.4-12.5); PTT 29.2 SECONDS (25.1-36.5)
[2025-02-23] MEDS ORDERED: PROVENTIL 2.5 MG/3 ML NEB IH ONE (11:03)
[2025-02-23] MEDS ORDERED: DUONEB 0.5-3 MG/3 ml Neb IH ONE (11:03)
[2025-02-23] MEDS: PROVENTIL 2.5 MG/3 ML NEB IH ONE (11:10)
[2025-02-23] MEDS: DUONEB 0.5-3 MG/3 ml Neb IH ONE (11:10)
[2025-02-23 11:18] LABS: Calcium 9.6 mg/dL (8.4-10.2); Carbon Dioxide 23.0 mmol/L (22-30); Creatinine 1 0.57 mg/dL (0.52-1.04); EST GLOMERULAR FILTRATION RATE 88.5 ML/MIN; Glucose 175.0 mg/dL (74-106); Potassium 4.7 mmol/L (3.5-5.1); SGOT/AST 28.0 U/L (14-36); SGPT/ALT 18.0 U/L (0-35); Total Protein 7.4 g/dL (6.3-8.2)
[2025-02-23] MEDS ORDERED: Sterile H2O 10 ml IJ ONE (11:34)
[2025-02-23] MEDS ORDERED: ROCEPHIN 1 GM / 100 ML NaCl 1 GM/100 ML IVPB IV ONE (11:35)
[2025-02-23] MEDS: solu-MEDROL 125 MG, Sterile H2O 10 ml 2 ML IV ONE (11:47)
[2025-02-23] MEDS: ROCEPHIN 1 GM / 100 ML NaCl 1 GM/100 ML IVPB IV ONE (11:55)
[2025-02-23] MEDS ORDERED: Tessalon Perles 100 MG PO ONE (12:06)
[2025-02-23] MEDS: Tessalon Perles 100 MG PO ONE (12:08)
--- NOTE | 2025-02-23 12:52 | XRAY ---
Indication: Recurrent UTI. Multiple contiguous axial images obtained through the abdomen and pelvis using 80 cc Isovue 370 contrast. Comparison: May 03, 2024 Lung bases demonstrates 2 mm peripheral right middle lobe noncalcified nodule unchanged with respect to CT abdomen/pelvis April 29, 2021 and favored to be benign. No infiltrate or effusion. Heart not enlarged. Stable small hiatal hernia. Noncontrasted stomach and bowel loops appear nonobstructed. Stable descending duodenal diverticulum and diffuse scattered sigmoid diverticulosis. Stable small left mid renal angiomyolipoma, appendectomy, cholecystectomy, and hysterectomy. No free fluid/air. Remaining liver, pancreas, spleen, adrenal glands, kidneys, ureters, and bladder are unremarkable. There remains moderate scattered aortoiliac calcifications. No AAA or pathologic retroperitoneal lymphadenopathy. Osseous structures intact again with osteopenia, mild degenerative changes throughout spine, multilevel vertebral hemangiomas, and benign T12 sclerotic lesion. Impression: No change again with chronic findings including benign right middle lobe noncalcified micronodule, hiatal hernia, duodenal diverticulum, sigmoid diverticulosis, left renal angiomyolipoma, arteriosclerotic disease, and chronic bony findings. No new/acute findings on this contrasted exam.
[2025-02-23] MEDS ORDERED: Lasix 20 MG/2 ML ONE (13:02)
[2025-02-23] MEDS: Lasix 20 MG/2 ML IV ONE (13:03)
--- NOTE | 2025-02-23 13:39 | PCM.HP ---
<ROSS ORONA - Last Filed: 02/23/25 13:34> History of Present Illness - Chief Complaint Chief Complaint: UTi w/ Pyelonephritis Date: 02/23/25 History of Present Illness: is a 84 year old female with a past medical history of atrial fibrillation (on eliquis), hypertension, recurrent UTIs, and type 2 diabetes mellitus who presented to the emergency department on 02/23/2025 with complaints of generalized weakness and dysuria for the past 23 days. She was recently treated for a urinary tract infection diagnosed on 02/10/2025, with urine culture growing Klebsiella pneumoniaepan-sensitiveand completed a full course of cephalexin on 02/20/25. Since finishing antibiotics, she reports persistent fatigue and a chronic cough ongoing for approximately one month. She denies chest pain, fever, chills, or dyspnea. On presentation, the patient was afebrile and hemodynamically stable but appeared fatigued. Laboratory findings revealed leukocytosis with WBC 13.2, mild hyponatremia with sodium 131, and elevated lactic acid at 2.3. Urinalysis demonstrated moderate leukocytes, >100 WBCs per high-power field, and presence of bacteria, concerning for possible recurrent urinary infection. CT abdomen and pelvis with contrast showed no acute process, stable chronic findings including a benign right middle lobe noncalcified micronodule, hiatal hernia, duodenal diverticulum, sigmoid diverticulosis, left renal angiomyolipoma, renee riosclerotic disease, and chronic bony changes. Chest X-ray showed no pulmonary infiltrate or signs of heart failure. In the ED, she received a 1 L normal saline bolus, IV Lasix 20 mg, IV Rocephin, Solu-Medrol, albuterol via Proventil, DuoNeb treatments, and benzonatate. Per ED documentation, the patient and family expressed concern regarding her persistent cough; while no infection or cardiopulmonary abnormality was identified, she was treated symptomatically with a one-time dose of steroids and bronchodilator therapy for possible reactive airway-type symptoms. - Review of Systems Constitutional: Weakness Eyes: No Symptoms Ears, Nose, & Throat: No Symptoms Respiratory: Cough Cardiac: No Symptoms Abdominal/Gastrointestinal: No Symptoms Genitourinary Symptoms: Dysuria Musculoskeletal: No Symptoms Skin: No Symptoms Neurological: No Symptoms Psychological: No Symptoms Endocrine: No Symptoms Hematologic/Lymphatic: No Symptoms Immunological/Allergic: No Symptoms Medications & Allergies Home Medications: Home Medication List Atorvastatin Calcium 40 mg PO HS 12/19/16 [History Confirmed 02/23/25] Metformin HCl 500 mg PO BID 12/19/16 [History Confirmed 02/23/25] Verapamil HCl 80 mg [Calan 80 mg] 80 mg PO BID 12/19/16 [History Confirmed 02/23/25] Ascorbic Acid 500 mg [Vitamin C 500 MG] 500 mg PO DAILY 11/17/17 [History Confirmed 02/23/25] Insulin Glargine [Lantus Insulin] 40 unit SQ QHS 11/17/17 [History Confirmed 02/23/25] Insulin Lispro [Humalog Kwikpen U-100] 10 unit SQ TIDWM 11/17/17 [History Confirmed 02/23/25] Magnesium Oxide [Magnesium] 400 mg PO DAILY 12/30/23 [History Confirmed 02/23/25] Apixaban [Eliquis 5 mg Tablet] 5 mg PO BID 07/14/24 [History Confirmed 02/23/25] Hydralazine HCl 50 mg PO BID 07/14/24 [History Confirmed 02/23/25] Telmisartan 80 mg [Micardis 80 MG Tablet] 80 mg PO DAILY 07/14/24 [History Confirmed 02/23/25] Metoprolol Succinate 50 mg [Toprol Xl 50 MG] 50 mg PO HS 02/23/25 [History Confirmed 02/23/25] Metoprolol Succinate [Toprol Xl] 100 mg PO DAILY 02/23/25 [History Confirmed 02/23/25] Allergies/Adverse Reactions: Allergies Allergy/AdvReac Type Severity Reaction Status Date / Time No Known Drug Allergies Allergy Verified 02/23/25 13:25 - Past Medical History Past Medical History: Yes Neurological History: Peripheral Neuropathy ENT History: Cataracts Cardiac History: Arrhythmia, Hypertension Respiratory History: No Pertinent History Endocrine Medical History: Diabetes Type II Musculoskelatal History: Fractures GI Medical History: Gallbladder Disease, Polyps History: No Pertinent History Pyscho-Social History: No Pertinent History Reproductive Disorders: No Pertinent History Comment: fracture rt shoulder. A-fib. colon polyp 2017 - Past Surgical History Past Surgical History: Yes Neuro Surgical History: No Pertinent History Cardiac History: Cardiac Catheterization, Other Respiratory Surgery: No Pertinent History GI Surgical History: Appendectomy, Cholecystectomy Genitourinary Surgical Hx: No Pertinent History Musculskeletal Surgical Hx: Orthopedic Surgery Female Surgical History: Hysterectomy Other Surgical History: Cardiac ablation.RIGHT ARM Significant Family History: heart disease, cancer - Social History Smoking Status: Never smoker Exposure to second hand smoke: No Alcohol: None Drug Use: none - Social Determinants of Health Will the patient participate in the screening: Yes Do you worry about a steady place to live?: No Do you have any problems with any of the following?: No known problems In the past 12 months,have you had to go without utilities?: No Have you or anyone in your house had to go without enough: No Transportation Issues: No Has anyone in your support network made you feel unsafe?: No Does the patient want assistance with any of the above?: No - Physical Exam Vital Signs: Vital Signs - 24 hr Pulse Resp BP BP Pulse Ox 02/23/25 12:00 74 15 164/62 100 02/23/25 11:30 71 19 131/45 100 02/23/25 11:15 62 16 99 02/23/25 11:00 69 16 135/54 99 02/23/25 10:57 60 16 160/69 99 02/23/25 10:31 63 18 154/112 02/23/25 10:06 64 16 162/79 99 02/23/25 10:05 65 24 162/79 99 General Appearance: no apparent distress Neurologic Exam: alert, oriented x 3, cooperative Eye Exam: PERRL/EOMI Ears, Nose, Throat Exam: normal ENT inspection Neck Exam: normal inspection Respiratory Exam: normal breath sounds, lungs clear Cardiovascular Exam: regular rate/rhythm, normal heart sounds Pelvic Exam: not done Rectal Exam: deferred Back Exam: normal inspection Extremity Exam: normal inspection Skin Exam: normal color Results - Labs Lab/Micro Results: Lab Results-Last 24 Hours 02/23/25 02/23/25 02/23/25 Range/Units 10:13 10:20 10:20 WBC (3.98-10.04) x10^3/uL RBC (3.93-5.22) x10^6/uL Hgb (11.2-15.7) g/dL Hct (34.1-44.9) % MCV (79.4-94.8) fL MCH (25.6-32.2) pg MCHC (32.2-35.5) g/dL RDW (11.7-14.4) % Plt Count (182-369) x10^3/uL MPV (9.4-12.3) fL Gran % (34.0-71.1) % Immature Gran % (Auto) (0.001-0.429) % Nucleat RBC Rel Count (0.00-0.2) % Eos # (Auto) (0.04-0.36) x10^3/uL Immature Gran # (Auto) (0.001-0.031) x10^3u/L Absolute Lymphs (auto) (1.18-3.74) x10^3/uL Absolute Monos (auto) (0.24-0.86) x10^3/uL Absolute Nucleated RBC (0.00-0.012) x10^3u/L Lymphocytes % (19.3-51.7) % Monocytes % (4.7-12.5) % Eosinophils % (0.7-5.8) % Basophils % (0.1-1.2) % Absolute Granulocytes (1.56-6.13) x10^3/uL Basophils # (0.01-0.08) x10^3/uL PT (9.4-12.5) SECONDS INR (0.8-3.0) APTT (25.1-36.5) SECONDS Sodium (135-145) mmol/L Potassium (3.5-5.1) mmol/L Chloride (98-107) mmol/L Carbon Dioxide (22-30) mmol/L Anion Gap (5-15) MEQ/L BUN (7-17) mg/dL Creatinine (0.52-1.04) mg/dL Estimated GFR ML/MIN Glucose (74-106) mg/dL Lactic Acid 2.3 H (0.4-2.0) Calcium (8.4-10.2) mg/dL Magnesium (1.6-2.3) mg/dL Total Bilirubin (0.2-1.3) mg/dL AST (14-36) U/L ALT (0-35) U/L Alkaline Phosphatase (38-126) U/L Troponin I (0.000-0.033) ng/mL NT-Pro-B Natriuret Pep 806 (<300) pg/mL Serum Total Protein (6.3-8.2) g/dL Albumin (3.5-5.0) g/dL TSH 3rd Generation (0.470-4.680) mIU/L Urine Color Yellow (Yellow) Urine Appearance Clear (Clear) Urine pH 7.0 (4.6-8.0) Ur Specific [place] 1.015 (1.005-1.030) Urine Protein Negative (Negative) Urine Glucose (UA) Negative (Negative) mg/dL Urine Ketones Negative (Negative) Urine Blood Negative (Negative) Urine Nitrite Negative (Negative) Urine Bilirubin Negative (Negative) Urine Urobilinogen 1.0 A (0.2) mg/dL Ur Leukocyte Esterase Moderate A (Negative) U Hyaline Cast (Auto) NONE SEEN (0-2) /LPF Urine Microscopic RBC 0-2 (0-5) /HPF Urine Microscopic WBC >100 A (0-5) /HPF Ur Epithelial Cells Rare (None Seen) /HPF Urine Bacteria Many A (None Seen) /HPF Urine Culture Reflexed ORDERED SEPARATELY (NO) 02/23/25 02/23/25 02/23/25 Range/Units 10:25 10:25 10:25 WBC 13.2 H (3.98-10.04) x10^3/uL RBC 4.08 (3.93-5.22) x10^6/uL Hgb 12.1 (11.2-15.7) g/dL Hct 37.4 (34.1-44.9) % MCV 91.7 (79.4-94.8) fL MCH 29.7 (25.6-32.2) pg MCHC 32.4 (32.2-35.5) g/dL RDW 13.5 (11.7-14.4) % Plt Count 333 (182-369) x10^3/uL MPV 9.5 (9.4-12.3) fL Gran % 82.1 H (34.0-71.1) % Immature Gran % (Auto) 1.0 H (0.001-0.429) % Nucleat RBC Rel Count 0.0 (0.00-0.2) % Eos # (Auto) 0.23 (0.04-0.36) x10^3/uL Immature Gran # (Auto) 0.13 H (0.001-0.031) x10^3u/L Absolute Lymphs (auto) 1.38 (1.18-3.74) x10^3/uL Absolute Monos (auto) 0.57 (0.24-0.86) x10^3/uL Absolute Nucleated RBC 0.00 (0.00-0.012) x10^3u/L Lymphocytes % 10.4 L (19.3-51.7) % Monocytes % 4.3 L (4.7-12.5) % Eosinophils % 1.7 (0.7-5.8) % Basophils % 0.5 (0.1-1.2) % Absolute Granulocytes 10.84 H (1.56-6.13) x10^3/uL Basophils # 0.07 (0.01-0.08) x10^3/uL PT (9.4-12.5) SECONDS INR (0.8-3.0) APTT (25.1-36.5) SECONDS Sodium 131 L (135-145) mmol/L Potassium 4.7 (3.5-5.1) mmol/L Chloride 98 (98-107) mmol/L Carbon Dioxide 23 (22-30) mmol/L Anion Gap 14.5 (5-15) MEQ/L BUN 12 (7-17) mg/dL Creatinine 0.57 (0.52-1.04) mg/dL Estimated GFR 88.5 ML/MIN Glucose 175 H (74-106) mg/dL Lactic Acid (0.4-2.0) Calcium 9.6 (8.4-10.2) mg/dL Magnesium 1.7 (1.6-2.3) mg/dL Total Bilirubin 0.70 (0.2-1.3) mg/dL AST 28 (14-36) U/L ALT 18 (0-35) U/L Alkaline Phosphatase 112 (38-126) U/L Troponin I < 0.012 (0.000-0.033) ng/mL NT-Pro-B Natriuret Pep (<300) pg/mL Serum Total Protein 7.4 (6.3-8.2) g/dL Albumin 4.0 (3.5-5.0) g/dL TSH 3rd Generation 0.935 (0.470-4.680) mIU/L Urine Color (Yellow) Urine Appearance (Clear) Urine pH (4.6-8.0) Ur Specific [place] (1.005-1.030) Urine Protein (Negative) Urine Glucose (UA) (Negative) mg/dL Urine Ketones (Negative) Urine Blood (Negative) Urine Nitrite (Negative) Urine Bilirubin (Negative) Urine Urobilinogen (0.2) mg/dL Ur Leukocyte Esterase (Negative) U Hyaline Cast (Auto) (0-2) /LPF Urine Microscopic RBC (0-5) /HPF Urine Microscopic WBC (0-5) /HPF Ur Epithelial Cells (None Seen) /HPF Urine Bacteria (None Seen) /HPF Urine Culture Reflexed (NO) 02/23/25 Range/Units 10:25 WBC (3.98-10.04) x10^3/uL RBC (3.93-5.22) x10^6/uL Hgb (11.2-15.7) g/dL Hct (34.1-44.9) % MCV (79.4-94.8) fL MCH (25.6-32.2) pg MCHC (32.2-35.5) g/dL RDW (11.7-14.4) % Plt Count (182-369) x10^3/uL MPV (9.4-12.3) fL Gran % (34.0-71.1) % Immature Gran % (Auto) (0.001-0.429) % Nucleat RBC Rel Count (0.00-0.2) % Eos # (Auto) (0.04-0.36) x10^3/uL Immature Gran # (Auto) (0.001-0.031) x10^3u/L Absolute Lymphs (auto) (1.18-3.74) x10^3/uL Absolute Monos (auto) (0.24-0.86) x10^3/uL Absolute Nucleated RBC (0.00-0.012) x10^3u/L Lymphocytes % (19.3-51.7) % Monocytes % (4.7-12.5) % Eosinophils % (0.7-5.8) % Basophils % (0.1-1.2) % Absolute Granulocytes (1.56-6.13) x10^3/uL Basophils # (0.01-0.08) x10^3/uL PT 10.9 (9.4-12.5) SECONDS INR 0.97 (0.8-3.0) APTT 29.2 (25.1-36.5) SECONDS Sodium (135-145) mmol/L Potassium (3.5-5.1) mmol/L Chloride (98-107) mmol/L Carbon Dioxide (22-30) mmol/L Anion Gap (5-15) MEQ/L BUN (7-17) mg/dL Creatinine (0.52-1.04) mg/dL Estimated GFR ML/MIN Glucose (74-106) mg/dL Lactic Acid (0.4-2.0) Calcium (8.4-10.2) mg/dL Magnesium (1.6-2.3) mg/dL Total Bilirubin (0.2-1.3) mg/dL AST (14-36) U/L ALT (0-35) U/L Alkaline Phosphatase (38-126) U/L Troponin I (0.000-0.033) ng/mL NT-Pro-B Natriuret Pep (<300) pg/mL Serum Total Protein (6.3-8.2) g/dL Albumin (3.5-5.0) g/dL TSH 3rd Generation (0.470-4.680) mIU/L Urine Color (Yellow) Urine Appearance (Clear) Urine pH (4.6-8.0) Ur Specific [place] (1.005-1.030) Urine Protein (Negative) Urine Glucose (UA) (Negative) mg/dL Urine Ketones (Negative) Urine Blood (Negative) Urine Nitrite (Negative) Urine Bilirubin (Negative) Urine Urobilinogen (0.2) mg/dL Ur Leukocyte Esterase (Negative) U Hyaline Cast (Auto) (0-2) /LPF Urine Microscopic RBC (0-5) /HPF Urine Microscopic WBC (0-5) /HPF Ur Epithelial Cells (None Seen) /HPF Urine Bacteria (None Seen) /HPF Urine Culture Reflexed (NO) - Radiology Impressions Radiology Exams & Impressions: Radiology Procedures Category Date Time Status ABDOMEN AND PELVIS W CONTRAST [CT] Stat Exams 02/23/25 10:53 Completed CHEST 1 VIEW (PORTABLE) Stat Exams 02/23/25 10:03 Completed Assessment/Plan (1) Urinary tract infection Current Visit: Yes Status: Acute Qualifiers: Urinary tract infection type: acute pyelonephritis Qualified Code(s): N10 - Acute pyelonephritis Assessment & Plan: -Prior infection (02/10/25) with arenas-sensitive Klebsiella; repeat UA positive for leukocytes, >100 WBC/hpf, and bacteria. -Continue IV Rocephin 1 g daily; send urine culture and tailor therapy to sensitivities; maintain hydration and monitor renal function and lactic acid trends; avoid nephrotoxic medications. Code(s): N39.0 - URINARY TRACT INFECTION, SITE NOT SPECIFIED (2) Hyponatremia Current Visit: Yes Status: Acute Assessment & Plan: -Mild most likely due to hypovolemia -continue IVF Code(s): E87.1 - HYPO-OSMOLALITY AND HYPONATREMIA (3) Lactic acid acidosis Current Visit: Yes Status: Acute Assessment & Plan: -Most likely secondary to infection -Received 1L fluid bolus in ED- recheck lactic acid level -continue IVF - treat underlying infection -trend lactate until normalized Code(s): E87.20 - ACIDOSIS, UNSPECIFIED (4) Generalized weakness Current Visit: Yes Status: Acute Assessment & Plan: -Most likely secondary to UTI -Continue ceftriaxone -PT eval -IVF Code(s): R53.1 - WEAKNESS (5) Chronic cough Current Visit: Yes Status: Acute Assessment & Plan: -Chest imaging clear; no evidence of CHF or pneumonia. ED administered Solu- Medrol, DuoNeb, and benzonatate with symptomatic relief. -Continue PRN bronchodilator (albuterol or DuoNeb); add benzonatate and guaifenesin for cough suppression; avoid VICKY inhibitors if on one; consider outpatient pulmonary evaluation for chronic cough if persistent beyond 68 weeks. Code(s): R05.3 - CHRONIC COUGH (6) Afib Current Visit: No Status: Chronic Assessment & Plan: -EKG NS -Continue Eliquis/metoprolol -Tele Code(s): I48.91 - UNSPECIFIED ATRIAL FIBRILLATION (7) Diabetes mellitus Current Visit: No Status: Chronic Assessment & Plan: -ADA -SSI -A1c Code(s): E11.9 - TYPE 2 DIABETES MELLITUS WITHOUT COMPLICATIONS (8) HTN (hypertension) Current Visit: No Status: Chronic Assessment & Plan: Continue home antihypertensive regimen; monitor daily pressures; reassess if sodium remains low after fluids. VTE: Eliquis PPI:protonix Dispo: 1-2 days Code status: SCO Plan of care time spent > 40 mins Code(s): I10 - ESSENTIAL (PRIMARY) HYPERTENSION <MALENA AG - Last Filed: 02/24/25 10:27> History of Present Illness - Chief Complaint History of Present Illness: is a 85 year old female. - Physical Exam Vital Signs: Vital Signs - 24 hr Temp Pulse Resp BP BP Pulse Ox 02/24/25 07:40 98.2 F 72 16 171/70 94 L 02/24/25 04:00 97.9 F 88 20 143/86 95 02/23/25 23:47 97.9 F 93 H 18 143/80 95 02/23/25 19:43 97.9 F 76 18 182/78 95 02/23/25 16:50 84 175/74 02/23/25 15:40 81 188/77 02/23/25 14:48 75 181/71 02/23/25 13:33 97.7 F 78 16 211/82 98 02/23/25 12:00 74 15 164/62 100 02/23/25 11:30 71 19 131/45 100 02/23/25 11:15 62 16 99 02/23/25 11:00 69 16 135/54 99 02/23/25 10:57 60 16 160/69 99 02/23/25 10:31 63 18 154/112 Results - Labs Lab/Micro Results: Lab Results-Last 24 Hours 02/23/25 02/23/25 02/23/25 Range/Units 10:13 10:20 10:20 WBC (3.98-10.04) x10^3/uL RBC (3.93-5.22) x10^6/uL Hgb (11.2-15.7) g/dL Hct (34.1-44.9) % MCV (79.4-94.8) fL MCH (25.6-32.2) pg MCHC (32.2-35.5) g/dL RDW (11.7-14.4) % Plt Count (182-369) x10^3/uL MPV (9.4-12.3) fL Gran % (34.0-71.1) % Immature Gran % (Auto) (0.001-0.429) % Nucleat RBC Rel Count (0.00-0.2) % Eos # (Auto) (0.04-0.36) x10^3/uL Immature Gran # (Auto) (0.001-0.031) x10^3u/L Absolute Lymphs (auto) (1.18-3.74) x10^3/uL Absolute Monos (auto) (0.24-0.86) x10^3/uL Absolute Nucleated RBC (0.00-0.012) x10^3u/L Lymphocytes % (19.3-51.7) % Monocytes % (4.7-12.5) % Eosinophils % (0.7-5.8) % Basophils % (0.1-1.2) % Absolute Granulocytes (1.56-6.13) x10^3/uL Basophils # (0.01-0.08) x10^3/uL PT (9.4-12.5) SECONDS INR (0.8-3.0) APTT (25.1-36.5) SECONDS Sodium (135-145) mmol/L Potassium (3.5-5.1) mmol/L Chloride (98-107) mmol/L Carbon Dioxide (22-30) mmol/L Anion Gap (5-15) MEQ/L BUN (7-17) mg/dL Creatinine (0.52-1.04) mg/dL Estimated GFR ML/MIN Glucose (74-106) mg/dL POC Glucometer (74 to 106) mg/dL Lactic Acid 2.3 H (0.4-2.0) Calcium (8.4-10.2) mg/dL Magnesium (1.6-2.3) mg/dL Total Bilirubin (0.2-1.3) mg/dL AST (14-36) U/L ALT (0-35) U/L Alkaline Phosphatase (38-126) U/L Troponin I (0.000-0.033) ng/mL NT-Pro-B Natriuret Pep 806 (<300) pg/mL Serum Total Protein (6.3-8.2) g/dL Albumin (3.5-5.0) g/dL TSH 3rd Generation (0.470-4.680) mIU/L Urine Color Yellow (Yellow) Urine Appearance Clear (Clear) Urine pH 7.0 (4.6-8.0) Ur Specific [place] 1.015 (1.005-1.030) Urine Protein Negative (Negative) Urine Glucose (UA) Negative (Negative) mg/dL Urine Ketones Negative (Negative) Urine Blood Negative (Negative) Urine Nitrite Negative (Negative) Urine Bilirubin Negative (Negative) Urine Urobilinogen 1.0 A (0.2) mg/dL Ur Leukocyte Esterase Moderate A (Negative) U Hyaline Cast (Auto) NONE SEEN (0-2) /LPF Urine Microscopic RBC 0-2 (0-5) /HPF Urine Microscopic WBC >100 A (0-5) /HPF Ur Epithelial Cells Rare (None Seen) /HPF Urine Bacteria Many A (None Seen) /HPF Urine Culture Reflexed ORDERED SEPARATELY (NO) 02/23/25 02/23/25 02/23/25 Range/Units 10:25 10:25 10:25 WBC 13.2 H (3.98-10.04) x10^3/uL RBC 4.08 (3.93-5.22) x10^6/uL Hgb 12.1 (11.2-15.7) g/dL Hct 37.4 (34.1-44.9) % MCV 91.7 (79.4-94.8) fL MCH 29.7 (25.6-32.2) pg MCHC 32.4 (32.2-35.5) g/dL RDW 13.5 (11.7-14.4) % Plt Count 333 (182-369) x10^3/uL MPV 9.5 (9.4-12.3) fL Gran % 82.1 H (34.0-71.1) % Immature Gran % (Auto) 1.0 H (0.001-0.429) % Nucleat RBC Rel Count 0.0 (0.00-0.2) % Eos # (Auto) 0.23 (0.04-0.36) x10^3/uL Immature Gran # (Auto) 0.13 H (0.001-0.031) x10^3u/L Absolute Lymphs (auto) 1.38 (1.18-3.74) x10^3/uL Absolute Monos (auto) 0.57 (0.24-0.86) x10^3/uL Absolute Nucleated RBC 0.00 (0.00-0.012) x10^3u/L Lymphocytes % 10.4 L (19.3-51.7) % Monocytes % 4.3 L (4.7-12.5) % Eosinophils % 1.7 (0.7-5.8) % Basophils % 0.5 (0.1-1.2) % Absolute Granulocytes 10.84 H (1.56-6.13) x10^3/uL Basophils # 0.07 (0.01-0.08) x10^3/uL PT (9.4-12.5) SECONDS INR (0.8-3.0) APTT (25.1-36.5) SECONDS Sodium 131 L (135-145) mmol/L Potassium 4.7 (3.5-5.1) mmol/L Chloride 98 (98-107) mmol/L Carbon Dioxide 23 (22-30) mmol/L Anion Gap 14.5 (5-15) MEQ/L BUN 12 (7-17) mg/dL Creatinine 0.57 (0.52-1.04) mg/dL Estimated GFR 88.5 ML/MIN Glucose 175 H (74-106) mg/dL POC Glucometer (74 to 106) mg/dL Lactic Acid (0.4-2.0) Calcium 9.6 (8.4-10.2) mg/dL Magnesium 1.7 (1.6-2.3) mg/dL Total Bilirubin 0.70 (0.2-1.3) mg/dL AST 28 (14-36) U/L ALT 18 (0-35) U/L Alkaline Phosphatase 112 (38-126) U/L Troponin I < 0.012 (0.000-0.033) ng/mL NT-Pro-B Natriuret Pep (<300) pg/mL Serum Total Protein 7.4 (6.3-8.2) g/dL Albumin 4.0 (3.5-5.0) g/dL TSH 3rd Generation 0.935 (0.470-4.680) mIU/L Urine Color (Yellow) Urine Appearance (Clear) Urine pH (4.6-8.0) Ur Specific [place] (1.005-1.030) Urine Protein (Negative) Urine Glucose (UA) (Negative) mg/dL Urine Ketones (Negative) Urine Blood (Negative) Urine Nitrite (Negative) Urine Bilirubin (Negative) Urine Urobilinogen (0.2) mg/dL Ur Leukocyte Esterase (Negative) U Hyaline Cast (Auto) (0-2) /LPF Urine Microscopic RBC (0-5) /HPF Urine Microscopic WBC (0-5) /HPF Ur Epithelial Cells (None Seen) /HPF Urine Bacteria (None Seen) /HPF Urine Culture Reflexed (NO) 02/23/25 02/23/25 02/23/25 Range/Units 10: 13:55 16:28 WBC (3.98-10.04) x10^3/uL RBC (3.93-5.22) x10^6/uL Hgb (11.2-15.7) g/dL Hct (34.1-44.9) % MCV (79.4-94.8) fL MCH (25.6-32.2) pg MCHC (32.2-35.5) g/dL RDW (11.7-14.4) % Plt Count (182-369) x10^3/uL MPV (9.4-12.3) fL Gran % (34.0-71.1) % Immature Gran % (Auto) (0.001-0.429) % Nucleat RBC Rel Count (0.00-0.2) % Eos # (Auto) (0.04-0.36) x10^3/uL Immature Gran # (Auto) (0.001-0.031) x10^3u/L Absolute Lymphs (auto) (1.18-3.74) x10^3/uL Absolute Monos (auto) (0.24-0.86) x10^3/uL Absolute Nucleated RBC (0.00-0.012) x10^3u/L Lymphocytes % (19.3-51.7) % Monocytes % (4.7-12.5) % Eosinophils % (0.7-5.8) % Basophils % (0.1-1.2) % Absolute Granulocytes (1.56-6.13) x10^3/uL Basophils # (0.01-0.08) x10^3/uL PT 10.9 (9.4-12.5) SECONDS INR 0.97 (0.8-3.0) APTT 29.2 (25.1-36.5) SECONDS Sodium (135-145) mmol/L Potassium (3.5-5.1) mmol/L Chloride (98-107) mmol/L Carbon Dioxide (22-30) mmol/L Anion Gap (5-15) MEQ/L BUN (7-17) mg/dL Creatinine (0.52-1.04) mg/dL Estimated GFR ML/MIN Glucose (74-106) mg/dL POC Glucometer 366 H (74 to 106) mg/dL Lactic Acid 4.0 H (0.4-2.0) Calcium (8.4-10.2) mg/dL Magnesium (1.6-2.3) mg/dL Total Bilirubin (0.2-1.3) mg/dL AST (14-36) U/L ALT (0-35) U/L Alkaline Phosphatase (38-126) U/L Troponin I (0.000-0.033) ng/mL NT-Pro-B Natriuret Pep (<300) pg/mL Serum Total Protein (6.3-8.2) g/dL Albumin (3.5-5.0) g/dL TSH 3rd Generation (0.470-4.680) mIU/L Urine Color (Yellow) Urine Appearance (Clear) Urine pH (4.6-8.0) Ur Specific [place] (1.005-1.030) Urine Protein (Negative) Urine Glucose (UA) (Negative) mg/dL Urine Ketones (Negative) Urine Blood (Negative) Urine Nitrite (Negative) Urine Bilirubin (Negative) Urine Urobilinogen (0.2) mg/dL Ur Leukocyte Esterase (Negative) U Hyaline Cast (Auto) (0-2) /LPF Urine Microscopic RBC (0-5) /HPF Urine Microscopic WBC (0-5) /HPF Ur Epithelial Cells (None Seen) /HPF Urine Bacteria (None Seen) /HPF Urine Culture Reflexed (NO) 02/23/25 02/23/2502/24/25 Range/Units 17:20 19:49 04:05 WBC 15.8 H (3.98-10.04) x10^3/uL RBC 3.73 L (3.93-5.22) x10^6/uL Hgb 10.8 L (11.2-15.7) g/dL Hct 34.0 L (34.1-44.9) % MCV 91.2 (79.4-94.8) fL MCH 29.0 (25.6-32.2) pg MCHC 31.8 L (32.2-35.5) g/dL RDW 13.5 (11.7-14.4) % Plt Count 302 (182-369) x10^3/uL MPV 9.9 (9.4-12.3) fL Gran % 88.6 H (34.0-71.1) % Immature Gran % (Auto) 1.1 H (0.001-0.429) % Nucleat RBC Rel Count 0.0 (0.00-0.2) % Eos # (Auto) 0 L (0.04-0.36) x10^3/uL Immature Gran # (Auto) 0.17 H (0.001-0.031) x10^3u/L Absolute Lymphs (auto) 1.25 (1.18-3.74) x10^3/uL Absolute Monos (auto) 0.36 (0.24-0.86) x10^3/uL Absolute Nucleated RBC 0.00 (0.00-0.012) x10^3u/L Lymphocytes % 7.9 L (19.3-51.7) % Monocytes % 2.3 L (4.7-12.5) % Eosinophils % 0.0 L (0.7-5.8) % Basophils % 0.1 (0.1-1.2) % Absolute Granulocytes 13.97 H (1.56-6.13) x10^3/uL Basophils # 0.02 (0.01-0.08) x10^3/uL PT (9.4-12.5) SECONDS INR (0.8-3.0) APTT (25.1-36.5) SECONDS Sodium (135-145) mmol/L Potassium (3.5-5.1) mmol/L Chloride (98-107) mmol/L Carbon Dioxide (22-30) mmol/L Anion Gap (5-15) MEQ/L BUN (7-17) mg/dL Creatinine (0.52-1.04) mg/dL Estimated GFR ML/MIN Glucose (74-106) mg/dL POC Glucometer 345 H (74 to 106) mg/dL Lactic Acid 4.4 H (0.4-2.0) Calcium (8.4-10.2) mg/dL Magnesium (1.6-2.3) mg/dL Total Bilirubin (0.2-1.3) mg/dL AST (14-36) U/L ALT (0-35) U/L Alkaline Phosphatase (38-126) U/L Troponin I (0.000-0.033) ng/mL NT-Pro-B Natriuret Pep (<300) pg/mL Serum Total Protein (6.3-8.2) g/dL Albumin (3.5-5.0) g/dL TSH 3rd Generation (0.470-4.680) mIU/L Urine Color (Yellow) Urine Appearance (Clear) Urine pH (4.6-8.0) Ur Specific [place] (1.005-1.030) Urine Protein (Negative) Urine Glucose (UA) (Negative) mg/dL Urine Ketones (Negative) Urine Blood (Negative) Urine Nitrite (Negative) Urine Bilirubin (Negative) Urine Urobilinogen (0.2) mg/dL Ur Leukocyte Esterase (Negative) U Hyaline Cast (Auto) (0-2) /LPF Urine Microscopic RBC (0-5) /HPF Urine Microscopic WBC (0-5) /HPF Ur Epithelial Cells (None Seen) /HPF Urine Bacteria (None Seen) /HPF Urine Culture Reflexed (NO) 02/24/25 02/24/25 02/24/25 Range/Units 04:05 04:20 06:55 WBC (3.98-10.04) x10^3/uL RBC (3.93-5.22) x10^6/uL Hgb (11.2-15.7) g/dL Hct (34.1-44.9) % MCV (79.4-94.8) fL MCH (25.6-32.2) pg MCHC (32.2-35.5) g/dL RDW (11.7-14.4) % Plt Count (182-369) x10^3/uL MPV (9.4-12.3) fL Gran % (34.0-71.1) % Immature Gran % (Auto) (0.001-0.429) % Nucleat RBC Rel Count (0.00-0.2) % Eos # (Auto) (0.04-0.36) x10^3/uL Immature Gran # (Auto) (0.001-0.031) x10^3u/L Absolute Lymphs (auto) (1.18-3.74) x10^3/uL Absolute Monos (auto) (0.24-0.86) x10^3/uL Absolute Nucleated RBC (0.00-0.012) x10^3u/L Lymphocytes % (19.3-51.7) % Monocytes % (4.7-12.5) % Eosinophils % (0.7-5.8) % Basophils % (0.1-1.2) % Absolute Granulocytes (1.56-6.13) x10^3/uL Basophils # (0.01-0.08) x10^3/uL PT (9.4-12.5) SECONDS INR (0.8-3.0) APTT (25.1-36.5) SECONDS Sodium 127 L (135-145) mmol/L Potassium 4.6 (3.5-5.1) mmol/L Chloride 96 L (98-107) mmol/L Carbon Dioxide 22 (22-30) mmol/L Anion Gap 13.7 (5-15) MEQ/L BUN 22 H (7-17) mg/dL Creatinine 0.67 (0.52-1.04) mg/dL Estimated GFR 84.5 ML/MIN Glucose 327 H (74-106) mg/dL POC Glucometer 291 H (74 to 106) mg/dL Lactic Acid 1.7 (0.4-2.0) Calcium 8.8 (8.4-10.2) mg/dL Magnesium (1.6-2.3) mg/dL Total Bilirubin 0.40 (0.2-1.3) mg/dL AST 19 (14-36) U/L ALT 19 (0-35) U/L Alkaline Phosphatase 97 (38-126) U/L Troponin I (0.000-0.033) ng/mL NT-Pro-B Natriuret Pep (<300) pg/mL Serum Total Protein 7.1 (6.3-8.2) g/dL Albumin 3.8 (3.5-5.0) g/dL TSH 3rd Generation (0.470-4.680) mIU/L Urine Color (Yellow) Urine Appearance (Clear) Urine pH (4.6-8.0) Ur Specific [place] (1.005-1.030) Urine Protein (Negative) Urine Glucose (UA) (Negative) mg/dL Urine Ketones (Negative) Urine Blood (Negative) Urine Nitrite (Negative) Urine Bilirubin (Negative) Urine Urobilinogen (0.2) mg/dL Ur Leukocyte Esterase (Negative) U Hyaline Cast (Auto) (0-2) /LPF Urine Microscopic RBC (0-5) /HPF Urine Microscopic WBC (0-5) /HPF Ur Epithelial Cells (None Seen) /HPF Urine Bacteria (None Seen) /HPF Urine Culture Reflexed (NO) 02/24/25 Range/Units 08:01 WBC (3.98-10.04) x10^3/uL RBC (3.93-5.22) x10^6/uL Hgb (11.2-15.7) g/dL Hct (34.1-44.9) % MCV (79.4-94.8) fL MCH (25.6-32.2) pg MCHC (32.2-35.5) g/dL RDW (11.7-14.4) % Plt Count (182-369) x10^3/uL MPV (9.4-12.3) fL Gran % (34.0-71.1) % Immature Gran % (Auto) (0.001-0.429) % Nucleat RBC Rel Count (0.00-0.2) % Eos # (Auto) (0.04-0.36) x10^3/uL Immature Gran # (Auto) (0.001-0.031) x10^3u/L Absolute Lymphs (auto) (1.18-3.74) x10^3/uL Absolute Monos (auto) (0.24-0.86) x10^3/uL Absolute Nucleated RBC (0.00-0.012) x10^3u/L Lymphocytes % (19.3-51.7) % Monocytes % (4.7-12.5) % Eosinophils % (0.7-5.8) % Basophils % (0.1-1.2) % Absolute Granulocytes (1.56-6.13) x10^3/uL Basophils # (0.01-0.08) x10^3/uL PT (9.4-12.5) SECONDS INR (0.8-3.0) APTT (25.1-36.5) SECONDS Sodium (135-145) mmol/L Potassium (3.5-5.1) mmol/L Chloride (98-107) mmol/L Carbon Dioxide (22-30) mmol/L Anion Gap (5-15) MEQ/L BUN (7-17) mg/dL Creatinine (0.52-1.04) mg/dL Estimated GFR ML/MIN Glucose (74-106) mg/dL POC Glucometer (74 to 106) mg/dL Lactic Acid (0.4-2.0) Calcium (8.4-10.2) mg/dL Magnesium (1.6-2.3) mg/dL Total Bilirubin (0.2-1.3) mg/dL AST (14-36) U/L ALT (0-35) U/L Alkaline Phosphatase (38-126) U/L Troponin I < 0.012 (0.000-0.033) ng/mL NT-Pro-B Natriuret Pep (<300) pg/mL Serum Total Protein (6.3-8.2) g/dL Albumin (3.5-5.0) g/dL TSH 3rd Generation (0.470-4.680) mIU/L Urine Color (Yellow) Urine Appearance (Clear) Urine pH (4.6-8.0) Ur Specific [place] (1.005-1.030) Urine Protein (Negative) Urine Glucose (UA) (Negative) mg/dL Urine Ketones (Negative) Urine Blood (Negative) Urine Nitrite (Negative) Urine Bilirubin (Negative) Urine Urobilinogen (0.2) mg/dL Ur Leukocyte Esterase (Negative) U Hyaline Cast (Auto) (0-2) /LPF Urine Microscopic RBC (0-5) /HPF Urine Microscopic WBC (0-5) /HPF Ur Epithelial Cells (None Seen) /HPF Urine Bacteria (None Seen) /HPF Urine Culture Reflexed (NO) Accuchecks Date 02/24/25 Date 02/23/25 Date 02/23/25 Time 07:39 Time 16:30 - Radiology Impressions Radiology Exams & Impressions: Radiology Procedures Category Date Time Status ABDOMEN AND PELVIS W CONTRAST [CT] Stat Exams 02/23/25 10:53 Completed CHEST 1 VIEW (PORTABLE) Stat Exams 02/23/25 10:03 Completed ALLY Encounter - ALLY Encounter Attestation ALLY Encounter Attestation: "JOSEPH Bolivar on 02/23/2025 an dhavediscussed pertinent aspects of their care with Ross Ordonez agree with the history, physical exam (any modifications based on my personal exam will be noted below), assessment, and plan as outlined in original note. Please see immediately below for my summary of findings and additional assessment and plan along with any meaningful corrections/explanations to the Subjective/Objective portions of the ALLY note will be noted." My portion of the encounter took place via telemedicine. -Patient reports that her UTI symptoms never completely cleared after her treat ment that finished about a week ago. She now presents with elevated WBC, lactic acidosis and weakness. Will initiate treatment with IV antibiotic pending repeat urine culture.
[2025-02-23] MEDS ORDERED: HUMALOG SQ PRN (13:45)
[2025-02-23] MEDS ORDERED: TYLENOL 325 MG PO PRN (13:45)
[2025-02-23] MEDS ORDERED: Robitussin 100 MG/5 ML PO PRN (14:07)
[2025-02-23] MEDS: Protonix 40MG Tablet PO SCH (14:24)
[2025-02-23] MEDS: HOLD METFORMIN PRODUCTS FOR 48 HOURS MC SCH (15:44)
[2025-02-23] MEDS: Apresoline 25 MG TABLET PO SCH (15:47)
[2025-02-23] MEDS: HUMALOG SQ SCH (16:34)
[2025-02-23] MEDS: PYRIDIUM 200 MG PO SCH (17:59)
[2025-02-23] MEDS: CALAN 80 MG PO SCH (20:02)
[2025-02-23] MEDS: MELATONIN PO PRN (20:03)
[2025-02-23] MEDS: Zocor 10MG PO SCH (20:03)
[2025-02-23] MEDS: Mucinex 600MG ER Tabs PO PRN (20:03)
[2025-02-23] MEDS: Toprol Xl 50 MG PO SCH (20:03)
[2025-02-23] MEDS: Lantus Insulin SQ SCH (20:03)
[2025-02-23] MEDS: ELIQUIS 2.5 MG TABLET PO SCH (20:03)
[2025-02-23] MEDS: APRESOLINE 20 MG/ML INJ IV ONE ×2 (22:39→22:49)
[2025-02-23] MEDS: MELATONIN PO ONE (23:52)
[2025-02-24 05:01] LABS: BASOPHIL % 0.1 % (0.1-1.2); Basophil (Absolute #) 0.02 x10^3/uL (0.01-0.08); Eosinophil (Absolute #) 0 x10^3/uL (0.04-0.36); Hematocrit 34.0 % (34.1-44.9); Hemoglobin 10.8 g/dL (11.2-15.7); IMMATURE GRAN # 0.17 x10^3u/L (0.001-0.031); IMMATURE GRAN % 1.1 % (0.001-0.429); Lymphocyte (Absolute #) 1.25 x10^3/uL (1.18-3.74); Mean Corpuscular Hemoglobin 29.0 pg (25.6-32.2); Mean Corpuscular Hgb Concent. 31.8 g/dL (32.2-35.5); Monocyte (Absolute #) 0.36 x10^3/uL (0.24-0.86); NUCLEATED RBC # 0.00 x10^3u/L (0.00-0.012); NUCLEATED RBC % 0.0 % (0.00-0.2); Platelet Count 302 x10^3/uL (182-369); Red Blood Count 3.73 x10^6/uL (3.93-5.22); White Blood Count 15.8 x10^3/uL (3.98-10.04)
--- NOTE | 2025-02-24 05:07 | PCM.NOTE ---
Date and Time: 02/24/25 0506 Subjective Assessment: is a 84 year old female with a past medical history of atrial fibrillation (on eliquis), hypertension, recurrent UTIs, and type 2 diabetes mellitus who presented to the emergency department on 02/23/2025 with complaints of generalized weakness and dysuria for the past 23 days. She was recently treated for a urinary tract infection diagnosed on 02/10/2025, with urine culture growing Klebsiella pneumoniaepan-sensitiveand completed a full course of cephalexin on 02/20/25. Since finishing antibiotics, she reports persistent fatigue and a chronic cough ongoing for approximately one month. She denies chest pain, fever, chills, or dyspnea. On presentation, the patient was afebrile and hemodynamically stable but appeared fatigued. Laboratory findings revealed leukocytosis with WBC 13.2, mild hyponatremia with sodium 131, and elevated lactic acid at 2.3. Urinalysis demonstrated moderate leukocytes, >100 WBCs per high-power field, and presence of bacteria, concerning for possible recurrent urinary infection. CT abdomen and pelvis with contrast showed no acute process, stable chronic findings including a benign right middle lobe noncalcified micronodule, hiatal hernia, duodenal diverticulum, sigmoid diverticulosis, left renal angiomyolipoma, arteriosclerotic disease, and chronic bony changes. Chest X-ray showed no pulmonary infiltrate or signs of heart failure. In the ED, she received a 1 L normal saline bolus, IV Lasix 20 mg, IV Rocephin, Solu-Medrol, albuterol via Proventil, DuoNeb treatments, and benzonatate. Per ED documentation, the patient and family expressed concern regarding her persistent cough; while no infection or cardiopulmonary abnormality was identified, she was treated symptomatically with a one-time dose of steroids and bronchodilator therapy for possible reactive airway-type symptoms. 02/23/25: Patient seen at bedside. She reports persistent weakness accompanied by intermittent hot flashes and episodes of paroxysmal nocturnal dyspnea. Nursing staff noted that the patient described an episode of flushing with associated chest pressure earlier in the morning. EKG and troponin were obtained and were unremarkable. On direct interview, the patient clarified that she did not experience true chest pain or pressure, rather a generalized sense of weakness and flushing. She remains afebrile. White blood cell count is elevated, most likely reactive secondary to corticosteroid administration in the emergency department and/or underlying urinary tract infection. Lactic acid has normalized. Urine culture remains pending. Intravenous antibiotics will be continued for now, and intravenous fluids discontinued given improved hemodynamic status and normalization of lactate. Blood pressure is elevated this morning; morning antihypertensive medications will be administered and pressures trended. Overall, symptoms appear nonspecific and possibly mult ifactorialcombination of infection, steroid effect, and autonomic response. Will continue to monitor for recurrent chest discomfort or objective evidence of cardiac ischemia. - Review of Systems Constitutional: Weakness Eyes: No Symptoms Ears, Nose, & Throat: No Symptoms Respiratory: No Symptoms Cardiac: No Symptoms Abdominal/Gastrointestinal: No Symptoms Genitourinary Symptoms: Dysuria, Frequency Musculoskeletal: No Symptoms Skin: No Symptoms Neurological: No Symptoms Psychological: No Symptoms Endocrine: No Symptoms Hematologic/Lymphatic: No Symptoms Immunological/Allergic: No Symptoms Objective Exam General Appearance: no apparent distress Neurologic Exam: alert, oriented x 3, cooperative Skin Exam: normal color Eye Exam: PERRL Ears, Nose, Throat Exam: normal ENT inspection Neck Exam: normal inspection Respiratory Exam: normal breath sounds, lungs clear Cardiovascular Exam: regular rate/rhythm, normal heart sounds Gastrointestinal/Abdomen Exam: soft, normal bowel sounds Extremity Exam: normal inspection Back Exam: normal inspection Pelvic Exam: deferred Rectal Exam: deferred Objective Data Vital Signs: Vital Signs - 24 hr Temp Pulse Resp BP BP Pulse Ox 02/24/25 04:00 97.9 F 88 20 143/86 95 02/23/25 23:47 97.9 F 93 H 18 143/80 95 02/23/25 19:43 97.9 F 76 18 182/78 95 02/23/25 16:50 84 175/74 02/23/25 15:40 81 188/77 02/23/25 14:48 75 181/71 02/23/25 13:33 97.7 F 78 16 211/82 98 02/23/25 12:00 74 15 164/62 100 02/23/25 11:30 71 19 131/45 100 02/23/25 11:15 62 16 99 02/23/25 11:00 69 16 135/54 99 02/23/25 10:57 60 16 160/69 99 02/23/25 10:31 63 18 154/112 02/23/25 10:06 64 16 162/79 99 02/23/25 10:05 65 24 162/79 99 Pain Assessment - Last Documented Pain Intensity 0 Intake and Output: Intake & Output 02/21/25 02/22/25 02/23/25 02/24/25 11:59 11:59 11:59 11:59 Intake Total 2822 Output Total 1500 Balance 1322 Weight 79.379 kg 77.4 kg Lab Results: Lab Results-Last 24 Hours 02/23/25 02/23/25 02/23/25 Range/Units 10:13 10:20 10:20 WBC (3.98-10.04) x10^3/uL RBC (3.93-5.22) x10^6/uL Hgb (11.2-15.7) g/dL Hct (34.1-44.9) % MCV (79.4-94.8) fL MCH (25.6-32.2) pg MCHC (32.2-35.5) g/dL RDW (11.7-14.4) % Plt Count (182-369) x10^3/uL MPV (9.4-12.3) fL Gran % (34.0-71.1) % Immature Gran % (Auto) (0.001-0.429) % Nucleat RBC Rel Count (0.00-0.2) % Eos # (Auto) (0.04-0.36) x10^3/uL Immature Gran # (Auto) (0.001-0.031) x10^3u/L Absolute Lymphs (auto) (1.18-3.74) x10^3/uL Absolute Monos (auto) (0.24-0.86) x10^3/uL Absolute Nucleated RBC (0.00-0.012) x10^3u/L Lymphocytes % (19.3-51.7) % Monocytes % (4.7-12.5) % Eosinophils % (0.7-5.8) % Basophils % (0.1-1.2) % Absolute Granulocytes (1.56-6.13) x10^3/uL Basophils # (0.01-0.08) x10^3/uL PT (9.4-12.5) SECONDS INR (0.8-3.0) APTT (25.1-36.5) SECONDS Sodium (135-145) mmol/L Potassium (3.5-5.1) mmol/L Chloride (98-107) mmol/L Carbon Dioxide (22-30) mmol/L Anion Gap (5-15) MEQ/L BUN (7-17) mg/dL Creatinine (0.52-1.04) mg/dL Estimated GFR ML/MIN Glucose (74-106) mg/dL POC Glucometer (74 to 106) mg/dL Lactic Acid 2.3 H (0.4-2.0) Calcium (8.4-10.2) mg/dL Magnesium (1.6-2.3) mg/dL Total Bilirubin (0.2-1.3) mg/dL AST (14-36) U/L ALT (0-35) U/L Alkaline Phosphatase (38-126) U/L Troponin I (0.000-0.033) ng/mL NT-Pro-B Natriuret Pep 806 (<300) pg/mL Serum Total Protein (6.3-8.2) g/dL Albumin (3.5-5.0) g/dL TSH 3rd Generation (0.470-4.680) mIU/L Urine Color Yellow (Yellow) Urine Appearance Clear (Clear) Urine pH 7.0 (4.6-8.0) Ur Specific [place] 1.015 (1.005-1.030) Urine Protein Negative (Negative) Urine Glucose (UA) Negative (Negative) mg/dL Urine Ketones Negative (Negative) Urine Blood Negative (Negative) Urine Nitrite Negative (Negative) Urine Bilirubin Negative (Negative) Urine Urobilinogen 1.0 A (0.2) mg/dL Ur Leukocyte Esterase Moderate A (Negative) U Hyaline Cast (Auto) NONE SEEN (0-2) /LPF Urine Microscopic RBC 0-2 (0-5) /HPF Urine Microscopic WBC >100 A (0-5) /HPF Ur Epithelial Cells Rare (None Seen) /HPF Urine Bacteria Many A (None Seen) /HPF Urine Culture Reflexed ORDERED SEPARATELY (NO) 02/23/25 02/23/25 02/23/25 Range/Units 10:25 10: 10: WBC 13.2 H (3.98-10.04) x10^3/uL RBC 4.08 (3.93-5.22) x10^6/uL Hgb 12.1 (11.2-15.7) g/dL Hct 37.4 (34.1-44.9) % MCV 91.7 (79.4-94.8) fL MCH 29.7 (25.6-32.2) pg MCHC 32.4 (32.2-35.5) g/dL RDW 13.5 (11.7-14.4) % Plt Count 333 (182-369) x10^3/uL MPV 9.5 (9.4-12.3) fL Gran % 82.1 H (34.0-71.1) % Immature Gran % (Auto) 1.0 H (0.001-0.429) % Nucleat RBC Rel Count 0.0 (0.00-0.2) % Eos # (Auto) 0.23 (0.04-0.36) x10^3/uL Immature Gran # (Auto) 0.13 H (0.001-0.031) x10^3u/L Absolute Lymphs (auto) 1.38 (1.18-3.74) x10^3/uL Absolute Monos (auto) 0.57 (0.24-0.86) x10^3/uL Absolute Nucleated RBC 0.00 (0.00-0.012) x10^3u/L Lymphocytes % 10.4 L (19.3-51.7) % Monocytes % 4.3 L (4.7-12.5) % Eosinophils % 1.7 (0.7-5.8) % Basophils % 0.5 (0.1-1.2) % Absolute Granulocytes 10.84 H (1.56-6.13) x10^3/uL Basophils # 0.07 (0.01-0.08) x10^3/uL PT (9.4-12.5) SECONDS INR (0.8-3.0) APTT (25.1-36.5) SECONDS Sodium 131 L (135-145) mmol/L Potassium 4.7 (3.5-5.1) mmol/L Chloride 98 (98-107) mmol/L Carbon Dioxide 23 (22-30) mmol/L Anion Gap 14.5 (5-15) MEQ/L BUN 12 (7-17) mg/dL Creatinine 0.57 (0.52-1.04) mg/dL Estimated GFR 88.5 ML/MIN Glucose 175 H (74-106) mg/dL POC Glucometer (74 to 106) mg/dL Lactic Acid (0.4-2.0) Calcium 9.6 (8.4-10.2) mg/dL Magnesium 1.7 (1.6-2.3) mg/dL Total Bilirubin 0.70 (0.2-1.3) mg/dL AST 28 (14-36) U/L ALT 18 (0-35) U/L Alkaline Phosphatase 112 (38-126) U/L Troponin I < 0.012 (0.000-0.033) ng/mL NT-Pro-B Natriuret Pep (<300) pg/mL Serum Total Protein 7.4 (6.3-8.2) g/dL Albumin 4.0 (3.5-5.0) g/dL TSH 3rd Generation 0.935 (0.470-4.680) mIU/L Urine Color (Yellow) Urine Appearance (Clear) Urine pH (4.6-8.0) Ur Specific [place] (1.005-1.030) Urine Protein (Negative) Urine Glucose (UA) (Negative) mg/dL Urine Ketones (Negative) Urine Blood (Negative) Urine Nitrite (Negative) Urine Bilirubin (Negative) Urine Urobilinogen (0.2) mg/dL Ur Leukocyte Esterase (Negative) U Hyaline Cast (Auto) (0-2) /LPF Urine Microscopic RBC (0-5) /HPF Urine Microscopic WBC (0-5) /HPF Ur Epithelial Cells (None Seen) /HPF Urine Bacteria (None Seen) /HPF Urine Culture Reflexed (NO) 02/23/25 02/23/25 02/23/25 Range/Units 10: 13:55 16:28 WBC (3.98-10.04) x10^3/uL RBC (3.93-5.22) x10^6/uL Hgb (11.2-15.7) g/dL Hct (34.1-44.9) % MCV (79.4-94.8) fL MCH (25.6-32.2) pg MCHC (32.2-35.5) g/dL RDW (11.7-14.4) % Plt Count (182-369) x10^3/uL MPV (9.4-12.3) fL Gran % (34.0-71.1) % Immature Gran % (Auto) (0.001-0.429) % Nucleat RBC Rel Count (0.00-0.2) % Eos # (Auto) (0.04-0.36) x10^3/uL Immature Gran # (Auto) (0.001-0.031) x10^3u/L Absolute Lymphs (auto) (1.18-3.74) x10^3/uL Absolute Monos (auto) (0.24-0.86) x10^3/uL Absolute Nucleated RBC (0.00-0.012) x10^3u/L Lymphocytes % (19.3-51.7) % Monocytes % (4.7-12.5) % Eosinophils % (0.7-5.8) % Basophils % (0.1-1.2) % Absolute Granulocytes (1.56-6.13) x10^3/uL Basophils # (0.01-0.08) x10^3/uL PT 10.9 (9.4-12.5) SECONDS INR 0.97 (0.8-3.0) APTT 29.2 (25.1-36.5) SECONDS Sodium (135-145) mmol/L Potassium (3.5-5.1) mmol/L Chloride (98-107) mmol/L Carbon Dioxide (22-30) mmol/L Anion Gap (5-15) MEQ/L BUN (7-17) mg/dL Creatinine (0.52-1.04) mg/dL Estimated GFR ML/MIN Glucose (74-106) mg/dL POC Glucometer 366 H (74 to 106) mg/dL Lactic Acid 4.0 H (0.4-2.0) Calcium (8.4-10.2) mg/dL Magnesium (1.6-2.3) mg/dL Total Bilirubin (0.2-1.3) mg/dL AST (14-36) U/L ALT (0-35) U/L Alkaline Phosphatase (38-126) U/L Troponin I (0.000-0.033) ng/mL NT-Pro-B Natriuret Pep (<300) pg/mL Serum Total Protein (6.3-8.2) g/dL Albumin (3.5-5.0) g/dL TSH 3rd Generation (0.470-4.680) mIU/L Urine Color (Yellow) Urine Appearance (Clear) Urine pH (4.6-8.0) Ur Specific [place] (1.005-1.030) Urine Protein (Negative) Urine Glucose (UA) (Negative) mg/dL Urine Ketones (Negative) Urine Blood (Negative) Urine Nitrite (Negative) Urine Bilirubin (Negative) Urine Urobilinogen (0.2) mg/dL Ur Leukocyte Esterase (Negative) U Hyaline Cast (Auto) (0-2) /LPF Urine Microscopic RBC (0-5) /HPF Urine Microscopic WBC (0-5) /HPF Ur Epithelial Cells (None Seen) /HPF Urine Bacteria (None Seen) /HPF Urine Culture Reflexed (NO) 02/23/25 02/23/25 02/24/25 Range/Units 17:20 19:49 04:20 WBC (3.98-10.04) x10^3/uL RBC (3.93-5.22) x10^6/uL Hgb (11.2-15.7) g/dL Hct (34.1-44.9) % MCV (79.4-94.8) fL MCH (25.6-32.2) pg MCHC (32.2-35.5) g/dL RDW (11.7-14.4) % Plt Count (182-369) x10^3/uL MPV (9.4-12.3) fL Gran % (34.0-71.1) % Immature Gran % (Auto) (0.001-0.429) % Nucleat RBC Rel Count (0.00-0.2) % Eos # (Auto) (0.04-0.36) x10^3/uL Immature Gran # (Auto) (0.001-0.031) x10^3u/L Absolute Lymphs (auto) (1.18-3.74) x10^3/uL Absolute Monos (auto) (0.24-0.86) x10^3/uL Absolute Nucleated RBC (0.00-0.012) x10^3u/L Lymphocytes % (19.3-51.7) % Monocytes % (4.7-12.5) % Eosinophils % (0.7-5.8) % Basophils % (0.1-1.2) % Absolute Granulocytes (1.56-6.13) x10^3/uL Basophils # (0.01-0.08) x10^3/uL PT (9.4-12.5) SECONDS INR (0.8-3.0) APTT (25.1-36.5) SECONDS Sodium (135-145) mmol/L Potassium (3.5-5.1) mmol/L Chloride (98-107) mmol/L Carbon Dioxide (22-30) mmol/L Anion Gap (5-15) MEQ/L BUN (7-17) mg/dL Creatinine (0.52-1.04) mg/dL Estimated GFR ML/MIN Glucose (74-106) mg/dL POC Glucometer 345 H (74 to 106) mg/dL Lactic Acid 4.4 H 1.7 (0.4-2.0) Calcium (8.4-10.2) mg/dL Magnesium (1.6-2.3) mg/dL Total Bilirubin (0.2-1.3) mg/dL AST (14-36) U/L ALT (0-35) U/L Alkaline Phosphatase (38-126) U/L Troponin I (0.000-0.033) ng/mL NT-Pro-B Natriuret Pep (<300) pg/mL Serum Total Protein (6.3-8.2) g/dL Albumin (3.5-5.0) g/dL TSH 3rd Generation (0.470-4.680) mIU/L Urine Color (Yellow) Urine Appearance (Clear) Urine pH (4.6-8.0) Ur Specific [place] (1.005-1.030) Urine Protein (Negative) Urine Glucose (UA) (Negative) mg/dL Urine Ketones (Negative) Urine Blood (Negative) Urine Nitrite (Negative) Urine Bilirubin (Negative) Urine Urobilinogen (0.2) mg/dL Ur Leukocyte Esterase (Negative) U Hyaline Cast (Auto) (0-2) /LPF Urine Microscopic RBC (0-5) /HPF Urine Microscopic WBC (0-5) /HPF Ur Epithelial Cells (None Seen) /HPF Urine Bacteria (None Seen) /HPF Urine Culture Reflexed (NO) Radiology Exams: Radiology Procedures Category Date Time Status ABDOMEN AND PELVIS W CONTRAST [CT] Stat Exams 02/23/25 10:53 Completed CHEST 1 VIEW (PORTABLE) Stat Exams 02/23/25 10:03 Completed Medications: Medications Generic Name Dose Route Start Last Admin Trade Name Freq PRN Reason Stop Dose Admin Acetaminophen 650 mg 02/23/25 13:45 Acetaminophen 325 Mg Tablet PO 03/25/25 13:44 Q4H PRN PRN PAIN, FEVER, HEADACHE Apixaban 5 mg 02/23/25 22:00 02/23/25 20:03 Apixaban 2.5 Mg Tablet PO 03/25/25 21:59 5 mg BID YANY Administration Ascorbic Acid 500 mg 02/24/25 10:00 Ascorbic Acid 500 Mg Tablet PO 03/26/25 09:59 DAILY YANY Guaifenesin 600 mg 02/23/25 14:06 02/23/25 20:03 Guaifenesin 600 Mg Tablet Er PO 03/25/25 14:05 600 mg BIDPRN PRN Administration COUGH Guaifenesin 10 ml 02/23/25 14:07 Guaifenesin 100 Mg/5 Ml 118 Ml Bottle PO 03/25/25 14:06 Q4H PRN PRN COUGH Hydralazine HCl 50 mg 02/23/25 16:00 02/23/25 15:47 Hydralazine Hcl 25 Mg Tablet PO 03/25/25 15:59 50 mg BID YANY Administration Hydralazine HCl 10 mg 02/23/25 22:21 02/23/25 22:39 Hydralazine Hcl 20 Mg/Ml Vial IV 02/23/25 22:22 10 mg STAT ONE Administration Hydralazine HCl 10 mg 02/23/25 22:30 02/23/25 22:49 Hydralazine Hcl 20 Mg/Ml Vial IV 02/23/25 22:31 Not Given STAT ONE Sodium Chloride 1,000 mls @ 100 mls/hr 02/23/25 13:45 02/24/25 00:34 Sodium Chloride 0.9% 1000 Ml IV 03/25/25 13:44 100 mls/hr .Q10H YANY Administration Ceftriaxone Sodium 1 gm in 100 mls @ 200 mls/hr 10/16/25 10:00 Rocephin 1 Gm / 100 Ml Nacl IV 03/26/25 09:59 Q24H10 YANY Insulin Glargine 40 unit 02/23/25 22:00 02/23/25 20:03 Insulin Glargine 1 Unit SQ 03/25/25 21:59 40 unit QHS YANY Administration Insulin Human Lispro 10 unit 02/23/25 17:00 02/23/25 16:34 Insulin Lispro 1 Unit SQ 03/25/25 16:59 10 unit TIDWM YANY Administration Insulin Human Lispro 0 unit 02/23/25 20:25 Insulin Lispro 1 Unit SQ 03/25/25 20:24 UD PRN HYPERGLYCEMIA Melatonin 6 mg 02/23/25 20:01 02/23/25 20:03 Melatonin 3 Mg Tablet PO 03/25/25 20:00 6 mg HS PRN PRN Administration INSOMNIA Melatonin 3 mg 02/23/25 23:55 02/23/25 23:52 Melatonin 3 Mg Tablet PO 02/23/25 23:56 3 mg STAT ONE Administration Metoprolol Succinate 100 mg 02/24/25 10:00 Metoprolol Succinate 50 Mg Tablet.Sa PO 03/26/25 09:59 QAM YANY Metoprolol Succinate 50 mg 02/23/25 22:00 02/23/25 20:03 Metoprolol Succinate 50 Mg Tablet.Sa PO 03/25/25 21:59 50 mg HS YANY Administration Non-Formulary Medication 1 each 02/23/25 12:25 02/23/25 15:44 Hold Metformin Products For 48hrs 02/25/25 12:26 Not Given Q48H YANY Pantoprazole Sodium 40 mg 02/23/25 15:00 02/23/25 14:24 Protonix (Pantoprazole) 40 Mg Tablet PO 03/25/25 14:59 40 mg DAILY YANY Administration Phenazopyridine HCl 200 mg 02/23/25 17:55 02/23/25 17:59 Phenazopyridine Hcl 200 Mg Tablet PO 02/25/25 17:54 200 mg TIDWM YANY Administration Simvastatin 10 mg 02/23/25 22:00 02/23/25 20:03 Simvastatin 10 Mg Tablet PO 03/25/25 21:59 10 mg HS YANY Administration Telmisartan 80 mg 02/24/25 10:00 Telmisartan 80 Mg Tab PO 03/26/25 09:59 DAILY YANY Verapamil HCl 80 mg 02/23/25 22:00 02/23/25 20:02 Verapamil Hcl 80 Mg Tablet PO 03/25/25 21:59 80 mg BID YANY Administration Discontinued Medications Generic Name Dose Route Start Last Admin Trade Name Anatolyq PRN Reason Stop Dose Admin Albuterol Sulfate 5 mg 02/23/25 10:59 02/23/25 11:10 Albuterol Sulfate 2.5 Mg/3 Ml Neb IH 02/23/25 11:00 5 mg STAT ONE Administration Albuterol Sulfate Confirm 02/23/25 11:03 Albuterol Sulfate 2.5 Mg/3 Ml Neb Administered 02/23/25 11:04 Dose 5 mg IH .STK-MED ONE Albuterol/Ipratropium 3 ml 02/23/25 10:58 02/23/25 11:10 Ipratropium/Albuterol Sulfate 3 Ml Ampul.Neb IH 02/23/25 10:59 3 ml STAT ONE Administration Albuterol/Ipratropium Confirm 02/23/25 11:03 Ipratropium/Albuterol Sulfate 3 Ml Ampul.Neb Administered 02/23/25 11:04 Dose 3 ml IH .STK-MED ONE Benzonatate 200 mg 02/23/25 12:03 02/23/25 12:08 Benzonatate 100 Mg Capsule PO 02/23/25 12:04 200 mg STAT ONE Administration Benzonatate Confirm 02/23/25 12:06 Benzonatate 100 Mg Capsule Administered 02/23/25 12:07 Dose 200 mg PO .STK-MED ONE Methylprednisolone Sodium 0 mg 02/23/25 10:58 02/23/25 11:47 Succinate 125 mg/ Sterile IV 02/23/25 10:59 125 mg Water 2 ml STAT ONE Administration Furosemide 20 mg 02/23/25 12:04 02/23/25 13:03 Furosemide 20 Mg/Vial IV 02/23/25 12:05 20 mg STAT ONE Administration Furosemide Confirm 02/23/25 13:02 Furosemide 20 Mg/Vial Administered 02/23/25 13:03 Dose 20 mg .ROUTE .STK-MED ONE Ceftriaxone Sodium 1 gm in 100 mls @ 200 mls/hr 02/24/25 10:49 02/23/25 12:50 Rocephin 1 Gm / 100 Ml Nacl IV 02/24/25 11:18 Infused STAT ONE Infusion Sodium Chloride 1,000 mls @ 999 mls/hr 02/23/25 10:53 02/23/25 12:47 Sodium Chloride 0.9% 1000 Ml IV 02/23/25 11:53 Infused .Q1H1M STA Infusion Sodium Chloride Confirm 02/23/25 11:35 Sodium Chloride 0.9% 1000 Ml Administered 02/23/25 11:36 Dose 1,000 mls @ ud .ROUTE .STK-MED ONE Ceftriaxone Sodium Confirm 02/23/25 11:35 Rocephin 1 Gm / 100 Ml Nacl Administered 02/23/25 11:36 Dose 1 gm in 100 mls @ ud IV .STK-MED ONE Insulin Human Lispro 0 unit 02/23/25 13:45 Insulin Lispro 1 Unit SQ 03/25/25 13:44 UD PRN HYPERGLYCEMIA Methylprednisolone Sodium Succinate Confirm 02/23/25 11:35 Methylprednis Sod Succ 125 Mg/2 Ml Vial Administered 02/23/25 11:36 Dose 125 mg .ROUTE .STK-MED ONE Sterile Water Confirm 02/23/25 11:34 Water For Injection,Sterile 10 Ml Vial Administered 02/23/25 11:35 Dose 10 ml IJ .STK-MED ONE Assessment/Plan (1) Urinary tract infection Current Visit: Yes Status: Acute Qualifiers: Urinary tract infection type: acute pyelonephritis Qualified Code(s): N10 - Acute pyelonephritis Assessment & Plan: -Prior infection (02/10/25) with arenas-sensitive Klebsiella; repeat UA positive for leukocytes, >100 WBC/hpf, and bacteria. -Continue IV Rocephin 1 g daily; send urine culture and tailor therapy to sensitivities; maintain hydration and monitor renal function and lactic acid trends; avoid nephrotoxic medications. 02/24: -Ucult pending - continue Ceftriaxone -WBC elevated at 15.8 - may be due to steroids received in ED yesterday Code(s): N39.0 - URINARY TRACT INFECTION, SITE NOT SPECIFIED Chest pressure -EKG unremarkable -Tropin WNL -Patient denies chest pain on interview -Will continue trop trend -monitor BP (2) Hyponatremia Current Visit: Yes Status: Acute Assessment & Plan: -Mild most likely due to hypovolemia -continue IVF 02/24: -Sodium reviewed at 127 with hyperglycemia noted -corrected sodium at 130 -Repeat CMP once glucose levels corrected Code(s): E87.1 - HYPO-OSMOLALITY AND HYPONATREMIA (3) Lactic acid acidosis Current Visit: Yes Status: Acute Assessment & Plan: -Most likely secondary to infection -Received 1L fluid bolus in ED- recheck lactic acid level -continue IVF - treat underlying infection -trend lactate until normalized 02/24/25: -Lactic level reviewed and now WNL at 1.7 Code(s): E87.20 - ACIDOSIS, UNSPECIFIED (4) Generalized weakness Current Visit: Yes Status: Acute Assessment & Plan: -Most likely secondary to UTI -Continue ceftriaxone -PT eval -IVF Code(s): R53.1 - WEAKNESS (5) Chronic cough Current Visit: Yes Status: Acute Assessment & Plan: -Chest imaging clear; no evidence of CHF or pneumonia. ED administered Solu- Medrol, DuoNeb, and benzonatate with symptomatic relief. -Continue PRN bronchodilator (albuterol or DuoNeb); add benzonatate and guaifenesin for cough suppression; avoid VICKY inhibitors if on one; consider outpatient pulmonary evaluation for chronic cough if persistent beyond 68 weeks. Code(s): R05.3 - CHRONIC COUGH (6) Afib Current Visit: No Status: Chronic Assessment & Plan: -EKG NS -Continue Eliquis/metoprolol -Tele Code(s): I48.91 - UNSPECIFIED ATRIAL FIBRILLATION (7) Diabetes mellitus Current Visit: No Status: Chronic Assessment & Plan: -ADA -SSI -A1c pending Code(s): E11.9 - TYPE 2 DIABETES MELLITUS WITHOUT COMPLICATIONS (8) HTN (hypertension) Current Visit: No Status: Chronic Assessment & Plan: Continue home antihypertensive regimen; monitor daily pressures; reassess if sodium remains low after fluids. VTE: Eliquis PPI:protonix Dispo: 1-2 days Code status: SCO Plan of care time spent > 30 mins Code(s): N39.0 - URINARY TRACT INFECTION, SITE NOT SPECIFIED (2) Hyponatremia Current Visit: Yes Status: Acute Code(s): E87.1 - HYPO-OSMOLALITY AND HYPONATREMIA (3) Lactic acid acidosis Current Visit: Yes Status: Acute Code(s): E87.20 - ACIDOSIS, UNSPECIFIED (4) Generalized weakness Current Visit: Yes Status: Acute Code(s): R53.1 - WEAKNESS (5) Chronic cough Current Visit: Yes Status: Acute Code(s): R05.3 - CHRONIC COUGH (6) Afib Current Visit: No Status: Chronic Code(s): I48.91 - UNSPECIFIED ATRIAL FIBRILLATION (7) Diabetes mellitus Current Visit: No Status: Chronic Code(s): E11.9 - TYPE 2 DIABETES MELLITUS WITHOUT COMPLICATIONS (8) HTN (hypertension) Current Visit: No Status: Chronic Code(s): I10 - ESSENTIAL (PRIMARY) HYPERTENSION (9) Chest pressure Current Visit: Yes Status: Acute Code(s): R07.89 - OTHER CHEST PAIN
[2025-02-24 05:13] LABS: Calcium 8.8 mg/dL (8.4-10.2); Carbon Dioxide 22.0 mmol/L (22-30); Creatinine 1 0.67 mg/dL (0.52-1.04); EST GLOMERULAR FILTRATION RATE 84.5 ML/MIN; Glucose 327.0 mg/dL (74-106); Potassium 4.6 mmol/L (3.5-5.1); SGOT/AST 19.0 U/L (14-36); SGPT/ALT 19.0 U/L (0-35); Total Protein 7.1 g/dL (6.3-8.2)
[2025-02-24] MEDS: Toprol Xl 50 MG PO SCH (08:00)
[2025-02-24] MEDS: HUMALOG SQ PRN ×2 (08:01→11:59)
[2025-02-24] MEDS: Vitamin C 500 MG PO SCH (08:48)
[2025-02-24] MEDS: Micardis 80 MG Tablet PO SCH (08:48)
[2025-02-24] MEDS: ROCEPHIN 1 GM / 100 ML NaCl 1 GM/100 ML IVPB IV SCH (08:49)
[2025-02-24] MEDS: HUMALOG SQ SCH (16:29)
[2025-02-24] MEDS: APRESOLINE 20 MG/ML INJ IV PRN (16:30)
[2025-02-24 20:12] LABS: Calcium 9.4 mg/dL (8.4-10.2); Carbon Dioxide 25.0 mmol/L (22-30); Creatinine 1 0.77 mg/dL (0.52-1.04); EST GLOMERULAR FILTRATION RATE 74.6 ML/MIN; Glucose 119.0 mg/dL (74-106); Potassium 4.3 mmol/L (3.5-5.1); SGOT/AST 24.0 U/L (14-36); SGPT/ALT 19.0 U/L (0-35); Total Protein 7.9 g/dL (6.3-8.2)
[2025-02-25 05:11] LABS: BASOPHIL % 0.4 % (0.1-1.2); Basophil (Absolute #) 0.07 x10^3/uL (0.01-0.08); Eosinophil (Absolute #) 0.26 x10^3/uL (0.04-0.36); Hematocrit 34.3 % (34.1-44.9); Hemoglobin 10.8 g/dL (11.2-15.7); IMMATURE GRAN # 0.13 x10^3u/L (0.001-0.031); IMMATURE GRAN % 0.8 % (0.001-0.429); Lymphocyte (Absolute #) 2.26 x10^3/uL (1.18-3.74); Mean Corpuscular Hemoglobin 29.0 pg (25.6-32.2); Mean Corpuscular Hgb Concent. 31.5 g/dL (32.2-35.5); Monocyte (Absolute #) 0.94 x10^3/uL (0.24-0.86); NUCLEATED RBC # 0.00 x10^3u/L (0.00-0.012); NUCLEATED RBC % 0.0 % (0.00-0.2); Platelet Count 292 x10^3/uL (182-369); Red Blood Count 3.72 x10^6/uL (3.93-5.22); White Blood Count 17.2 x10^3/uL (3.98-10.04)
[2025-02-25 05:31] LABS: Calcium 9.1 mg/dL (8.4-10.2); Carbon Dioxide 26.0 mmol/L (22-30); Creatinine 1 0.75 mg/dL (0.52-1.04); EST GLOMERULAR FILTRATION RATE 77.0 ML/MIN; Glucose 93.0 mg/dL (74-106); Potassium 4.3 mmol/L (3.5-5.1); SGOT/AST 23.0 U/L (14-36); SGPT/ALT 16.0 U/L (0-35); Total Protein 6.8 g/dL (6.3-8.2)
[2025-02-25] MEDS: HUMALOG SQ SCH (07:43)
[2025-02-25] MEDS: LEVOFLOXACIN 750MG/150ML D5W 750 MG/150 ML BAG IV SCH (10:10)
--- NOTE | 2025-02-25 12:03 | PCM.NOTE ---
Date and Time: 02/25/25 1158 Subjective Assessment: is a 84 year old female with a past medical history of atrial fibrillation (on eliquis), hypertension, recurrent UTIs, and type 2 diabetes mellitus who presented to the emergency department on 02/23/2025 with complaints of generalized weakness and dysuria for the past 23 days. She was recently treated for a urinary tract infection diagnosed on 02/10/2025, with urine culture growing Klebsiella pneumoniaepan-sensitiveand completed a full course of cephalexin on 02/20/25. Since finishing antibiotics, she reports persistent fatigue and a chronic cough ongoing for approximately one month. She denies chest pain, fever, chills, or dyspnea. On presentation, the patient was afebrile and hemodynamically stable but appeared fatigued. Laboratory findings revealed leukocytosis with WBC 13.2, mild hyponatremia with sodium 131, and elevated lactic acid at 2.3. Urinalysis demonstrated moderate leukocytes, >100 WBCs per high-power field, and presence of bacteria, concerning for possible recurrent urinary infection. CT abdomen and pelvis with contrast showed no acute process, stable chronic findings including a benign right middle lobe noncalcified micronodule, hiatal hernia, duodenal diverticulum, sigmoid diverticulosis, left renal angiomyolipoma, arteriosclerotic disease, and chronic bony changes. Chest X-ray showed no pulmonary infiltrate or signs of heart failure. In the ED, she received a 1 L normal saline bolus, IV Lasix 20 mg, IV Rocephin, Solu-Medrol, albuterol via Proventil, DuoNeb treatments, and benzonatate. Per ED documentation, the patient and family expressed concern regarding her persistent cough; while no infection or cardiopulmonary abnormality was identified, she was treated symptomatically with a one-time dose of steroids and bronchodilator therapy for possible reactive airway-type symptoms. 02/23/25: Patient seen at bedside. She reports persistent weakness accompanied by intermittent hot flashes and episodes of paroxysmal nocturnal dyspnea. Nursing staff noted that the patient described an episode of flushing with associated chest pressure earlier in the morning. EKG and troponin were obtained and were unremarkable. On direct interview, the patient clarified that she did not experience true chest pain or pressure, rather a generalized sense of weakness and flushing. She remains afebrile. White blood cell count is elevated, most likely reactive secondary to corticosteroid administration in the emergency department and/or underlying urinary tract infection. Lactic acid has normalized. Urine culture remains pending. Intravenous antibiotics will be continued for now, and intravenous fluids discontinued given improved hemodynamic status and normalization of lactate. Blood pressure is elevated this morning; morning antihypertensive medications will be administered and pressures trended. Overall, symptoms appear nonspecific and possibly mult ifactorialcombination of infection, steroid effect, and autonomic response. Will continue to monitor for recurrent chest discomfort or objective evidence of cardiac ischemia. 02/25: Endorses that she is feeling much improved today. No overnight events, fever, or dysuria. Weakness is improving. Ucult with citrobacer and Indeterminate to ceftriaxone. WBC increased to 17.2- abx changed to levaquin. Possible dc home tomorrow pending treatment response. - Review of Systems Constitutional: Weakness Eyes: No Symptoms Ears, Nose, & Throat: No Symptoms Respiratory: No Symptoms Cardiac: No Symptoms Abdominal/Gastrointestinal: No Symptoms Genitourinary Symptoms: No Symptoms Musculoskeletal: No Symptoms Skin: No Symptoms Neurological: No Symptoms Psychological: No Symptoms Endocrine: No Symptoms Hematologic/Lymphatic: No Symptoms Immunological/Allergic: No Symptoms Objective Exam General Appearance: no apparent distress Neurologic Exam: alert, oriented x 3, cooperative Skin Exam: normal color Eye Exam: PERRL Ears, Nose, Throat Exam: normal ENT inspection Neck Exam: normal inspection Respiratory Exam: normal breath sounds, lungs clear Cardiovascular Exam: regular rate/rhythm, normal heart sounds Gastrointestinal/Abdomen Exam: soft, normal bowel sounds Extremity Exam: normal inspection Back Exam: normal inspection Pelvic Exam: deferred Rectal Exam: deferred Objective Data Vital Signs: Vital Signs - 24 hr Temp Pulse Resp BP Pulse Ox 02/25/25 11:52 98 F 65 16 146/72 98 02/25/25 07:33 97.9 F 64 16 175/87 95 02/25/25 04:00 98.1 F 69 20 165/69 96 02/24/25 23:09 98.3 F 96 H 175/80 99 02/24/25 22:00 181/73 02/24/25 17:02 70 158/69 02/24/25 14:00 97.8 F 76 16 197/77 97 Pain Assessment - Last Documented Pain Intensity 0 Intake and Output: Intake & Output 02/22/25 02/23/25 02/24/25 02/25/25 11:59 11:59 11:59 11:59 Intake Total 3308 1320 Output Total 9821 4545 Balance 1202 -565 Weight 79.379 kg 80.8 kg 80.5 kg Lab Results: Lab Results-Last 24 Hours 02/24/25 02/24/25 02/24/25 Range/Units 14:06 15:55 17:15 WBC (3.98-10.04) x10^3/uL RBC (3.93-5.22) x10^6/uL Hgb (11.2-15.7) g/dL Hct (34.1-44.9) % MCV (79.4-94.8) fL MCH (25.6-32.2) pg MCHC (32.2-35.5) g/dL RDW (11.7-14.4) % Plt Count (182-369) x10^3/uL MPV (9.4-12.3) fL Gran % (34.0-71.1) % Immature Gran % (Auto) (0.001-0.429) % Nucleat RBC Rel Count (0.00-0.2) % Eos # (Auto) (0.04-0.36) x10^3/uL Immature Gran # (Auto) (0.001-0.031) x10^3u/L Absolute Lymphs (auto) (1.18-3.74) x10^3/uL Absolute Monos (auto) (0.24-0.86) x10^3/uL Absolute Nucleated RBC (0.00-0.012) x10^3u/L Lymphocytes % (19.3-51.7) % Monocytes % (4.7-12.5) % Eosinophils % (0.7-5.8) % Basophils % (0.1-1.2) % Absolute Granulocytes (1.56-6.13) x10^3/uL Basophils # (0.01-0.08) x10^3/uL Sodium (135-145) mmol/L Potassium (3.5-5.1) mmol/L Chloride (98-107) mmol/L Carbon Dioxide (22-30) mmol/L Anion Gap (5-15) MEQ/L BUN (7-17) mg/dL Creatinine (0.52-1.04) mg/dL Estimated GFR ML/MIN Glucose (74-106) mg/dL POC Glucometer 243 H (74 to 106) mg/dL Calcium (8.4-10.2) mg/dL Total Bilirubin (0.2-1.3) mg/dL AST (14-36) U/L ALT (0-35) U/L Alkaline Phosphatase (38-126) U/L Troponin I < 0.012 0.013 (0.000-0.033) ng/mL Serum Total Protein (6.3-8.2) g/dL Albumin (3.5-5.0) g/dL 02/24/25 02/24/25 02/24/25 Range/Units 19:35 22:59 23:01 WBC (3.98-10.04) x10^3/uL RBC (3.93-5.22) x10^6/uL Hgb (11.2-15.7) g/dL Hct (34.1-44.9) % MCV (79.4-94.8) fL MCH (25.6-32.2) pg MCHC (32.2-35.5) g/dL RDW (11.7-14.4) % Plt Count (182-369) x10^3/uL MPV (9.4-12.3) fL Gran % (34.0-71.1) % Immature Gran % (Auto) (0.001-0.429) % Nucleat RBC Rel Count (0.00-0.2) % Eos # (Auto) (0.04-0.36) x10^3/uL Immature Gran # (Auto) (0.001-0.031) x10^3u/L Absolute Lymphs (auto) (1.18-3.74) x10^3/uL Absolute Monos (auto) (0.24-0.86) x10^3/uL Absolute Nucleated RBC (0.00-0.012) x10^3u/L Lymphocytes % (19.3-51.7) % Monocytes % (4.7-12.5) % Eosinophils % (0.7-5.8) % Basophils % (0.1-1.2) % Absolute Granulocytes (1.56-6.13) x10^3/uL Basophils # (0.01-0.08) x10^3/uL Sodium 132 L (135-145) mmol/L Potassium 4.3 (3.5-5.1) mmol/L Chloride 99 (98-107) mmol/L Carbon Dioxide 25 (22-30) mmol/L Anion Gap 12.0 (5-15) MEQ/L BUN 24 H (7-17) mg/dL Creatinine 0.77 (0.52-1.04) mg/dL Estimated GFR 74.6 ML/MIN Glucose 119 H (74-106) mg/dL POC Glucometer 35 L* 32 L* (74 to 106) mg/dL Calcium 9.4 (8.4-10.2) mg/dL Total Bilirubin 0.40 (0.2-1.3) mg/dL AST 24 (14-36) U/L ALT 19 (0-35) U/L Alkaline Phosphatase 93 (38-126) U/L Troponin I (0.000-0.033) ng/mL Serum Total Protein 7.9 (6.3-8.2) g/dL Albumin 4.1 (3.5-5.0) g/dL 02/24/25 02/24/25 02/25/25 Range/Units 23:12 23:32 00:07 WBC (3.98-10.04) x10^3/uL RBC (3.93-5.22) x10^6/uL Hgb (11.2-15.7) g/dL Hct (34.1-44.9) % MCV (79.4-94.8) fL MCH (25.6-32.2) pg MCHC (32.2-35.5) g/dL RDW (11.7-14.4) % Plt Count (182-369) x10^3/uL MPV (9.4-12.3) fL Gran % (34.0-71.1) % Immature Gran % (Auto) (0.001-0.429) % Nucleat RBC Rel Count (0.00-0.2) % Eos # (Auto) (0.04-0.36) x10^3/uL Immature Gran # (Auto) (0.001-0.031) x10^3u/L Absolute Lymphs (auto) (1.18-3.74) x10^3/uL Absolute Monos (auto) (0.24-0.86) x10^3/uL Absolute Nucleated RBC (0.00-0.012) x10^3u/L Lymphocytes % (19.3-51.7) % Monocytes % (4.7-12.5) % Eosinophils % (0.7-5.8) % Basophils % (0.1-1.2) % Absolute Granulocytes (1.56-6.13) x10^3/uL Basophils # (0.01-0.08) x10^3/uL Sodium (135-145) mmol/L Potassium (3.5-5.1) mmol/L Chloride (98-107) mmol/L Carbon Dioxide (22-30) mmol/L Anion Gap (5-15) MEQ/L BUN (7-17) mg/dL Creatinine (0.52-1.04) mg/dL Estimated GFR ML/MIN Glucose 45 L* (74-106) mg/dL POC Glucometer 73 L 98 (74 to 106) mg/dL Calcium (8.4-10.2) mg/dL Total Bilirubin (0.2-1.3) mg/dL AST (14-36) U/L ALT (0-35) U/L Alkaline Phosphatase (38-126) U/L Troponin I (0.000-0.033) ng/mL Serum Total Protein (6.3-8.2) g/dL Albumin (3.5-5.0) g/dL 02/25/25 02/25/25 02/25/25 Range/Units 04:20 04:20 07:14 WBC 17.2 H (3.98-10.04) x10^3/uL RBC 3.72 L (3.93-5.22) x10^6/uL Hgb 10.8 L (11.2-15.7) g/dL Hct 34.3 (34.1-44.9) % MCV 92.2 (79.4-94.8) fL MCH 29.0 (25.6-32.2) pg MCHC 31.5 L (32.2-35.5) g/dL RDW 13.8 (11.7-14.4) % Plt Count 292 (182-369) x10^3/uL MPV 9.7 (9.4-12.3) fL Gran % 78.7 H (34.0-71.1) % Immature Gran % (Auto) 0.8 H (0.001-0.429) % Nucleat RBC Rel Count 0.0 (0.00-0.2) % Eos # (Auto) 0.26 (0.04-0.36) x10^3/uL Immature Gran # (Auto) 0.13 H (0.001-0.031) x10^3u/L Absolute Lymphs (auto) 2.26 (1.18-3.74) x10^3/uL Absolute Monos (auto) 0.94 H (0.24-0.86) x10^3/uL Absolute Nucleated RBC 0.00 (0.00-0.012) x10^3u/L Lymphocytes % 13.1 L (19.3-51.7) % Monocytes % 5.5 (4.7-12.5) % Eosinophils % 1.5 (0.7-5.8) % Basophils % 0.4 (0.1-1.2) % Absolute Granulocytes 13.53 H (1.56-6.13) x10^3/uL Basophils # 0.07 (0.01-0.08) x10^3/uL Sodium 132 L (135-145) mmol/L Potassium 4.3 (3.5-5.1) mmol/L Chloride 100 (98-107) mmol/L Carbon Dioxide 26 (22-30) mmol/L Anion Gap 10.9 (5-15) MEQ/L BUN 25 H (7-17) mg/dL Creatinine 0.75 (0.52-1.04) mg/dL Estimated GFR 77.0 ML/MIN Glucose 93 (74-106) mg/dL POC Glucometer 80 (74 to 106) mg/dL Calcium 9.1 (8.4-10.2) mg/dL Total Bilirubin 0.30 (0.2-1.3) mg/dL AST 23 (14-36) U/L ALT 16 (0-35) U/L Alkaline Phosphatase 88 (38-126) U/L Troponin I (0.000-0.033) ng/mL Serum Total Protein 6.8 (6.3-8.2) g/dL Albumin 3.7 (3.5-5.0) g/dL 02/25/25 Range/Units 11:26 WBC (3.98-10.04) x10^3/uL RBC (3.93-5.22) x10^6/uL Hgb (11.2-15.7) g/dL Hct (34.1-44.9) % MCV (79.4-94.8) fL MCH (25.6-32.2) pg MCHC (32.2-35.5) g/dL RDW (11.7-14.4) % Plt Count (182-369) x10^3/uL MPV (9.4-12.3) fL Gran % (34.0-71.1) % Immature Gran % (Auto) (0.001-0.429) % Nucleat RBC Rel Count (0.00-0.2) % Eos # (Auto) (0.04-0.36) x10^3/uL Immature Gran # (Auto) (0.001-0.031) x10^3u/L Absolute Lymphs (auto) (1.18-3.74) x10^3/uL Absolute Monos (auto) (0.24-0.86) x10^3/uL Absolute Nucleated RBC (0.00-0.012) x10^3u/L Lymphocytes % (19.3-51.7) % Monocytes % (4.7-12.5) % Eosinophils % (0.7-5.8) % Basophils % (0.1-1.2) % Absolute Granulocytes (1.56-6.13) x10^3/uL Basophils # (0.01-0.08) x10^3/uL Sodium (135-145) mmol/L Potassium (3.5-5.1) mmol/L Chloride (98-107) mmol/L Carbon Dioxide (22-30) mmol/L Anion Gap (5-15) MEQ/L BUN (7-17) mg/dL Creatinine (0.52-1.04) mg/dL Estimated GFR ML/MIN Glucose (74-106) mg/dL POC Glucometer 284 H (74 to 106) mg/dL Calcium (8.4-10.2) mg/dL Total Bilirubin (0.2-1.3) mg/dL AST (14-36) U/L ALT (0-35) U/L Alkaline Phosphatase (38-126) U/L Troponin I (0.000-0.033) ng/mL Serum Total Protein (6.3-8.2) g/dL Albumin (3.5-5.0) g/dL Medications: Medications Generic Name Dose Route Start Last Admin Trade Name Freq PRN Reason Stop Dose Admin Acetaminophen 650 mg 02/23/25 13:45 Acetaminophen 325 Mg Tablet PO 03/25/25 13:44 Q4H PRN PRN PAIN, FEVER, HEADACHE Apixaban 5 mg 02/23/25 22:00 02/25/25 09:23 Apixaban 2.5 Mg Tablet PO 03/25/25 21:59 5 mg BID YANY Administration Ascorbic Acid 500 mg 02/24/25 10:00 02/25/25 09:23 Ascorbic Acid 500 Mg Tablet PO 03/26/25 09:59 500 mg DAILY YANY Administration Guaifenesin 600 mg 02/23/25 14:06 02/23/25 20:03 Guaifenesin 600 Mg Tablet Er PO 03/25/25 14:05 600 mg BIDPRN PRN Administration COUGH Guaifenesin 10 ml 02/23/25 14:07 Guaifenesin 100 Mg/5 Ml 118 Ml Bottle PO 03/25/25 14:06 Q4H PRN PRN COUGH Hydralazine HCl 50 mg 02/23/25 16:00 02/25/25 09:23 Hydralazine Hcl 25 Mg Tablet PO 03/25/25 15:59 50 mg BID YANY Administration Hydralazine HCl 5 mg 02/24/25 16:00 02/24/25 16:30 Hydralazine Hcl 20 Mg/Ml Vial IV 03/26/25 15:59 5 mg Q4H PRN PRN Administration HYPERTENSION Levofloxacin/Dextrose 750 mg in 150 mls @ 100 mls/hr 02/25/25 10:00 02/25/25 10:10 Levofloxacin 750mg/150ml D5w IV 03/27/25 09:59 100 mls/hr Q24H10 YANY Administration Insulin Glargine 40 unit 02/23/25 22:00 02/24/25 20:30 Insulin Glargine 1 Unit SQ 03/25/25 21:59 40 unit QHS YANY Administration Insulin Human Lispro 10 unit 02/25/25 05:04 02/25/25 11:38 Insulin Lispro 1 Unit SQ 03/25/25 16:59 10 unit TIDWM YANY Administration Insulin Human Lispro 0 unit 02/25/25 05:05 Insulin Lispro 1 Unit SQ 03/27/25 05:04 UD PRN HYPERGLYCEMIA Melatonin 6 mg 02/23/25 20:01 02/24/25 20:27 Melatonin 3 Mg Tablet PO 03/25/25 20:00 6 mg HS PRN PRN Administration INSOMNIA Metoprolol Succinate 100 mg 02/24/25 10:00 02/25/25 09:23 Metoprolol Succinate 50 Mg Tablet.Sa PO 03/26/25 09:59 100 mg QAM YANY Administration Metoprolol Succinate 50 mg 02/23/25 22:00 02/24/25 20:29 Metoprolol Succinate 50 Mg Tablet.Sa PO 03/25/25 21:59 50 mg HS YANY Administration Non-Formulary Medication 1 each 02/23/25 12:25 02/23/25 15:44 Hold Metformin Products For 48hrs 02/25/25 12:26 Not Given Q48H YANY Pantoprazole Sodium 40 mg 02/23/25 15:00 02/25/25 09:23 Protonix (Pantoprazole) 40 Mg Tablet PO 03/25/25 14:59 40 mg DAILY YANY Administration Phenazopyridine HCl 200 mg 02/23/25 17:55 02/25/25 11:39 Phenazopyridine Hcl 200 Mg Tablet PO 02/25/25 17:54 200 mg TIDWM YANY Administration Simvastatin 10 mg 02/23/25 22:00 02/24/25 20:26 Simvastatin 10 Mg Tablet PO 03/25/25 21:59 10 mg HS YANY Administration Telmisartan 80 mg 02/24/25 10:00 02/25/25 09:23 Telmisartan 80 Mg Tab PO 03/26/25 09:59 80 mg DAILY YANY Administration Verapamil HCl 80 mg 02/23/25 22:00 02/25/25 09:23 Verapamil Hcl 80 Mg Tablet PO 03/25/25 21:59 80 mg BID YANY Administration Discontinued Medications Generic Name Dose Route Start Last Admin Trade Name Elisabeth PRN Reason Stop Dose Admin Albuterol Sulfate 5 mg 02/23/25 10:59 02/23/25 11:10 Albuterol Sulfate 2.5 Mg/3 Ml Neb IH 02/23/25 11:00 5 mg STAT ONE Administration Albuterol Sulfate Confirm 02/23/25 11:03 Albuterol Sulfate 2.5 Mg/3 Ml Neb Administered 02/23/25 11:04 Dose 5 mg IH .STK-MED ONE Albuterol/Ipratropium 3 ml 02/23/25 10:58 02/23/25 11:10 Ipratropium/Albuterol Sulfate 3 Ml Ampul.Neb IH 02/23/25 10:59 3 ml STAT ONE Administration Albuterol/Ipratropium Confirm 02/23/25 11:03 Ipratropium/Albuterol Sulfate 3 Ml Ampul.Neb Administered 02/23/25 11:04 Dose 3 ml IH .STK-MED ONE Benzonatate 200 mg 02/23/25 12:03 02/23/25 12:08 Benzonatate 100 Mg Capsule PO 02/23/25 12:04 200 mg STAT ONE Administration Benzonatate Confirm 02/23/25 12:06 Benzonatate 100 Mg Capsule Administered 02/23/25 12:07 Dose 200 mg PO .STK-MED ONE Methylprednisolone Sodium 0 mg 02/23/25 10:58 02/23/25 11:47 Succinate 125 mg/ Sterile IV 02/23/25 10:59 125 mg Water 2 ml STAT ONE Administration Furosemide 20 mg 02/23/25 12:04 02/23/25 13:03 Furosemide 20 Mg/Vial IV 02/23/25 12:05 20 mg STAT ONE Administration Furosemide Confirm 02/23/25 13:02 Furosemide 20 Mg/Vial Administered 02/23/25 13:03 Dose 20 mg .ROUTE .STK-MED ONE Hydralazine HCl 10 mg 02/23/25 22:21 02/23/25 22:39 Hydralazine Hcl 20 Mg/Ml Vial IV 02/23/25 22:22 10 mg STAT ONE Administration Hydralazine HCl 10 mg 02/23/25 22:30 02/23/25 22:49 Hydralazine Hcl 20 Mg/Ml Vial IV 02/23/25 22:31 Not Given STAT ONE Ceftriaxone Sodium 1 gm in 100 mls @ 200 mls/hr 02/24/25 10:49 02/23/25 12:50 Rocephin 1 Gm / 100 Ml Nacl IV 02/24/25 11:18 Infused STAT ONE Infusion Sodium Chloride 1,000 mls @ 999 mls/hr 02/23/25 10:53 02/23/25 12:47 Sodium Chloride 0.9% 1000 Ml IV 02/23/25 11:53 Infused .Q1H1M STA Infusion Sodium Chloride Confirm 02/23/25 11:35 Sodium Chloride 0.9% 1000 Ml Administered 02/23/25 11:36 Dose 1,000 mls @ ud .ROUTE .STK-MED ONE Ceftriaxone Sodium Confirm 02/23/25 11:35 Rocephin 1 Gm / 100 Ml Nacl Administered 02/23/25 11:36 Dose 1 gm in 100 mls @ ud IV .STK-MED ONE Sodium Chloride 1,000 mls @ 100 mls/hr 02/23/25 13:45 02/24/25 11:16 Sodium Chloride 0.9% 1000 Ml IV 03/25/25 13:44 Not Given .Q10H YANY Ceftriaxone Sodium 1 gm in 100 mls @ 200 mls/hr 02/24/25 10:00 02/25/25 09:26 Rocephin 1 Gm / 100 Ml Nacl IV 03/26/25 09:59 200 mls/hr Q24H10 YANY Administration Insulin Human Lispro 0 unit 02/23/25 13:45 Insulin Lispro 1 Unit SQ 03/25/25 13:44 UD PRN HYPERGLYCEMIA Insulin Human Lispro 10 unit 02/23/25 17:00 02/24/25 11:58 Insulin Lispro 1 Unit SQ 03/25/25 16:59 10 unit TIDWM YANY Administration Insulin Human Lispro 0 unit 02/23/25 20:25 02/24/25 08:01 Insulin Lispro 1 Unit SQ 03/25/25 20:24 4 unit UD PRN Administration HYPERGLYCEMIA Insulin Human Lispro 0 unit 02/24/25 11:47 02/24/25 16:29 Insulin Lispro 1 Unit SQ 03/26/25 11:46 6 unit UD PRN Administration HYPERGLYCEMIA Insulin Human Lispro 12 unit 02/24/25 16:05 02/24/25 16:29 Insulin Lispro 1 Unit SQ 03/25/25 16:59 12 unit TIDWM YANY Administration Melatonin 3 mg 02/23/25 23:55 02/23/25 23:52 Melatonin 3 Mg Tablet PO 02/23/25 23:56 3 mg STAT ONE Administration Methylprednisolone Sodium Succinate Confirm 02/23/25 11:35 Methylprednis Sod Succ 125 Mg/2 Ml Vial Administered 02/23/25 11:36 Dose 125 mg .ROUTE .STK-MED ONE Sterile Water Confirm 02/23/25 11:34 Water For Injection,Sterile 10 Ml Vial Administered 02/23/25 11:35 Dose 10 ml IJ .STK-MED ONE Assessment/Plan (1) Urinary tract infection Current Visit: Yes Status: Acute Qualifiers: Urinary tract infection type: acute pyelonephritis Qualified Code(s): N10 - Acute pyelonephritis Assessment & Plan: -Prior infection (02/10/25) with arenas-sensitive Klebsiella; repeat UA positive for leukocytes, >100 WBC/hpf, and bacteria. -Continue IV Rocephin 1 g daily; send urine culture and tailor therapy to sensitivities; maintain hydration and monitor renal function and lactic acid trends; avoid nephrotoxic medications. 02/24: -Ucult pending - continue Ceftriaxone -WBC elevated at 15.8 - may be due to steroids received in ED yesterday 02/25: -WBC uptrending to 17.2 -Ucult with citrobacter with Indeterminate sensitivity to ceftriaxone- will switch to levaquin Code(s): N39.0 - URINARY TRACT INFECTION, SITE NOT SPECIFIED Chest pressure -EKG unremarkable -Tropin WNL -Patient denies chest pain on interview -Will continue trop trend -monitor BP 02/25: -No further events -Trops WNL x 3 (2) Hyponatremia Current Visit: Yes Status: Acute Assessment & Plan: -Mild most likely due to hypovolemia -continue IVF 02/24: -Sodium reviewed at 127 with hyperglycemia noted -corrected sodium at 130 -Repeat CMP once glucose levels corrected 02/25: -Sodium improving at 130 Code(s): E87.1 - HYPO-OSMOLALITY AND HYPONATREMIA (3) Lactic acid acidosis Current Visit: Yes Status: Acute Assessment & Plan: -Most likely secondary to infection -Received 1L fluid bolus in ED- recheck lactic acid level -continue IVF - treat underlying infection -trend lactate until normalized 02/24/25: -Lactic level reviewed and now WNL at 1.7 Code(s): E87.20 - ACIDOSIS, UNSPECIFIED (4) Generalized weakness Current Visit: Yes Status: Acute Assessment & Plan: -Most likely secondary to UTI -Continue ceftriaxone -PT eval -IVF Code(s): R53.1 - WEAKNESS (5) Chronic cough Current Visit: Yes Status: Acute Assessment & Plan: -Chest imaging clear; no evidence of CHF or pneumonia. ED administered Solu- Medrol, DuoNeb, and benzonatate with symptomatic relief. -Continue PRN bronchodilator (albuterol or DuoNeb); add benzonatate and guaifenesin for cough suppression; avoid VICKY inhibitors if on one; consider outpatient pulmonary evaluation for chronic cough if persistent beyond 68 weeks. Code(s): R05.3 - CHRONIC COUGH (6) Afib Current Visit: No Status: Chronic Assessment & Plan: -EKG NS -Continue Eliquis/metoprolol -Tele Code(s): I48.91 - UNSPECIFIED ATRIAL FIBRILLATION (7) Diabetes mellitus Current Visit: No Status: Chronic Assessment & Plan: -ADA -SSI on hold- continue with 10 units TIDWM and lantus -A1c 6.98 good control Code(s): E11.9 - TYPE 2 DIABETES MELLITUS WITHOUT COMPLICATIONS (8) HTN (hypertension) Current Visit: No Status: Chronic Assessment & Plan: Continue home antihypertensive regimen; monitor daily pressures; reassess if sodium remains low after fluids. VTE: Eliquis PPI:protonix Dispo: 1-2 days Code status: SCO Plan of care time spent > 30 mins Code(s): N39.0 - URINARY TRACT INFECTION, SITE NOT SPECIFIED (2) Hyponatremia Current Visit: Yes Status: Acute Code(s): E87.1 - HYPO-OSMOLALITY AND HYPONATREMIA (3) Lactic acid acidosis Current Visit: Yes Status: Acute Code(s): E87.20 - ACIDOSIS, UNSPECIFIED (4) Generalized weakness Current Visit: Yes Status: Acute Code(s): R53.1 - WEAKNESS (5) Chronic cough Current Visit: Yes Status: Acute Code(s): R05.3 - CHRONIC COUGH (6) Afib Current Visit: No Status: Chronic Code(s): I48.91 - UNSPECIFIED ATRIAL FIBRILLATION (7) Diabetes mellitus Current Visit: No Status: Chronic Code(s): E11.9 - TYPE 2 DIABETES MELLITUS WITHOUT COMPLICATIONS (8) HTN (hypertension) Current Visit: No Status: Chronic Code(s): I10 - ESSENTIAL (PRIMARY) HYPERTENSION (9) Chest pressure Current Visit: Yes Status: Acute Code(s): R07.89 - OTHER CHEST PAIN
[2025-02-25] MEDS: HUMALOG SQ PRN (16:42)
[2025-02-26 04:45] VITALS: RESP 18
[2025-02-26 06:38] LABS: BASOPHIL % 0.6 % (0.1-1.2); Basophil (Absolute #) 0.08 x10^3/uL (0.01-0.08); Eosinophil (Absolute #) 0.36 x10^3/uL (0.04-0.36); Hematocrit 35.8 % (34.1-44.9); Hemoglobin 11.5 g/dL (11.2-15.7); IMMATURE GRAN # 0.12 x10^3u/L (0.001-0.031); IMMATURE GRAN % 0.9 % (0.001-0.429); Lymphocyte (Absolute #) 2.01 x10^3/uL (1.18-3.74); Mean Corpuscular Hemoglobin 29.1 pg (25.6-32.2); Mean Corpuscular Hgb Concent. 32.1 g/dL (32.2-35.5); Monocyte (Absolute #) 0.78 x10^3/uL (0.24-0.86); NUCLEATED RBC # 0.00 x10^3u/L (0.00-0.012); NUCLEATED RBC % 0.0 % (0.00-0.2); Platelet Count 320 x10^3/uL (182-369); Red Blood Count 3.95 x10^6/uL (3.93-5.22); White Blood Count 12.8 x10^3/uL (3.98-10.04)
--- NOTE | 2025-02-26 07:08 | PCM.DS ---
Discharge Summary Date of Admission: 02/23/25 13:14 Date of Discharge: 02/25/25 Admitting Physician: MALENA AG MD Primary Care Provider: JOSE MARTINEZ Allergies Allergies No Known Drug Allergies Allergy (Verified 02/23/25 13:25) Hospital Summary - Hospital Course Hospital Course: Ms. Zhang is an 84-year-old female with a history of atrial fibrillation on Eliquis, hypertension, type 2 diabetes mellitus, and recurrent urinary tract infections who presented on 02/23/2025 with generalized weakness and dysuria for 23 days. She had recently completed a course of cephalexin on 02/20/25 for Klebsiella pneumoniae UTI but continued to experience fatigue and chronic cough. On arrival, she was afebrile and hemodynamically stable but appeared fatigued. Labs showed leukocytosis (WBC 13.2), mild hyponatremia (Na 131), and elevated lactate (2.3 mmol/L). Urinalysis revealed moderate leukocytes, >100 WBC/hpf, and bacteria, consistent with recurrent UTI. CT abdomen/pelvis showed no acute findings, with stable chronic changes including a benign right middle lobe micronodule, hiatal hernia, duodenal diverticulum, sigmoid diverticulosis, and left renal angiomyolipoma. Chest X-ray showed no infiltrate or pulmonary edema. In the ED, she received 1 L IV normal saline, IV Lasix 20 mg, IV Rocephin, Solu- Medrol, albuterol (Proventil and DuoNeb), and benzonatate. Lactic acid normalized following fluid resuscitation. On 02/24, sodium corrected to 130 after adjusting for hyperglycemia, and leukocytosis (15.8) was likely secondary to steroid effect. On 02/25, WBC increased to 17.2 and urine culture grew Citrobacter freundii with indeterminate sensitivity to ceftriaxone; antibiotics were changed to levofloxacin. Blood cultures remained negative. By 02/26, WBC had improved to 12.8 after initiation of levofloxacin. The patient was afebrile, hemodynamically stable, ambulating independently, and reported marked improvement in strength and resolution of dysuria. Discharge Note New Diagnosis: UTI New Medications:Levaquin Follow Up: PCP I spent 35 minutes [id number] with the patient on the day of discharge performing discharge exam, discussing hospital stay and discharge instructions with patient and caregivers, preparation of discharge records, prescriptions & referral forms and addressing any questions/concerns the patient had as documented above. - Vitals & Intake/Output Vital Signs: Vital Signs Temperature 97.1 F 02/26/25 04:00 Pulse Rate 69 02/26/25 06:25 Respiratory Rate 18 02/26/25 04:00 Blood Pressure 165/71 02/26/25 06:25 O2 Sat by Pulse Oximetry 93 L 02/26/25 04:00 Intake & Output: Intake & Output 02/23/25 02/24/25 02/25/25 02/26/25 11:59 11:59 11:59 11:59 Intake Total 3302 1320 1260 Output Total 2100 1885 Balance 1202 -565 1260 Weight 79.379 kg 80.8 kg 80.5 kg 80.7 kg - Lab Result Diagrams: 02/26/25 05:55 02/26/25 05:55 Lab Results-Last 24 Hrs: Lab Results-Last 24 Hours 02/25/25 02/25/25 02/25/25 Range/Units 07:14 11:26 15:41 WBC (3.98-10.04) x10^3/uL RBC (3.93-5.22) x10^6/uL Hgb (11.2-15.7) g/dL Hct (34.1-44.9) % MCV (79.4-94.8) fL MCH (25.6-32.2) pg MCHC (32.2-35.5) g/dL RDW (11.7-14.4) % Plt Count (182-369) x10^3/uL MPV (9.4-12.3) fL Gran % (34.0-71.1) % Immature Gran % (Auto) (0.001-0.429) % Nucleat RBC Rel Count (0.00-0.2) % Eos # (Auto) (0.04-0.36) x10^3/uL Immature Gran # (Auto) (0.001-0.031) x10^3u/L Absolute Lymphs (auto) (1.18-3.74) x10^3/uL Absolute Monos (auto) (0.24-0.86) x10^3/uL Absolute Nucleated RBC (0.00-0.012) x10^3u/L Lymphocytes % (19.3-51.7) % Monocytes % (4.7-12.5) % Eosinophils % (0.7-5.8) % Basophils % (0.1-1.2) % Absolute Granulocytes (1.56-6.13) x10^3/uL Basophils # (0.01-0.08) x10^3/uL POC Glucometer 80 284 H 285 H (74 to 106) mg/dL 02/25/25 02/25/25 02/26/25 Range/Units 21:05 22:43 05:55 WBC 12.8 H (3.98-10.04) x10^3/uL RBC 3.95 (3.93-5.22) x10^6/uL Hgb 11.5 (11.2-15.7) g/dL Hct 35.8 (34.1-44.9) % MCV 90.6 (79.4-94.8) fL MCH 29.1 (25.6-32.2) pg MCHC 32.1 L (32.2-35.5) g/dL RDW 13.8 (11.7-14.4) % Plt Count 320 (182-369) x10^3/uL MPV 9.7 (9.4-12.3) fL Gran % 73.9 H (34.0-71.1) % Immature Gran % (Auto) 0.9 H (0.001-0.429) % Nucleat RBC Rel Count 0.0 (0.00-0.2) % Eos # (Auto) 0.36 (0.04-0.36) x10^3/uL Immature Gran # (Auto) 0.12 H (0.001-0.031) x10^3u/L Absolute Lymphs (auto) 2.01 (1.18-3.74) x10^3/uL Absolute Monos (auto) 0.78 (0.24-0.86) x10^3/uL Absolute Nucleated RBC 0.00 (0.00-0.012) x10^3u/L Lymphocytes % 15.7 L (19.3-51.7) % Monocytes % 6.1 (4.7-12.5) % Eosinophils % 2.8 (0.7-5.8) % Basophils % 0.6 (0.1-1.2) % Absolute Granulocytes 9.47 H (1.56-6.13) x10^3/uL Basophils # 0.08 (0.01-0.08) x10^3/uL POC Glucometer 234 H 271 H (74 to 106) mg/dL Micro Results-Entire Visit: Microbiology 02/23/25 10:17 Urine Culture - Final Clean Catch Midstream Citrobacter Freundii 02/23/25 10:25 Blood Culture - Preliminary Venous Access Site - Upper 02/23/25 10:20 Blood Culture - Preliminary Venous Access Site - Upper Accuchecks Date 02/25/25 Date 02/25/25 Date 02/25/25 Time 16:06 Time 11:52 Time 07:32 - Procedures and Test Procedures and Tests throughout Hospitalization: Therapy Orders & Screens 02/23/25 11:14 Respiratory Therapy Assessment DAILY Comment: Diagnosis: UTi w/ Pyelonephritis 02/23/25 13:45 Respiratory Therapy Consult ONCE Comment: Reason For Exam: Diagnosis: UTi w/ Pyelonephritis 02/24/25 07:44 EKG ROUTINE Comment: Diagnosis: UTi w/ Pyelonephritis EKG Reason: Chest Pain Discharge Exam General Appearance: no apparent distress Neurologic Exam: alert, oriented x 3, cooperative Eye Exam: PERRL Ears, Nose, Throat Exam: normal ENT inspection Neck Exam: normal inspection Respiratory Exam: normal breath sounds, lungs clear Cardiovascular Exam: regular rate/rhythm, normal heart sounds Gastrointestinal/Abdomen Exam: soft, normal bowel sounds Pelvic Exam: deferred Rectal Exam: deferred Back Exam: normal inspection Extremity Exam: normal inspection Skin Exam: normal color Final Diagnosis/Problem List - Final Discharge Diagnosis/Problem (1) Urinary tract infection Current Visit: Yes Status: Acute Assessment & Plan: UA positive for >100 WBC/hpf and bacteria; urine culture grew Citrobacter freundii with indeterminate sensitivity to ceftriaxone. Initially treated with IV Rocephin; transitioned to Levaquin with clinical and lab improvement (WBC decreased to 12.8 on 02/26). Maintain oral hydration; avoid nephrotoxic medications; monitor renal function and electrolytes. Discharge plan: Levofloxacin x7 days total; outpatient follow-up with PCP for repeat UA and clinical reassessment. Blood cultures: No growth to date. Lactic acid normalized to 1.7 prior to discharge. Code(s): N39.0 - URINARY TRACT INFECTION, SITE NOT SPECIFIED (2) Hyponatremia Current Visit: Yes Status: Acute Assessment & Plan: Admission Na 131-filippo 127 with hyperglycemia; corrected Na - 130. Improved with IV fluids and resolution of infection. Sodium 130 at discharge; repeat CMP as outpatient. Code(s): E87.1 - HYPO-OSMOLALITY AND HYPONATREMIA (3) Lactic acid acidosis Current Visit: Yes Status: Acute Assessment & Plan: Secondary to infection; improved from 2.3 - 1.7 after IV fluids. No recurrence observed. Code(s): E87.20 - ACIDOSIS, UNSPECIFIED (4) Generalized weakness Current Visit: Yes Status: Acute Assessment & Plan: Likely infection-related with dehydration contribution. Improved with antibiotics, hydration, and rest. Ambulating independently at discharge; outpatient PT as needed. Code(s): R53.1 - WEAKNESS (5) Chronic cough Current Visit: Yes Status: Acute Assessment & Plan: Chest imaging clear; no CHF or pneumonia. Treated with Solu-Medrol, DuoNeb, and benzonatate in ED with improvement. Continue PRN guaifenesin. Outpatient pulmonary evaluation if cough persists beyond 68 weeks. Code(s): R05.3 - CHRONIC COUGH (6) Afib Current Visit: No Status: Chronic Assessment & Plan: EKG rate-controlled, no ischemic changes. Continue Eliquis and metoprolol; telemetry stable throughout stay. Code(s): I48.91 - UNSPECIFIED ATRIAL FIBRILLATION (7) Diabetes mellitus Current Visit: No Status: Chronic Assessment & Plan: A1c 6.9%. Continue home insulin regimen (Lantus and pre-meal insulin 10 units TID). Monitor glucose as infection resolves. Code(s): E11.9 - TYPE 2 DIABETES MELLITUS WITHOUT COMPLICATIONS (8) HTN (hypertension) Current Visit: No Status: Chronic Assessment & Plan: Mildly elevated during hospitalization, improved on home regimen. Continue antihypertensive medications; monitor outpatient. Code(s): I10 - ESSENTIAL (PRIMARY) HYPERTENSION (9) Chest pressure Current Visit: Yes Status: Acute Assessment & Plan: Disposition: Discharged home with daughter. Follow-up: Primary care provider in one week for repeat CBC, CMP, and urinalysis to ensure resolution of infection and normalization of sodium and WBC. Monitor for recurrence of urinary symptoms or persistent cough. Code(s): R07.89 - OTHER CHEST PAIN - Discharge Discharge Date: 02/26/25 Disposition: Home, Self-Care Condition: Stable Prescriptions: New levoFLOXacin [Levofloxacin] 750 mg PO DAILY 7 Days #7 tablet Guaifenesin 600 mg ER [Mucinex 600MG ER Tabs] 600 mg PO BIDPRN PRN tablet PRN Reason: Cough Continue Metformin HCl 500 mg PO BID Atorvastatin Calcium 40 mg PO HS Verapamil HCl 80 mg [Calan 80 mg] 80 mg PO BID Insulin Glargine [Lantus Insulin] 40 unit SQ QHS Insulin Lispro [Humalog Kwikpen U-100] 10 unit SQ TIDWM Ascorbic Acid 500 mg [Vitamin C 500 MG] 500 mg PO DAILY Magnesium Oxide [Magnesium] 400 mg PO DAILY Telmisartan 80 mg [Micardis 80 MG Tablet] 80 mg PO DAILY Apixaban [Eliquis 5 mg Tablet] 5 mg PO BID Hydralazine HCl 50 mg PO BID Metoprolol Succinate [Toprol Xl] 100 mg PO DAILY Metoprolol Succinate 50 mg [Toprol Xl 50 MG] 50 mg PO HS Instructions: Urinary tract infection - Discharge instructions Follow up with: JOSE MARTINEZ MD [Primary Care Provider, [facility]] - 03/03/25 3:15 pm Forms: Discharge Instructions
[2025-02-26 08:08] LABS: Calcium 9.1 mg/dL (8.4-10.2); Carbon Dioxide 27.0 mmol/L (22-30); Creatinine 1 0.67 mg/dL (0.52-1.04); EST GLOMERULAR FILTRATION RATE 84.5 ML/MIN; Glucose 155.0 mg/dL (74-106); Potassium 3.9 mmol/L (3.5-5.1); SGOT/AST 23.0 U/L (14-36); SGPT/ALT 17.0 U/L (0-35); Total Protein 7.5 g/dL (6.3-8.2)
[2025-02-26 10:17] VITALS: TEMP 98; O2SAT 97
[2025-02-26 14:16] VITALS: BP 179/77; PULSE 73
== END 2025-02-26 12:56 | disposition home or self-care (01) ==
LOC: ED 09:53 → MED SURG 13:14
PROVIDERS: ADMIT Internal Medicine; ATTEND Internal Medicine
DX: N39.0 Urinary tract infection, site not specified (principal); B96.1 Klebsiella pneumoniae [K. pneumoniae] as the cause of diseases classified elsewhere; I48.91 Unspecified atrial fibrillation; I10 Essential (primary) hypertension; E11.9 Type 2 diabetes mellitus without complications; D72.829 Elevated white blood cell count, unspecified; E87.1 Hypo-osmolality and hyponatremia; E87.20 Acidosis, unspecified; R53.1 Weakness; R05.3 Chronic cough; R07.89 Other chest pain; Z79.01 Long term (current) use of anticoagulants; Z79.899 Other long term (current) drug therapy

== ENCOUNTER 2025-03-08 05:34 | Observation (INO) | payer MEDICARE ==
--- NOTE | 2025-03-08 06:06 | ERPHSYRPT ---
- History of Present Illness Patient Subjective Stated Complaint: pt reports recent hospital stay at this facility for UTI. pt reports she has finished her oral levaquin course. reports that yesterday she started feeling weak like she did prior to her hospitalization. pt also has some slight burning with urination. Triage Nursing Assessment: pt is aox3, pupils, afebrile, resps easy and non labored, cap refill < 3 seconds, radial pulses strong and equal, abd soft non tender, pt skin pink warm dry. Physician History: Weakness, patient states symptoms similar to when she was admitted to the hospital, she was discharged from [facility] on 02/26/2025 with similar type symptoms, she states she has had a history of recurrent urinary tract infections, she was discharged on antibiotics and subsequently followed up with her primary care doctor and those antibiotics were switched, she denied having any other symptoms including dysuria, hematuria, abd pain or flank pain, no fever Timing/Duration: yesterday Severity: moderate Associated Symptoms: denies symptoms Allergies/Adverse Reactions: No Known Drug Allergies Allergy (Verified 03/08/25 05:43) Home Medications: Atorvastatin Calcium 40 mg PO HS 12/19/16 [History] Metformin HCl 500 mg PO BID 12/19/16 [History] Verapamil HCl 80 mg [Calan 80 mg] 80 mg PO BID 12/19/16 [History] Ascorbic Acid 500 mg [Vitamin C 500 MG] 500 mg PO DAILY 11/17/17 [History] Insulin Glargine [Lantus Insulin] 40 unit SQ QHS 11/17/17 [History] Insulin Lispro [Humalog Kwikpen U-100] 10 unit SQ TIDWM 11/17/17 [History] Magnesium Oxide [Magnesium] 400 mg PO DAILY 12/30/23 [History] Apixaban [Eliquis 5 mg Tablet] 5 mg PO BID 07/14/24 [History] Hydralazine HCl 50 mg PO BID 07/14/24 [History] Telmisartan 80 mg [Micardis 80 MG Tablet] 80 mg PO DAILY 07/14/24 [History] Metoprolol Succinate 50 mg [Toprol Xl 50 MG] 50 mg PO HS 02/23/25 [History] Metoprolol Succinate [Toprol Xl] 100 mg PO DAILY 02/23/25 [History] Hx Tetanus, Diphtheria Vaccination/Date Given: Yes Hx Influenza Vaccination/Date Given: No Hx Pneumococcal Vaccination/Date Given: Yes Immunizations Up to Date: No Travel Risk - International Travel Have you traveled outside of the country in past 3 weeks: No - Emerging Infectious Disease Are you exhibiting symptoms associated with any current EIDs: No Symptoms: Cough: New Onset - Past Medical History Pertinent Past Medical History: Yes Neurological History: Peripheral Neuropathy ENT History: Cataracts Cardiac History: Arrhythmia, Hypertension Respiratory History: No Pertinent History Endocrine Medical History: Diabetes Type II Musculoskeletal History: Fractures GI Medical History: Gallbladder Disease, Polyps History: No Pertinent History Psycho-Social History: No Pertinent History Female Reproductive Disorders: No Pertinent History Other Medical History: fracture rt shoulder. A-fib. colon polyp 2016 - Past Surgical History Past Surgical History: Yes Neuro Surgical History: No Pertinent History Cardiac: Cardiac Catheterization, Other Respiratory: No Pertinent History Gastrointestinal: Appendectomy, Cholecystectomy Genitourinary: No Pertinent History Musculoskeletal: Orthopedic Surgery Female Surgical History: Hysterectomy Other Surgical History: Cardiac ablation.RIGHT ARM Significant Family History: heart disease, cancer - Social History Smoking Status: Never smoker Exposure to second hand smoke: No Drug Use: none - Social Determinants of Health Will the patient participate in the screening: Yes Do you worry about a steady place to live?: No Do you have any problems with any of the following?: No known problems In the past 12 months,have you had to go without utilities?: No Transportation Issues: No Has anyone in your support network made you feel unsafe?: No Have you or anyone in your house had to go w/o enough food: No - Nursing Vital Signs Nursing Vital Signs: Initial Vital Signs Temperature 97.3 F 03/08/25 05:47 Pulse Rate 69 03/08/25 05:47 Respiratory Rate 20 03/08/25 05:47 Blood Pressure 198/67 03/08/25 05:47 O2 Sat by Pulse Oximetry 99 03/08/25 05:47 Pain Scale Pain Intensity 0 - Physical Exam General Appearance: no apparent distress, alert, obese Eye Exam: PERRL/EOMI, eyes nml inspection Ears, Nose, Throat Exam: normal ENT inspection, TMs normal, pharynx normal, moist mucous membranes Neck Exam: normal inspection, non-tender, supple, full range of motion Respiratory Exam: normal breath sounds, lungs clear, No respiratory distress Cardiovascular Exam: regular rate/rhythm, normal heart sounds, normal peripheral pulses Gastrointestinal/Abdomen Exam: soft, normal bowel sounds, No tenderness, No mass Back Exam: normal inspection, normal range of motion, No CVA tenderness, No vertebral tenderness Extremity Exam: normal inspection, normal range of motion, pelvis stable Neurologic Exam: alert, oriented x 3, cooperative, normal mood/affect, nml cerebellar function, nml station & gait, sensation nml, No motor deficits Skin Exam: normal color, warm, dry, No rash Lymphatic Exam: No adenopathy SpO2 Interpretation: normal SpO2: 99 Ordered Tests: Active Orders 24 hr Category Date Time Status BLOOD CULTURE Stat Lab 03/08/25 06:27 Received CBC W DIFF Stat Lab 03/08/25 06:20 Completed CMP Stat Lab 03/08/25 06:20 Completed CULTURE,URINE Stat Lab 03/08/25 05:52 Received Lactic Acid Stat Lab 03/08/25 06:00 Completed UA W/RFX UR CULTURE Stat Lab 03/08/25 05:52 Completed Medication Summary Discontinued Medications Generic Name Dose Route Start Last Admin Trade Name Freq PRN Reason Stop Dose Admin Sodium Chloride 1,000 mls @ 999 mls/hr 03/08/25 06:00 03/08/25 06:15 Sodium Chloride 0.9% 1000 Ml IV 03/08/25 07:00 999 mls/hr .Q1H1M STA Administration Sodium Chloride Confirm 03/08/25 06:13 Sodium Chloride 0.9% 1000 Ml Administered 03/08/25 06:14 Dose 1,000 mls @ ud .ROUTE [facility] Lab/Rad Data: Laboratory Result Diagrams 03/08/25 06:20 03/08/25 06:20 Laboratory Results 03/08/25 03/08/25 03/08/25 Range/Units 06:20 06:20 06:00 WBC 12.0 H (3.98-10.04) x10^3/uL RBC 3.61 L (3.93-5.22) x10^6/uL Hgb 10.9 L (11.2-15.7) g/dL Hct 32.8 L (34.1-44.9) % MCV 90.9 (79.4-94.8) fL MCH 30.2 (25.6-32.2) pg MCHC 33.2 (32.2-35.5) g/dL RDW 13.6 (11.7-14.4) % Plt Count 252 (182-369) x10^3/uL MPV 9.7 (9.4-12.3) fL Gran % 72.9 H (34.0-71.1) % Immature Gran % (Auto) 1.2 H (0.001-0.429) % Nucleat RBC Rel Count 0.0 (0.00-0.2) % Eos # (Auto) 0.47 H (0.04-0.36) x10^3/uL Immature Gran # (Auto) 0.15 H (0.001-0.031) x10^3u/L Absolute Lymphs (auto) 1.82 (1.18-3.74) x10^3/uL Absolute Monos (auto) 0.77 (0.24-0.86) x10^3/uL Absolute Nucleated RBC 0.00 (0.00-0.012) x10^3u/L Lymphocytes % 15.1 L (19.3-51.7) % Monocytes % 6.4 (4.7-12.5) % Eosinophils % 3.9 (0.7-5.8) % Basophils % 0.5 (0.1-1.2) % Absolute Granulocytes 8.77 H (1.56-6.13) x10^3/uL Basophils # 0.06 (0.01-0.08) x10^3/uL Sodium 131 L (135-145) mmol/L Potassium 4.4 (3.5-5.1) mmol/L Chloride 99 (98-107) mmol/L Carbon Dioxide 26 (22-30) mmol/L Anion Gap 11.0 (5-15) MEQ/L BUN 15 (7-17) mg/dL Creatinine 0.67 (0.52-1.04) mg/dL Estimated GFR 84.5 ML/MIN Glucose 193 H (74-106) mg/dL Lactic Acid 1.7 (0.4-2.0) Calcium 9.1 (8.4-10.2) mg/dL Total Bilirubin 0.30 (0.2-1.3) mg/dL AST 19 (14-36) U/L ALT 16 (0-35) U/L Alkaline Phosphatase 122 (38-126) U/L Serum Total Protein 6.5 (6.3-8.2) g/dL Albumin 3.7 (3.5-5.0) g/dL Urine Color (Yellow) Urine Appearance (Clear) Urine pH (4.6-8.0) Ur Specific [place] (1.005-1.030) Urine Protein (Negative) Urine Glucose (UA) (Negative) mg/dL Urine Ketones (Negative) Urine Blood (Negative) Urine Nitrite (Negative) Urine Bilirubin (Negative) Urine Urobilinogen (0.2) mg/dL Ur Leukocyte Esterase (Negative) U Hyaline Cast (Auto) (0-2) /LPF Urine Microscopic RBC (0-5) /HPF Urine Microscopic WBC (0-5) /HPF Ur Epithelial Cells (None Seen) /HPF Urine Bacteria (None Seen) /HPF Urine Culture Reflexed (NO) 03/08/25 Range/Units 05:52 WBC (3.98-10.04) x10^3/uL RBC (3.93-5.22) x10^6/uL Hgb (11.2-15.7) g/dL Hct (34.1-44.9) % MCV (79.4-94.8) fL MCH (25.6-32.2) pg MCHC (32.2-35.5) g/dL RDW (11.7-14.4) % Plt Count (182-369) x10^3/uL MPV (9.4-12.3) fL Gran % (34.0-71.1) % Immature Gran % (Auto) (0.001-0.429) % Nucleat RBC Rel Count (0.00-0.2) % Eos # (Auto) (0.04-0.36) x10^3/uL Immature Gran # (Auto) (0.001-0.031) x10^3u/L Absolute Lymphs (auto) (1.18-3.74) x10^3/uL Absolute Monos (auto) (0.24-0.86) x10^3/uL Absolute Nucleated RBC (0.00-0.012) x10^3u/L Lymphocytes % (19.3-51.7) % Monocytes % (4.7-12.5) % Eosinophils % (0.7-5.8) % Basophils % (0.1-1.2) % Absolute Granulocytes (1.56-6.13) x10^3/uL Basophils # (0.01-0.08) x10^3/uL Sodium (135-145) mmol/L Potassium (3.5-5.1) mmol/L Chloride (98-107) mmol/L Carbon Dioxide (22-30) mmol/L Anion Gap (5-15) MEQ/L BUN (7-17) mg/dL Creatinine (0.52-1.04) mg/dL Estimated GFR ML/MIN Glucose (74-106) mg/dL Lactic Acid (0.4-2.0) Calcium (8.4-10.2) mg/dL Total Bilirubin (0.2-1.3) mg/dL AST (14-36) U/L ALT (0-35) U/L Alkaline Phosphatase (38-126) U/L Serum Total Protein (6.3-8.2) g/dL Albumin (3.5-5.0) g/dL Urine Color Dark Yellow A (Yellow) Urine Appearance Clear (Clear) Urine pH 6.5 (4.6-8.0) Ur Specific [place] >=1.030 A (1.005-1.030) Urine Protein Trace A (Negative) Urine Glucose (UA) 250 A (Negative) mg/dL Urine Ketones Trace A (Negative) Urine Blood Negative (Negative) Urine Nitrite Negative (Negative) Urine Bilirubin Negative (Negative) Urine Urobilinogen 1.0 A (0.2) mg/dL Ur Leukocyte Esterase Trace A (Negative) U Hyaline Cast (Auto) NONE SEEN (0-2) /LPF Urine Microscopic RBC 0-2 (0-5) /HPF Urine Microscopic WBC 6-10 A (0-5) /HPF Ur Epithelial Cells Many A (None Seen) /HPF Urine Bacteria Rare A (None Seen) /HPF Urine Culture Reflexed YES (NO) - Progress Progress Note: 03/08/25 07:[address] Leahy - Departure Clinical Impression: General weakness Condition: Stable Critical Care Time: No Referrals: JOSE MARTINEZ MD [Primary Care Provider, [facility]] - Follow up/PCP as directed
[2025-03-08 06:34] LABS: BASOPHIL % 0.5 % (0.1-1.2); Basophil (Absolute #) 0.06 x10^3/uL (0.01-0.08); Eosinophil (Absolute #) 0.47 x10^3/uL (0.04-0.36); Hematocrit 32.8 % (34.1-44.9); Hemoglobin 10.9 g/dL (11.2-15.7); IMMATURE GRAN # 0.15 x10^3u/L (0.001-0.031); IMMATURE GRAN % 1.2 % (0.001-0.429); Lymphocyte (Absolute #) 1.82 x10^3/uL (1.18-3.74); Mean Corpuscular Hemoglobin 30.2 pg (25.6-32.2); Mean Corpuscular Hgb Concent. 33.2 g/dL (32.2-35.5); Monocyte (Absolute #) 0.77 x10^3/uL (0.24-0.86); NUCLEATED RBC # 0.00 x10^3u/L (0.00-0.012); NUCLEATED RBC % 0.0 % (0.00-0.2); Platelet Count 252 x10^3/uL (182-369); Red Blood Count 3.61 x10^6/uL (3.93-5.22); White Blood Count 12.0 x10^3/uL (3.98-10.04)
[2025-03-08 06:36] LABS: Glucose, Urine 250 mg/dL (Negative); Protein,Urine Dip Trace (Negative); RBC 0-2 /HPF (0-5)
[2025-03-08 06:53] LABS: Calcium 9.1 mg/dL (8.4-10.2); Carbon Dioxide 26.0 mmol/L (22-30); Creatinine 1 0.67 mg/dL (0.52-1.04); EST GLOMERULAR FILTRATION RATE 84.5 ML/MIN; Glucose 193.0 mg/dL (74-106); Potassium 4.4 mmol/L (3.5-5.1); SGOT/AST 19.0 U/L (14-36); SGPT/ALT 16.0 U/L (0-35); Total Protein 6.5 g/dL (6.3-8.2)
[2025-03-08] MEDS: MORPHINE SULFATE 4 MG INJ IV ONE (09:09)
[2025-03-08] MEDS: BABY ASPIRIN 81 MG CHEW PO ONE (09:09)
[2025-03-08] MEDS ORDERED: ROCEPHIN 1 GM / 100 ML NaCl 1 GM/100 ML IVPB IV ONE (09:10)
[2025-03-08] MEDS: ROCEPHIN 1 GM / 100 ML NaCl 1 GM/100 ML IVPB IV ONE (09:12)
--- NOTE | 2025-03-08 10:27 | PCM.HP ---
History of Present Illness - Chief Complaint Chief Complaint: Generalized weakness, hyponatremia, dehydration Date: 03/08/25 History of Present Illness: is a 85 year old female with a medical history of atrial fibrillation on apixaban, hypertension, recurrent urinary tract infections, and type 2 diabetes mellitus presented to the emergency department on March 08, 2025 with generalized weakness and dysuria that started around midnight. She reported completing a recent course of levofloxacin prescribed after a UTI diagnosed on February 23, 2025, with Citrobacter freundii isolated on urine culture. Prior to that, she had a UTI on February 10, 2025, due to arenas-sensitive Klebsiella. The patient stated that she initially improved but began feeling weak again yesterday, noting recurrence of dysuria and decreased energy. She denied fever, chills, flank pain, abdominal pain, or hematuria. She reports she often gets feelings of weakness associated with UTIs. She also reports blood glucose levels have been up in the 300s at times. On arrival, she was hypertensive, otherwise hemodynamically stable. EKG demonstrated sinus rhythm at 65 bpm, with normal axis, normal intervals, and no acute ischemic changes. Laboratory evaluation revealed leukocytosis (WBC 12.0 ), normocytic anemia consistent with her baseline (Hgb 10.9), mild hyponatremia (Na 131), and hyperglycemia (glucose 193). Urinalysis showed trace leukocyte esterase, rare bacteria, and no nitrites; urine culture is pending. Renal function and lactic acid were within normal limits. No imaging was performed at the time of evaluation. - Review of Systems Constitutional: Weakness Eyes: No Symptoms Ears, Nose, & Throat: No Symptoms Respiratory: No Symptoms Cardiac: No Symptoms Abdominal/Gastrointestinal: No Symptoms Genitourinary Symptoms: Dysuria Musculoskeletal: No Symptoms Skin: No Symptoms Neurological: No Symptoms Psychological: No Symptoms Endocrine: No Symptoms Hematologic/Lymphatic: No Symptoms Immunological/Allergic: No Symptoms Medications & Allergies Home Medications: Home Medication List Atorvastatin Calcium 40 mg PO HS 12/19/16 [History Confirmed 03/08/25] Metformin HCl 500 mg PO BID 12/19/16 [History Confirmed 03/08/25] Verapamil HCl 80 mg [Calan 80 mg] 80 mg PO BID 12/19/16 [History Confirmed 03/08/25] Ascorbic Acid 500 mg [Vitamin C 500 MG] 500 mg PO DAILY 11/17/17 [History Confirmed 03/08/25] Insulin Glargine [Lantus Insulin] 40 unit SQ QHS 11/17/17 [History Confirmed 03/08/25] Insulin Lispro [Humalog Kwikpen U-100] 10 unit SQ TIDWM 11/17/17 [History Confirmed 03/08/25] Magnesium Oxide [Magnesium] 400 mg PO DAILY 12/30/23 [History Confirmed 03/08/25] Apixaban [Eliquis 5 mg Tablet] 5 mg PO BID 07/14/24 [History Confirmed 03/08/25] Hydralazine HCl 50 mg PO BID 07/14/24 [History Confirmed 03/08/25] Telmisartan 80 mg [Micardis 80 MG Tablet] 80 mg PO DAILY 07/14/24 [History Confirmed 03/08/25] Metoprolol Succinate 50 mg [Toprol Xl 50 MG] 50 mg PO HS 02/23/25 [History Confirmed 03/08/25] Metoprolol Succinate [Toprol Xl] 100 mg PO DAILY 02/23/25 [History Confirmed 03/08/25] Allergies/Adverse Reactions: Allergies Allergy/AdvReac Type Severity Reaction Status Date / Time No Known Drug Allergies Allergy Verified 03/08/25 05:43 - Past Medical History Past Medical History: Yes Neurological History: Peripheral Neuropathy ENT History: Cataracts Cardiac History: Arrhythmia, Hypertension Respiratory History: No Pertinent History Endocrine Medical History: Diabetes Type II Musculoskelatal History: Fractures GI Medical History: Gallbladder Disease, Polyps History: No Pertinent History Pyscho-Social History: No Pertinent History Reproductive Disorders: No Pertinent History Comment: fracture rt shoulder. A-fib. colon polyp 2017 - Past Surgical History Past Surgical History: Yes Neuro Surgical History: No Pertinent History Cardiac History: Cardiac Catheterization, Other Respiratory Surgery: No Pertinent History GI Surgical History: Appendectomy, Cholecystectomy Genitourinary Surgical Hx: No Pertinent History Musculskeletal Surgical Hx: Orthopedic Surgery Female Surgical History: Hysterectomy Other Surgical History: Cardiac ablation.RIGHT ARM Significant Family History: heart disease, cancer - Social History Smoking Status: Never smoker Exposure to second hand smoke: No Alcohol: None Drug Use: none - Social Determinants of Health Will the patient participate in the screening: Yes Do you worry about a steady place to live?: No Do you have any problems with any of the following?: No known problems In the past 12 months,have you had to go without utilities?: No Have you or anyone in your house had to go without enough: No Transportation Issues: No Has anyone in your support network made you feel unsafe?: No Does the patient want assistance with any of the above?: No - Physical Exam Vital Signs: Vital Signs - 24 hr Temp Pulse Resp BP BP Pulse Ox 03/08/25 09:30 157/74 97 03/08/25 07:30 64 18 157/46 98 03/08/25 07:21 99 03/08/25 07:00 76 18 154/52 97 03/08/25 06:30 63 17 153/58 03/08/25 06:00 64 20 161/68 97 03/08/25 05:49 65 26 H 198/67 99 03/08/25 05:47 97.3 F 69 20 198/67 99 General Appearance: no apparent distress Neurologic Exam: alert, oriented x 3, cooperative Eye Exam: PERRL/EOMI Ears, Nose, Throat Exam: normal ENT inspection Neck Exam: normal inspection Respiratory Exam: normal breath sounds, lungs clear Cardiovascular Exam: regular rate/rhythm, normal heart sounds Gastrointestinal/Abdomen Exam: soft, normal bowel sounds Pelvic Exam: not done Rectal Exam: deferred Back Exam: normal inspection Extremity Exam: normal inspection Skin Exam: pale Results - Labs Lab/Micro Results: Lab Results-Last 24 Hours 03/08/25 03/08/25 03/08/25 Range/Units 05:52 06:00 06:00 WBC (3.98-10.04) x10^3/uL RBC (3.93-5.22) x10^6/uL Hgb (11.2-15.7) g/dL Hct (34.1-44.9) % MCV (79.4-94.8) fL MCH (25.6-32.2) pg MCHC (32.2-35.5) g/dL RDW (11.7-14.4) % Plt Count (182-369) x10^3/uL MPV (9.4-12.3) fL Gran % (34.0-71.1) % Immature Gran % (Auto) (0.001-0.429) % Nucleat RBC Rel Count (0.00-0.2) % Eos # (Auto) (0.04-0.36) x10^3/uL Immature Gran # (Auto) (0.001-0.031) x10^3u/L Absolute Lymphs (auto) (1.18-3.74) x10^3/uL Absolute Monos (auto) (0.24-0.86) x10^3/uL Absolute Nucleated RBC (0.00-0.012) x10^3u/L Lymphocytes % (19.3-51.7) % Monocytes % (4.7-12.5) % Eosinophils % (0.7-5.8) % Basophils % (0.1-1.2) % Absolute Granulocytes (1.56-6.13) x10^3/uL Basophils # (0.01-0.08) x10^3/uL Sodium (135-145) mmol/L Potassium (3.5-5.1) mmol/L Chloride (98-107) mmol/L Carbon Dioxide (22-30) mmol/L Anion Gap (5-15) MEQ/L BUN (7-17) mg/dL Creatinine (0.52-1.04) mg/dL Estimated GFR ML/MIN Glucose (74-106) mg/dL Lactic Acid 1.7 (0.4-2.0) Calcium (8.4-10.2) mg/dL Total Bilirubin (0.2-1.3) mg/dL AST (14-36) U/L ALT (0-35) U/L Alkaline Phosphatase (38-126) U/L Troponin I < 0.012 (0.000-0.033) ng/mL Serum Total Protein (6.3-8.2) g/dL Albumin (3.5-5.0) g/dL Urine Color Dark Yellow A (Yellow) Urine Appearance Clear (Clear) Urine pH 6.5 (4.6-8.0) Ur Specific [place] >=1.030 A (1.005-1.030) Urine Protein Trace A (Negative) Urine Glucose (UA) 250 A (Negative) mg/dL Urine Ketones Trace A (Negative) Urine Blood Negative (Negative) Urine Nitrite Negative (Negative) Urine Bilirubin Negative (Negative) Urine Urobilinogen 1.0 A (0.2) mg/dL Ur Leukocyte Esterase Trace A (Negative) U Hyaline Cast (Auto) NONE SEEN (0-2) /LPF Urine Microscopic RBC 0-2 (0-5) /HPF Urine Microscopic WBC 6-10 A (0-5) /HPF Ur Epithelial Cells Many A (None Seen) /HPF Urine Bacteria Rare A (None Seen) /HPF Urine Culture Reflexed YES (NO) 03/08/25 03/08/25 Range/Units 06:20 06:20 WBC 12.0 H (3.98-10.04) x10^3/uL RBC 3.61 L (3.93-5.22) x10^6/uL Hgb 10.9 L (11.2-15.7) g/dL Hct 32.8 L (34.1-44.9) % MCV 90.9 (79.4-94.8) fL MCH 30.2 (25.6-32.2) pg MCHC 33.2 (32.2-35.5) g/dL RDW 13.6 (11.7-14.4) % Plt Count 252 (182-369) x10^3/uL MPV 9.7 (9.4-12.3) fL Gran % 72.9 H (34.0-71.1) % Immature Gran % (Auto) 1.2 H (0.001-0.429) % Nucleat RBC Rel Count 0.0 (0.00-0.2) % Eos # (Auto) 0.47 H (0.04-0.36) x10^3/uL Immature Gran # (Auto) 0.15 H (0.001-0.031) x10^3u/L Absolute Lymphs (auto) 1.82 (1.18-3.74) x10^3/uL Absolute Monos (auto) 0.77 (0.24-0.86) x10^3/uL Absolute Nucleated RBC 0.00 (0.00-0.012) x10^3u/L Lymphocytes % 15.1 L (19.3-51.7) % Monocytes % 6.4 (4.7-12.5) % Eosinophils % 3.9 (0.7-5.8) % Basophils % 0.5 (0.1-1.2) % Absolute Granulocytes 8.77 H (1.56-6.13) x10^3/uL Basophils # 0.06 (0.01-0.08) x10^3/uL Sodium 131 L (135-145) mmol/L Potassium 4.4 (3.5-5.1) mmol/L Chloride 99 (98-107) mmol/L Carbon Dioxide 26 (22-30) mmol/L Anion Gap 11.0 (5-15) MEQ/L BUN 15 (7-17) mg/dL Creatinine 0.67 (0.52-1.04) mg/dL Estimated GFR 84.5 ML/MIN Glucose 193 H (74-106) mg/dL Lactic Acid (0.4-2.0) Calcium 9.1 (8.4-10.2) mg/dL Total Bilirubin 0.30 (0.2-1.3) mg/dL AST 19 (14-36) U/L ALT 16 (0-35) U/L Alkaline Phosphatase 122 (38-126) U/L Troponin I (0.000-0.033) ng/mL Serum Total Protein 6.5 (6.3-8.2) g/dL Albumin 3.7 (3.5-5.0) g/dL Urine Color (Yellow) Urine Appearance (Clear) Urine pH (4.6-8.0) Ur Specific [place] (1.005-1.030) Urine Protein (Negative) Urine Glucose (UA) (Negative) mg/dL Urine Ketones (Negative) Urine Blood (Negative) Urine Nitrite (Negative) Urine Bilirubin (Negative) Urine Urobilinogen (0.2) mg/dL Ur Leukocyte Esterase (Negative) U Hyaline Cast (Auto) (0-2) /LPF Urine Microscopic RBC (0-5) /HPF Urine Microscopic WBC (0-5) /HPF Ur Epithelial Cells (None Seen) /HPF Urine Bacteria (None Seen) /HPF Urine Culture Reflexed (NO) Assessment/Plan (1) UTI (urinary tract infection) Current Visit: Yes Status: Acute Assessment & Plan: -Recent infections with Citrobacter freundii (02/23/25) and Klebsiella (02/10/25). Current UA demonstrates minimal inflammatory findings but given her symptoms, recurrent infection remains likely pending culture confirmation. -Continue empiric IV Levaquin pending culture and sensitivity results. -Adjust antibiotics based on culture data and prior resistance patterns. -WBC elevated at 12.0- trend -IVF Code(s): N39.0 - URINARY TRACT INFECTION, SITE NOT SPECIFIED (2) Hyponatremia Current Visit: Yes Status: Acute Assessment & Plan: -Likely multifactorial from infection, decreased oral intake, in the setting of hypoglycemia -IVF -Reassess if sodium continues to trend downward. Code(s): E87.1 - HYPO-OSMOLALITY AND HYPONATREMIA (3) Normocytic anemia Current Visit: Yes Status: Acute Assessment & Plan: -Stable at 10.9 and consistent with baseline. -Monitor CBC; no transfusion indicated unless Hgb < 7 g/dL or symptomatic. Code(s): D64.9 - ANEMIA, UNSPECIFIED (4) Generalized weakness Current Visit: Yes Status: Acute Assessment & Plan: -Likely multifactorial: infection-related malaise, mild hyponatremia, and deconditioning. No focal neurologic findings or evidence of acute stroke or arrhythmia. -Treat underlying infection and correct electrolyte abnormalities. -Assess orthostatic vitals and review medications for contributing factors -PT/OT consult for mobility assessment. -Encourage mobilization as tolerated Code(s): R53.1 - WEAKNESS (5) Afib Current Visit: No Status: Chronic Assessment & Plan: -Currently in sinus rhythm; rate 65 bpm. -Continue apixaban and metoprolol; maintain telemetry Code(s): I48.91 - UNSPECIFIED ATRIAL FIBRILLATION (6) Diabetes mellitus Current Visit: No Status: Chronic Assessment & Plan: -Glucose 193 on presentation. -A1c 6.98 -SSI/Glargine Code(s): E11.9 - TYPE 2 DIABETES MELLITUS WITHOUT COMPLICATIONS (7) HTN (hypertension) Current Visit: No Status: Chronic Assessment & Plan: -Continue home antihypertensive regimen; monitor daily pressures VTE: Eliquis PPI:protonix Dispo: 1-2 days Code status: SCO Plan of care time spent > 40 mins Code(s): I10 - ESSENTIAL (PRIMARY) HYPERTENSION
[2025-03-08] MEDS ORDERED: TYLENOL 325 MG PO PRN (10:46)
[2025-03-08] MEDS ORDERED: HUMALOG SQ PRN (10:46)
[2025-03-08] MEDS ORDERED: Zofran 4 MG/2 ML VIAL IV PRN (10:46)
[2025-03-08] MEDS: Apresoline 25 MG TABLET PO SCH (11:40)
[2025-03-08] MEDS: Vitamin C 500 MG PO SCH (11:40)
[2025-03-08] MEDS: Micardis 80 MG Tablet PO SCH (11:40)
[2025-03-08] MEDS: MAG-OX 400 PO SCH (11:40)
[2025-03-08] MEDS: Toprol Xl 50 MG PO SCH ×2 (11:40→20:35)
[2025-03-08] MEDS: CALAN 80 MG PO SCH (11:40)
[2025-03-08] MEDS ORDERED: ELIQUIS 2.5 MG TABLET PO SCH (12:00)
[2025-03-08] MEDS: HUMALOG SQ SCH (17:00)
[2025-03-08] MEDS: Lantus Insulin SQ SCH (20:34)
[2025-03-08] MEDS: Zocor 10MG PO SCH (20:35)
[2025-03-09 05:05] LABS: Hematocrit 31.5 % (34.1-44.9); Hemoglobin 10.3 g/dL (11.2-15.7); Mean Corpuscular Hemoglobin 29.1 pg (25.6-32.2); Mean Corpuscular Hgb Concent. 32.7 g/dL (32.2-35.5); Platelet Count 260 x10^3/uL (182-369); Red Blood Count 3.54 x10^6/uL (3.93-5.22); White Blood Count 12.3 x10^3/uL (3.98-10.04)
--- NOTE | 2025-03-09 05:19 | PCM.NOTE ---
Date and Time: 03/09/25 0518 Subjective Assessment: is a 85 year old female with a medical history of atrial fibrillation on apixaban, hypertension, recurrent urinary tract infections, and type 2 diabetes mellitus presented to the emergency department on March 08, 2025 with generalized weakness and dysuria that started around midnight. She rep orted completing a recent course of levofloxacin prescribed after a UTI diagnosed on February 23, 2025, with Citrobacter freundii isolated on urine culture. Prior to that, she had a UTI on February 10, 2025, due to arenas-sensitive Klebsiella. The patient stated that she initially improved but began feeling weak again yesterday, noting recurrence of dysuria and decreased energy. She denied fever, chills, flank pain, abdominal pain, or hematuria. She reports she often gets feelings of weakness associated with UTIs. She also reports blood glucose levels have been up in the 300s at times. On arrival, she was hypertensive, otherwise hemodynamically stable. EKG demonstrated sinus rhythm at 65 bpm, with normal axis, normal intervals, and no acute ischemic changes. Laboratory evaluation revealed leukocytosis (WBC 12.0 ), normocytic anemia consistent with her baseline (Hgb 10.9), mild hyponatremia (Na 131), and hyperglycemia (glucose 193). Urinalysis showed trace leukocyte esterase, rare bacteria, and no nitrites; urine culture is pending. Renal function and lactic acid were within normal limits. No imaging was performed at the time of evaluation. Objective Data Vital Signs: Vital Signs - 24 hr Temp Pulse Resp BP BP Pulse Ox 03/09/25 03:43 98.4 F 63 18 157/68 95 03/08/25 23:34 97.8 F 71 18 152/68 96 03/08/25 20:00 97.9 F 67 17 167/79 95 03/08/25 15:31 97.9 F 69 16 176/84 93 L 03/08/25 11:34 97.2 F 72 16 144/74 98 03/08/25 10:21 97.2 F 72 16 144/74 98 03/08/25 09:30 157/74 97 03/08/25 07:30 64 18 157/46 98 03/08/25 07:21 99 03/08/25 07:00 76 18 154/52 97 03/08/25 06:30 63 17 153/58 03/08/25 06:00 64 20 161/68 97 03/08/25 05:49 65 26 H 198/67 99 03/08/25 05:47 97.3 F 69 20 198/ 99 Pain Assessment - Last Documented Pain Intensity 0 Intake and Output: Intake & Output 03/06/25 03/07/25 03/08/25 03/09/25 11:59 11:59 11:59 11:59 Intake Total 1529 Output Total 1950 Balance -421 Weight 78.5 kg Lab Results: Lab Results-Last 24 Hours 03/08/25 03/08/25 03/08/25 Range/Units 05:52 06:00 06:00 WBC (3.98-10.04) x10^3/uL RBC (3.93-5.22) x10^6/uL Hgb (11.2-15.7) g/dL Hct (34.1-44.9) % MCV (79.4-94.8) fL MCH (25.6-32.2) pg MCHC (32.2-35.5) g/dL RDW (11.7-14.4) % Plt Count (182-369) x10^3/uL MPV (9.4-12.3) fL Gran % (34.0-71.1) % Immature Gran % (Auto) (0.001-0.429) % Nucleat RBC Rel Count (0.00-0.2) % Eos # (Auto) (0.04-0.36) x10^3/uL Immature Gran # (Auto) (0.001-0.031) x10^3u/L Absolute Lymphs (auto) (1.18-3.74) x10^3/uL Absolute Monos (auto) (0.24-0.86) x10^3/uL Absolute Nucleated RBC (0.00-0.012) x10^3u/L Lymphocytes % (19.3-51.7) % Monocytes % (4.7-12.5) % Eosinophils % (0.7-5.8) % Basophils % (0.1-1.2) % Absolute Granulocytes (1.56-6.13) x10^3/uL Basophils # (0.01-0.08) x10^3/uL Sodium (135-145) mmol/L Potassium (3.5-5.1) mmol/L Chloride (98-107) mmol/L Carbon Dioxide (22-30) mmol/L Anion Gap (5-15) MEQ/L BUN (7-17) mg/dL Creatinine (0.52-1.04) mg/dL Estimated GFR ML/MIN Glucose (74-106) mg/dL POC Glucometer (74 to 106) mg/dL Lactic Acid 1.7 (0.4-2.0) Calcium (8.4-10.2) mg/dL Total Bilirubin (0.2-1.3) mg/dL AST (14-36) U/L ALT (0-35) U/L Alkaline Phosphatase (38-126) U/L Troponin I < 0.012 (0.000-0.033) ng/mL Serum Total Protein (6.3-8.2) g/dL Albumin (3.5-5.0) g/dL TSH 3rd Generation (0.470-4.680) mIU/L Urine Color Dark Yellow A (Yellow) Urine Appearance Clear (Clear) Urine pH 6.5 (4.6-8.0) Ur Specific [place] >=1.030 A (1.005-1.030) Urine Protein Trace A (Negative) Urine Glucose (UA) 250 A (Negative) mg/dL Urine Ketones Trace A (Negative) Urine Blood Negative (Negative) Urine Nitrite Negative (Negative) Urine Bilirubin Negative (Negative) Urine Urobilinogen 1.0 A (0.2) mg/dL Ur Leukocyte Esterase Trace A (Negative) U Hyaline Cast (Auto) NONE SEEN (0-2) /LPF Urine Microscopic RBC 0-2 (0-5) /HPF Urine Microscopic WBC 6-10 A (0-5) /HPF Ur Epithelial Cells Many A (None Seen) /HPF Urine Bacteria Rare A (None Seen) /HPF Urine Culture Reflexed YES (NO) 03/08/25 03/08/25 03/08/25 Range/Units 06:20 06:20 06:20 WBC 12.0 H (3.98-10.04) x10^3/uL RBC 3.61 L (3.93-5.22) x10^6/uL Hgb 10.9 L (11.2-15.7) g/dL Hct 32.8 L (34.1-44.9) % MCV 90.9 (79.4-94.8) fL MCH 30.2 (25.6-32.2) pg MCHC 33.2 (32.2-35.5) g/dL RDW 13.6 (11.7-14.4) % Plt Count 252 (182-369) x10^3/uL MPV 9.7 (9.4-12.3) fL Gran % 72.9 H (34.0-71.1) % Immature Gran % (Auto) 1.2 H (0.001-0.429) % Nucleat RBC Rel Count 0.0 (0.00-0.2) % Eos # (Auto) 0.47 H (0.04-0.36) x10^3/uL Immature Gran # (Auto) 0.15 H (0.001-0.031) x10^3u/L Absolute Lymphs (auto) 1.82 (1.18-3.74) x10^3/uL Absolute Monos (auto) 0.77 (0.24-0.86) x10^3/uL Absolute Nucleated RBC 0.00 (0.00-0.012) x10^3u/L Lymphocytes % 15.1 L (19.3-51.7) % Monocytes % 6.4 (4.7-12.5) % Eosinophils % 3.9 (0.7-5.8) % Basophils % 0.5 (0.1-1.2) % Absolute Granulocytes 8.77 H (1.56-6.13) x10^3/uL Basophils # 0.06 (0.01-0.08) x10^3/uL Sodium 131 L (135-145) mmol/L Potassium 4.4 (3.5-5.1) mmol/L Chloride 99 (98-107) mmol/L Carbon Dioxide 26 (22-30) mmol/L Anion Gap 11.0 (5-15) MEQ/L BUN 15 (7-17) mg/dL Creatinine 0.67 (0.52-1.04) mg/dL Estimated GFR 84.5 ML/MIN Glucose 193 H (74-106) mg/dL POC Glucometer (74 to 106) mg/dL Lactic Acid (0.4-2.0) Calcium 9.1 (8.4-10.2) mg/dL Total Bilirubin 0.30 (0.2-1.3) mg/dL AST 19 (14-36) U/L ALT 16 (0-35) U/L Alkaline Phosphatase 122 (38-126) U/L Troponin I (0.000-0.033) ng/mL Serum Total Protein 6.5 (6.3-8.2) g/dL Albumin 3.7 (3.5-5.0) g/dL TSH 3rd Generation 1.237 (0.470-4.680) mIU/L Urine Color (Yellow) Urine Appearance (Clear) Urine pH (4.6-8.0) Ur Specific [place] (1.005-1.030) Urine Protein (Negative) Urine Glucose (UA) (Negative) mg/dL Urine Ketones (Negative) Urine Blood (Negative) Urine Nitrite (Negative) Urine Bilirubin (Negative) Urine Urobilinogen (0.2) mg/dL Ur Leukocyte Esterase (Negative) U Hyaline Cast (Auto) (0-2) /LPF Urine Microscopic RBC (0-5) /HPF Urine Microscopic WBC (0-5) /HPF Ur Epithelial Cells (None Seen) /HPF Urine Bacteria (None Seen) /HPF Urine Culture Reflexed (NO) 03/08/25 03/08/25 03/08/25 Range/Units 11:28 12:13 15:56 WBC (3.98-10.04) x10^3/uL RBC (3.93-5.22) x10^6/uL Hgb (11.2-15.7) g/dL Hct (34.1-44.9) % MCV (79.4-94.8) fL MCH (25.6-32.2) pg MCHC (32.2-35.5) g/dL RDW (11.7-14.4) % Plt Count (182-369) x10^3/uL MPV (9.4-12.3) fL Gran % (34.0-71.1) % Immature Gran % (Auto) (0.001-0.429) % Nucleat RBC Rel Count (0.00-0.2) % Eos # (Auto) (0.04-0.36) x10^3/uL Immature Gran # (Auto) (0.001-0.031) x10^3u/L Absolute Lymphs (auto) (1.18-3.74) x10^3/uL Absolute Monos (auto) (0.24-0.86) x10^3/uL Absolute Nucleated RBC (0.00-0.012) x10^3u/L Lymphocytes % (19.3-51.7) % Monocytes % (4.7-12.5) % Eosinophils % (0.7-5.8) % Basophils % (0.1-1.2) % Absolute Granulocytes (1.56-6.13) x10^3/uL Basophils # (0.01-0.08) x10^3/uL Sodium (135-145) mmol/L Potassium (3.5-5.1) mmol/L Chloride (98-107) mmol/L Carbon Dioxide (22-30) mmol/L Anion Gap (5-15) MEQ/L BUN (7-17) mg/dL Creatinine (0.52-1.04) mg/dL Estimated GFR ML/MIN Glucose (74-106) mg/dL POC Glucometer 129 H (74 to 106) mg/dL Lactic Acid (0.4-2.0) Calcium (8.4-10.2) mg/dL Total Bilirubin (0.2-1.3) mg/dL AST (14-36) U/L ALT (0-35) U/L Alkaline Phosphatase (38-126) U/L Troponin I < 0.012 < 0.012 (0.000-0.033) ng/mL Serum Total Protein (6.3-8.2) g/dL Albumin (3.5-5.0) g/dL TSH 3rd Generation (0.470-4.680) mIU/L Urine Color (Yellow) Urine Appearance (Clear) Urine pH (4.6-8.0) Ur Specific [place] (1.005-1.030) Urine Protein (Negative) Urine Glucose (UA) (Negative) mg/dL Urine Ketones (Negative) Urine Blood (Negative) Urine Nitrite (Negative) Urine Bilirubin (Negative) Urine Urobilinogen (0.2) mg/dL Ur Leukocyte Esterase (Negative) U Hyaline Cast (Auto) (0-2) /LPF Urine Microscopic RBC (0-5) /HPF Urine Microscopic WBC (0-5) /HPF Ur Epithelial Cells (None Seen) /HPF Urine Bacteria (None Seen) /HPF Urine Culture Reflexed (NO) 03/08/25 03/08/25 03/09/25 Range/Units 16:19 20:32 05:04 WBC 12.3 H (3.98-10.04) x10^3/uL RBC 3.54 L (3.93-5.22) x10^6/uL Hgb 10.3 L (11.2-15.7) g/dL Hct 31.5 L (34.1-44.9) % MCV 89.0 (79.4-94.8) fL MCH 29.1 (25.6-32.2) pg MCHC 32.7 (32.2-35.5) g/dL RDW 13.9 (11.7-14.4) % Plt Count 260 (182-369) x10^3/uL MPV 9.5 (9.4-12.3) fL Gran % (34.0-71.1) % Immature Gran % (Auto) (0.001-0.429) % Nucleat RBC Rel Count (0.00-0.2) % Eos # (Auto) (0.04-0.36) x10^3/uL Immature Gran # (Auto) (0.001-0.031) x10^3u/L Absolute Lymphs (auto) (1.18-3.74) x10^3/uL Absolute Monos (auto) (0.24-0.86) x10^3/uL Absolute Nucleated RBC (0.00-0.012) x10^3u/L Lymphocytes % (19.3-51.7) % Monocytes % (4.7-12.5) % Eosinophils % (0.7-5.8) % Basophils % (0.1-1.2) % Absolute Granulocytes (1.56-6.13) x10^3/uL Basophils # (0.01-0.08) x10^3/uL Sodium (135-145) mmol/L Potassium (3.5-5.1) mmol/L Chloride (98-107) mmol/L Carbon Dioxide (22-30) mmol/L Anion Gap (5-15) MEQ/L BUN (7-17) mg/dL Creatinine (0.52-1.04) mg/dL Estimated GFR ML/MIN Glucose (74-106) mg/dL POC Glucometer 164 H 115 H (74 to 106) mg/dL Lactic Acid (0.4-2.0) Calcium (8.4-10.2) mg/dL Total Bilirubin (0.2-1.3) mg/dL AST (14-36) U/L ALT (0-35) U/L Alkaline Phosphatase (38-126) U/L Troponin I (0.000-0.033) ng/mL Serum Total Protein (6.3-8.2) g/dL Albumin (3.5-5.0) g/dL TSH 3rd Generation (0.470-4.680) mIU/L Urine Color (Yellow) Urine Appearance (Clear) Urine pH (4.6-8.0) Ur Specific [place] (1.005-1.030) Urine Protein (Negative) Urine Glucose (UA) (Negative) mg/dL Urine Ketones (Negative) Urine Blood (Negative) Urine Nitrite (Negative) Urine Bilirubin (Negative) Urine Urobilinogen (0.2) mg/dL Ur Leukocyte Esterase (Negative) U Hyaline Cast (Auto) (0-2) /LPF Urine Microscopic RBC (0-5) /HPF Urine Microscopic WBC (0-5) /HPF Ur Epithelial Cells (None Seen) /HPF Urine Bacteria (None Seen) /HPF Urine Culture Reflexed (NO) Radiology Exams: Radiology Procedures Category Date Time Status ECHO W/2D AND DOPPLER [US] Routine Exams 03/08/25 11:16 Taken Medications: Medications Generic Name Dose Route Start Last Admin Trade Name Freq PRN Reason Stop Dose Admin Acetaminophen 650 mg 03/08/25 10:46 Acetaminophen 325 Mg Tablet PO 04/07/25 10:45 Q4H PRN PRN PAIN, FEVER, HEADACHE Ascorbic Acid 500 mg 03/08/25 12:00 03/08/25 11:40 Ascorbic Acid 500 Mg Tablet PO 04/07/25 11:59 500 mg DAILY YANY Administration Hydralazine HCl 50 mg 03/08/25 12:00 03/08/25 20:35 Hydralazine Hcl 25 Mg Tablet PO 04/07/25 11:59 50 mg BID YANY Administration Sodium Chloride 1,000 mls @ 50 mls/hr 03/08/25 11:00 03/08/25 11:39 Sodium Chloride 0.9% 1000 Ml IV 04/07/25 10:59 50 mls/hr .Q20H YANY Administration Levofloxacin/Dextrose 750 mg in 150 mls @ 100 mls/hr 03/09/25 10:00 Levofloxacin 750mg/150ml D5w IV 04/08/25 09:59 Q48H YANY Insulin Glargine 30 unit 03/08/25 22:00 03/08/25 20:34 Insulin Glargine 1 Unit SQ 04/07/25 21:59 30 unit QHS YANY Administration Insulin Human Lispro 10 unit 03/08/25 17:00 03/08/25 17:00 Insulin Lispro 1 Unit SQ 04/07/25 16:59 10 unit BIDWM YANY Administration Insulin Human Lispro 0 unit 03/08/25 10:55 Insulin Lispro 1 Unit SQ 04/07/25 10:54 UD PRN HYPERGLYCEMIA Magnesium Oxide 400 mg 03/08/25 12:00 03/08/25 11:40 Magnesium Oxide 400 Mg Tablet PO 04/07/25 11:59 400 mg DAILY YANY Administration Metoprolol Succinate 100 mg 03/08/25 12:00 03/08/25 11:40 Metoprolol Succinate 50 Mg Tablet.Sa PO 04/07/25 11:59 100 mg DAILY YANY Administration Metoprolol Succinate 50 mg 03/08/25 22:00 03/08/25 20:35 Metoprolol Succinate 50 Mg Tablet.Sa PO 04/07/25 21:59 50 mg HS YANY Administration Ondansetron HCl 4 mg 03/08/25 10:46 Ondansetron Hcl 4 Mg/2 Ml Vial IV 04/07/25 10:45 Q6H PRN PRN NAUSEA/VOMITING Simvastatin 10 mg 03/08/25 22:00 03/08/25 20:35 Simvastatin 10 Mg Tablet PO 04/07/25 21:59 10 mg HS YANY Administration Telmisartan 80 mg 03/08/25 12:00 03/08/25 11:40 Telmisartan 80 Mg Tab PO 04/07/25 11:59 80 mg DAILY YANY Administration Verapamil HCl 80 mg 03/08/25 12:00 10/28/25 20:35 Verapamil Hcl 80 Mg Tablet PO 04/07/25 11:59 80 mg BID YANY Administration Discontinued Medications Generic Name Dose Route Start Last Admin Trade Name Elisabeth PRN Reason Stop Dose Admin Apixaban 5 mg 03/08/25 12:00 Apixaban 2.5 Mg Tablet PO 04/07/25 11:59 BID YANY Aspirin 324 mg 03/08/25 08:06 03/08/25 09:09 Aspirin 81 Mg Tab.Chew PO 03/08/25 08:07 Not Given STAT ONE Sodium Chloride 1,000 mls @ 999 mls/hr 03/08/25 06:00 03/08/25 07:24 Sodium Chloride 0.9% 1000 Ml IV 03/08/25 07:00 Infused .Q1H1M STA Infusion Sodium Chloride Confirm 03/08/25 06:13 Sodium Chloride 0.9% 1000 Ml Administered 03/08/25 06:14 Dose 1,000 mls @ ud .ROUTE .STK-MED ONE Ceftriaxone Sodium 1 gm in 100 mls @ 200 mls/hr 03/08/25 09:10 03/08/25 09:56 Rocephin 1 Gm / 100 Ml Nacl IV 03/08/25 09:39 Infused STAT ONE Infusion Ceftriaxone Sodium Confirm 03/08/25 09:10 Rocephin 1 Gm / 100 Ml Nacl Administered 03/08/25 09:11 Dose 1 gm in 100 mls @ ud IV .STK-MED ONE Insulin Human Lispro 0 unit 03/08/25 10:46 Insulin Lispro 1 Unit SQ 04/07/25 10:45 UD PRN HYPERGLYCEMIA Morphine Sulfate 4 mg 03/08/25 08:17 03/08/25 09:09 Morphine Sulfate 4 Mg/Ml Injection IV 03/08/25 08:18 Not Given STAT ONE Multi-Disciplinary Progress Notes: Multi-Disciplinary Progress Notes 03/09/25 03:00 Radiology Note by GAMALIEL DAY TRANSTHORACIC ECHOCARDIOGRAM 03/08/2025 1. Normal biventricular wall thickness, chamber size, and systolic function. 2. The estimated left ventricular ejection fraction is 65%. 3. Diastolic dysfunction is present. 4. The anterior mitral valve is mildly calcified with normal excursionno mitral stenosis. 5. Doppler: Mild tricuspid regurgitation. 6. Mildly elevated PA systolic pressure at 35 mm Hg. 7. Normal right atrial pressure. 8. No pericardial effusion. Gamaliel Day MD [facility] Initialized on 03/09/25 03:00 - END OF NOTE 03/08/25 14:58 OT Plan of Care Note by Sudarshan (Sarah#[id number]),Claribel OT Eval OT Inpatient Eval and POC Start: 03/08/25 10:46 Freq: ONCE Status: Complete Protocol: Created 03/08/25 10:50 ED (Rec: 03/08/25 10:50 ED -[id number]) Document 03/08/25 14:53 KA (Rec: 03/08/25 14:58 KA [id number]) OT Evaluation Subjective Patient is agreeable to OT evaluation Pertinent Past Medical History See PMH below Prior Level of Function Lives with daughter, independent with ADLs, mobility, and home mangagement tasks. She relies on her daughter for transportation. Equipment at Home Prior to Admission Walker,Shower Chair Home Setup [id number],Standard Height Toilet Date 03/08/25 Feeding WFL Grooming WFL Bathing WFL Dressing WFL Toileting WFL Bed Mobility WFL Toilet Transfers WFL Functional Transfers WFL Comment Patient does not use any a/e during evaluation Range of Motion Impaired Comment Right shoulder AROM impaired due to fall 4-5 years ago, but she reports it is at baseline . Left shoulder AROM: WFL Coordination WFL Functional Strength 4+/5 MMT BUE Functional Endurance Good - (patient tolerates ADLs and functional mobility within room) Cognition alert and oriented x 4 Pain 0/10 Objective Data/Standardized Assessment(s TRACEY Index of [place] ) with ADLs: 6/6 indicating high level of independence with ADLs Comment Patient reports feeling back to baseline level, that the weakness episodes typically last 30 minutes. She states that the most recent episode lasted all night but has resolved. OT Plan Of Care Date of Evaluation 03/08/25 Treatment Diagnosis generalized weakness, hyponatremia, dehydration Teaching Recipient Patient Patient is Aware of Diagnosis and Yes Prognosis Patient is receptive to Plan of Care and Yes contributory towards OT goals Discharge Recommendations/Plan No further skilled OT indicated at this time; recommend patient to d/c home once medically cleared. Medical & Surgical History Past Medical History Yes Neurological History Peripheral Neuropathy ENT History Cataracts Endocrine History Diabetes Type II Respiratory History No Pertinent History Cardiac History Arrhythmia,Hypertension GI History Gallbladder Disease,Polyps History No Pertinent History Female Reproductive Disorders No Pertinent History Musculoskeletal History Fractures Psycho-Social History No Pertinent History Other Medical History fracture rt shoulder A-fib colon polyp 2016 Past Surgical History Yes Hx Anesthesia Reactions No Hx Malignant Hyperthermia No Neurological Surgical History No Pertinent History ENT Surgical History Cataract Surgery Respiratory Surgical History No Pertinent History Cardiac Surgical History Cardiac Catheterization,Other Gastrointestinal Surgical History Appendectomy,Cholecystectomy Genitourinary Surgical History No Pertinent History Female Surgical History Hysterectomy Musculoskeletal Surgical History Orthopedic Surgery Other Surgical History Cardiac ablation.RIGHT ARM Alcohol None Drug Use none Hx Substance Use Treatment No Initialized on 03/08/25 14:58 - END OF NOTE 03/08/25 11:20 Pharmacy Note by Nba Banks Levaquin dose changed to q48h per renal dosing policy. Estimated crcl is 31ml/min. Initialized on 03/08/25 11:20 - END OF NOTE Assessment/Plan (1) UTI (urinary tract infection) Current Visit: Yes Status: Acute Assessment & Plan: -Recent infections with Citrobacter freundii (02/23/25) and Klebsiella (02/10/25). Current UA demonstrates minimal inflammatory findings but given her symptoms, recurrent infection remains likely pending culture confirmation. -Continue empiric IV Levaquin pending culture and sensitivity results. -Adjust antibiotics based on culture data and prior resistance patterns. -WBC elevated at 12.0- trend -IVF 03/09: -WBC at 12.3 -Ucult pending- levaquin to continue Code(s): N39.0 - URINARY TRACT INFECTION, SITE NOT SPECIFIED (2) Hyponatremia Current Visit: Yes Status: Acute Assessment & Plan: -Likely multifactorial from infection, decreased oral intake, in the setting of hypoglycemia -IVF -Reassess if sodium continues to trend downward. Code(s): E87.1 - HYPO-OSMOLALITY AND HYPONATREMIA (3) Normocytic anemia Current Visit: Yes Status: Acute Assessment & Plan: -Stable at 10.9 and consistent with baseline. -Monitor CBC; no transfusion indicated unless Hgb < 7 g/dL or symptomatic. Code(s): D64.9 - ANEMIA, UNSPECIFIED (4) Generalized weakness Current Visit: Yes Status: Acute Assessment & Plan: -Likely multifactorial: infection-related malaise, mild hyponatremia, and deconditioning. No focal neurologic findings or evidence of acute stroke or arrhythmia. -Treat underlying infection and correct electrolyte abnormalities. -Assess orthostatic vitals and review medications for contributing factors -PT/OT consult for mobility assessment. -Encourage mobilization as tolerated Code(s): R53.1 - WEAKNESS (5) Afib Current Visit: No Status: Chronic Assessment & Plan: -Currently in sinus rhythm; rate 65 bpm. -Continue apixaban and metoprolol; maintain telemetry Code(s): I48.91 - UNSPECIFIED ATRIAL FIBRILLATION (6) Diabetes mellitus Current Visit: No Status: Chronic Assessment & Plan: -Glucose 193 on presentation. -A1c 6.98 -SSI/Glargine Code(s): E11.9 - TYPE 2 DIABETES MELLITUS WITHOUT COMPLICATIONS (7) HTN (hypertension) Current Visit: No Status: Chronic Assessment & Plan: -Continue home antihypertensive regimen; monitor daily pressures VTE: Eliquis PPI:protonix Dispo: 1-2 days Code status: SCO Plan of care time spent > 40 mins Code(s): N39.0 - URINARY TRACT INFECTION, SITE NOT SPECIFIED (2) Hyponatremia Current Visit: Yes Status: Acute Code(s): E87.1 - HYPO-OSMOLALITY AND HYPONATREMIA (3) Normocytic anemia Current Visit: Yes Status: Acute Code(s): D64.9 - ANEMIA, UNSPECIFIED (4) Generalized weakness Current Visit: Yes Status: Acute Code(s): R53.1 - WEAKNESS (5) Afib Current Visit: No Status: Chronic Code(s): I48.91 - UNSPECIFIED ATRIAL FIBRILLATION (6) Diabetes mellitus Current Visit: No Status: Chronic Code(s): E11.9 - TYPE 2 DIABETES MELLITUS WITHOUT COMPLICATIONS (7) HTN (hypertension) Current Visit: No Status: Chronic Code(s): I10 - ESSENTIAL (PRIMARY) HYPERTENSION
[2025-03-09 05:28] LABS: Calcium 8.9 mg/dL (8.4-10.2); Carbon Dioxide 25.0 mmol/L (22-30); Creatinine 1 0.55 mg/dL (0.52-1.04); EST GLOMERULAR FILTRATION RATE 88.7 ML/MIN; Glucose 85.0 mg/dL (74-106); Potassium 4.0 mmol/L (3.5-5.1); SGOT/AST 21.0 U/L (14-36); SGPT/ALT 14.0 U/L (0-35); Total Protein 6.5 g/dL (6.3-8.2)
[2025-03-09 07:10] VITALS: TEMP 97.8
[2025-03-09] MEDS: HUMALOG SQ PRN (08:00)
[2025-03-09] MEDS: LEVOFLOXACIN 750MG/150ML D5W 750 MG/150 ML BAG IV SCH (08:06)
[2025-03-09 11:40] VITALS: BP 131/60; PULSE 69; RESP 16; O2SAT 96
--- NOTE | 2025-03-09 12:02 | PCM.DS ---
Discharge Summary Date of Admission: 03/08/25 10:03 Date of Discharge: 03/09/25 Admitting Physician: BELLO TATE MD Primary Care Provider: JOSE MARTINEZ Allergies Allergies No Known Drug Allergies Allergy (Verified 03/08/25 05:43) Hospital Summary - Hospital Course Hospital Course: Ms. Zhang is an 85-year-old female with a medical history of atrial fibrillation on apixaban, hypertension, recurrent urinary tract infections, and type 2 diabetes mellitus who presented to the emergency department on March 08, 2025, with complaints of generalized weakness and dysuria that began around midnight. She recently completed a course of levofloxacin prescribed for a UTI diagnosed on February 23, 2025, with Citrobacter freundii isolated on urine culture. Earlier in the month, she was treated for a Klebsiella UTI on February 10, 2025. She noted initial improvement but experienced recurrence of dysuria, fatigue, and decreased energy the day prior to presentation. She denied fevers, chills, flank or abdominal pain, and hematuria. She also reported intermittent blood glucose readings in the 300s and admitted to inconsistent insulin use. On presentation, the patient was hypertensive but otherwise hemodynamically stable. EKG revealed sinus rhythm at 65 bpm with normal intervals and no ischemic changes. Laboratory studies were notable for leukocytosis (WBC 12.0), mild normocytic anemia consistent with baseline (Hgb 10.9), mild hyponatremia (Na 131 ), and hyperglycemia (glucose 193 ). Lactic acid and renal function were within normal limits. Urinalysis demonstrated trace leukocyte esterase, rare bacteria, and no nitrites; urine culture later returned negative for growth. No imaging was performed. Physical therapy evaluation on 03/09/25 determined the patient was at her baseline functional status with no further therapy indicated. Given improvement and negative culture results, antibiotics were discontinued, and the patient was deemed stable for discharge. She was counseled to adhere closely to her diabetic regimen, monitor glucose levels, and follow up with her primary care provider for review of pending A1c and continued management of recurrent UTIs. Discharge Note New Diagnosis: Weakness/UTI New Medications: none Follow Up: PCP I spent 35 minutes [id number] with the patient on the day of discharge performing discharge exam, discussing hospital stay and discharge instructions with patient and caregivers, preparation of discharge records, prescriptions & referral forms and addressing any questions/concerns the patient had as documented above. - Vitals & Intake/Output Vital Signs: Vital Signs Temperature 97.8 F 03/09/25 11:36 Pulse Rate 69 03/09/25 11:36 Respiratory Rate 16 03/09/25 11:36 Blood Pressure 131/60 03/09/25 11:36 O2 Sat by Pulse Oximetry 96 03/09/25 11:36 Intake & Output: Intake & Output 03/06/25 03/07/25 03/08/25 03/09/25 11:59 11:59 11:59 11:59 Intake Total 2109 Output Total 3450 Balance -1341 Weight 78.5 kg 74.6 kg - Lab Result Diagrams: 03/09/25 05:04 03/09/25 05:04 Lab Results-Last 24 Hrs: Lab Results-Last 24 Hours 03/08/25 03/08/25 03/08/25 Range/Units 06:20 12:13 15:56 WBC (3.98-10.04) x10^3/uL RBC (3.93-5.22) x10^6/uL Hgb (11.2-15.7) g/dL Hct (34.1-44.9) % MCV (79.4-94.8) fL MCH (25.6-32.2) pg MCHC (32.2-35.5) g/dL RDW (11.7-14.4) % Plt Count (182-369) x10^3/uL MPV (9.4-12.3) fL Sodium (135-145) mmol/L Potassium (3.5-5.1) mmol/L Chloride (98-107) mmol/L Carbon Dioxide (22-30) mmol/L Anion Gap (5-15) MEQ/L BUN (7-17) mg/dL Creatinine (0.52-1.04) mg/dL Estimated GFR ML/MIN Glucose (74-106) mg/dL POC Glucometer (74 to 106) mg/dL Calcium (8.4-10.2) mg/dL Total Bilirubin (0.2-1.3) mg/dL AST (14-36) U/L ALT (0-35) U/L Alkaline Phosphatase (38-126) U/L Troponin I < 0.012 < 0.012 (0.000-0.033) ng/mL Serum Total Protein (6.3-8.2) g/dL Albumin (3.5-5.0) g/dL TSH 3rd Generation 1.237 (0.470-4.680) mIU/L 03/08/25 03/08/25 03/09/25 Range/Units 16:19 20:32 05:04 WBC 12.3 H (3.98-10.04) x10^3/uL RBC 3.54 L (3.93-5.22) x10^6/uL Hgb 10.3 L (11.2-15.7) g/dL Hct 31.5 L (34.1-44.9) % MCV 89.0 (79.4-94.8) fL MCH 29.1 (25.6-32.2) pg MCHC 32.7 (32.2-35.5) g/dL RDW 13.9 (11.7-14.4) % Plt Count 260 (182-369) x10^3/uL MPV 9.5 (9.4-12.3) fL Sodium (135-145) mmol/L Potassium (3.5-5.1) mmol/L Chloride (98-107) mmol/L Carbon Dioxide (22-30) mmol/L Anion Gap (5-15) MEQ/L BUN (7-17) mg/dL Creatinine (0.52-1.04) mg/dL Estimated GFR ML/MIN Glucose (74-106) mg/dL POC Glucometer 164 H 115 H (74 to 106) mg/dL Calcium (8.4-10.2) mg/dL Total Bilirubin (0.2-1.3) mg/dL AST (14-36) U/L ALT (0-35) U/L Alkaline Phosphatase (38-126) U/L Troponin I (0.000-0.033) ng/mL Serum Total Protein (6.3-8.2) g/dL Albumin (3.5-5.0) g/dL TSH 3rd Generation (0.470-4.680) mIU/L 03/09/25 03/09/25 03/09/25 Range/Units 05:04 06:46 09:15 WBC (3.98-10.04) x10^3/uL RBC (3.93-5.22) x10^6/uL Hgb (11.2-15.7) g/dL Hct (34.1-44.9) % MCV (79.4-94.8) fL MCH (25.6-32.2) pg MCHC (32.2-35.5) g/dL RDW (11.7-14.4) % Plt Count (182-369) x10^3/uL MPV (9.4-12.3) fL Sodium 134 L (135-145) mmol/L Potassium 4.0 (3.5-5.1) mmol/L Chloride 104 (98-107) mmol/L Carbon Dioxide 25 (22-30) mmol/L Anion Gap 8.9 (5-15) MEQ/L BUN 13 (7-17) mg/dL Creatinine 0.55 (0.52-1.04) mg/dL Estimated GFR 88.7 ML/MIN Glucose 85 (74-106) mg/dL POC Glucometer 202 H 301 H (74 to 106) mg/dL Calcium 8.9 (8.4-10.2) mg/dL Total Bilirubin 0.40 (0.2-1.3) mg/dL AST 21 (14-36) U/L ALT 14 (0-35) U/L Alkaline Phosphatase 88 (38-126) U/L Troponin I (0.000-0.033) ng/mL Serum Total Protein 6.5 (6.3-8.2) g/dL Albumin 3.5 (3.5-5.0) g/dL TSH 3rd Generation (0.470-4.680) mIU/L 03/09/25 Range/Units 11:21 WBC (3.98-10.04) x10^3/uL RBC (3.93-5.22) x10^6/uL Hgb (11.2-15.7) g/dL Hct (34.1-44.9) % MCV (79.4-94.8) fL MCH (25.6-32.2) pg MCHC (32.2-35.5) g/dL RDW (11.7-14.4) % Plt Count (182-369) x10^3/uL MPV (9.4-12.3) fL Sodium (135-145) mmol/L Potassium (3.5-5.1) mmol/L Chloride (98-107) mmol/L Carbon Dioxide (22-30) mmol/L Anion Gap (5-15) MEQ/L BUN (7-17) mg/dL Creatinine (0.52-1.04) mg/dL Estimated GFR ML/MIN Glucose (74-106) mg/dL POC Glucometer 287 H (74 to 106) mg/dL Calcium (8.4-10.2) mg/dL Total Bilirubin (0.2-1.3) mg/dL AST (14-36) U/L ALT (0-35) U/L Alkaline Phosphatase (38-126) U/L Troponin I (0.000-0.033) ng/mL Serum Total Protein (6.3-8.2) g/dL Albumin (3.5-5.0) g/dL TSH 3rd Generation (0.470-4.680) mIU/L Micro Results-Entire Visit: Microbiology 03/08/25 05:52 Urine Culture - Final Urine, Void <10K NORMAL SKIN ESCOBAR PROBABLE SKIN CONTAMINANT Accuchecks Date 03/09/25 Date 03/09/25 Date 03/08/25 Date 03/08/25 Time 11:36 Time 07:10 Time 20:40 Time 16:21 - Radiology Exams Ordered Rad Exams-Entire Visit: Radiology Procedures Category Date Time Status ECHO W/2D AND DOPPLER [US] Routine Exams 03/08/25 11:16 Taken - Procedures and Test Procedures and Tests throughout Hospitalization: Therapy Orders & Screens 03/08/25 10:46 PT Eval & Treat ( Order) ONCE Reason for Eval:: weakness Diagnosis: Generalized weakness, hyponatremia, dehydration OT Eval and Treat (MD Order) ONCE Comment: Physician Instructions: Reason For Exam: Diagnosis: Generalized weakness, hyponatremia, dehydration Discharge Exam General Appearance: no apparent distress Neurologic Exam: alert, oriented x 3, cooperative Eye Exam: PERRL Ears, Nose, Throat Exam: normal ENT inspection Neck Exam: normal inspection Respiratory Exam: normal breath sounds, lungs clear Cardiovascular Exam: regular rate/rhythm, normal heart sounds Gastrointestinal/Abdomen Exam: soft, normal bowel sounds Pelvic Exam: deferred Rectal Exam: deferred Back Exam: normal inspection Extremity Exam: normal inspection Skin Exam: normal color Final Diagnosis/Problem List - Final Discharge Diagnosis/Problem (1) UTI (urinary tract infection) Current Visit: Yes Status: Acute Assessment & Plan: Prior infections: Klebsiella (02/10/25) and Citrobacter freundii (02/23/25). Current UA: minimal inflammatory changes; urine culture negative. No systemic symptoms; renal function and lactate normal. Discontinue antibiotics given negative culture and clinical stability. Encourage hydration and bladder hygiene measures. Follow up with PCP for ongoing evaluation of recurrent infections. Consider urology referral if recurrent episodes persist. Code(s): N39.0 - URINARY TRACT INFECTION, SITE NOT SPECIFIED (2) Hyponatremia Current Visit: Yes Status: Acute Assessment & Plan: Na 131 on admission, stable during stay 134 on discharge Likely secondary to decreased oral intake and transient hyperglycemia. Encourage adequate oral intake. Recheck sodium with PCP. Code(s): E87.1 - HYPO-OSMOLALITY AND HYPONATREMIA (3) Normocytic anemia Current Visit: Yes Status: Acute Assessment & Plan: Hgb 10.3, consistent with prior values. Code(s): D64.9 - ANEMIA, UNSPECIFIED (4) Generalized weakness Current Visit: Yes Status: Acute Assessment & Plan: Attributed to infection-related malaise, mild electrolyte imbalance, and deconditioning. No focal deficits or arrhythmia noted. Continue mobilization as tolerated. Resume baseline activity with assistance as needed. Outpatient PT only if function declines. Code(s): R53.1 - WEAKNESS (5) Afib Current Visit: No Status: Chronic Assessment & Plan: Continue apixaban and metoprolol. Code(s): I48.91 - UNSPECIFIED ATRIAL FIBRILLATION (6) Diabetes mellitus Current Visit: No Status: Chronic Assessment & Plan: Resume home insulin regimen with reinforced adherence. PCP follow-up for A1c review and regimen optimization. Code(s): E11.9 - TYPE 2 DIABETES MELLITUS WITHOUT COMPLICATIONS (7) HTN (hypertension) Current Visit: No Status: Chronic Assessment & Plan: Continue home antihypertensives. Code(s): I10 - ESSENTIAL (PRIMARY) HYPERTENSION - Discharge Discharge Date: 03/09/25 Disposition: Home, Self-Care Condition: Stable Prescriptions: Continue Metformin HCl 500 mg PO BID Atorvastatin Calcium 40 mg PO HS Verapamil HCl 80 mg [Calan 80 mg] 80 mg PO BID Insulin Glargine [Lantus Insulin] 30 units SQ QHS Insulin Lispro [Humalog Kwikpen U-100] 10 unit SQ BIDWM Ascorbic Acid 500 mg [Vitamin C 500 MG] 500 mg PO DAILY Magnesium Oxide [Magnesium] 400 mg PO DAILY Telmisartan 80 mg [Micardis 80 MG Tablet] 80 mg PO DAILY Apixaban [Eliquis 5 mg Tablet] 2.5 mg PO BID Hydralazine HCl 50 mg PO BID Metoprolol Succinate [Toprol Xl] 100 mg PO DAILY Metoprolol Succinate 50 mg [Toprol Xl 50 MG] 50 mg PO HS Follow up with: JOES MARTINEZ MD [Primary Care Provider, [facility]] - 03/17/25 2:15 pm
== END 2025-03-09 13:15 | disposition home or self-care (01) ==
LOC: ED 05:34 → MED SURG 10:03
PROVIDERS: ADMIT Internal Medicine; ATTEND Internal Medicine
DX: N39.0 Urinary tract infection, site not specified (principal); B96.1 Klebsiella pneumoniae [K. pneumoniae] as the cause of diseases classified elsewhere; E87.1 Hypo-osmolality and hyponatremia; D64.9 Anemia, unspecified; R53.1 Weakness; I48.91 Unspecified atrial fibrillation; E11.9 Type 2 diabetes mellitus without complications; I10 Essential (primary) hypertension; Z79.01 Long term (current) use of anticoagulants; Z79.899 Other long term (current) drug therapy

== ENCOUNTER 2025-04-17 04:20 | Emergency (ER) | payer MEDICARE ==
[2025-04-17 04:39] VITALS: RESP 18; TEMP 97.3
[2025-04-17 04:40] VITALS: O2SAT 97
--- NOTE | 2025-04-17 04:43 | ERPHSYRPT ---
- History of Present Illness Time Seen by Provider: 04/17/25 04:42 Source: patient Exam Limitations: no limitations Patient Subjective Stated Complaint: "I started having some burning when I go to the bathroom since yesterday. I think I have a UTI, I tested it with some test strips I had at home." Triage Nursing Assessment: Pt presents to ER with concerns she may have a UTI. Pt complains of burning while voiding since yesterday. Denies pain, just states having a burning sensation. Pt is alert and oriented x 3. Skin is pink, warm, and dry. Respirations are easy and unlabored. Pt is able to ambulate with stand by assist x 1, states has been a little weak lately. Denies any abdominal or flank pain. Family is at bedside. Physician History: The patient is a 56-year-old male with a past medical history of hypertension and type 2 diabetes mellitus who presents to the emergency department with a chief complaint of severe abdominal pain. The pain started suddenly approximately 12 hours ago. He describes the pain as a constant, sharp, and boring sensation located in the epigastric region, which radiates directly through to his back. The pain is rated as 9/10 in severity. He reports that nothing makes the pain better, and it is worsened by movement and eating. He has associated nausea and has vomited twice since the onset of the pain. He denies any fever, chills, diarrhea, constipation, or changes in urination. He has not experienced similar pain before. Allergies/Adverse Reactions: No Known Drug Allergies Allergy (Verified 04/17/25 04:29) Home Medications: Atorvastatin Calcium 40 mg PO HS 12/19/16 [History] Metformin HCl 500 mg PO BID 12/19/16 [History] Verapamil HCl 80 mg [Calan 80 mg] 80 mg PO BID 12/19/16 [History] Ascorbic Acid 500 mg [Vitamin C 500 MG] 500 mg PO DAILY 11/17/17 [History] Insulin Glargine [Lantus Insulin] 30 units SQ QHS 11/17/17 [History] Insulin Lispro [Humalog Kwikpen U-100] 10 unit SQ BIDWM 11/17/17 [History] Magnesium Oxide [Magnesium] 400 mg PO DAILY 12/30/23 [History] Apixaban [Eliquis 5 mg Tablet] 2.5 mg PO BID 07/14/24 [History] Hydralazine HCl 50 mg PO TID 07/14/24 [History] Telmisartan 80 mg [Micardis 80 MG Tablet] 80 mg PO DAILY 07/14/24 [History] Metoprolol Succinate 50 mg [Toprol Xl 50 MG] 50 mg PO HS 02/23/25 [History] Metoprolol Succinate [Toprol Xl] 100 mg PO DAILY 02/23/25 [History] Hx Tetanus, Diphtheria Vaccination/Date Given: Yes Hx Influenza Vaccination/Date Given: No Hx Pneumococcal Vaccination/Date Given: Yes Travel Risk - International Travel Have you traveled outside of the country in past 3 weeks: No - Emerging Infectious Disease Are you exhibiting symptoms associated with any current EIDs: No Symptoms: Cough: New Onset - Review of Systems All Other Systems: Reviewed and Negative - Past Medical History Pertinent Past Medical History: Yes Neurological History: Peripheral Neuropathy ENT History: Cataracts Cardiac History: Arrhythmia, Hypertension Respiratory History: No Pertinent History Endocrine Medical History: Diabetes Type II Musculoskeletal History: Fractures GI Medical History: Gallbladder Disease, Polyps History: No Pertinent History Psycho-Social History: No Pertinent History Female Reproductive Disorders: No Pertinent History Other Medical History: fracture rt shoulder. A-fib. colon polyp 2016 - Past Surgical History Past Surgical History: Yes Neuro Surgical History: No Pertinent History Cardiac: Cardiac Catheterization, Other Respiratory: No Pertinent History Gastrointestinal: Appendectomy, Cholecystectomy Genitourinary: No Pertinent History Musculoskeletal: Orthopedic Surgery Female Surgical History: Hysterectomy Other Surgical History: Cardiac ablation.RIGHT ARM Significant Family History: heart disease, cancer - Social History Smoking Status: Never smoker Exposure to second hand smoke: No Drug Use: none - Social Determinants of Health Will the patient participate in the screening: Yes Do you worry about a steady place to live?: No Do you have any problems with any of the following?: No known problems In the past 12 months,have you had to go without utilities?: No Transportation Issues: No Has anyone in your support network made you feel unsafe?: No Have you or anyone in your house had to go w/o enough food: No - Nursing Vital Signs Nursing Vital Signs: Initial Vital Signs Temperature 97.3 F 04/17/25 04:30 Pulse Rate 63 04/17/25 04:30 Respiratory Rate 18 04/17/25 04:30 Blood Pressure 167/82 04/17/25 04:30 O2 Sat by Pulse Oximetry 98 04/17/25 04:30 Pain Scale Pain Intensity 0 - Physical Exam General Appearance: no apparent distress Respiratory Exam: airway intact, No respiratory distress Gastrointestinal/Abdomen Exam: soft, tenderness (suprapubic) Back Exam: No CVA tenderness Neurologic Exam: alert, oriented x 3, cooperative SpO2 Interpretation: normal SpO2: 97 O2 Delivery: Room Air - Course Nursing assessment & vital signs reviewed: Yes Ordered Tests: Active Orders 24 hr Category Date Time Status CBC W DIFF Stat Lab 04/17/25 05:01 Completed CMP Stat Lab 04/17/25 05:01 Completed UA W/RFX UR CULTURE Stat Lab 04/17/25 05:00 Completed Medication Summary Discontinued Medications Generic Name Dose Route Start Last Admin Trade Name Freq PRN Reason Stop Dose Admin Nitrofurantoin Macrocrystals 100 mg 04/17/25 05:25 Nitrofurantoin Macro 100 Mg Capsule PO 04/17/25 05:26 STAT ONE Lab/Rad Data: Laboratory Result Diagrams 04/17/25 05:01 04/17/25 05:01 Laboratory Results 04/17/25 04/17/25 04/17/25 Range/Units 05:01 05:01 05:00 WBC 12.5 H (3.98-10.04) x10^3/uL RBC 3.91 L (3.93-5.22) x10^6/uL Hgb 11.8 (11.2-15.7) g/dL Hct 35.6 (34.1-44.9) % MCV 91.0 (79.4-94.8) fL MCH 30.2 (25.6-32.2) pg MCHC 33.1 (32.2-35.5) g/dL RDW 13.6 (11.7-14.4) % Plt Count 317 (182-369) x10^3/uL MPV 8.9 L (9.4-12.3) fL Gran % 72.7 H (34.0-71.1) % Immature Gran % (Auto) 1.1 H (0.001-0.429) % Nucleat RBC Rel Count 0.0 (0.00-0.2) % Eos # (Auto) 0.54 H (0.04-0.36) x10^3/uL Immature Gran # (Auto) 0.14 H (0.001-0.031) x10^3u/L Absolute Lymphs (auto) 1.90 (1.18-3.74) x10^3/uL Absolute Monos (auto) 0.79 (0.24-0.86) x10^3/uL Absolute Nucleated RBC 0.00 (0.00-0.012) x10^3u/L Lymphocytes % 15.2 L (19.3-51.7) % Monocytes % 6.3 (4.7-12.5) % Eosinophils % 4.3 (0.7-5.8) % Basophils % 0.4 (0.1-1.2) % Absolute Granulocytes 9.08 H (1.56-6.13) x10^3/uL Basophils # 0.05 (0.01-0.08) x10^3/uL Sodium 132 L (135-145) mmol/L Potassium 5.0 (3.5-5.1) mmol/L Chloride 99 (98-107) mmol/L Carbon Dioxide 26 (22-30) mmol/L Anion Gap 12.8 (5-15) MEQ/L BUN 15 (7-17) mg/dL Creatinine 0.75 (0.52-1.04) mg/dL Estimated GFR 77.0 ML/MIN Glucose 96 (74-106) mg/dL Calcium 10.0 (8.4-10.2) mg/dL Total Bilirubin 0.60 (0.2-1.3) mg/dL AST 23 (14-36) U/L ALT 18 (0-35) U/L Alkaline Phosphatase 88 (38-126) U/L Serum Total Protein 7.6 (6.3-8.2) g/dL Albumin 4.3 (3.5-5.0) g/dL Urine Color Yellow (Yellow) Urine Appearance Clear (Clear) Urine pH 8.0 (4.6-8.0) Ur Specific Brave 1.015 (1.005-1.030) Urine Protein Negative (Negative) Urine Glucose (UA) Negative (Negative) mg/dL Urine Ketones Negative (Negative) Urine Blood Negative (Negative) Urine Nitrite Negative (Negative) Urine Bilirubin Negative (Negative) Urine Urobilinogen 1.0 A (0.2) mg/dL Ur Leukocyte Esterase Trace A (Negative) U Hyaline Cast (Auto) NONE SEEN (0-2) /LPF Urine Microscopic RBC 0-2 (0-5) /HPF Urine Microscopic WBC 0-2 (0-5) /HPF Ur Epithelial Cells Rare (None Seen) /HPF Urine Bacteria None Seen (None Seen) /HPF Urine Culture Reflexed NO (NO) - Progress Progress: improved Air Movement: good Progress Note: Differential Diagnosis: - Acute Pancreatitis (possible due to epigastric pain radiating to the back, nausea, vomiting, history of alcohol use, and epigastric tenderness on exam) - Peptic Ulcer Disease/Perforation (possible due to severe epigastric pain) - Cholecystitis/Cholelithiasis (possible due to nausea, vomiting, and epigastric pain) - Gastritis (possible due to epigastric pain and history of alcohol use) - Bowel Obstruction (possible due to vomiting and hypoactive bowel sounds) - Myocardial Infarction (possible due to epigastric pain presentation) Due to the chief complaint, the following diagnoses were also considered but the signs/symptoms, physical exam, and data points are not consistent with any of the following: aortic dissection, mesenteric ischemia, appendicitis, diverticulitis, nephrolithiasis, pyelonephritis, splenic infarct, ectopic , ovarian torsion, testicular torsion, pneumonia, pulmonary embolism, esophageal rupture, or diabetic ketoacidosis. Rationale for Diagnosis and Decision Making: Given the patient's history of heavy alcohol use, classic presentation of severe epigastric pain radiating to the back, and physical exam findings of epigastric tenderness, the leading diagnosis was acute pancreatitis. Laboratory results confirmed this with a significantly elevated lipase. The decision was made to admit the patient for IV fluids, pain control, and further management. This plan was discussed with the patient, and with shared decision making, he agreed to admission for treatment. UA shows LE, discussed findings with patient. Decision made to start abx due to dysuria with + LE. Remainder labs unremarkable. Blood Culture(s) Obtained: No Antibiotics given: Yes Counseled pt/family regarding: lab results, diagnosis, need for follow-up Medical Desision Making - Diagnostic Testing Diagnostic test were ordered, analyzed, and reviewed by me: Yes Radiological Interpretation: Interpreted by me - Risk of complications The pt has a mod risk of morbidity or mortality based on: Need for prescription drug management - Departure Departure Disposition: Home Clinical Impression: Urinary tract infection, Dysuria Condition: Stable Critical Care Time: No Referrals: JOSE MARTINEZ MD [Primary Care Provider, [facility]] - Follow up/PCP as directed Instructions: Urinary Tract Infection, Adult (DC) Prescriptions: Nitrofurantoin Macro 100 mg [Macrobid 100MG Capsule] 100 mg PO BID 5 Days #9 cap
[2025-04-17 05:03] LABS: BASOPHIL % 0.4 % (0.1-1.2); Basophil (Absolute #) 0.05 x10^3/uL (0.01-0.08); Eosinophil (Absolute #) 0.54 x10^3/uL (0.04-0.36); Hematocrit 35.6 % (34.1-44.9); Hemoglobin 11.8 g/dL (11.2-15.7); IMMATURE GRAN # 0.14 x10^3u/L (0.001-0.031); IMMATURE GRAN % 1.1 % (0.001-0.429); Lymphocyte (Absolute #) 1.90 x10^3/uL (1.18-3.74); Mean Corpuscular Hemoglobin 30.2 pg (25.6-32.2); Mean Corpuscular Hgb Concent. 33.1 g/dL (32.2-35.5); Monocyte (Absolute #) 0.79 x10^3/uL (0.24-0.86); NUCLEATED RBC # 0.00 x10^3u/L (0.00-0.012); NUCLEATED RBC % 0.0 % (0.00-0.2); Platelet Count 317 x10^3/uL (182-369); Red Blood Count 3.91 x10^6/uL (3.93-5.22); White Blood Count 12.5 x10^3/uL (3.98-10.04)
[2025-04-17 05:09] LABS: Glucose, Urine Negative (Negative); Protein,Urine Dip Negative (Negative); RBC 0-2 /HPF (0-5); WBC 0-2 /HPF (0-5)
[2025-04-17 05:16] LABS: Calcium 10.0 mg/dL (8.4-10.2); Carbon Dioxide 26.0 mmol/L (22-30); Creatinine 1 0.75 mg/dL (0.52-1.04); EST GLOMERULAR FILTRATION RATE 77.0 ML/MIN; Glucose 96.0 mg/dL (74-106); Potassium 5.0 mmol/L (3.5-5.1); SGOT/AST 23.0 U/L (14-36); SGPT/ALT 18.0 U/L (0-35); Total Protein 7.6 g/dL (6.3-8.2)
[2025-04-17 05:33] VITALS: BP 162/75; PULSE 80
[2025-04-17] MEDS ORDERED: Macrobid 100MG Capsule ONE (05:36)
[2025-04-17] MEDS: Macrobid 100MG Capsule PO ONE (05:37)
== END 2025-04-17 05:55 | disposition home or self-care (01) ==
LOC: ED 04:20
DX: N39.0 Urinary tract infection, site not specified (principal); R30.0 Dysuria; R10.13 Epigastric pain; R11.2 Nausea with vomiting, unspecified; I10 Essential (primary) hypertension; E11.9 Type 2 diabetes mellitus without complications; Z79.4 Long term (current) use of insulin; Z79.84 Long term (current) use of oral hypoglycemic drugs; Z79.01 Long term (current) use of anticoagulants; Z79.899 Other long term (current) drug therapy

== ENCOUNTER 2025-04-18 19:45 | Observation (INO) | payer MEDICARE ==
--- NOTE | 2025-04-18 20:19 | ERPHSYRPT ---
- History of Present Illness Time Seen by Provider: 04/18/25 20:00 Source: patient, family Exam Limitations: no limitations Patient Subjective Stated Complaint: PT STATES SHE IS VERY WEAK Triage Nursing Assessment: PT ARRIVES TO THE ED VIA PRIVATE VEHICLE WITH HER DAUGHTER. PT IS WHEELED INTO THE ED AND ABLE TO TRANSFER HERSELF TO THE ER COT WITH THE ASSISTANCE OF ONE. PT STATES THAT SHE HAS HAD INCREASED WEAKNESS FOR 2 DAYS. PTS DAUGHTER STATES THAT SHE WAS SEEN IN THE ER ON FRIDAY MORNING AT 2 AM FOR A UTI. PT DOES SEEM TO HAVE PERIODIC CONFUSION AND IS NOT A VERY GOOD HISTORIAN. Physician History: 85-year-old female presents to the emergency room she is an insulin-dependent diabetic she reports she has been feeling generally weak for the past 2 to 3 days she was seen here Friday at 2 AM for urinary tract infection she reports she started on antibiotic she has been taking it since but since the medication she reports has been just feeling weak denies any focal deficits denies any fevers denies any chills denies any nausea vomiting or diarrhea denies any flank pain denies any abdominal pain patient is now in ED for further eval Timing/Duration: day(s) (2) Severity: mild Associated Symptoms: weakness Allergies/Adverse Reactions: No Known Drug Allergies Allergy (Verified 04/18/25 19:58) Home Medications: Atorvastatin Calcium 40 mg PO HS 12/19/16 [History] Metformin HCl 500 mg PO BID 12/19/16 [History] Verapamil HCl 80 mg [Calan 80 mg] 80 mg PO BID 12/19/16 [History] Ascorbic Acid 500 mg [Vitamin C 500 MG] 500 mg PO DAILY 11/17/17 [History] Insulin Glargine [Lantus Insulin] 15 units SQ QHS 11/17/17 [History] Insulin Lispro [Humalog Kwikpen U-100] 10 unit SQ BIDWM 11/17/17 [History] Magnesium Oxide [Magnesium] 400 mg PO DAILY 12/30/23 [History] Apixaban [Eliquis 5 mg Tablet] 2.5 mg PO BID 07/14/24 [History] Hydralazine HCl 50 mg PO TID 07/14/24 [History] Telmisartan 80 mg [Micardis 80 MG Tablet] 80 mg PO DAILY 07/14/24 [History] Metoprolol Succinate 50 mg [Toprol Xl 50 MG] 50 mg PO HS 02/23/25 [History] Metoprolol Succinate [Toprol Xl] 100 mg PO DAILY 02/23/25 [History] Nitrofurantoin Macro 100 mg [Macrobid 100MG Capsule] 100 mg PO BID 04/18/25 [History] Hx Tetanus, Diphtheria Vaccination/Date Given: Yes Hx Influenza Vaccination/Date Given: Yes Hx Pneumococcal Vaccination/Date Given: Yes Immunizations Up to Date: Yes Travel Risk - International Travel Have you traveled outside of the country in past 3 weeks: No - Emerging Infectious Disease Are you exhibiting symptoms associated with any current EIDs: No Symptoms: Cough: New Onset - Review of Systems Constitutional: Fatigue, No Fever, No Chills Eyes: No Symptoms Ears, Nose, & Throat: No Symptoms Respiratory: No Cough, No Dyspnea Cardiac: No Chest Pain, No Edema, No Syncope Abdominal/Gastrointestinal: No Abdominal Pain, No Nausea, No Vomiting, No Diarrhea Genitourinary Symptoms: No Dysuria Musculoskeletal: No Back Pain, No Neck Pain Skin: No Rash Neurological: No Dizziness, No Focal Weakness, No Sensory Changes Psychological: No Symptoms Endocrine: No Symptoms All Other Systems: Reviewed and Negative - Past Medical History Pertinent Past Medical History: Yes Neurological History: Peripheral Neuropathy ENT History: Cataracts Cardiac History: Arrhythmia, Hypertension Respiratory History: No Pertinent History Endocrine Medical History: Diabetes Type II Musculoskeletal History: Fractures GI Medical History: Polyps History: No Pertinent History Psycho-Social History: No Pertinent History Female Reproductive Disorders: No Pertinent History Other Medical History: fracture rt shoulder. A-fib. colon polyp 2016 - Past Surgical History Past Surgical History: Yes Neuro Surgical History: No Pertinent History Cardiac: Cardiac Catheterization, Other Respiratory: No Pertinent History Gastrointestinal: Appendectomy, Cholecystectomy Genitourinary: No Pertinent History Musculoskeletal: Orthopedic Surgery Female Surgical History: Hysterectomy Other Surgical History: Cardiac ablation.RIGHT ARM Significant Family History: heart disease, cancer - Social History Smoking Status: Never smoker Exposure to second hand smoke: No Drug Use: none - Social Determinants of Health Will the patient participate in the screening: Yes Do you worry about a steady place to live?: No Do you have any problems with any of the following?: No known problems In the past 12 months,have you had to go without utilities?: No Transportation Issues: No Has anyone in your support network made you feel unsafe?: No Have you or anyone in your house had to go w/o enough food: No - Nursing Vital Signs Nursing Vital Signs: Initial Vital Signs Temperature 96.2 F 04/18/25 19:55 Pulse Rate 82 04/18/25 19:55 Respiratory Rate 15 04/18/25 19:55 Blood Pressure 142/67 04/18/25 19:55 O2 Sat by Pulse Oximetry 98 04/18/25 19:55 Pain Scale Pain Intensity 0 - Physical Exam General Appearance: no apparent distress, alert Eye Exam: PERRL/EOMI, eyes nml inspection Ears, Nose, Throat Exam: normal ENT inspection, TMs normal, pharynx normal, moist mucous membranes Neck Exam: normal inspection, non-tender, supple, full range of motion Respiratory Exam: normal breath sounds, lungs clear, No respiratory distress Cardiovascular Exam: regular rate/rhythm, normal heart sounds, normal peripheral pulses Gastrointestinal/Abdomen Exam: soft, normal bowel sounds, No tenderness, No mass Back Exam: normal inspection, normal range of motion, No CVA tenderness, No vertebral tenderness Extremity Exam: normal inspection, normal range of motion, pelvis stable Neurologic Exam: alert, oriented x 3, cooperative, normal mood/affect, nml cerebellar function, nml station & gait, sensation nml, No motor deficits Skin Exam: normal color, warm, dry, No rash Lymphatic Exam: No adenopathy SpO2: 98 Ordered Tests: Active Orders 24 hr Category Date Time Status Bedrest with BRP/BSC ROUTINE Activity 04/18/25 21:52 Ordered Call Admit Doctor for Orders ON ADMISSION Care 04/18/25 21:52 Ordered Pharmacy Technician ROUTINE Care 04/18/25 21:52 Ordered Pharmacy Technician STAT Care 04/18/25 20:13 Completed Code Status Order ROUTINE Care 04/18/25 21:52 Ordered IV Insertion STAT Care 04/18/25 20:12 Completed NPO (ED) STAT Care 04/18/25 20:[address] in Observation ROUTINE Care 04/18/25 21:52 Ordered Pulse Oximetry (ED) STAT Care 04/18/25 20:12 Completed Telemetry q6h Care 04/18/25 21:52 Ordered Consistent Carbohydrate Diet 1800 Calorie Diet 04/19/25 Breakfast Ordered CHEST 1 VIEW (PORTABLE) Stat Exams 04/18/25 20:13 Completed CBC W DIFF Stat Lab 04/18/25 20:25 Completed CMP Stat Lab 04/18/25 20:25 Completed Lactic Acid Stat Lab 04/18/25 20:30 Completed MAGNESIUM Stat Lab 04/18/25 20:25 Completed TSH [TSH, 3RD Generation] Stat Lab 04/18/25 20:25 Received UA W/RFX UR CULTURE Stat Lab 04/18/25 20:34 Completed Pulse Oximetry CONTINUOUS RT 04/18/25 21:52 Ordered Transfer Order Routine Transfer 04/18/25 Completed Medication Summary Generic Name Dose Route Start Last Admin Trade Name Freq PRN Reason Stop Dose Admin Sodium Chloride 1,000 mls @ 999 mls/hr 04/18/25 21:48 Sodium Chloride 0.9% 1000 Ml IV 04/18/25 22:48 .Q1H1M STA Discontinued Medications Generic Name Dose Route Start Last Admin Trade Name Freq PRN Reason Stop Dose Admin Sodium Chloride 1,000 mls @ 999 mls/hr 04/18/25 20:45 04/18/25 20:56 Sodium Chloride 0.9% 1000 Ml IV 04/18/25 21:45 999 mls/hr .Q1H1M STA Administration Sodium Chloride Confirm 04/18/25 20:55 Sodium Chloride 0.9% 1000 Ml Administered 04/18/25 20:56 Dose 1,000 mls @ ud .ROUTE .K-MED ONE Lab/Rad Data: Laboratory Result Diagrams 04/18/25 20:25 04/18/25 20:25 Laboratory Results 04/18/25 04/18/25 04/18/25 Range/Units 20:34 20:30 20:26 WBC (3.98-10.04) x10^3/uL RBC (3.93-5.22) x10^6/uL Hgb (11.2-15.7) g/dL Hct (34.1-44.9) % MCV (79.4-94.8) fL MCH (25.6-32.2) pg MCHC (32.2-35.5) g/dL RDW (11.7-14.4) % Plt Count (182-369) x10^3/uL MPV (9.4-12.3) fL Gran % (34.0-71.1) % Immature Gran % (Auto) (0.001-0.429) % Nucleat RBC Rel Count (0.00-0.2) % Eos # (Auto) (0.04-0.36) x10^3/uL Immature Gran # (Auto) (0.001-0.031) x10^3u/L Absolute Lymphs (auto) (1.18-3.74) x10^3/uL Absolute Monos (auto) (0.24-0.86) x10^3/uL Absolute Nucleated RBC (0.00-0.012) x10^3u/L Lymphocytes % (19.3-51.7) % Monocytes % (4.7-12.5) % Eosinophils % (0.7-5.8) % Basophils % (0.1-1.2) % Absolute Granulocytes (1.56-6.13) x10^3/uL Basophils # (0.01-0.08) x10^3/uL Sodium (135-145) mmol/L Potassium (3.5-5.1) mmol/L Chloride (98-107) mmol/L Carbon Dioxide (22-30) mmol/L Anion Gap (5-15) MEQ/L BUN (7-17) mg/dL Creatinine (0.52-1.04) mg/dL Estimated GFR ML/MIN Glucose (74-106) mg/dL Lactic Acid 3.3 H (0.4-2.0) Calcium (8.4-10.2) mg/dL Magnesium (1.6-2.3) mg/dL Total Bilirubin (0.2-1.3) mg/dL AST (14-36) U/L ALT (0-35) U/L Alkaline Phosphatase (38-126) U/L Serum Total Protein (6.3-8.2) g/dL Albumin (3.5-5.0) g/dL Urine Color Yellow (Yellow) Urine Appearance Clear (Clear) Urine pH 7.5 (4.6-8.0) Ur Specific [place] 1.015 (1.005-1.030) Urine Protein Negative (Negative) Urine Glucose (UA) Negative (Negative) mg/dL Urine Ketones Trace A (Negative) Urine Blood Negative (Negative) Urine Nitrite Negative (Negative) Urine Bilirubin Negative (Negative) Urine Urobilinogen 0.2 (0.2) mg/dL Ur Leukocyte Esterase Negative (Negative) U Hyaline Cast (Auto) NONE SEEN (0-2) /LPF Urine Microscopic RBC 0-2 (0-5) /HPF Urine Microscopic WBC 0-2 (0-5) /HPF Ur Epithelial Cells Few (None Seen) /HPF Urine Bacteria None Seen (None Seen) /HPF Urine Culture Reflexed NO (NO) Influenza Type A Ag NEGATIVE (NEGATIVE) Influenza Type B Ag NEGATIVE (NEGATIVE) RSV (PCR) NEGATIVE (NEGATIVE) SARS-CoV-2 (PCR) NEGATIVE (NEGATIVE) 04/18/25 04/18/25 Range/Units 20:25 20:25 WBC 11.9 H (3.98-10.04) x10^3/uL RBC 4.01 (3.93-5.22) x10^6/uL Hgb 12.1 (11.2-15.7) g/dL Hct 35.4 (34.1-44.9) % MCV 88.3 (79.4-94.8) fL MCH 30.2 (25.6-32.2) pg MCHC 34.2 (32.2-35.5) g/dL RDW 13.3 (11.7-14.4) % Plt Count 346 (182-369) x10^3/uL MPV 9.1 L (9.4-12.3) fL Gran % 75.0 H (34.0-71.1) % Immature Gran % (Auto) 0.8 H (0.001-0.429) % Nucleat RBC Rel Count 0.0 (0.00-0.2) % Eos # (Auto) 0.27 (0.04-0.36) x10^3/uL Immature Gran # (Auto) 0.09 H (0.001-0.031) x10^3u/L Absolute Lymphs (auto) 1.79 (1.18-3.74) x10^3/uL Absolute Monos (auto) 0.76 (0.24-0.86) x10^3/uL Absolute Nucleated RBC 0.00 (0.00-0.012) x10^3u/L Lymphocytes % 15.1 L (19.3-51.7) % Monocytes % 6.4 (4.7-12.5) % Eosinophils % 2.3 (0.7-5.8) % Basophils % 0.4 (0.1-1.2) % Absolute Granulocytes 8.93 H (1.56-6.13) x10^3/uL Basophils # 0.05 (0.01-0.08) x10^3/uL Sodium 128 L (135-145) mmol/L Potassium 5.3 H (3.5-5.1) mmol/L Chloride 95 L (98-107) mmol/L Carbon Dioxide 22 (22-30) mmol/L Anion Gap 15.9 H (5-15) MEQ/L BUN 17 (7-17) mg/dL Creatinine 0.93 (0.52-1.04) mg/dL Estimated GFR 59.5 ML/MIN Glucose 163 H (74-106) mg/dL Lactic Acid (0.4-2.0) Calcium 10.2 (8.4-10.2) mg/dL Magnesium 2.0 (1.6-2.3) mg/dL Total Bilirubin 0.90 (0.2-1.3) mg/dL AST 25 (14-36) U/L ALT 21 (0-35) U/L Alkaline Phosphatase 106 (38-126) U/L Serum Total Protein 7.6 (6.3-8.2) g/dL Albumin 4.3 (3.5-5.0) g/dL Urine Color (Yellow) Urine Appearance (Clear) Urine pH (4.6-8.0) Ur Specific [place] (1.005-1.030) Urine Protein (Negative) Urine Glucose (UA) (Negative) mg/dL Urine Ketones (Negative) Urine Blood (Negative) Urine Nitrite (Negative) Urine Bilirubin (Negative) Urine Urobilinogen (0.2) mg/dL Ur Leukocyte Esterase (Negative) U Hyaline Cast (Auto) (0-2) /LPF Urine Microscopic RBC (0-5) /HPF Urine Microscopic WBC (0-5) /HPF Ur Epithelial Cells (None Seen) /HPF Urine Bacteria (None Seen) /HPF Urine Culture Reflexed (NO) Influenza Type A Ag (NEGATIVE) Influenza Type B Ag (NEGATIVE) RSV (PCR) (NEGATIVE) SARS-CoV-2 (PCR) (NEGATIVE) - Progress Progress Note: 04/18/25 21:36 According to the family upon further history patient has been having decreased p.o. intake and has been having concern for dehydration at home she has been taking her medications despite that she feels like she is not getting enough intake her sodium is 128 with the setting of lactic acidosis of 3.3 patient will be given IV hydration will need to be admitted for electrolyte abnormalities including hyper kalemia magnesium is 2.0 awaiting callback from the hospitalist service 04/18/25 21:53 Discussed the case with the hospitalist Dr. Hammond who accepts the patient to [facility] for IV fluids and hydration for lactic acidosis hyponatremia and hyperkalemia dehydration - Departure Departure Disposition: Observation Clinical Impression: Dehydration, Hyponatremia, Hyperkalemia, Lactic acidosis Condition: Stable Critical Care Time: No Referrals: JOSE MARTINEZ MD [Primary Care Provider, [facility]] - Follow up/PCP as directed
[2025-04-18 20:30] LABS: BASOPHIL % 0.4 % (0.1-1.2); Basophil (Absolute #) 0.05 x10^3/uL (0.01-0.08); Eosinophil (Absolute #) 0.27 x10^3/uL (0.04-0.36); Hematocrit 35.4 % (34.1-44.9); Hemoglobin 12.1 g/dL (11.2-15.7); IMMATURE GRAN # 0.09 x10^3u/L (0.001-0.031); IMMATURE GRAN % 0.8 % (0.001-0.429); Lymphocyte (Absolute #) 1.79 x10^3/uL (1.18-3.74); Mean Corpuscular Hemoglobin 30.2 pg (25.6-32.2); Mean Corpuscular Hgb Concent. 34.2 g/dL (32.2-35.5); Monocyte (Absolute #) 0.76 x10^3/uL (0.24-0.86); NUCLEATED RBC # 0.00 x10^3u/L (0.00-0.012); NUCLEATED RBC % 0.0 % (0.00-0.2); Platelet Count 346 x10^3/uL (182-369); Red Blood Count 4.01 x10^6/uL (3.93-5.22); White Blood Count 11.9 x10^3/uL (3.98-10.04)
[2025-04-18 20:50] LABS: Glucose, Urine Negative (Negative); Protein,Urine Dip Negative (Negative); RBC 0-2 /HPF (0-5); WBC 0-2 /HPF (0-5)
[2025-04-18 21:07] LABS: INFLUENZA A NEGATIVE (NEGATIVE); INFLUENZA B NEGATIVE (NEGATIVE); RESPIRATORY SYNCTIAL VIRUS NEGATIVE (NEGATIVE); SARS-CoV-2 Xpert Express NEGATIVE (NEGATIVE)
--- NOTE | 2025-04-18 21:16 | XRAY ---
Indication: Weakness. Comparison: February 23, 2025 Portable chest remains inflated and clear. Heart not enlarged again with tortuous descending aorta. Bony thorax intact again again with degenerative changes. No new/acute findings.
[2025-04-18 21:22] LABS: Calcium 10.2 mg/dL (8.4-10.2); Carbon Dioxide 22.0 mmol/L (22-30); Creatinine 1 0.93 mg/dL (0.52-1.04); EST GLOMERULAR FILTRATION RATE 59.5 ML/MIN; Glucose 163.0 mg/dL (74-106); Potassium 5.3 mmol/L (3.5-5.1); SGOT/AST 25.0 U/L (14-36); SGPT/ALT 21.0 U/L (0-35); Total Protein 7.6 g/dL (6.3-8.2)
[2025-04-18] MEDS ORDERED: VENTOLIN COMMON CANISTER IH PRN (23:06)
--- NOTE | 2025-04-19 00:23 | PCM.HP ---
History of Present Illness - Chief Complaint Chief Complaint: hyponatremia, hyperkalemia, lactic acidosis Date: 04/18/25 History of Present Illness: The patient is a 85-year-old female with a PMH of type II DM, A-fib (on Eliquis), hypertension, and hyperlipidemia who presents to the emergency room with complaints of generalized weakness. The patient reports that she has been dealing with this weakness intermittently for the past several years. She denied any additional complaints other than just simply feeling not well. She denied experiencing chest discomfort, shortness of breath, fever, chills, cough. She also denied abdominal pain, nausea, vomiting, diarrhea. The patient does report that her diet is good, although she tries to not take any salt. She reports an adequate amount of oral fluid intake as well. In the emergency department, laboratory evaluation was remarkable for sodium of 128, potassium 5.3, chloride 95, lactic acid 3.3, glucose 163, WBC count 11.9, with a negative UA, and negative respiratory viral panel. The case was discussed with the ER provider in detail and chart was reviewed. Review of Systems: A complete and thorough review of system was performed and was negative except as stated in the HPI. Physical Examination: General: Well-nourished, in no acute distress. Normal weight. HEENT: Head atruamatic normocephaic, PERRL, no scleral icterus, no oral lesions Cardiovascular: Regular rate and rhythm, S1S2 normal, no murmurs appreciated Respiratory: Clear to auscultation bilaterally, no wheezes, rales, rhonchi Abdomen: Soft, nontender, nondistended, normoactive bowel sounds, no guarding Musculoskeletal: Full range of motion. No obvious swelling or tenderness noted Neurological: Alert and oriented x 3. Strength 5/5 in all extremities grossly, no obvious focal deficits noted Psychiatric: Normal mood, affect, with cohesive thought process Assessment & Plan Hypochloremic hyponatremia, suspect due to poor oral solute intake - Continue with IV fluids normal saline 100 mL/h - Monitor BMP Lactic acidosis - Continue with above IV fluids and monitor for resolution Type II DM - Insulin sliding scale blood glucose monitoring A-fib - Continue with home Eliquis Hypertension - Continue with home antihypertensives spironolactone 25, hydralazine 50, telmisartan 80, and metoprolol Hyperlipidemia - Continue with home Lipitor 40 mg p.o. nightly DVT prophylaxis: Eliquis CODE STATUS: Full code Medications & Allergies Home Medications: Home Medication List Atorvastatin Calcium 40 mg PO HS 12/19/16 [History Confirmed 04/18/25] Metformin HCl 500 mg PO BID 12/19/16 [History Confirmed 04/18/25] Verapamil HCl 80 mg [Calan 80 mg] 80 mg PO BID 12/19/16 [History Confirmed 04/18/25] Ascorbic Acid 500 mg [Vitamin C 500 MG] 500 mg PO DAILY 11/17/17 [History Confirmed 04/18/25] Insulin Glargine [Lantus Insulin] 15 units SQ QHS 11/17/17 [History Confirmed 04/18/25] Insulin Lispro [Humalog Kwikpen U-100] 10 unit SQ TIDWM 11/17/17 [History Confirmed 04/18/25] Apixaban [Eliquis 5 mg Tablet] 2.5 mg PO BID 07/14/24 [History Confirmed 04/18/25] Hydralazine HCl 50 mg PO BID 07/14/24 [History Confirmed 04/18/25] Telmisartan 80 mg [Micardis 80 MG Tablet] 80 mg PO DAILY 07/14/24 [History Confirmed 04/18/25] Metoprolol Succinate 50 mg [Toprol Xl 50 MG] 50 mg PO HS 02/23/25 [History Confirmed 04/18/25] Metoprolol Succinate [Toprol Xl] 100 mg PO DAILY 02/23/25 [History Confirmed 04/18/25] Ferrous Sulfate 325 mg [Feosol 325 mg] 325 mg PO DAILY 04/18/25 [History Confirmed 04/18/25] Nitrofurantoin Macro 100 mg [Macrobid 100MG Capsule] 100 mg PO BID 04/18/25 [History Confirmed 04/18/25] Nitrofurantoin Macro 100 mg [Macrobid 100MG Capsule] 100 mg PO BID 04/18/25 [History Confirmed 04/18/25] Spironolactone 25 mg [Aldactone 25 MG] 25 mg PO DAILY 04/18/25 [History Confirmed 04/18/25] Allergies/Adverse Reactions: Allergies Allergy/AdvReac Type Severity Reaction Status Date / Time No Known Drug Allergies Allergy Verified 04/18/25 19:58 - Past Medical History Past Medical History: Yes Neurological History: Peripheral Neuropathy ENT History: Cataracts Cardiac History: Arrhythmia, Hypertension Respiratory History: COPD, Pulmonary Embolism Endocrine Medical History: Diabetes Type II Musculoskelatal History: Fractures GI Medical History: Polyps History: No Pertinent History Pyscho-Social History: No Pertinent History Reproductive Disorders: No Pertinent History Comment: fracture rt shoulder. A-fib. colon polyp 2017 - Past Surgical History Past Surgical History: Yes Neuro Surgical History: No Pertinent History Cardiac History: Cardiac Catheterization, Other Respiratory Surgery: No Pertinent History GI Surgical History: Appendectomy, Cholecystectomy Genitourinary Surgical Hx: No Pertinent History Musculskeletal Surgical Hx: Orthopedic Surgery Female Surgical History: Hysterectomy Other Surgical History: Cardiac ablation.RIGHT ARM Significant Family History: heart disease, cancer - Social History Smoking Status: Never smoker Exposure to second hand smoke: No Alcohol: None Drug Use: none - Social Determinants of Health Will the patient participate in the screening: Yes Do you worry about a steady place to live?: No Do you have any problems with any of the following?: No known problems In the past 12 months,have you had to go without utilities?: No Have you or anyone in your house had to go without enough: No Transportation Issues: No Has anyone in your support network made you feel unsafe?: No Does the patient want assistance with any of the above?: No - Physical Exam Vital Signs: Vital Signs - 24 hr Temp Pulse Resp BP BP Pulse Ox 04/19/25 00:00 97.2 F 67 15 173/84 99 04/18/25 23:20 97.2 F 67 15 173/84 99 04/18/25 22:53 97.2 F 67 15 173/84 99 04/18/25 22:50 67 16 99 04/18/25 22:00 66 24 154/69 100 04/18/25 21:53 98 04/18/25 21:30 25 H 134/70 98 04/18/25 21:00 60 15 150/66 96 04/18/25 20:33 69 22 160/87 100 04/18/25 20:16 98 04/18/25 20:00 68 19 158/60 98 04/18/25 19:55 96.2 F 82 15 142/67 98 Results - Labs Lab/Micro Results: Lab Results-Last 24 Hours 04/18/25 04/18/25 04/18/25 Range/Units 20:25 20:25 : WBC 11.9 H (3.98-10.04) x10^3/uL RBC 4.01 (3.93-5.22) x10^6/uL Hgb 12.1 (11.2-15.7) g/dL Hct 35.4 (34.1-44.9) % MCV 88.3 (79.4-94.8) fL MCH 30.2 (25.6-32.2) pg MCHC 34.2 (32.2-35.5) g/dL RDW 13.3 (11.7-14.4) % Plt Count 346 (182-369) x10^3/uL MPV 9.1 L (9.4-12.3) fL Gran % 75.0 H (34.0-71.1) % Immature Gran % (Auto) 0.8 H (0.001-0.429) % Nucleat RBC Rel Count 0.0 (0.00-0.2) % Eos # (Auto) 0.27 (0.04-0.36) x10^3/uL Immature Gran # (Auto) 0.09 H (0.001-0.031) x10^3u/L Absolute Lymphs (auto) 1.79 (1.18-3.74) x10^3/uL Absolute Monos (auto) 0.76 (0.24-0.86) x10^3/uL Absolute Nucleated RBC 0.00 (0.00-0.012) x10^3u/L Lymphocytes % 15.1 L (19.3-51.7) % Monocytes % 6.4 (4.7-12.5) % Eosinophils % 2.3 (0.7-5.8) % Basophils % 0.4 (0.1-1.2) % Absolute Granulocytes 8.93 H (1.56-6.13) x10^3/uL Basophils # 0.05 (0.01-0.08) x10^3/uL Sodium 128 L (135-145) mmol/L Potassium 5.3 H (3.5-5.1) mmol/L Chloride 95 L (98-107) mmol/L Carbon Dioxide 22 (22-30) mmol/L Anion Gap 15.9 H (5-15) MEQ/L BUN 17 (7-17) mg/dL Creatinine 0.93 (0.52-1.04) mg/dL Estimated GFR 59.5 ML/MIN Glucose 163 H (74-106) mg/dL Lactic Acid (0.4-2.0) Calcium 10.2 (8.4-10.2) mg/dL Magnesium 2.0 (1.6-2.3) mg/dL Total Bilirubin 0.90 (0.2-1.3) mg/dL AST 25 (14-36) U/L ALT 21 (0-35) U/L Alkaline Phosphatase 106 (38-126) U/L Serum Total Protein 7.6 (6.3-8.2) g/dL Albumin 4.3 (3.5-5.0) g/dL TSH 3rd Generation 1.401 (0.470-4.680) mIU/L Urine Color (Yellow) Urine Appearance (Clear) Urine pH (4.6-8.0) Ur Specific [place] (1.005-1.030) Urine Protein (Negative) Urine Glucose (UA) (Negative) mg/dL Urine Ketones (Negative) Urine Blood (Negative) Urine Nitrite (Negative) Urine Bilirubin (Negative) Urine Urobilinogen (0.2) mg/dL Ur Leukocyte Esterase (Negative) U Hyaline Cast (Auto) (0-2) /LPF Urine Microscopic RBC (0-5) /HPF Urine Microscopic WBC (0-5) /HPF Ur Epithelial Cells (None Seen) /HPF Urine Bacteria (None Seen) /HPF Urine Culture Reflexed (NO) Influenza Type A Ag (NEGATIVE) Influenza Type B Ag (NEGATIVE) RSV (PCR) (NEGATIVE) SARS-CoV-2 (PCR) (NEGATIVE) 04/18/25 04/18/25 04/18/25 Range/Units 20:26 20:30 20:34 WBC (3.98-10.04) x10^3/uL RBC (3.93-5.22) x10^6/uL Hgb (11.2-15.7) g/dL Hct (34.1-44.9) % MCV (79.4-94.8) fL MCH (25.6-32.2) pg MCHC (32.2-35.5) g/dL RDW (11.7-14.4) % Plt Count (182-369) x10^3/uL MPV (9.4-12.3) fL Gran % (34.0-71.1) % Immature Gran % (Auto) (0.001-0.429) % Nucleat RBC Rel Count (0.00-0.2) % Eos # (Auto) (0.04-0.36) x10^3/uL Immature Gran # (Auto) (0.001-0.031) x10^3u/L Absolute Lymphs (auto) (1.18-3.74) x10^3/uL Absolute Monos (auto) (0.24-0.86) x10^3/uL Absolute Nucleated RBC (0.00-0.012) x10^3u/L Lymphocytes % (19.3-51.7) % Monocytes % (4.7-12.5) % Eosinophils % (0.7-5.8) % Basophils % (0.1-1.2) % Absolute Granulocytes (1.56-6.13) x10^3/uL Basophils # (0.01-0.08) x10^3/uL Sodium (135-145) mmol/L Potassium (3.5-5.1) mmol/L Chloride (98-107) mmol/L Carbon Dioxide (22-30) mmol/L Anion Gap (5-15) MEQ/L BUN (7-17) mg/dL Creatinine (0.52-1.04) mg/dL Estimated GFR ML/MIN Glucose (74-106) mg/dL Lactic Acid 3.3 H (0.4-2.0) Calcium (8.4-10.2) mg/dL Magnesium (1.6-2.3) mg/dL Total Bilirubin (0.2-1.3) mg/dL AST (14-36) U/L ALT (0-35) U/L Alkaline Phosphatase (38-126) U/L Serum Total Protein (6.3-8.2) g/dL Albumin (3.5-5.0) g/dL TSH 3rd Generation (0.470-4.680) mIU/L Urine Color Yellow (Yellow) Urine Appearance Clear (Clear) Urine pH 7.5 (4.6-8.0) Ur Specific [place] 1.015 (1.005-1.030) Urine Protein Negative (Negative) Urine Glucose (UA) Negative (Negative) mg/dL Urine Ketones Trace A (Negative) Urine Blood Negative (Negative) Urine Nitrite Negative (Negative) Urine Bilirubin Negative (Negative) Urine Urobilinogen 0.2 (0.2) mg/dL Ur Leukocyte Esterase Negative (Negative) U Hyaline Cast (Auto) NONE SEEN (0-2) /LPF Urine Microscopic RBC 0-2 (0-5) /HPF Urine Microscopic WBC 0-2 (0-5) /HPF Ur Epithelial Cells Few (None Seen) /HPF Urine Bacteria None Seen (None Seen) /HPF Urine Culture Reflexed NO (NO) Influenza Type A Ag NEGATIVE (NEGATIVE) Influenza Type B Ag NEGATIVE (NEGATIVE) RSV (PCR) NEGATIVE (NEGATIVE) SARS-CoV-2 (PCR) NEGATIVE (NEGATIVE) 04/18/25 Range/Units 22:40 WBC (3.98-10.04) x10^3/uL RBC (3.93-5.22) x10^6/uL Hgb (11.2-15.7) g/dL Hct (34.1-44.9) % MCV (79.4-94.8) fL MCH (25.6-32.2) pg MCHC (32.2-35.5) g/dL RDW (11.7-14.4) % Plt Count (182-369) x10^3/uL MPV (9.4-12.3) fL Gran % (34.0-71.1) % Immature Gran % (Auto) (0.001-0.429) % Nucleat RBC Rel Count (0.00-0.2) % Eos # (Auto) (0.04-0.36) x10^3/uL Immature Gran # (Auto) (0.001-0.031) x10^3u/L Absolute Lymphs (auto) (1.18-3.74) x10^3/uL Absolute Monos (auto) (0.24-0.86) x10^3/uL Absolute Nucleated RBC (0.00-0.012) x10^3u/L Lymphocytes % (19.3-51.7) % Monocytes % (4.7-12.5) % Eosinophils % (0.7-5.8) % Basophils % (0.1-1.2) % Absolute Granulocytes (1.56-6.13) x10^3/uL Basophils # (0.01-0.08) x10^3/uL Sodium (135-145) mmol/L Potassium (3.5-5.1) mmol/L Chloride (98-107) mmol/L Carbon Dioxide (22-30) mmol/L Anion Gap (5-15) MEQ/L BUN (7-17) mg/dL Creatinine (0.52-1.04) mg/dL Estimated GFR ML/MIN Glucose (74-106) mg/dL Lactic Acid 2.7 H (0.4-2.0) Calcium (8.4-10.2) mg/dL Magnesium (1.6-2.3) mg/dL Total Bilirubin (0.2-1.3) mg/dL AST (14-36) U/L ALT (0-35) U/L Alkaline Phosphatase (38-126) U/L Serum Total Protein (6.3-8.2) g/dL Albumin (3.5-5.0) g/dL TSH 3rd Generation (0.470-4.680) mIU/L Urine Color (Yellow) Urine Appearance (Clear) Urine pH (4.6-8.0) Ur Specific [place] (1.005-1.030) Urine Protein (Negative) Urine Glucose (UA) (Negative) mg/dL Urine Ketones (Negative) Urine Blood (Negative) Urine Nitrite (Negative) Urine Bilirubin (Negative) Urine Urobilinogen (0.2) mg/dL Ur Leukocyte Esterase (Negative) U Hyaline Cast (Auto) (0-2) /LPF Urine Microscopic RBC (0-5) /HPF Urine Microscopic WBC (0-5) /HPF Ur Epithelial Cells (None Seen) /HPF Urine Bacteria (None Seen) /HPF Urine Culture Reflexed (NO) Influenza Type A Ag (NEGATIVE) Influenza Type B Ag (NEGATIVE) RSV (PCR) (NEGATIVE) SARS-CoV-2 (PCR) (NEGATIVE) - Radiology Impressions Radiology Exams & Impressions: Radiology Procedures Category Date Time Status CHEST 1 VIEW (PORTABLE) Stat Exams 04/18/25 20:13 Completed - Other Procedures and Tests Respiratory Therapy 04/18/25 23:06 Respiratory Therapy Assessment DAILY Telemedicine Encounter - Telemedicine Encounter Telemedicine Encounter: "The entirety of this encounter was performed via Telemedicine" This visit was performed using real-time audio and video connection between my location and thepatients locationwith the assistance of a surrogateat the patients location. Written or verbal consent was obtained from the patient/guardian to perform this visit using[employer] technology. Any patient questions regarding the telemedicine interaction were answered.
[2025-04-19] MEDS: BENADRYL 12.5 MG/5 ML PO ONE (00:41)
[2025-04-19] MEDS: MELATONIN PO ONE (01:41)
[2025-04-19] MEDS ORDERED: HUMALOG SQ PRN (04:50)
[2025-04-19 04:53] LABS: Hematocrit 30.7 % (34.1-44.9); Hemoglobin 10.5 g/dL (11.2-15.7); Mean Corpuscular Hemoglobin 31.2 pg (25.6-32.2); Mean Corpuscular Hgb Concent. 34.2 g/dL (32.2-35.5); Platelet Count 284 x10^3/uL (182-369); Red Blood Count 3.37 x10^6/uL (3.93-5.22); White Blood Count 10.1 x10^3/uL (3.98-10.04)
[2025-04-19 05:09] VITALS: TEMP 97.7
[2025-04-19 05:21] LABS: Calcium 9.0 mg/dL (8.4-10.2); Carbon Dioxide 22.0 mmol/L (22-30); Creatinine 1 0.72 mg/dL (0.52-1.04); EST GLOMERULAR FILTRATION RATE 80.9 ML/MIN; Glucose 116.0 mg/dL (74-106); Potassium 4.6 mmol/L (3.5-5.1)
--- NOTE | 2025-04-19 05:35 | PCM.NOTE ---
Date and Time: 04/19/25 0530 Subjective Assessment: Ms. Zhang is an 85 year old female with a pmhx of type II diabetes mellitus, atrial fibrillation on apixaban, hypertension, COPD, history of pulmonary embolism, peripheral neuropathy, and hyperlipidemia who presented to the emergency department 04/18/25 with complaints of generalized weakness. The patie nt reports intermittent weakness over several years without a clear acute precipitant. She denies chest pain, dyspnea, fever, chills, cough, abdominal pain, nausea, vomiting, or diarrhea. She reports good oral intake with intentional low salt consumption and adequate fluid intake. Initial emergency department laboratory evaluation revealed hyponatremia with sodium 128 , hyperkalemia at 5.3 , chloride 95 , elevated lactic acid at 3.3, glucose 163, and leukocytosis with WBC 11.9. Urinalysis and respiratory viral panel were negative. She was started on normal saline infusion. Repeat laboratory ev aluation on 04/19 demonstrated improving leukocytosis with WBC 10.1, normocytic anemia with hemoglobin 10.5, mild improvement in hyponatremia with sodium now 129, resolution of hyperkalemia with potassium improved to 4.6, and normalization of lactic acid to 1.3. Chest X-ray revealed no new or acute cardiopulmonary findings. The clinical picture is consistent with hyponatremia likely related to low solute intake and medication effects, with resolved lactic acidosis and hyperkalemia and no evidence of active infection. Objective Data Vital Signs: Vital Signs - 24 hr Temp Pulse Resp BP BP Pulse Ox 04/19/25 04:00 97.7 F 75 18 161/71 99 04/19/25 00:00 97.2 F 67 15 173/84 99 04/18/25 23:20 97.2 F 67 15 173/84 99 04/18/25 22:53 97.2 F 67 15 173/84 99 04/18/25 22:50 67 16 99 04/18/25 22:00 66 24 154/69 100 04/18/25 21:53 98 04/18/25 21:30 25 H 134/70 98 04/18/25 21:00 60 15 150/66 96 04/18/25 20:33 69 22 160/87 100 04/18/25 20:16 98 04/18/25 20:00 68 19 158/60 98 04/18/25 19:55 96.2 F 82 15 142/67 98 Pain Assessment - Last Documented Pain Intensity 0 Intake and Output: Intake & Output 04/16/25 04/17/25 04/18/25 04/19/25 11:59 11:59 11:59 11:59 Intake Total 916 Balance 916 Weight 77.4 kg Lab Results: Lab Results-Last 24 Hours 04/18/25 04/18/25 04/18/25 Range/Units 20:25 20:25 20:25 WBC 11.9 H (3.98-10.04) x10^3/uL RBC 4.01 (3.93-5.22) x10^6/uL Hgb 12.1 (11.2-15.7) g/dL Hct 35.4 (34.1-44.9) % MCV 88.3 (79.4-94.8) fL MCH 30.2 (25.6-32.2) pg MCHC 34.2 (32.2-35.5) g/dL RDW 13.3 (11.7-14.4) % Plt Count 346 (182-369) x10^3/uL MPV 9.1 L (9.4-12.3) fL Gran % 75.0 H (34.0-71.1) % Immature Gran % (Auto) 0.8 H (0.001-0.429) % Nucleat RBC Rel Count 0.0 (0.00-0.2) % Eos # (Auto) 0.27 (0.04-0.36) x10^3/uL Immature Gran # (Auto) 0.09 H (0.001-0.031) x10^3u/L Absolute Lymphs (auto) 1.79 (1.18-3.74) x10^3/uL Absolute Monos (auto) 0.76 (0.24-0.86) x10^3/uL Absolute Nucleated RBC 0.00 (0.00-0.012) x10^3u/L Lymphocytes % 15.1 L (19.3-51.7) % Monocytes % 6.4 (4.7-12.5) % Eosinophils % 2.3 (0.7-5.8) % Basophils % 0.4 (0.1-1.2) % Absolute Granulocytes 8.93 H (1.56-6.13) x10^3/uL Basophils # 0.05 (0.01-0.08) x10^3/uL Sodium 128 L (135-145) mmol/L Potassium 5.3 H (3.5-5.1) mmol/L Chloride 95 L (98-107) mmol/L Carbon Dioxide 22 (22-30) mmol/L Anion Gap 15.9 H (5-15) MEQ/L BUN 17 (7-17) mg/dL Creatinine 0.93 (0.52-1.04) mg/dL Estimated GFR 59.5 ML/MIN Glucose 163 H (74-106) mg/dL POC Glucometer (74 to 106) mg/dL Lactic Acid (0.4-2.0) Calcium 10.2 (8.4-10.2) mg/dL Magnesium 2.0 (1.6-2.3) mg/dL Total Bilirubin 0.90 (0.2-1.3) mg/dL AST 25 (14-36) U/L ALT 21 (0-35) U/L Alkaline Phosphatase 106 (38-126) U/L Serum Total Protein 7.6 (6.3-8.2) g/dL Albumin 4.3 (3.5-5.0) g/dL TSH 3rd Generation 1.401 (0.470-4.680) mIU/L Urine Color (Yellow) Urine Appearance (Clear) Urine pH (4.6-8.0) Ur Specific Jerome (1.005-1.030) Urine Protein (Negative) Urine Glucose (UA) (Negative) mg/dL Urine Ketones (Negative) Urine Blood (Negative) Urine Nitrite (Negative) Urine Bilirubin (Negative) Urine Urobilinogen (0.2) mg/dL Ur Leukocyte Esterase (Negative) U Hyaline Cast (Auto) (0-2) /LPF Urine Microscopic RBC (0-5) /HPF Urine Microscopic WBC (0-5) /HPF Ur Epithelial Cells (None Seen) /HPF Urine Bacteria (None Seen) /HPF Urine Culture Reflexed (NO) Influenza Type A Ag (NEGATIVE) Influenza Type B Ag (NEGATIVE) RSV (PCR) (NEGATIVE) SARS-CoV-2 (PCR) (NEGATIVE) 04/18/25 04/18/25 04/18/25 Range/Units 20:26 20:30 20:34 WBC (3.98-10.04) x10^3/uL RBC (3.93-5.22) x10^6/uL Hgb (11.2-15.7) g/dL Hct (34.1-44.9) % MCV (79.4-94.8) fL MCH (25.6-32.2) pg MCHC (32.2-35.5) g/dL RDW (11.7-14.4) % Plt Count (182-369) x10^3/uL MPV (9.4-12.3) fL Gran % (34.0-71.1) % Immature Gran % (Auto) (0.001-0.429) % Nucleat RBC Rel Count (0.00-0.2) % Eos # (Auto) (0.04-0.36) x10^3/uL Immature Gran # (Auto) (0.001-0.031) x10^3u/L Absolute Lymphs (auto) (1.18-3.74) x10^3/uL Absolute Monos (auto) (0.24-0.86) x10^3/uL Absolute Nucleated RBC (0.00-0.012) x10^3u/L Lymphocytes % (19.3-51.7) % Monocytes % (4.7-12.5) % Eosinophils % (0.7-5.8) % Basophils % (0.1-1.2) % Absolute Granulocytes (1.56-6.13) x10^3/uL Basophils # (0.01-0.08) x10^3/uL Sodium (135-145) mmol/L Potassium (3.5-5.1) mmol/L Chloride (98-107) mmol/L Carbon Dioxide (22-30) mmol/L Anion Gap (5-15) MEQ/L BUN (7-17) mg/dL Creatinine (0.52-1.04) mg/dL Estimated GFR ML/MIN Glucose (74-106) mg/dL POC Glucometer (74 to 106) mg/dL Lactic Acid 3.3 H (0.4-2.0) Calcium (8.4-10.2) mg/dL Magnesium (1.6-2.3) mg/dL Total Bilirubin (0.2-1.3) mg/dL AST (14-36) U/L ALT (0-35) U/L Alkaline Phosphatase (38-126) U/L Serum Total Protein (6.3-8.2) g/dL Albumin (3.5-5.0) g/dL TSH 3rd Generation (0.470-4.680) mIU/L Urine Color Yellow (Yellow) Urine Appearance Clear (Clear) Urine pH 7.5 (4.6-8.0) Ur Specific Jerome 1.015 (1.005-1.030) Urine Protein Negative (Negative) Urine Glucose (UA) Negative (Negative) mg/dL Urine Ketones Trace A (Negative) Urine Blood Negative (Negative) Urine Nitrite Negative (Negative) Urine Bilirubin Negative (Negative) Urine Urobilinogen 0.2 (0.2) mg/dL Ur Leukocyte Esterase Negative (Negative) U Hyaline Cast (Auto) NONE SEEN (0-2) /LPF Urine Microscopic RBC 0-2 (0-5) /HPF Urine Microscopic WBC 0-2 (0-5) /HPF Ur Epithelial Cells Few (None Seen) /HPF Urine Bacteria None Seen (None Seen) /HPF Urine Culture Reflexed NO (NO) Influenza Type A Ag NEGATIVE (NEGATIVE) Influenza Type B Ag NEGATIVE (NEGATIVE) RSV (PCR) NEGATIVE (NEGATIVE) SARS-CoV-2 (PCR) NEGATIVE (NEGATIVE) 04/18/25 04/19/25 04/19/25 Range/Units 22:40 00:37 04:30 WBC (3.98-10.04) x10^3/uL RBC (3.93-5.22) x10^6/uL Hgb (11.2-15.7) g/dL Hct (34.1-44.9) % MCV (79.4-94.8) fL MCH (25.6-32.2) pg MCHC (32.2-35.5) g/dL RDW (11.7-14.4) % Plt Count (182-369) x10^3/uL MPV (9.4-12.3) fL Gran % (34.0-71.1) % Immature Gran % (Auto) (0.001-0.429) % Nucleat RBC Rel Count (0.00-0.2) % Eos # (Auto) (0.04-0.36) x10^3/uL Immature Gran # (Auto) (0.001-0.031) x10^3u/L Absolute Lymphs (auto) (1.18-3.74) x10^3/uL Absolute Monos (auto) (0.24-0.86) x10^3/uL Absolute Nucleated RBC (0.00-0.012) x10^3u/L Lymphocytes % (19.3-51.7) % Monocytes % (4.7-12.5) % Eosinophils % (0.7-5.8) % Basophils % (0.1-1.2) % Absolute Granulocytes (1.56-6.13) x10^3/uL Basophils # (0.01-0.08) x10^3/uL Sodium 129 L (135-145) mmol/L Potassium 4.6 (3.5-5.1) mmol/L Chloride 102 (98-107) mmol/L Carbon Dioxide 22 (22-30) mmol/L Anion Gap 10.3 (5-15) MEQ/L BUN 14 (7-17) mg/dL Creatinine 0.72 (0.52-1.04) mg/dL Estimated GFR 80.9 ML/MIN Glucose 116 H (74-106) mg/dL POC Glucometer 157 H (74 to 106) mg/dL Lactic Acid 2.7 H (0.4-2.0) Calcium 9.0 (8.4-10.2) mg/dL Magnesium (1.6-2.3) mg/dL Total Bilirubin (0.2-1.3) mg/dL AST (14-36) U/L ALT (0-35) U/L Alkaline Phosphatase (38-126) U/L Serum Total Protein (6.3-8.2) g/dL Albumin (3.5-5.0) g/dL TSH 3rd Generation (0.470-4.680) mIU/L Urine Color (Yellow) Urine Appearance (Clear) Urine pH (4.6-8.0) Ur Specific Jerome (1.005-1.030) Urine Protein (Negative) Urine Glucose (UA) (Negative) mg/dL Urine Ketones (Negative) Urine Blood (Negative) Urine Nitrite (Negative) Urine Bilirubin (Negative) Urine Urobilinogen (0.2) mg/dL Ur Leukocyte Esterase (Negative) U Hyaline Cast (Auto) (0-2) /LPF Urine Microscopic RBC (0-5) /HPF Urine Microscopic WBC (0-5) /HPF Ur Epithelial Cells (None Seen) /HPF Urine Bacteria (None Seen) /HPF Urine Culture Reflexed (NO) Influenza Type A Ag (NEGATIVE) Influenza Type B Ag (NEGATIVE) RSV (PCR) (NEGATIVE) SARS-CoV-2 (PCR) (NEGATIVE) 04/19/25 04/19/25 Range/Units 04:30 05:05 WBC 10.1 H (3.98-10.04) x10^3/uL RBC 3.37 L (3.93-5.22) x10^6/uL Hgb 10.5 L (11.2-15.7) g/dL Hct 30.7 L (34.1-44.9) % MCV 91.1 (79.4-94.8) fL MCH 31.2 (25.6-32.2) pg MCHC 34.2 (32.2-35.5) g/dL RDW 13.5 (11.7-14.4) % Plt Count 284 (182-369) x10^3/uL MPV 9.2 L (9.4-12.3) fL Gran % (34.0-71.1) % Immature Gran % (Auto) (0.001-0.429) % Nucleat RBC Rel Count (0.00-0.2) % Eos # (Auto) (0.04-0.36) x10^3/uL Immature Gran # (Auto) (0.001-0.031) x10^3u/L Absolute Lymphs (auto) (1.18-3.74) x10^3/uL Absolute Monos (auto) (0.24-0.86) x10^3/uL Absolute Nucleated RBC (0.00-0.012) x10^3u/L Lymphocytes % (19.3-51.7) % Monocytes % (4.7-12.5) % Eosinophils % (0.7-5.8) % Basophils % (0.1-1.2) % Absolute Granulocytes (1.56-6.13) x10^3/uL Basophils # (0.01-0.08) x10^3/uL Sodium (135-145) mmol/L Potassium (3.5-5.1) mmol/L Chloride (98-107) mmol/L Carbon Dioxide (22-30) mmol/L Anion Gap (5-15) MEQ/L BUN (7-17) mg/dL Creatinine (0.52-1.04) mg/dL Estimated GFR ML/MIN Glucose (74-106) mg/dL POC Glucometer (74 to 106) mg/dL Lactic Acid 1.3 (0.4-2.0) Calcium (8.4-10.2) mg/dL Magnesium (1.6-2.3) mg/dL Total Bilirubin (0.2-1.3) mg/dL AST (14-36) U/L ALT (0-35) U/L Alkaline Phosphatase (38-126) U/L Serum Total Protein (6.3-8.2) g/dL Albumin (3.5-5.0) g/dL TSH 3rd Generation (0.470-4.680) mIU/L Urine Color (Yellow) Urine Appearance (Clear) Urine pH (4.6-8.0) Ur Specific Jerome (1.005-1.030) Urine Protein (Negative) Urine Glucose (UA) (Negative) mg/dL Urine Ketones (Negative) Urine Blood (Negative) Urine Nitrite (Negative) Urine Bilirubin (Negative) Urine Urobilinogen (0.2) mg/dL Ur Leukocyte Esterase (Negative) U Hyaline Cast (Auto) (0-2) /LPF Urine Microscopic RBC (0-5) /HPF Urine Microscopic WBC (0-5) /HPF Ur Epithelial Cells (None Seen) /HPF Urine Bacteria (None Seen) /HPF Urine Culture Reflexed (NO) Influenza Type A Ag (NEGATIVE) Influenza Type B Ag (NEGATIVE) RSV (PCR) (NEGATIVE) SARS-CoV-2 (PCR) (NEGATIVE) Radiology Exams: Radiology Procedures Category Date Time Status CHEST 1 VIEW (PORTABLE) Stat Exams 04/18/25 20:13 Completed Medications: Medications Generic Name Dose Route Start Last Admin Trade Name Freq PRN Reason Stop Dose Admin Albuterol Sulfate 2 puff 04/18/25 23:06 Albuterol Common Canister Inhaler IH 05/18/25 23:05 Q4H PRN PRN SHORTNESS OF BREATH/WHEEZING Atorvastatin Calcium 40 mg 04/19/25 22:00 Atorvastatin Calcium 40 Mg Tablet PO 05/19/25 21:59 HS YANY Diphenhydramine HCl 12.5 mg 04/19/25 00:19 04/19/25 00:41 Diphenhydramine Hcl 12.5 Mg/5 Ml Oral Solution PO 04/19/25 00:20 12.5 mg STAT ONE Administration Sodium Chloride 1,000 mls @ 100 mls/hr 04/19/25 00:30 04/19/25 00:41 Sodium Chloride 0.9% 1000 Ml IV 05/19/25 00:29 100 mls/hr .Q10H YANY Administration Insulin Human Lispro 0 unit 04/19/25 04:50 Insulin Lispro 1 Unit SQ 05/19/25 04:49 UD PRN HYPERGLYCEMIA Melatonin 6 mg 04/19/25 01:32 04/19/25 01:41 Melatonin 3 Mg Tablet PO 04/19/25 01:33 6 mg ONCE ONE Administration Metoprolol Succinate 50 mg 04/19/25 22:00 Metoprolol Succinate 50 Mg Tablet.Sa PO 05/19/25 21:59 HS [facility] Non-Formulary Medication 2.5 mg 04/19/25 10:00 Apixaban [Eliquis 5 Mg Tablet] PO 05/19/25 09:59 BID YANY Non-Formulary Medication 50 mg 04/19/25 10:00 Hydralazine Hcl [Hydralazine Hcl] PO 05/19/25 09:59 BID [facility] Non-Formulary Medication 100 mg 04/19/25 10:00 Metoprolol Succinate [Toprol Xl] PO 05/19/25 09:59 DAILY YANY Spironolactone 25 mg 04/19/25 10:00 Spironolactone 25 Mg Tablet PO 05/19/25 09:59 DAILY YANY Telmisartan 80 mg 04/19/25 10:00 Telmisartan 80 Mg Tab PO 05/19/25 09:59 DAILY [facility] Discontinued Medications Generic Name Dose Route Start Last Admin Trade Name Freq PRN Reason Stop Dose Admin Sodium Chloride 1,000 mls @ 999 mls/hr 04/18/25 20:45 04/18/25 21:57 Sodium Chloride 0.9% 1000 Ml IV 04/18/25 21:45 Infused .Q1H1M STA Infusion Sodium Chloride Confirm 04/18/25 20:55 Sodium Chloride 0.9% 1000 Ml Administered 04/18/25 20:56 Dose 1,000 mls @ ud .ROUTE .STK-MED ONE Sodium Chloride 1,000 mls @ 999 mls/hr 04/18/25 21:48 04/18/25 22:00 Sodium Chloride 0.9% 1000 Ml IV 04/18/25 22:48 999 mls/hr .Q1H1M STA Administration Sodium Chloride Confirm 04/18/25 21:59 Sodium Chloride 0.9% 1000 Ml Administered 04/18/25 22:00 Dose 1,000 mls @ ud .ROUTE .STK-MED ONE Assessment/Plan (1) Hyponatremia Current Visit: Yes Status: Acute Assessment & Plan: -Sodium levels reviewed 128 - 129, now improving with IV normal saline. -Likely multifactorial: low dietary solute intake, ARB (telmisartan), spironolactone, advanced age. -Symptoms limited to generalized weakness without neurologic manifestations. -Continue IVF -Daily cmp -Maintain correction <68 mmol/L per 24 hours. -Hold spironolactone/Consider holding telmisartan Code(s): E87.1 - HYPO-OSMOLALITY AND HYPONATREMIA (2) Lactic acid acidosis Current Visit: Yes Status: Acute Assessment & Plan: -Lactate 3.3 - 1.3 mmol/L. -No further trending needed unless new instability develops. Code(s): E87.20 - ACIDOSIS, UNSPECIFIED (3) Hyperkalemia Current Visit: Yes Status: Acute Assessment & Plan: -Potassium reviewed 5.3-4.6-resolved -Tele -Monitor renal / lytes daily Code(s): E87.5 - HYPERKALEMIA (4) Leukocytosis Current Visit: Yes Status: Acute Assessment & Plan: WBC 11.9 -10.1 -UA negative, viral panel negative. -Chest X-ray without acute findings. -Afebrile, no infectious symptoms. -Trend CBC. -No antibiotics indicated. Code(s): D72.829 - ELEVATED WHITE BLOOD CELL COUNT, UNSPECIFIED (5) Normocytic anemia Current Visit: Yes Status: Acute Assessment & Plan: -Hemoglobin 10.5, stable. -No transfusion indicated. -Trend CBC. -Iron studies, B12, folate outpatient if persistent. Code(s): D64.9 - ANEMIA, UNSPECIFIED (6) DMII (diabetes mellitus, type 2) Current Visit: Yes Status: Acute Assessment & Plan: -ADA diet -SSI -A1c (7) Afib Current Visit: Yes Status: Acute Assessment & Plan: -Continue metoprolol/Eliquis Code(s): I48.91 - UNSPECIFIED ATRIAL FIBRILLATION (8) History of pulmonary embolism Current Visit: Yes Status: Acute Assessment & Plan: -continue eliquis Code(s): Z86.711 - PERSONAL HISTORY OF PULMONARY EMBOLISM (9) HTN (hypertension) Current Visit: Yes Status: Acute Assessment & Plan: -Continue home regimen Code(s): I10 - ESSENTIAL (PRIMARY) HYPERTENSION (10) COPD (chronic obstructive pulmonary disease) Current Visit: Yes Status: Acute Assessment & Plan: -RA at baseline and currently with spo2 @ 99% -Nebs/INH prn -RT to follow -CXR with no acute findings VTE: Eliquis PPI: protonix Dispo: 1-3 days Code status: SCO Plan of care time spent > 40 mins (11) HLD (hyperlipidemia) Current Visit: Yes Status: Acute Assessment & Plan: -continue home regimen Code(s): E78.5 - HYPERLIPIDEMIA, UNSPECIFIED
[2025-04-19 07:35] VITALS: BP 133/62
[2025-04-19 07:50] VITALS: PULSE 73; O2SAT 95
[2025-04-19] MEDS: Micardis 80 MG Tablet PO SCH (09:52)
[2025-04-19] MEDS: ELIQUIS 2.5 MG TABLET PO SCH (09:52)
[2025-04-19] MEDS: Toprol Xl 50 MG PO SCH (09:52)
[2025-04-19] MEDS: Protonix 40MG Tablet PO SCH (09:53)
[2025-04-19] MEDS: Apresoline 25 MG TABLET PO SCH (09:53)
[2025-04-19] MEDS ORDERED: Aldactone 25 MG PO SCH (10:00)
--- NOTE | 2025-04-19 10:02 | PCM.DS ---
Discharge Summary Date of Admission: 04/18/25 22:14 Date of Discharge: 04/19/25 Admitting Physician: NEL HEBERT MD Primary Care Provider: JOSE MARTINEZ YULISA Allergies Allergies No Known Drug Allergies Allergy (Verified 04/18/25 19:58) Hospital Summary - Hospital Course Hospital Course: Ms. Zhang is an 85 year old female with a pmhx of type II diabetes mellitus, atrial fibrillation on apixaban, hypertension, COPD, prior pulmonary embolism, peripheral neuropathy, and hyperlipidemia who was admitted for evaluation of generalized weakness. She described intermittent episodes of weakness over several years, but presented because she just didnt feel well. She denied chest pain, dyspnea, fever, cough, gastrointestinal complaints, or urinary symptoms. Initial laboratory evaluation revealed hyponatremia at 128, hyperkalemia at 5.3 , chloride 95 , lactic acid 3.3, glucose 163 , and leukocytosis at 11.9. Urinalysis and respiratory viral panel were negative, making infection less likely as the cause of her weakness. Her chest X-ray showed no acute cardiopulmonary pathology, supporting a noninfectious etiology for the leukocytosis. Given her advanced age, history of low-salt diet, and mild hypochloremia, her hyponatremia was suspected to be related to low solute intake with possible contribution from antihypertensive therapy (telmisartan and spironolactone). She was started on IV normal saline for solute repletion and volume support. Hyponatremia chronic when labs reviewed. Repeat labs on 04/19 showed improving sodium to 129, normalization of potassium to 4.6 , resolution of lactic acidosis to 1.3 , and improvement in WBC to 10.1. Hemoglobin remained stable at 10.5 with no evidence of bleeding. Her weakness resolved entirely after metabolic abnormalities improved. A morning cortisol level was drawn to evaluate for adrenal insufficiency as a contributing factor, with results pending at discharge with PCP follow up. Physical therapy evaluation was offered but the patient declined, stating she returned to baseline and requested discharge home. She remained hemodynamically stable with no neurologic symptoms and demonstrated adequate mobility for safe discharge. Due to her recent hyponatremia and hyperkalemia, spironolactone was held at discharge to reduce the risk of recurrent electrolyte derangements. She was discharged home in stable condition with plans for close outpatient laboratory monitoring and follow-up with nephrology and her primary care provider. Discharge Note New Diagnosis: hyponatremia New Medications: none- hold spironolactone Results pending: Cortisol level Primary Care Provider: Within 35 days for BMP, CBC, blood pressure check, and review of cortisol level. Nephrology: Outpatient follow-up for hyponatremia evaluation and medication guidance. Return Precautions: Confusion, recurrent weakness, syncope, chest pain, dyspnea, vomiting, or inability to maintain oral intake. I spent 35 minutes [id number] with the patient on the day of discharge performing discharge exam, discussing hospital stay and discharge instructions with patient and caregivers, preparation of discharge records, prescriptions & referral forms and addressing any questions/concerns the patient had as documented above. - Vitals & Intake/Output Vital Signs: Vital Signs Temperature 97.7 F 04/19/25 07:34 Pulse Rate 73 04/19/25 07:48 Respiratory Rate 16 04/19/25 07:48 Blood Pressure 133/62 04/19/25 07:34 O2 Sat by Pulse Oximetry 95 04/19/25 07:48 Intake & Output: Intake & Output 04/16/25 04/17/25 04/18/25 04/19/25 11:59 11:59 11:59 11:59 Intake Total 1396 Balance 1396 Weight 77.4 kg - Lab Result Diagrams: 04/19/25 04:30 04/19/25 04:30 Lab Results-Last 24 Hrs: Lab Results-Last 24 Hours 04/18/25 04/18/25 04/18/25 Range/Units 20:25 20:25 20:25 WBC 11.9 H (3.98-10.04) x10^3/uL RBC 4.01 (3.93-5.22) x10^6/uL Hgb 12.1 (11.2-15.7) g/dL Hct 35.4 (34.1-44.9) % MCV 88.3 (79.4-94.8) fL MCH 30.2 (25.6-32.2) pg MCHC 34.2 (32.2-35.5) g/dL RDW 13.3 (11.7-14.4) % Plt Count 346 (182-369) x10^3/uL MPV 9.1 L (9.4-12.3) fL Gran % 75.0 H (34.0-71.1) % Immature Gran % (Auto) 0.8 H (0.001-0.429) % Nucleat RBC Rel Count 0.0 (0.00-0.2) % Eos # (Auto) 0.27 (0.04-0.36) x10^3/uL Immature Gran # (Auto) 0.09 H (0.001-0.031) x10^3u/L Absolute Lymphs (auto) 1.79 (1.18-3.74) x10^3/uL Absolute Monos (auto) 0.76 (0.24-0.86) x10^3/uL Absolute Nucleated RBC 0.00 (0.00-0.012) x10^3u/L Lymphocytes % 15.1 L (19.3-51.7) % Monocytes % 6.4 (4.7-12.5) % Eosinophils % 2.3 (0.7-5.8) % Basophils % 0.4 (0.1-1.2) % Absolute Granulocytes 8.93 H (1.56-6.13) x10^3/uL Basophils # 0.05 (0.01-0.08) x10^3/uL Sodium 128 L (135-145) mmol/L Potassium 5.3 H (3.5-5.1) mmol/L Chloride 95 L (98-107) mmol/L Carbon Dioxide 22 (22-30) mmol/L Anion Gap 15.9 H (5-15) MEQ/L BUN 17 (7-17) mg/dL Creatinine 0.93 (0.52-1.04) mg/dL Estimated GFR 59.5 ML/MIN Glucose 163 H (74-106) mg/dL POC Glucometer (74 to 106) mg/dL Lactic Acid (0.4-2.0) Calcium 10.2 (8.4-10.2) mg/dL Magnesium 2.0 (1.6-2.3) mg/dL Total Bilirubin 0.90 (0.2-1.3) mg/dL AST 25 (14-36) U/L ALT 21 (0-35) U/L Alkaline Phosphatase 106 (38-126) U/L Serum Total Protein 7.6 (6.3-8.2) g/dL Albumin 4.3 (3.5-5.0) g/dL TSH 3rd Generation 1.401 (0.470-4.680) mIU/L Urine Color (Yellow) Urine Appearance (Clear) Urine pH (4.6-8.0) Ur Specific [place] (1.005-1.030) Urine Protein (Negative) Urine Glucose (UA) (Negative) mg/dL Urine Ketones (Negative) Urine Blood (Negative) Urine Nitrite (Negative) Urine Bilirubin (Negative) Urine Urobilinogen (0.2) mg/dL Ur Leukocyte Esterase (Negative) U Hyaline Cast (Auto) (0-2) /LPF Urine Microscopic RBC (0-5) /HPF Urine Microscopic WBC (0-5) /HPF Ur Epithelial Cells (None Seen) /HPF Urine Bacteria (None Seen) /HPF Urine Culture Reflexed (NO) Influenza Type A Ag (NEGATIVE) Influenza Type B Ag (NEGATIVE) RSV (PCR) (NEGATIVE) SARS-CoV-2 (PCR) (NEGATIVE) 04/18/25 04/18/25 04/18/25 Range/Units 20:26 20:30 20:34 WBC (3.98-10.04) x10^3/uL RBC (3.93-5.22) x10^6/uL Hgb (11.2-15.7) g/dL Hct (34.1-44.9) % MCV (79.4-94.8) fL MCH (25.6-32.2) pg MCHC (32.2-35.5) g/dL RDW (11.7-14.4) % Plt Count (182-369) x10^3/uL MPV (9.4-12.3) fL Gran % (34.0-71.1) % Immature Gran % (Auto) (0.001-0.429) % Nucleat RBC Rel Count (0.00-0.2) % Eos # (Auto) (0.04-0.36) x10^3/uL Immature Gran # (Auto) (0.001-0.031) x10^3u/L Absolute Lymphs (auto) (1.18-3.74) x10^3/uL Absolute Monos (auto) (0.24-0.86) x10^3/uL Absolute Nucleated RBC (0.00-0.012) x10^3u/L Lymphocytes % (19.3-51.7) % Monocytes % (4.7-12.5) % Eosinophils % (0.7-5.8) % Basophils % (0.1-1.2) % Absolute Granulocytes (1.56-6.13) x10^3/uL Basophils # (0.01-0.08) x10^3/uL Sodium (135-145) mmol/L Potassium (3.5-5.1) mmol/L Chloride (98-107) mmol/L Carbon Dioxide (22-30) mmol/L Anion Gap (5-15) MEQ/L BUN (7-17) mg/dL Creatinine (0.52-1.04) mg/dL Estimated GFR ML/MIN Glucose (74-106) mg/dL POC Glucometer (74 to 106) mg/dL Lactic Acid 3.3 H (0.4-2.0) Calcium (8.4-10.2) mg/dL Magnesium (1.6-2.3) mg/dL Total Bilirubin (0.2-1.3) mg/dL AST (14-36) U/L ALT (0-35) U/L Alkaline Phosphatase (38-126) U/L Serum Total Protein (6.3-8.2) g/dL Albumin (3.5-5.0) g/dL TSH 3rd Generation (0.470-4.680) mIU/L Urine Color Yellow (Yellow) Urine Appearance Clear (Clear) Urine pH 7.5 (4.6-8.0) Ur Specific [place] 1.015 (1.005-1.030) Urine Protein Negative (Negative) Urine Glucose (UA) Negative (Negative) mg/dL Urine Ketones Trace A (Negative) Urine Blood Negative (Negative) Urine Nitrite Negative (Negative) Urine Bilirubin Negative (Negative) Urine Urobilinogen 0.2 (0.2) mg/dL Ur Leukocyte Esterase Negative (Negative) U Hyaline Cast (Auto) NONE SEEN (0-2) /LPF Urine Microscopic RBC 0-2 (0-5) /HPF Urine Microscopic WBC 0-2 (0-5) /HPF Ur Epithelial Cells Few (None Seen) /HPF Urine Bacteria None Seen (None Seen) /HPF Urine Culture Reflexed NO (NO) Influenza Type A Ag NEGATIVE (NEGATIVE) Influenza Type B Ag NEGATIVE (NEGATIVE) RSV (PCR) NEGATIVE (NEGATIVE) SARS-CoV-2 (PCR) NEGATIVE (NEGATIVE) 04/18/25 04/19/25 04/19/25 Range/Units 22:40 00:37 04:30 WBC (3.98-10.04) x10^3/uL RBC (3.93-5.22) x10^6/uL Hgb (11.2-15.7) g/dL Hct (34.1-44.9) % MCV (79.4-94.8) fL MCH (25.6-32.2) pg MCHC (32.2-35.5) g/dL RDW (11.7-14.4) % Plt Count (182-369) x10^3/uL MPV (9.4-12.3) fL Gran % (34.0-71.1) % Immature Gran % (Auto) (0.001-0.429) % Nucleat RBC Rel Count (0.00-0.2) % Eos # (Auto) (0.04-0.36) x10^3/uL Immature Gran # (Auto) (0.001-0.031) x10^3u/L Absolute Lymphs (auto) (1.18-3.74) x10^3/uL Absolute Monos (auto) (0.24-0.86) x10^3/uL Absolute Nucleated RBC (0.00-0.012) x10^3u/L Lymphocytes % (19.3-51.7) % Monocytes % (4.7-12.5) % Eosinophils % (0.7-5.8) % Basophils % (0.1-1.2) % Absolute Granulocytes (1.56-6.13) x10^3/uL Basophils # (0.01-0.08) x10^3/uL Sodium 129 L (135-145) mmol/L Potassium 4.6 (3.5-5.1) mmol/L Chloride 102 (98-107) mmol/L Carbon Dioxide 22 (22-30) mmol/L Anion Gap 10.3 (5-15) MEQ/L BUN 14 (7-17) mg/dL Creatinine 0.72 (0.52-1.04) mg/dL Estimated GFR 80.9 ML/MIN Glucose 116 H (74-106) mg/dL POC Glucometer 157 H (74 to 106) mg/dL Lactic Acid 2.7 H (0.4-2.0) Calcium 9.0 (8.4-10.2) mg/dL Magnesium (1.6-2.3) mg/dL Total Bilirubin (0.2-1.3) mg/dL AST (14-36) U/L ALT (0-35) U/L Alkaline Phosphatase (38-126) U/L Serum Total Protein (6.3-8.2) g/dL Albumin (3.5-5.0) g/dL TSH 3rd Generation (0.470-4.680) mIU/L Urine Color (Yellow) Urine Appearance (Clear) Urine pH (4.6-8.0) Ur Specific [place] (1.005-1.030) Urine Protein (Negative) Urine Glucose (UA) (Negative) mg/dL Urine Ketones (Negative) Urine Blood (Negative) Urine Nitrite (Negative) Urine Bilirubin (Negative) Urine Urobilinogen (0.2) mg/dL Ur Leukocyte Esterase (Negative) U Hyaline Cast (Auto) (0-2) /LPF Urine Microscopic RBC (0-5) /HPF Urine Microscopic WBC (0-5) /HPF Ur Epithelial Cells (None Seen) /HPF Urine Bacteria (None Seen) /HPF Urine Culture Reflexed (NO) Influenza Type A Ag (NEGATIVE) Influenza Type B Ag (NEGATIVE) RSV (PCR) (NEGATIVE) SARS-CoV-2 (PCR) (NEGATIVE) 04/19/25 04/19/25 04/19/25 Range/Units 04:30 05:05 07:41 WBC 10.1 H (3.98-10.04) x10^3/uL RBC 3.37 L (3.93-5.22) x10^6/uL Hgb 10.5 L (11.2-15.7) g/dL Hct 30.7 L (34.1-44.9) % MCV 91.1 (79.4-94.8) fL MCH 31.2 (25.6-32.2) pg MCHC 34.2 (32.2-35.5) g/dL RDW 13.5 (11.7-14.4) % Plt Count 284 (182-369) x10^3/uL MPV 9.2 L (9.4-12.3) fL Gran % (34.0-71.1) % Immature Gran % (Auto) (0.001-0.429) % Nucleat RBC Rel Count (0.00-0.2) % Eos # (Auto) (0.04-0.36) x10^3/uL Immature Gran # (Auto) (0.001-0.031) x10^3u/L Absolute Lymphs (auto) (1.18-3.74) x10^3/uL Absolute Monos (auto) (0.24-0.86) x10^3/uL Absolute Nucleated RBC (0.00-0.012) x10^3u/L Lymphocytes % (19.3-51.7) % Monocytes % (4.7-12.5) % Eosinophils % (0.7-5.8) % Basophils % (0.1-1.2) % Absolute Granulocytes (1.56-6.13) x10^3/uL Basophils # (0.01-0.08) x10^3/uL Sodium (135-145) mmol/L Potassium (3.5-5.1) mmol/L Chloride (98-107) mmol/L Carbon Dioxide (22-30) mmol/L Anion Gap (5-15) MEQ/L BUN (7-17) mg/dL Creatinine (0.52-1.04) mg/dL Estimated GFR ML/MIN Glucose (74-106) mg/dL POC Glucometer 101 (74 to 106) mg/dL Lactic Acid 1.3 (0.4-2.0) Calcium (8.4-10.2) mg/dL Magnesium (1.6-2.3) mg/dL Total Bilirubin (0.2-1.3) mg/dL AST (14-36) U/L ALT (0-35) U/L Alkaline Phosphatase (38-126) U/L Serum Total Protein (6.3-8.2) g/dL Albumin (3.5-5.0) g/dL TSH 3rd Generation (0.470-4.680) mIU/L Urine Color (Yellow) Urine Appearance (Clear) Urine pH (4.6-8.0) Ur Specific [place] (1.005-1.030) Urine Protein (Negative) Urine Glucose (UA) (Negative) mg/dL Urine Ketones (Negative) Urine Blood (Negative) Urine Nitrite (Negative) Urine Bilirubin (Negative) Urine Urobilinogen (0.2) mg/dL Ur Leukocyte Esterase (Negative) U Hyaline Cast (Auto) (0-2) /LPF Urine Microscopic RBC (0-5) /HPF Urine Microscopic WBC (0-5) /HPF Ur Epithelial Cells (None Seen) /HPF Urine Bacteria (None Seen) /HPF Urine Culture Reflexed (NO) Influenza Type A Ag (NEGATIVE) Influenza Type B Ag (NEGATIVE) RSV (PCR) (NEGATIVE) SARS-CoV-2 (PCR) (NEGATIVE) Micro Results-Entire Visit: Accuchecks Date 04/19/25 Time 07:46 - Radiology Exams Ordered Rad Exams-Entire Visit: Radiology Procedures Category Date Time Status CHEST 1 VIEW (PORTABLE) Stat Exams 04/18/25 20:13 Completed - Procedures and Test Procedures and Tests throughout Hospitalization: Therapy Orders & Screens 04/18/25 23:06 Respiratory Therapy Assessment DAILY Comment: Diagnosis: hyponatremia, Respiratory Therapy Consult ONCE Comment: Reason For Exam: Diagnosis: hyponatremia, Discharge Exam General Appearance: no apparent distress Neurologic Exam: alert, oriented x 3, cooperative Eye Exam: PERRL Ears, Nose, Throat Exam: normal ENT inspection Neck Exam: normal inspection Respiratory Exam: normal breath sounds, lungs clear Cardiovascular Exam: regular rate/rhythm, normal heart sounds Gastrointestinal/Abdomen Exam: soft, normal bowel sounds Pelvic Exam: deferred Rectal Exam: deferred Back Exam: normal inspection Extremity Exam: normal inspection Skin Exam: normal color Final Diagnosis/Problem List - Final Discharge Diagnosis/Problem (1) Hyponatremia Current Visit: Yes Status: Acute Assessment & Plan: Sodium improved from 128 -129 mmol/L with IV normal saline. Weakness resolved with metabolic correction. Contributing factors include advanced age, low dietary solute intake, and use of diuretics/ARB. Imaging and infectious workup (CXR, UA, viral panel) negative. Encourage adequate dietary protein and normal solute/sodium intake. Hold spironolactone at discharge due to recent hyponatremia and hyperkalemia. Continue telmisartan with caution; reassess if sodium trends downward. Repeat BMP with PCP in 35 days. Follow up with nephrology for outpatient hyponatremia evaluation. Review pending cortisol level with outpatient providers. Code(s): E87.1 - HYPO-OSMOLALITY AND HYPONATREMIA (2) Lactic acid acidosis Current Visit: Yes Status: Acute Assessment & Plan: Lactate improved from 3.3- 1.3 with fluid resuscitation. No infectious or ischemic source identified. Maintain adequate hydration. No further trending required unless symptoms recur. Code(s): E87.20 - ACIDOSIS, UNSPECIFIED (3) Hyperkalemia Current Visit: Yes Status: Acute Assessment & Plan: Potassium normalized from 5.3 - 4.6 mmol/L after IV hydration and stabilization. High risk for recurrence given age and prior spironolactone use. Spironolactone held at discharge. Avoid high-potassium diet. Repeat potassium with outpatient BMP. If hyperkalemia recurs, reassess ARB therapy. Code(s): E87.5 - HYPERKALEMIA (4) Leukocytosis Current Visit: Yes Status: Acute Assessment & Plan: WBC improved from 11.9- 10.1 UA, respiratory viral panel, and chest X-ray negative for acute pathology. Repeat CBC with PCP. No antibiotics indicated. Code(s): D72.829 - ELEVATED WHITE BLOOD CELL COUNT, UNSPECIFIED (5) Normocytic anemia Current Visit: Yes Status: Acute Assessment & Plan: Hgb stable at 10.5 Code(s): D64.9 - ANEMIA, UNSPECIFIED (6) DMII (diabetes mellitus, type 2) Current Visit: Yes Status: Acute Assessment & Plan: Continue home diabetic regimen. Monitor glucose with PCP. (7) Afib Current Visit: Yes Status: Acute Assessment & Plan: Continue Eliquis/Metoprolol Monitor renal function and bleeding risk. Code(s): I48.91 - UNSPECIFIED ATRIAL FIBRILLATION (8) History of pulmonary embolism Current Visit: Yes Status: Acute Assessment & Plan: Continue eliquis Code(s): Z86.711 - PERSONAL HISTORY OF PULMONARY EMBOLISM (9) HTN (hypertension) Current Visit: Yes Status: Acute Assessment & Plan: On telmisartan, hydralazine, and metoprolol. Spironolactone discontinued. Monitor blood pressure closely with PCP. Reassess medication regimen if sodium or potassium abnormalities recur. Code(s): I10 - ESSENTIAL (PRIMARY) HYPERTENSION (10) COPD (chronic obstructive pulmonary disease) Current Visit: Yes Status: Acute Assessment & Plan: Continue home inhaler regimen. No evidence of acute exacerbation during hospitalization. (11) HLD (hyperlipidemia) Current Visit: Yes Status: Acute Assessment & Plan: Continue atorvastatin 40 mg nightly Code(s): E78.5 - HYPERLIPIDEMIA, UNSPECIFIED - Discharge Discharge Date: 04/19/25 Disposition: Home, Self-Care Condition: Stable Prescriptions: Continue Metformin HCl 500 mg PO BID Atorvastatin Calcium 40 mg PO HS Verapamil HCl 80 mg [Calan 80 mg] 80 mg PO BID Insulin Glargine [Lantus Insulin] 15 units SQ QHS Insulin Lispro [Humalog Kwikpen U-100] 10 unit SQ TIDWM Ascorbic Acid 500 mg [Vitamin C 500 MG] 500 mg PO DAILY Telmisartan 80 mg [Micardis 80 MG Tablet] 80 mg PO DAILY Apixaban [Eliquis 5 mg Tablet] 2.5 mg PO BID Hydralazine HCl 50 mg PO BID Metoprolol Succinate [Toprol Xl] 100 mg PO DAILY Metoprolol Succinate 50 mg [Toprol Xl 50 MG] 50 mg PO HS Nitrofurantoin Macro 100 mg [Macrobid 100MG Capsule] 100 mg PO BID Ferrous Sulfate 325 mg [Feosol 325 mg] 325 mg PO DAILY Discontinued Nitrofurantoin Macro 100 mg [Macrobid 100MG Capsule] 100 mg PO BID Spironolactone 25 mg [Aldactone 25 MG] 25 mg PO DAILY Follow up with: JOSE MARTINEZ MD [Primary Care Provider, [facility]]
[2025-04-19 11:28] VITALS: RESP 18
[2025-04-19] MEDS ORDERED: ZOCOR 20MG PO SCH (22:00)
[2025-04-19] MEDS ORDERED: Toprol Xl 50 MG PO SCH (22:00)
== END 2025-04-19 11:05 | disposition home or self-care (01) ==
LOC: ED 19:45 → MED SURG 22:14
PROVIDERS: ADMIT Internal Medicine; ATTEND Internal Medicine
DX: E87.1 Hypo-osmolality and hyponatremia (principal); E87.20 Acidosis, unspecified; E87.5 Hyperkalemia; D72.829 Elevated white blood cell count, unspecified; D64.9 Anemia, unspecified; E11.9 Type 2 diabetes mellitus without complications; I48.91 Unspecified atrial fibrillation; Z86.711 Personal history of pulmonary embolism; I10 Essential (primary) hypertension; J44.9 Chronic obstructive pulmonary disease, unspecified; E78.5 Hyperlipidemia, unspecified; R53.1 Weakness; Z79.899 Other long term (current) drug therapy; Z79.01 Long term (current) use of anticoagulants